=== PATIENT | male | born 1945 | race Caucasian/White ===

== ENCOUNTER → 2018-07-25 | Outpatient (CLI) | payer MEDICARE ==
--- NOTE | 2018-07-25 17:31 | XR ---
EXAMINATION TYPE: XR chest 2V DATE OF EXAM: 07/25/2018 COMPARISON: NONE HISTORY: Cough TECHNIQUE: Frontal and lateral views of the chest are obtained. FINDINGS: There is no focal air space opacity, pleural effusion, or pneumothorax seen. The cardiac silhouette size is within normal limits. Surgical clips are present at the level of the gastroesophag eal junction. Anterior flowing osteophytes within the thoracic spine suggest diffuse idiopathic skele kelley hyperostosis. Deformity of the distal right clavicle may be due to remote trauma. The osseous st ructures are intact. IMPRESSION: No acute cardiopulmonary process.
== END ==
LOC: RADXRMAIN 12:57
PROVIDERS: ATTEND Internal Medicine
DX: R05 Cough (principal)
CPT/HCPCS: 71046

== ENCOUNTER → 2020-03-28 | Outpatient (CLI) | payer BC, MEDICARE ==
--- NOTE | 2020-03-28 08:58 | US ---
EXAMINATION TYPE: US kidneys/renal and bladder DATE OF EXAM: 03/28/2020 COMPARISON: NONE CLINICAL HISTORY: 74-year-old male R31.9 Hematuria, R10.9 Bilat flank pain. TECHNIQUE: Multiple sonographic images of the kidneys and bladder are obtained. FINDINGS: EXAM MEASUREMENTS: Right Kidney: 11.9 x 5.4 x 5.3 cm Left Kidney: 11.5 x 5.5 x 5.5 cm Right Kidney: No hydronephrosis. Subtle 6 mm echogenic area at the lower pole, possible nonobstructiv e calculus. Left Kidney: No hydronephrosis. Multiple simple cysts are present, largest measuring 3.3 x 3.4 x 4.1 cm at the mid pole. A few punctate echogenic foci could represent prominent vascular reflectors or pu nctate nonobstructive calculi. Bladder: wnl Bilateral Jets seen: Yes IMPRESSION: 1. No hydronephrosis. 2. Possible 6 lumbar nonobstructive right lower pole renal calculus. Additional punctate echoes withi n the left kidney could represent prominent vascular reflectors or punctate nonobstructive calculi. 3. Multiple simple cysts in the left kidney measuring up to 4.1 cm.
== END | disposition home or self-care (01) ==
LOC: RADUSWWP 07:21
PROVIDERS: ATTEND Internal Medicine
DX: N28.1 Cyst of kidney, acquired (principal); R31.9 Hematuria, unspecified
CPT/HCPCS: 76770

== ENCOUNTER → 2020-08-04 | Outpatient (CLI) | payer MEDICARE ==
--- NOTE | 2020-08-04 08:32 | US ---
EXAMINATION TYPE: US liver DATE OF EXAM: 08/04/2020 COMPARISON: NONE CLINICAL HISTORY: R94.5 Abnormal Liver function test. EXAM MEASUREMENTS: Liver Length: 17.2 cm Gallbladder Wall: 0.1 cm CBD: 0.3 cm Right Kidney: 12.4 x 5.9 x 5.2 cm Pancreas: Partially Obscured by bowel gas Liver: Increased attenuation, ? fatty liver with areas of focal sparing near GB Gallbladder: No stones seen Evidence for sonographic Stiles's sign: No CBD: wnl Right Kidney: wnl IMPRESSION: 1. Liver is increased attenuation with an area of hypoechogenicity near the gallbladder fossa likely representing focal fatty sparing. Increased attenuation suggestive of hepatic steatosis. Hepatitis al so in the differential diagnosis.
== END | disposition home or self-care (01) ==
LOC: RADUSWWP 07:41
PROVIDERS: ATTEND Internal Medicine
DX: R94.5 Abnormal results of liver function studies (principal)
CPT/HCPCS: 76705

== ENCOUNTER 2021-12-10 11:18 | Observation (INO) | payer MEDICARE ==
[2021-12-10] MEDS ORDERED: ASPIRIN 81 MG PO STA (11:29)
[2021-12-10] MEDS ORDERED: NITROGLYCERIN OINT 1 INCH/GM PACKET TOPICAL STA (11:29)
[2021-12-10] MEDS ORDERED: SODIUM CHLORIDE 0.9% 500 ML 500 ML IV STA (11:29)
[2021-12-10 11:32] VITALS: RESP 18
--- NOTE | 2021-12-10 11:35 | ED ---
General Adult HPI - General Chief complaint: Chest Pain Stated complaint: Chest pain Time Seen by Provider: 12/10/21 11:20 Source: patient, EMS, RN notes reviewed, old records reviewed Mode of arrival: ambulatory Limitations: no limitations - History of Present Illness Initial comments: This is a 76-year-old male who presents emergency Department complaining that he passed out this morning. Patient states he was sitting in a barstool smoking a joint and then he passed out. Patient states he didn't know how long he passed out for. Patient states he doesn't believe he hit his head or neck pain patient denies headache patient denies any neck pain. Patient states when he came to he was having chest pain when EMS arrived he also continued to have chest pain. Patient's chest pain is subsided. Patient denies any shortness of breath or difficulty breathing. Patient denies any recent fever chills or cough. Patient denies being lightheaded or dizzy. Patient denies headache patient denies numbness weakness. - Related Data Home Medications Medication Instructions Recorded Confirmed [place]-3 Fatty Acids/Fish Oil [Fish 1 each PO DAILY 06/26/15 07/04/15 Oil 1,000 mg Softgel] Ranitidine HCl 150 mg PO BID 06/26/15 07/04/15 Simvastatin [Zocor] 40 mg PO QAM 06/26/15 07/09/15 atenoloL [Tenormin] 50 mg PO DAILY 06/26/15 07/04/15 Previous Rx's Medication Instructions Recorded HYDROcodone/APAP 7.5-325MG [[place] 1 each PO Q6HR PRN #28 tab 07/09/15 7.5-325] Allergies Allergy/AdvReac Type Severity Reaction Status Date / Time Penicillins Allergy Rash/Hives Verified 12/10/21 11:37 Review of Systems ROS Statement: Those systems with pertinent positive or pertinent negative responses have been documented in the HPI. ROS Other: All systems not noted in ROS Statement are negative. Past Medical History Past Medical History: Chest Pain / Angina, GERD/Reflux, Hyperlipidemia, Hypertension, Myocardial Infarction (NM), Osteoarthritis (OA), Sleep Apnea/CPAP/BIPAP Additional Past Medical History / Comment(s): NO CPAP, HIATAL HERNIA, colonic POLYP Last Myocardial Infarction Date:: 10/1994 History of Any Multi-Drug Resistant Organisms: None Reported Past Surgical History: Orthopedic Surgery, Tonsillectomy Additional Past Surgical History / Comment(s): 07-09-15 laprascopic gillian fundopliction. 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 Past Anesthesia/Blood Transfusion Reactions: No Reported Reaction Past Psychological History: No Psychological Hx Reported Smoking Status: Current every day smoker, Former smoker Past Alcohol Use History: Occasional Past Drug Use History: Marijuana - Past Family History Mother Family Medical History: No Reported History Additional Family Medical History / Comment(s): in mva at age 44 Father Family Medical History: No Reported History Additional Family Medical History / Comment(s): in boating accident at age 67 Brother(s) Family Medical History: Coronary Artery Disease (CAD) Additional Family Medical History / Comment(s): Patient has 3 brothers and he knows that one brother has had a 3 or 4 vessel CABG and is not aware of other health problems. Patient has 3 sisters which she does not know of any major medical problems. Son(s) Additional Family Medical History / Comment(s): He has one son that is overweight and has gastric esophageal reflux disease and hypertension. He has one daughter that has gallbladder problems. General Exam - General Exam Comments Initial Comments: GENERAL: Patient is well-developed and well-nourished. Patient is nontoxic and well- hydrated and is in mild distress. ENT: Neck is soft and supple. No significant lymphadenopathy is noted. Oropharynx is clear. Moist mucous membranes. Neck has full range of motion without eliciting any pain. EYES: The sclera were anicteric and conjunctiva were pink and moist. Extraocular mov ements were intact and pupils were equal round and reactive to light. Eyelids were unremarkable. PULMONARY: Unlabored respirations. Good breath sounds bilaterally. No audible rales rhonchi or wheezing was noted. CARDIOVASCULAR: There is a regular rate and rhythm without any murmurs gallops or rubs. ABDOMEN: Soft and nontender with normal bowel sounds. SKIN: Skin is clear with no lesions or rashes and otherwise unremarkable. NEUROLOGIC: Patient is alert and oriented x3. Cranial nerves II through XII are grossly intact. Motor and sensory are also intact. Normal speech, volume and content. Symmetrical smile. MUSCULOSKELETAL: Normal extremities with adequate strength and full range of motion. No lower extremity swelling or edema. No calf tenderness. LYMPHATICS: No significant lymphadenopathy is noted PSYCHIATRIC: Normal psychiatric evaluation. Limitations: no limitations Course Vital Signs 12/10/21 12/10/21 12/10/21 11:21 11:47 12:36 Temperature 97.4 F L Pulse Rate 53 L 52 L Pulse Rate [ 56 L Pulse Oximetery ] Respiratory 18 18 Rate Blood Pressure 108/57 117/58 O2 Sat by Pulse 96 95 Oximetry Medical Decision Making - Medical Decision Making Chest x-ray shows no acute abnormality. Patient's EKG shows sinus bradycardia 51 bpm MD interval is 161 QRSs 109 QT interval 474 QTC is 449. Patient's EKG shows no ST segment elevation or depression. I spoke with Dr. Chang he agreed to admit the patient admitted the patient I consult cardiology. - Lab Data Result diagrams: 12/10/21 11:47 12/10/21 11:47 Lab Results 12/10/21 12/10/21 12/10/21 Range/Units 11:47 11:47 11:47 WBC 4.0 (3.8-10.6) k/uL RBC 3.96 L (4.30-5.90) m/uL Hgb 12.1 L (13.0-17.5) gm/dL Hct 35.3 L (39.0-53.0) % MCV 89.2 (80.0-100.0) fL MCH 30.6 (25.0-35.0) pg MCHC 34.3 (31.0-37.0) g/dL RDW 13.8 (11.5-15.5) % Plt Count 162 (150-450) k/uL MPV 7.2 Neutrophils % 62 % Lymphocytes % 24 % Monocytes % 6 % Eosinophils % 4 % Basophils % 1 % Neutrophils # 2.5 (1.3-7.7) k/uL Lymphocytes # 1.0 (1.0-4.8) k/uL Monocytes # 0.3 (0-1.0) k/uL Eosinophils # 0.2 (0-0.7) k/uL Basophils # 0.0 (0-0.2) k/uL PT 11.2 (9.0-12.0) sec INR 1.0 (<1.2) APTT 20.6 L (22.0-30.0) sec D-Dimer 0.57 (<0.60) mg/L FEU Sodium 137 (137-145) mmol/L Potassium 4.5 (3.5-5.1) mmol/L Chloride 107 (98-107) mmol/L Carbon Dioxide 24 (22-30) mmol/L Anion Gap 6 mmol/L BUN 15 (9-20) mg/dL Creatinine 1.18 (0.66-1.25) mg/dL Est GFR (CKD-EPI)AfAm 70 (>60 ml/min/1.73 sqM) Est GFR (CKD-EPI)NonAf 60 (>60 ml/min/1.73 sqM) Glucose 112 H (74-99) mg/dL Calcium 8.5 (8.4-10.2) mg/dL Magnesium 2.0 (1.6-2.3) mg/dL Total Bilirubin 0.3 (0.2-1.3) mg/dL AST 22 (17-59) U/L ALT 23 (4-49) U/L Alkaline Phosphatase 53 (38-126) U/L Troponin I (0.000-0.034) ng/mL Total Protein 6.1 L (6.3-8.2) g/dL Albumin 3.5 (3.5-5.0) g/dL 12/10/21 Range/Units 11:47 WBC (3.8-10.6) k/uL RBC (4.30-5.90) m/uL Hgb (13.0-17.5) gm/dL Hct (39.0-53.0) % MCV (80.0-100.0) fL MCH (25.0-35.0) pg MCHC (31.0-37.0) g/dL RDW (11.5-15.5) % Plt Count (150-450) k/uL MPV Neutrophils % % Lymphocytes % % Monocytes % % Eosinophils % % Basophils % % Neutrophils # (1.3-7.7) k/uL Lymphocytes # (1.0-4.8) k/uL Monocytes # (0-1.0) k/uL Eosinophils # (0-0.7) k/uL Basophils # (0-0.2) k/uL PT (9.0-12.0) sec INR (<1.2) APTT (22.0-30.0) sec D-Dimer (<0.60) mg/L FEU Sodium (137-145) mmol/L Potassium (3.5-5.1) mmol/L Chloride (98-107) mmol/L Carbon Dioxide (22-30) mmol/L Anion Gap mmol/L BUN (9-20) mg/dL Creatinine (0.66-1.25) mg/dL Est GFR (CKD-EPI)AfAm (>60 ml/min/1.73 sqM) Est GFR (CKD-EPI)NonAf (>60 ml/min/1.73 sqM) Glucose (74-99) mg/dL Calcium (8.4-10.2) mg/dL Magnesium (1.6-2.3) mg/dL Total Bilirubin (0.2-1.3) mg/dL AST (17-59) U/L ALT (4-49) U/L Alkaline Phosphatase (38-126) U/L Troponin I <0.012 (0.000-0.034) ng/mL Total Protein (6.3-8.2) g/dL Albumin (3.5-5.0) g/dL Disposition Clinical Impression: Chest pain, Syncope Disposition: ADMITTED IP TO THIS HOSP Referrals: Lance Chang MD [Primary Care Provider] - 1-2 days Time of Disposition: 12:54
[2021-12-10 12:01] LABS: Basophils % (A) 1 %; Eosinophils # (A) 0.2 k/uL (0-0.7); Eosinophils % (A) 4 %; HCT 35.3 % (39.0-53.0); HGB 12.1 gm/dL (13.0-17.5); Lymphocytes % (A) 24 %; MCH 30.6 pg (25.0-35.0); MCHC 34.3 g/dL (31.0-37.0); MCV 89.2 fL (80.0-100.0); Mean Platelet Volume 7.2; Monocytes # (A) 0.3 k/uL (0-1.0); Monocytes % (A) 6 %; Neutrophils # (A) 2.5 k/uL (1.3-7.7); Neutrophils % (A) 62 %; Platelet Count 162 k/uL (150-450); RBC 3.96 m/uL (4.30-5.90); RDW 13.8 % (11.5-15.5)
[2021-12-10 12:22] LABS: Prothrombin Time 11.2 sec (9.0-12.0)
[2021-12-10 12:28] LABS: Albumin 3.5 g/dL (3.5-5.0); Calcium 8.5 mg/dL (8.4-10.2); Potassium 4.5 mmol/L (3.5-5.1); Total Bilirubin 0.3 mg/dL (0.2-1.3); Total Protein 6.1 g/dL (6.3-8.2)
[2021-12-10 12:35] LABS: Partial Thromboplastin Time 20.6 sec (22.0-30.0)
--- NOTE | 2021-12-10 12:54 | XR ---
EXAMINATION TYPE: XR chest 2V DATE OF EXAM: 12/10/2021 COMPARISON: 07/25/2018 HISTORY: 76-year-old male with chest pain and weakness TECHNIQUE: PA and lateral views FINDINGS: Heart normal size. Aorta and pulmonary vasculature within normal limits. Mild patchy interstitial jacqui nges in the mid and lower lungs. No pleural effusion. Surgical clips at the GE junction. Chronic post surgical versus posttraumatic widening at the right AC joint. IMPRESSION: Mild patchy changes in the mid and lower lungs could represent areas of prominent atelectasis. Correl ate to exclude bronchitis or asthma. Surgical clips at the GE junction.
[2021-12-10] MEDS ORDERED: NITROGLYCERIN SL TABS 0.4 MG TAB SUBLINGUAL PRN (12:55)
[2021-12-10 16:12] VITALS: BP 172/77; PULSE 58; TEMP 97.7
[2021-12-10] MEDS ORDERED: NITROGLYCERIN OINT 1 INCH/GM PACKET TOPICAL SCH (18:00)
[2021-12-11] MEDS ORDERED: ASPIRIN 325 MG TAB PO SCH (09:00)
[2021-12-11] MEDS ORDERED: ATORVASTATIN 10 MG TAB PO SCH (09:00)
[2021-12-11] MEDS ORDERED: lisinopriL 10 MG TAB PO SCH (09:00)
[2021-12-11] MEDS ORDERED: ASPIRIN 81 MG PO SCH (09:00)
--- NOTE | 2021-12-20 10:49 | P.HPIM ---
History of Present Illness H&P Date: 12/20/21 This is a [age]-year-old male patient who presented to the ER with syncopal episodes and chest pain. According to ER records patient was apparently sitting in a barstool smoking joint and then passed out patient presented with chest pain when EMS arrived. Patient does have a past medical history of, chest pain, hyperlipidemia, hypertension, HI, OA and sleep apnea. Patient also current every day smoker. It was recommended the patient be admitted and cardiology workup ordered. According to records patient left AGAINST MEDICAL ADVICE. I did not personally examine this patient as patient left AMA prior to examination Past Medical History Past Medical History: Chest Pain / Angina, GERD/Reflux, Hyperlipidemia, Hypertension, Myocardial Infarction (HI), Osteoarthritis (OA), Sleep Apnea/CPAP/BIPAP Additional Past Medical History / Comment(s): NO CPAP, HIATAL HERNIA, colonic POLYP Last Myocardial Infarction Date:: 10/1994 History of Any Multi-Drug Resistant Organisms: None Reported Past Surgical History: Orthopedic Surgery, Tonsillectomy Additional Past Surgical History / Comment(s): 07-09-15 laprascopic gillian fundopliction. 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 Past Anesthesia/Blood Transfusion Reactions: No Reported Reaction Past Psychological History: No Psychological Hx Reported Smoking Status: Current every day smoker, Former smoker Past Alcohol Use History: Occasional Past Drug Use History: Marijuana - Past Family History Mother Family Medical History: No Reported History Additional Family Medical History / Comment(s): in mva at age 44 Father Family Medical History: No Reported History Additional Family Medical History / Comment(s): in boating accident at age 67 Brother(s) Family Medical History: Coronary Artery Disease (CAD) Additional Family Medical History / Comment(s): Patient has 3 brothers and he knows that one brother has had a 3 or 4 vessel CABG and is not aware of other health problems. Patient has 3 sisters which she does not know of any major medical problems. Son(s) Additional Family Medical History / Comment(s): He has one son that is overweight and has gastric esophageal reflux disease and hypertension. He has one daughter that has gallbladder problems. Medications and Allergies Home Medications Medication Instructions Recorded Confirmed Type Aspirin EC [Ecotrin Low Dose] 81 mg PO DAILY 12/10/21 12/10/21 History Pantoprazole [Protonix] 40 mg PO DAILY 12/10/21 12/10/21 History Rosuvastatin Calcium [Crestor] 5 mg PO DAILY 12/10/21 12/10/21 History lisinopriL [Zestril] 10 mg PO DAILY 12/10/21 12/10/21 History Allergies Allergy/AdvReac Type Severity Reaction Status Date / Time Penicillins Allergy Rash/Hives Verified 12/10/21 13:27 Results CBC & Chem 7: 12/10/21 11:47 12/10/21 11:47
== END 2021-12-10 18:32 | disposition left against medical advice (07) ==
LOC: EC 11:18 → 1SOBS 13:01
PROVIDERS: ADMIT Internal Medicine; ATTEND Internal Medicine
DX: R07.9 Chest pain, unspecified (principal); R55 Syncope and collapse; K21.9 Gastro-esophageal reflux disease without esophagitis; E78.5 Hyperlipidemia, unspecified; I10 Essential (primary) hypertension; I25.2 Old myocardial infarction; M19.90 Unspecified osteoarthritis, unspecified site; G47.30 Sleep apnea, unspecified; K44.9 Diaphragmatic hernia without obstruction or gangrene; K63.5 Polyp of colon; R00.1 Bradycardia, unspecified; F17.200 Nicotine dependence, unspecified, uncomplicated; Z20.822 Contact with and (suspected) exposure to COVID-19; Z53.29 Procedure and treatment not carried out because of patient's decision for other reasons; Z85.820 Personal history of malignant melanoma of skin; Z87.11 Personal history of peptic ulcer disease; Z79.899 Other long term (current) drug therapy; Z79.82 Long term (current) use of aspirin; Z88.0 Allergy status to penicillin; Z82.49 Family history of ischemic heart disease and other diseases of the circulatory system; Z83.79 Family history of other diseases of the digestive system
CPT/HCPCS: 99285; 36415; 93005; 85379; 80053; 83735; 84484; 85025; 85610; 85730; 87635; 71046; G0378

== ENCOUNTER → 2023-10-14 | Outpatient (CLI) | payer MEDICARE ==
--- NOTE | 2023-10-14 17:09 | US ---
EXAMINATION TYPE: US kidneys/renal and bladder DATE OF EXAM: 10/14/2023 COMPARISON: 03/28/2020 CLINICAL INDICATION: Male, 78 years old with history of R10.9 UNSPECIFIED ABDOMINAL PAIN; flank pain x 3 months EXAM MEASUREMENTS: Right Kidney: 11.9x5.4x5.3 cm Left Kidney: 11.5x5.5x5.5 cm Right Kidney: No hydronephrosis or masses seen Left Kidney: largest cystic area measured at superior pole: 2.6x2.7x3.4cm Bladder: irregular posterior wall, prostate appears to protrude into bladder Bilateral Jets seen: Yes There is no evidence for hydronephrosis at this point in time. No nephrolithiasis is seen. No deisy s are identified. The urinary bladder is anechoic. Bilateral ureteral jets are seen. exam slightly limited by bowel and body habitus IMPRESSION: 1. No evidence for obstructive uropathy. 2. Left renal cyst. 3. Prostatomegaly, correlate with serum PSA.
== END | disposition home or self-care (01) ==
LOC: RADUSWWP 16:27
PROVIDERS: ATTEND Internal Medicine
DX: N28.1 Cyst of kidney, acquired (principal); N40.0 Benign prostatic hyperplasia without lower urinary tract symptoms
CPT/HCPCS: 76770

== ENCOUNTER 2025-01-13 13:40 | Inpatient (IN) | payer MEDICARE ==
[2025-01-13] MEDS: HYDROmorphone 0.5 MG/0.5 ML SYRINGE IVP ONE (15:08)
[2025-01-13] MEDS: IV FLUID CONTINUATION 1,000 ML IV ONE (15:08)
[2025-01-13] MEDS: ONDANSETRON 4 MG/2 ML VIAL IVP ONE (15:08)
[2025-01-13] MEDS: LIDOCAINE 1% INJ 10MG/ML (20 ML MDV) SQ ONE (15:12)
[2025-01-13] MEDS: VERAPAMIL SYRINGE (5 MG/10 ML) INTRAARTER ONE (15:14)
[2025-01-13] MEDS: HEPARIN SODIUM 1,000 UN/ML (10ML VL) IV ONE (15:30)
[2025-01-13] MEDS: IOPAMIDOL-370 100ML BTL INJ ONE (15:40)
[2025-01-13] MEDS ORDERED: RX INFO: IV CONTRAST WAS GIVEN 1 EACH MISC MISCELLANE PRN (16:01)
[2025-01-13 17:23] LABS: Glucose,Whole Blood 126 mg/dL (70-110)
[2025-01-13] MEDS: SODIUM CHLORIDE 0.9% 1,000 ML IV SCH (17:30)
[2025-01-13] MEDS: hydrALAZINE HCL 20 MG/ML 1 ML VIAL IVP PRN (17:37)
--- NOTE | 2025-01-13 18:28 | CT ---
EXAMINATION TYPE: CT brain wo con DATE OF EXAM: 01/13/2025 6:13 PM COMPARISON: None. CLINICAL INDICATION: Male, 79 years old with history of altered mental status, AMS. Shaking. TECHNIQUE: Brain: Axial CT images of the brain were obtained with coronal and sagittal reformats created and rev iewed. Contrast used: None. Oral contrast used: None. CT DLP: 1153.4 mGycm, Automated exposure control for dose reduction was used. FINDINGS: Brain: Extra-axial spaces: No abnormal extra-axial fluid collections. Ventricular system: Within normal limits Cerebral parenchyma: No acute intraparenchymal hemorrhage or mass effect. The perkins-white junction is well differentiated. Cerebellum: Unremarkable. Mass effect: No evidence of midline shift. Intracranial vasculature: Atherosclerotic calcifications of the intracranial vessels. Soft tissues: Normal. Calvarium/osseous structures: No depressed skull fracture. Paranasal sinuses and mastoid air cells: Mild scattered paranasal sinus disease. Visualized orbits: Orbital contents are intact. IMPRESSION: No acute intracranial process. [facility], , 01/13/2025 6:26 PM
--- NOTE | 2025-01-13 18:32 | CT ---
EXAMINATION TYPE: CT abdomen wo con DATE OF EXAM: 01/13/2025 6:13 PM COMPARISON: Ultrasound CLINICAL INDICATION: Male, 79 years old with history of persistent nausea/vomiting; N/V. TECHNIQUE: Axial CT abdomen wo con;Sagittal and coronal reformats were created on a separate worksta tion. Contrast used: mL of , (none if empty) Oral contrast used: without Oral Contrast (none if empty) CT DLP: 718.3 mGycm, Automated exposure control for dose reduction was used. FINDINGS: LOWER CHEST: Mild cardiomegaly. Coronary artery calcifications aortic valve leaflet consultations carol ral valve annular calcifications. ABDOMEN LIVER: Unremarkable GALLBLADDER AND BILE DUCTS: Vicarious excretion of IV contrast seen through out the gallbladder lumen . PANCREAS: Unremarkable. SPLEEN: Unremarkable. ADRENAL GLANDS: Unremarkable. KIDNEYS AND URETERS: No evidence of hydronephrosis or renal calculus. The ureters are unremarkable. Simple appearing renal cortical cysts. ABDOMEN & PELVIS STOMACH AND BOWEL: No evidence of bowel obstruction. Postsurgical changes to gastroesophageal junctio n. Scattered colonic diverticula. The appendix is normal. PERITONEUM/RETROPERITONEUM: No evidence of pneumoperitoneum or free fluid. VASCULATURE: No evidence of aortic aneurysm. MUSCULOSKELETAL: No acute osseous abnormalities. Moderate disc degeneration changes are present throu ghout the thoracolumbar spine. Pseudoarthrosis of the spinous processes throughout the spine with lar ge osteophytes anteriorly. LYMPH NODES: No gross evidence for lymphadenopathy. SOFT TISSUE/ABDOMINAL WALL: Unremarkable IMPRESSION: 1. No evidence for acute abdominal process. 2. Colonic diverticulosis. 3. Postsurgical changes to the gastroesophageal junction. 4. Moderate degeneration changes spine with pseudoarthrosis of the spinous processes. [facility], , 01/13/2025 6:30 PM
[2025-01-13] MEDS ORDERED: LORazepam 2 MG/ML INJ IV PRN (18:59)
--- NOTE | 2025-01-13 19:08 | CC ---
CARDIAC CATHETERIZATION REPORT INDICATION: Unstable angina. PROCEDURE NOTE: After obtaining informed consent, left heart catheterization and coronary angiogram were performed via the right radial artery using standard Aidee catheters. The patient tolerated the procedure well without any obvious immediate complications, and the patient received moderate conscious sedation. Total sedation time was 16 minutes. A TR band will be used for hemostasis. Right radial artery access was obtained using Seldinger technique. A 6-Turkish sheath was placed. Catheters and wires were floated into the ascending aorta under fluoroscopic guidance. The patient received verapamil and heparin per protocol. Tolerated the procedure uneventfully. FINDINGS: 1. Hemodynamics: Left ventricular end-diastolic pressure is 14 mm. There is no significant gradient across the aortic valve. 2. Left ventriculogram: Not performed. 3. Angiographic data: Right coronary artery is a large dominant vessel and is free of significant stenosis. Left main coronary artery is a short vessel, but is free of stenosis, divides into left anterior descending coronary artery and circumflex coronary artery. LAD and its branches, circumflex coronary artery and its branches are free of significant stenosis. CONCLUSIONS: 1. Normal coronary arteries. 2. Normal left ventricular end-diastolic pressure. PLAN: The patient's chest discomfort is probably noncardiac in origin. We will admit him and the primary will pursue further workup. MMODL / IJN: [id number] /
[2025-01-13] MEDS: LORazepam 1 MG/0.5 ML VIAL IV PRN (19:52)
[2025-01-13] MEDS: ONDANSETRON 4 MG/2 ML VIAL IVP PRN (19:52)
--- NOTE | 2025-01-13 20:10 | US ---
EXAMINATION TYPE: US kidneys/renal and bladder DATE OF EXAM: 01/13/2025 COMPARISON: 01/13/2025 CT CLINICAL INDICATION: Male, 79 years old with history of HTN, back pain; TECHNIQUE: Grayscale imaging of the bilateral kidneys and urinary bladder: FINDINGS: EXAM MEASUREMENTS: Right Kidney: 10.3 x 5.0 x 4.5 cm Left Kidney: 10.1 x 4.5 x 5.7 cm Right Kidney: No hydronephrosis or masses seen Left Kidney: Suboptimal visualization due to patient positioning and shaking. Mid lateral anechoic le yasmin = 2.1 x 1.8 x 2.2 cm Bladder: anechoic Bilateral Jets not seen There is no evidence for hydronephrosis at this point in time. No nephrolithiasis is seen. No deisy s are identified. The urinary bladder is anechoic. IMPRESSION: 1. No evidence for acute process. 2. Left renal cortical probable cys as seen on CT. [facility], , 01/13/2025 8:07 PM
[2025-01-14 06:03] LABS: Basophils % (A) 0 %; Eosinophils % (A) 1 %; HCT 36.2 % (39.0-53.0); HGB 11.6 gm/dL (13.0-17.5); Lymphocytes # (A) 0.9 k/uL (1.0-4.8); Lymphocytes % (A) 16 %; MCH 29.3 pg (25.0-35.0); MCHC 32.1 g/dL (31.0-37.0); MCV 91.3 fL (80.0-100.0); Monocytes # (A) 0.4 k/uL (0-1.0); Monocytes % (A) 7 %; Neutrophils # (A) 4.2 k/uL (1.3-7.7); Neutrophils % (A) 74 %; Platelet Count 184 k/uL (150-450); RBC 3.97 m/uL (4.30-5.90); RDW 13.8 % (11.5-15.5); WBC 5.7 k/uL (3.8-10.6)
[2025-01-14 06:25] LABS: ALT 30 U/L (4-49); AST 26 U/L (17-59); African American GFR (CKD) 73 (>60 ml/min/1.73 sqM); Albumin 4.3 g/dL (3.5-5.0); Alkaline Phosphatase 55 U/L (38-126); Anion Gap 7 mmol/L; Blood Urea Nitrogen 18 mg/dL (9-20); Calcium 9.3 mg/dL (8.4-10.2); Carbon Dioxide 25 mmol/L (22-30); Chloride 108 mmol/L (98-107); Glucose 117 mg/dL (74-99); Non-African American GFR(CKD) 63 (>60 ml/min/1.73 sqM); Potassium 4.3 mmol/L (3.5-5.1); Sodium 140 mmol/L (137-145); Total Bilirubin 0.6 mg/dL (0.2-1.3); Total Protein 6.8 g/dL (6.3-8.2)
[2025-01-14] MEDS: PANTOPRAZOLE 40 MG TABLET PO SCH ×2 (09:19→16:59)
[2025-01-14] MEDS: ATORVASTATIN 20 MG TAB PO SCH (09:20)
[2025-01-14] MEDS: TAMSULOSIN 0.4 MG CAP.ER.24H PO SCH (09:20)
[2025-01-14] MEDS: hydroCHLOROthiazide 25 MG TAB PO SCH (09:20)
[2025-01-14] MEDS: lisinopriL 20 MG TAB PO SCH (09:22)
--- NOTE | 2025-01-14 14:13 | P.CNNES ---
History of Present Illness Consult date: 01/14/25 Requesting physician: Lance Chang Reason for Consult: Mental status change History of Present Illness: Patient is a 79-year-old right-handed male with history of hypertension, ex tobacco use, came to the hospital as a transfer from [facility] for elective cardiac catheterization for unstable angina. He came to the hospital yesterday. Cardiac catheter revealed normal coronary arteries. Normal left ventricular end-diastolic pressure. Patient's chest pain was felt to be related to noncardiac in origin. Patient and his son provided with a history. Patient mentions that he bought some sleeping aid from a commercial at the TV called relaxation and sleep, which has 2 tablets per serving, and per serving has 5 mg of melatonin, 100 mg of RICHARD, 100 mg magnesium, valerian etc. After he took 2 tablets as recommended on the bottle, on night, he woke up at 3 AM on Tuesday with anxiety, sweating, chest pain. He thought symptoms will go away but as the symptoms persisted, he could not stand it anymore therefore he went to [facility] on Tuesday midnight. He stayed in the hospital for 2 days. He was transferred to [facility] for cardiac catheterization. Since all the symptoms started, he has been having episodes in which he starts with stomach ache, which he actually points to epigastric and sternal pain, rates 10/10, cannot breathe, started shaking "like leaf on a windy day", kicking his legs, gets a headache, sweating and nausea. This episode lasts for about 20 minutes and has happened about 20 times in the last 3 to 4 days. Per son it is hap pening about every 3 hours and the last episode was at 6 AM. When he gets his episode he gets eyes are hurting which he attributes to high blood pressure, both eyes have blurred vision, hard time speaking, which partly is from severe pain. As cardiac cause has been ruled out, cane weigher has been consulted. There is no report of focal weakness, facial droop. CT head showed no acute intracranial process. I personally reviewed CT head, agree with the findings. CT of abdomen without contrast revealed no evidence for acute abdominal process. Colonic diverticulosis. Postsurgical changes to the gastroesophageal junction. Moderate degeneration changes spine with pseudoarthrosis of the spinous processes. Blood test shows normal CBC with slightly decreased hemoglobin 11.6. CMP is normal. Ammonia less than 9. Vital signs shows blood pressure 176/80, pulse rate 75 temperature 98.2. Blood pressure was high, but now has improved. Home medications include Lipitor 20 mg, Flomax, HCTZ, lisinopril 40 mg and Protonix. Patient apparently not on any antiplatelet medication. Patient smoked 1 pack/day for 48 years, quit 10 years ago. He drinks only 1 time a week, not a heavy drinker. Denies diabetes. He does have hypertension. Records from [facility]: Patient was receiving aspirin 81 mg at [facility], but has stopped taking it here. Magnesium 1.88. Lactate 1.2 troponin negative. UA shows 2+ leukocyte esterase, negative nitrite no bacteria. Basic metabolic panel normal. Creatinine slightly elevated 1.65. Lipase 29 normal. Hepatic panel normal. PT/INR, PTT normal. CBC normal. Chest x-ray showed mild vascular congestion. EKG showed sinus rhythm. Patient was admitted for chest pain, hypertensive urgency, acute on chronic renal failure, evidence of kidney stone on CT, lactic acidosis, history of GERD and peptic ulcer disease. Review of Systems All pertinent positive and negative review of systems mentioned HPI. Otherwise unremarkable. Past Medical History Past Medical History: Coronary Artery Disease (CAD), Chest Pain / Angina, GERD/Reflux, Hyperlipidemia, Hypertension, Myocardial Infarction (MS), Ost eoarthritis (OA), Sleep Apnea/CPAP/BIPAP Additional Past Medical History / Comment(s): NO CPAP, HIATAL HERNIA, colonic POLYP Last Myocardial Infarction Date:: 10/1994 History of Any Multi-Drug Resistant Organisms: None Reported Past Surgical History: Orthopedic Surgery, Tonsillectomy Additional Past Surgical History / Comment(s): 07-09-15 laprascopic gillian fundopliction. 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 Past Anesthesia/Blood Transfusion Reactions: No Reported Reaction Past Psychological History: No Psychological Hx Reported Additional Psychological History / Comment(s): pt lives with a girlfriend,emily. 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 He quit 10 years ago. He does have a medical marijuana card and smokes marijuana,. pt reports drinking 5 drinks weekly Past Drug Use History: Marijuana Additional Drug Use History / Comment(s): smokes marijuana occasionally - Past Family History Mother Family Medical History: No Reported History Additional Family Medical History / Comment(s): in mva at age 44 Father Family Medical History: No Reported History Additional Family Medical History / Comment(s): in boating accident at age 67 Brother(s) Family Medical History: Coronary Artery Disease (CAD) Additional Family Medical History / Comment(s): Patient has 3 brothers and he knows that one brother has had a 3 or 4 vessel CABG and is not aware of other health problems. Patient has 3 sisters which she does not know of any major medical problems. Son(s) Additional Family Medical History / Comment(s): He has one son that is overwe ight and has gastric esophageal reflux disease and hypertension. He has one daughter that has gallbladder problems. Medications and Allergies Home Medications Medication Instructions Recorded Confirmed Type Pantoprazole [Protonix] 40 mg PO DAILY 12/10/21 01/13/25 History Atorvastatin [Lipitor] 20 mg PO DAILY 01/13/25 01/13/25 History Tamsulosin [Flomax] 0.4 mg PO DAILY 01/13/25 01/13/25 History hydroCHLOROthiazide [Hydrodiuril] 25 mg PO DAILY 01/13/25 01/13/25 History lisinopriL 40 mg PO DAILY 01/13/25 01/13/25 History Allergies Allergy/AdvReac Type Severity Reaction Status Date / Time Penicillins Allergy Rash/Hives Verified 01/13/25 16:10 Physical Examination - Vital Signs Vital Signs: Vital Signs Temp Pulse Resp BP Pulse Ox 01/14/25 03:28 98.2 F 65 16 154/85 94 L 01/14/25 00:30 21 01/14/25 00:00 87 18 160/80 97 01/13/25 20:00 97.9 F 81 21 125/76 99 01/13/25 18:43 88 18 156/74 97 01/13/25 18:40 84 18 159/76 97 03/16/25 17:50 81 21 158/80 98 01/13/25 17:30 81 21 01/13/25 17:16 94 20 199/97 98 01/13/25 16:31 85 18 185/92 96 01/13/25 16:16 69 18 186/86 96 01/13/25 16:01 98.2 F 78 18 171/77 96 01/13/25 15:55 75 20 176/80 96 Intake and Output 01/13/25 01/14/25 01/14/25 22:59 06:59 14:59 Intake Total 100 180 Output Total 300 Balance -200 180 Intake: IV 100 Oral 180 Output: Urine 300 Other: Voiding Method Urinal Urinal # Voids 3 Weight 90.718 kg 90.5 kg Patient is an elderly male, in no acute distress. Patient is alert awake oriented to time place and person. Speech and language functions are normal. Patient can name and repeat very well. No aphasia or dysarthria. Attention, concentration and fund of knowledge is adequate. On cranial nerve examination, pupils are equal, round and reacting to light, visual thao are full on confrontation, with no neglect on double simultaneous stimulation. Extraocular muscles are intact with no nystagmus. Face is symmetric, tongue protrudes to the midline. Palatal elevation and sensation normal, hearing and shoulder shrug normal, facial sensation normal. On muscle strength testing, there is no pronator drift and the strength is normal in arms and legs distally and proximally. Deep tendon reflexes are symmetric 2+ all over and plantars downgoing. Sensory to touch is equal with no neglect on double simultaneous stimulation. Cerebellar function showed no ataxia for [id number] testing. No dysdiadochokinesia. No ataxia for [id number] testing on either side. Tone and bulk of muscles normal. Gait deferred.. On general examination, there is no carotid bruit or murmur, S1-S2 audible. Chest is clear on consultation. Abdomen is soft nontender. No organomegaly, bowel sounds present. Peripheral pulses are present. No peripheral edema. Results - Laboratory Findings CBC and BMP: 01/14/25 05:18 01/14/25 05:18 Abnormal Lab Findings: Abnormal Labs 01/13/25 01/14/25 01/14/25 17:21 05:18 05:18 RBC 3.97 L Hgb 11.6 L Hct 36.2 L Lymphocytes # 0.9 L Chloride 108 H Glucose 117 H POC Glucose (mg/dL) 126 H Assessment and Plan Assessment: * Recurrent episodes of epigastric/sternal pain associated with generalized shaking, confusion, sweating, nausea, lasting for about 20 minutes. Symptoms started after he took OTC medication for sleep, on , 01/10/2025, which has melatonin and RICHARD. Patient has had about 20 such episodes in the last 3 to 4 days. Rule out hypertensive encephalopathy * Atypical chest pain * Hypertensive urgency * Hypertension * History of peptic ulcer disease * Ex tobacco use Plan: * Patient symptoms are likely related to either GI or cardiac reasons. Do not believe symptoms are neurologically induced. * We will check carotid Doppler, rule out stenosis. * EEG, rule out seizures. * GI consult has been initiated for recurrent episodes of sternal/epigastric pain. * 2D echo with bubble study. * Cardiac cath has been negative. * Optimize control of blood pressure. * Consider starting aspirin, if no GI contraindications. * Patient had undergone urine and blood cultures, results pending. * Neurology will follow clinically. Thank you for the consult. Time with Patient: Greater than 30
--- NOTE | 2025-01-14 14:32 | US ---
EXAMINATION TYPE: US carotid duplex BILAT DATE OF EXAM: 01/14/2025 COMPARISON: NONE CLINICAL INDICATION: Male, 79 years old with history of Speech difficulty; speech difficulty Additional History: R47.81 Slurred speech TECHNIQUE: Grayscale, color Doppler and spectral Doppler evaluation of the bilateral carotid systems and vertebral arteries. Indirect Doppler criteria was utilized. FINDINGS: EXAM MEASUREMENTS: RIGHT: Peak Systolic Velocity (PSV) cm/sec ----- Right CCA: 75.4 ----- Right ICA: 93.0 ----- Right ECA: 118.9 ICA/CCA ratio: 1.2 RIGHT: End Diastole cm/sec ----- Right CCA: 17.1 ----- Right ICA: 33.6 ----- Right ECA: 9.0 LEFT: Peak Systolic Velocity (PSV) cm/sec ----- Left CCA: 74.3 ----- Left ICA: 274.2 ----- Left ECA: 219.1 ICA/CCA ratio: 3.7 LEFT: End Diastole cm/sec ----- Left CCA: 19.3 ----- Left ICA: 91.7 ----- Left ECA: 26..8 VERTEBRALS (direction of flow): Right Vertebral: Antegrade Left Vertebral: Antegrade Rhythm: Normal CURB SETTER NOTES: plaque seen in bilateral bulbs. Elevated velocities seen in left prox ICA with dam pened waveform distally. Color Doppler imaging shows patency with blood flow throughout the carotid artery. Spectral waveforms are within normal limits. IMPRESSION: Elevated left sided velocities and ratio indicating 50-69% diameter reduction. Criteria for Assigning % of Stenosis / Diameter reduction (Estimation based on the indirect measurements of the internal carotid artery velocities (ICA PSV). 1. Normal (no stenosis)=ICA PSV < 125 cm/s: ratio < 2.0: ICA EDV<40 cm/s. 2. Less than 50% stenosis=ICA PSV < 125 cm/s: ratio < 2.0: ICA EDV<40 cm/s. 3. 50 to 69% stenosis=ICA PSV of 125 to 230 cm/s: ration 2.0 ? 4.0: ICA EDV 40-100 cm/s. 4. Greater than 70% stenosis to near occlusion= ICA PSV > 230 cm/s: ratio > 4.0: ICA EDV > 100 cm/s. 5. Near occlusion= ICA PSV velocities may be low or undetectable: variable ratio and ICA EDV. 6. Total occlusion=unable to detect flow. [facility], , 01/14/2025 2:29 PM
--- NOTE | 2025-01-14 15:20 | P.CONS ---
History of Present Illness - Reason for Consult Consult date: 01/14/25 Epigastric pain, history of ulcer Requesting physician: Lance Chang - Chief Complaint Chest pain - History of Present Illness This a pleasant 79-year-old male who was transferred from [facility] for cardiac workup and underwent cardiac catheterization yesterday which showed no cardiac disease. He has had multiple workup with multiple consultants on. Patient apparently was complaining of chest pain that wrapped around his ribs and back, he went to [facility] and they transferred him here for cardiac catheterization. They ruled out acute coronary syndrome and consulted gastroenterology for epigastric pain with a history of peptic ulcer disease. Patient states he had an ulcer that required surgery when he was 22 years old. He has not had anything recurrent since then. Patient also has a history of acid reflux and large hiatal hernia. He underwent upper endoscopy and colonoscopy in [place] [address] Holland with findings of antral gastritis, hiatal hernia and esophagitis. Colonoscopy revealed transverse colon polyp status post polypectomy. He underwent Niesen fundoplication as well as versus laparoscopic lysis of adhesions in July [address] Holland. He has been on Protonix 40 mg daily and states he has not had any further acid reflux. He also states he does have some nausea. Family is at the bedside and states that he took an [id number] sleep aid and since then all of the symptoms had started as well as was recently working on his motorcycle and unsure if some of the discomfort could be secondary to musculoskeletal pain. He currently denies any abdominal pain, nausea or vomiting at this time. He is being seen by neurology for mental status changes. Review of Systems REVIEW OF SYSTEMS: CARDIOPULMONARY: No chest pain or shortness of breath. Gastrointestinal: Epigastric pain. Nausea no vomiting. No hematemesis, coffee-ground emesis. No rectal bleeding, or melena. GENITOURINARY: No dysuria or hematuria. MUSCULOSKELETAL: Reports normal range of motion. Back pain. SKIN: No rashes. No jaundice. ENDOCRINE: No chills, fevers. No excessive weight gain or loss. No polydipsia or polyuria. PSYCHIATRIC: Unremarkable. NEUROLOGY: No change in mental status. Denies dizziness, headache. ENT: Vision unremarkable. CONSTITUTIONAL: No recent weight loss. No fever, chills, night sweats. Past Medical History Past Medical History: Coronary Artery Disease (CAD), Chest Pain / Angina, GERD/Reflux, Hyperlipidemia, Hypertension, Myocardial Infarction (MS), Osteoarthritis (OA), Sleep Apnea/CPAP/BIPAP Additional Past Medical History / Comment(s): NO CPAP, HIATAL HERNIA, colonic POLYP Last Myocardial Infarction Date:: 10/1994 History of Any Multi-Drug Resistant Organisms: None Reported Past Surgical History: Orthopedic Surgery, Tonsillectomy Additional Past Surgical History / Comment(s): 07-09-15 laprascopic en fundopliction. 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 Past Anesthesia/Blood Transfusion Reactions: No Reported Reaction Past Psychological History: No Psychological Hx Reported Additional Psychological History / Comment(s): pt lives with a girlfriend,emily. 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 He quit 10 years ago. He does have a medical marijuana card and smokes marijuana,. pt reports drinking 5 drinks weekly Past Drug Use History: Marijuana Additional Drug Use History / Comment(s): smokes marijuana occasionally - Past Family History Mother Family Medical History: No Reported History Additional Family Medical History / Comment(s): in mva at age 44 Father Family Medical History: No Reported History Additional Family Medical History / Comment(s): in boating accident at age 67 Brother(s) Family Medical History: Coronary Artery Disease (CAD) Additional Family Medical History / Comment(s): Patient has 3 brothers and he knows that one brother has had a 3 or 4 vessel CABG and is not aware of other health problems. Patient has 3 sisters which she does not know of any major medical problems. Son(s) Additional Family Medical History / Comment(s): He has one son that is overweight and has gastric esophageal reflux disease and hypertension. He has one daughter that has gallbladder problems. Medications and Allergies Home Medications Medication Instructions Recorded Confirmed Type Pantoprazole [Protonix] 40 mg PO DAILY 12/10/21 01/13/25 History Atorvastatin [Lipitor] 20 mg PO DAILY 01/13/25 01/13/25 History Tamsulosin [Flomax] 0.4 mg PO DAILY 01/13/25 01/13/25 History hydroCHLOROthiazide [Hydrodiuril] 25 mg PO DAILY 01/13/25 01/13/25 History lisinopriL 40 mg PO DAILY 01/13/25 01/13/25 History Allergies Allergy/AdvReac Type Severity Reaction Status Date / Time Penicillins Allergy Rash/Hives Verified 01/13/25 16:10 Physical Exam Vitals: Vital Signs Temp Pulse Resp BP Pulse Ox 01/14/25 03:28 98.2 F 65 16 154/85 94 L 01/14/25 00:30 21 01/14/25 00:00 87 18 160/80 97 01/13/25 20:00 97.9 F 81 21 125/76 99 01/13/25 18:43 88 18 156/74 97 01/13/25 18:40 84 18 159/76 97 01/13/25 17:50 81 21 158/80 98 01/13/25 17:30 81 21 01/13/25 17:16 94 20 199/97 98 01/13/25 16:31 85 18 185/92 96 01/13/25 16:16 69 18 186/86 96 01/13/25 16:01 98.2 F 78 18 171/77 96 01/13/25 15:55 75 20 176/80 96 Intake and Output 01/13/25 01/14/25 01/14/25 22:59 06:59 14:59 Intake Total 100 180 Output Total 300 Balance -200 180 Intake: IV 100 Oral 180 Output: Urine 300 Other: Voiding Method Urinal Urinal # Voids 3 Weight 90.718 kg 90.5 kg General appearance: The patient is alert, oriented, appears in no acute distress. HET: Head is normocephalic and atraumatic. Conjunctiva pink. Sclera anicteric. Neck: Supple without lymphadenopathy. Abdomen: Soft, epigastric tenderness, nondistended. Extremities: Normal skin color and turgor. No pedal edema Skin: No rashes, no jaundice Neurological: No focal deficits. Alert and oriented. Results CBC & Chem 7: 01/14/25 05:18 01/14/25 05:18 Labs: Abnormal Lab Results - Last 24 Hours (Table) 01/13/25 01/14/25 01/14/25 Range/Units 17:21 05:18 05:18 RBC 3.97 L (4.30-5.90) m/uL Hgb 11.6 L (13.0-17.5) gm/dL Hct 36.2 L (39.0-53.0) % Lymphocytes # 0.9 L (1.0-4.8) k/uL Chloride 108 H (98-107) mmol/L Glucose 117 H (74-99) mg/dL POC Glucose (mg/dL) 126 H (70-110) mg/dL Comments: CT abdomen pelvis report no evidence for acute abdominal process. Colonic diverticulosis. Postsurgical changes to the gastroesophageal junction. Moderate degeneration changes spine with pseudoarthrosis of the spinous process. Brain CT reports no acute intracranial process Assessment and Plan (1) Epigastric pain Narrative/Plan: 79-year-old presented with chest pain with acute coronary syndrome ruled out. History of GERD with Niesen fundoplication in 2014. Reports acid reflux controlled with medication. Does have a history of ulcer at age 22 that required surgery. Has some epigastric discomfort, is being worked up for altered mental status changes as well. Will increase Protonix to 40 mg twice daily and follow. Consider possible general surgery consultation with previous history of lysis of adhesions and laparoscopic Niesen fundoplication. No acute CT findings. Current Visit: Yes Status: Acute Code(s): R10.13 - EPIGASTRIC PAIN SNOMED Code(s): 42943047 (2) History of En fundoplication Current Visit: Yes Status: Acute Code(s): Z98.890 - OTHER SPECIFIED POSTPROCEDURAL STATES SNOMED Code(s): 424186798 (3) Chest pain Current Visit: No Status: Acute Code(s): R07.9 - CHEST PAIN, UNSPECIFIED SNOMED Code(s): 77801895 (4) GERD (gastroesophageal reflux disease) Current Visit: Yes Status: Acute Code(s): K21.9 - GASTRO-ESOPHAGEAL REFLUX DISEASE WITHOUT ESOPHAGITIS SNOMED Code(s): 794783641 Plan: 1. Continue symptomatic and supportive care 2. Increase Protonix to 40 mg twice daily 3. Diet as tolerated 4. No plans on endoscopic evaluation at this time 5. Continue with medical management per primary medical team Thank you for this consultation, we will continue to follow. Dr. Omar Cornelius I agree with the dictator's note, documented as a scribe by Mavis Ray.
--- NOTE | 2025-01-14 18:50 | P.HPIM ---
History of Present Illness H&P Date: 01/14/25 Jose Saleem, is a 79-year-old male who presented to [facility] emergency room with vague symptoms of chest pain abdominal pain and episodes of shaking and tremors, he was initially admitted to [facility] he was evaluated by cardiology and was transferred to [facility] for cardiac catheterization His vital examination revealed a temperature of 98.2 pulse 78 respiration 18 blood pressure 171/77 pulse ox 96% on 2 L nasal cannula Laboratory data revealed a white blood count of 5.7 hemoglobin 11.6 platelet count 184 BUN 18 creatinine 1.12 At this time patient is being monitored on telemetry floor, cardiology are following for cardiac catheterization soon Past Medical History Past Medical History: Coronary Artery Disease (CAD), Chest Pain / Angina, GERD/Reflux, Hyperlipidemia, Hypertension, Myocardial Infarction (OK), Osteoarthritis (OA), Sleep Apnea/CPAP/BIPAP Additional Past Medical History / Comment(s): NO CPAP, HIATAL HERNIA, colonic POLYP Last Myocardial Infarction Date:: 10/1994 History of Any Multi-Drug Resistant Organisms: None Reported Past Surgical History: Orthopedic Surgery, Tonsillectomy Additional Past Surgical History / Comment(s): 07-09-15 laprascopic gillian fundopliction. 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 Past Anesthesia/Blood Transfusion Reactions: No Reported Reaction Past Psychological History: No Psychological Hx Reported Additional Psychological History / Comment(s): pt lives with a girlfriend,emily. 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 He quit 10 years ago. He does have a medical marijuana card and smokes marijuana,. pt reports drinking 5 drinks weekly Past Drug Use History: Marijuana Additional Drug Use History / Comment(s): smokes marijuana occasionally - Past Family History Mother Family Medical History: No Reported History Additional Family Medical History / Comment(s): in mva at age 44 Father Family Medical History: No Reported History Additional Family Medical History / Comment(s): in boating accident at age 67 Brother(s) Family Medical History: Coronary Artery Disease (CAD) Additional Family Medical History / Comment(s): Patient has 3 brothers and he knows that one brother has had a 3 or 4 vessel CABG and is not aware of other health problems. Patient has 3 sisters which she does not know of any major medical problems. Son(s) Additional Family Medical History / Comment(s): He has one son that is overweight and has gastric esophageal reflux disease and hypertension. He has one daughter that has gallbladder problems. Medications and Allergies Home Medications Medication Instructions Recorded Confirmed Type Pantoprazole [Protonix] 40 mg PO DAILY 12/10/21 01/13/25 History Atorvastatin [Lipitor] 20 mg PO DAILY 01/13/25 01/13/25 History Tamsulosin [Flomax] 0.4 mg PO DAILY 01/13/25 01/13/25 History hydroCHLOROthiazide [Hydrodiuril] 25 mg PO DAILY 01/13/25 01/13/25 History lisinopriL 40 mg PO DAILY 01/13/25 01/13/25 History Allergies Allergy/AdvReac Type Severity Reaction Status Date / Time Penicillins Allergy Rash/Hives Verified 01/13/25 16:10 Physical Exam Vitals: Vital Signs Temp Pulse Resp BP Pulse Ox 01/14/25 03:28 98.2 F 65 16 154/85 94 L 01/14/25 00:30 21 01/14/25 00:00 87 18 160/80 97 01/13/25 20:00 97.9 F 81 21 125/76 99 01/13/25 18:43 88 18 156/74 97 01/13/25 18:40 84 18 159/76 97 01/13/25 17:50 81 21 158/80 98 01/13/25 17:30 81 21 01/13/25 17:16 94 20 199/97 98 01/13/25 16:31 85 18 185/92 96 01/13/25 16:16 69 18 186/86 96 01/13/25 16:01 98.2 F 78 18 171/77 96 01/13/25 15:55 75 20 176/80 96 Intake and Output 01/13/25 01/14/25 01/14/25 22:59 06:59 14:59 Intake Total 100 Output Total 300 Balance -200 Intake: IV 100 Output: Urine 300 Other: Voiding Method Urinal Urinal # Voids 3 Weight 90.718 kg 90.5 kg In general patient is alert and oriented x 3 in no distress HEENT head normocephalic and atraumatic Neck is supple no JVD no goiter no lymphadenopathy no carotid bruit Chest examination is clear to auscultation no crackles no wheezing Cardiac exam reveals regular heart sounds S1 and S2 no gallops no murmurs Abdomen is soft nontender no organomegaly with normal bowel sounds Extremity exam reveals no edema no cyanosis or clubbing Neurological examination reveals no gross focal deficits Results CBC & Chem 7: 01/14/25 05:18 01/14/25 05:18 Labs: Abnormal Lab Results - Last 24 Hours (Table) 01/13/25 01/14/25 01/14/25 Range/Units 17:21 05:18 05:18 RBC 3.97 L (4.30-5.90) m/uL Hgb 11.6 L (13.0-17.5) gm/dL Hct 36.2 L (39.0-53.0) % Lymphocytes # 0.9 L (1.0-4.8) k/uL Chloride 108 H (98-107) mmol/L Glucose 117 H (74-99) mg/dL POC Glucose (mg/dL) 126 H (70-110) mg/dL Thrombosis Risk Factor Assmnt - Choose All That Apply Any of the Below Risk Factors Present?: Yes Each Factor Represents 1 point: Obesity (BMI >25), Swollen legs (current) Other Risk Factors: Yes Each Risk Factor Represents 3 Points: Age 75 years or older Thrombosis Risk Factor Assessment Total Risk Factor Score: 5 Thrombosis Risk Factor Assessment Level: High Risk Assessment and Plan Plan: Episodes of chest pain patient was transferred from [facility] for cardiac catheterization Abdominal pain CT scan of the abdomen and pelvis was ordered Episodes of shaking tremors, neurology consultation was requested, CT scan of the brain ordered Underlying history of hypertension Underlying history of hyperlipidemia Previous history of peptic ulcer disease At this time patient was seen and examined Home medications reviewed and reordered Awaiting further intervention by cardiology
--- NOTE | 2025-01-14 20:25 | XR ---
EXAMINATION TYPE: XR chest 2V DATE OF EXAM: 01/14/2025 7:30 PM COMPARISON: Chest radiographs from 12/10/2021. CLINICAL INDICATION: Male, 79 years old with history of Shortness of breath; TECHNIQUE: XR chest 2V Frontal and lateral views of the chest. FINDINGS: Lungs/Pleura: There is no evidence of pleural effusion, focal consolidation, or pneumothorax. Pulmonary vascularity: Unremarkable. Heart/mediastinum: Cardiomediastinal silhouette is unremarkable. Musculoskeletal: No acute osseous pathology. IMPRESSION: No acute cardiopulmonary disease/process. [facility], , 01/14/2025 8:22 PM
[2025-01-14] MEDS: HEPARIN SODIUM,PORCINE 5,000 UNIT/ML 1 ML VIAL SQ SCH (20:52)
[2025-01-15 05:17] LABS: Appearance,Urine Clear (Clear); Bilirubin,Urine Negative (Negative); Blood,Urine Negative (Negative); Color,Urine Light Yellow; Glucose,Urine (UA) Negative (Negative); Hyaline Casts,Urine 7 /lpf (0-2); Ketones,Urine Negative (Negative); Leukocyte Esterase,Urine Small (Negative); Mucus,Urine Rare /hpf; Nitrite,Urine Negative (Negative); Protein,Urine Negative (Negative); RBC,Urine 2 /hpf (0-5); Squamous Epithelial Cell,Urine <1 /hpf (0-4); Urobilinogen,Urine <2.0 mg/dL (<2.0); WBC,Urine 4 /hpf (0-5)
[2025-01-15 08:28] LABS: ALT 32 U/L (4-49); AST 29 U/L (17-59); African American GFR (CKD) 69 (>60 ml/min/1.73 sqM); Alkaline Phosphatase 51 U/L (38-126); Anion Gap 6 mmol/L; Blood Urea Nitrogen 20 mg/dL (9-20); Calcium 9.2 mg/dL (8.4-10.2); Carbon Dioxide 27 mmol/L (22-30); Chloride 105 mmol/L (98-107); Glucose 104 mg/dL (74-99); Non-African American GFR(CKD) 60 (>60 ml/min/1.73 sqM); Potassium 4.1 mmol/L (3.5-5.1); Sodium 138 mmol/L (137-145); Total Bilirubin 0.5 mg/dL (0.2-1.3); Total Protein 6.4 g/dL (6.3-8.2)
[2025-01-15 08:47] LABS: Basophils % (A) 0 %; Eosinophils # (A) 0.1 k/uL (0-0.7); Eosinophils % (A) 3 %; HCT 35.5 % (39.0-53.0); HGB 11.4 gm/dL (13.0-17.5); Lymphocytes # (A) 1.5 k/uL (1.0-4.8); Lymphocytes % (A) 29 %; MCH 29.2 pg (25.0-35.0); MCHC 32.1 g/dL (31.0-37.0); MCV 91.1 fL (80.0-100.0); Mean Platelet Volume 8.1; Monocytes # (A) 0.4 k/uL (0-1.0); Monocytes % (A) 8 %; Neutrophils # (A) 2.8 k/uL (1.3-7.7); Neutrophils % (A) 57 %; Platelet Count 169 k/uL (150-450); RDW 13.8 % (11.5-15.5)
[2025-01-15 10:11] VITALS: RESP 16
--- NOTE | 2025-01-15 11:41 | P.PN ---
Subjective HISTORY OF PRESENT ILLNESS: This is a 79-year-old male who was initially admitted to the hospital secondary to chest pain. He underwent cardiac catheterization revealing normal coronary arteries. Cardiology was reconsulted yesterday by Dr. Chang for chest pain. Patient examined this morning to bedside. At the time of examination patient de nies any complaints of chest pain or shortness of breath. Vital signs are stable. PHYSICAL EXAM: VITAL SIGNS: Reviewed. GENERAL: Well-developed in no acute distress. NECK: Supple. No JVD or thyromegaly LUNGS: Respirations even and unlabored. Lungs essentially clear to auscultation bilaterally. HEART: Regular rate and rhythm. S1 and S2 heard. EXTREMITIES: Normal range of motion. No clubbing or cyanosis. Peripheral pulses intact. No lower extremity edema ASSESSMENT: Chest pain, status post cardiac catheterization revealing normal coronary arteries Hypertension History of peptic ulcer disease Former nicotine dependence PLAN: Continue current cardiac medications including atorvastatin, lisinopril, and hydrochlorothiazide Patient's chest pain is not related to ACS as he underwent cardiac catheterization on 01/13/2025 revealing normal coronary arteries No further inpatient recommendations from a cardiac standpoint We will sign off. Please reconsult if needed. Nurse practitioner note has been reviewed by physician. Signing provider agrees with the documented findings, assessment, and plan of care documented by PRINTING ENGINEER as a scribe. Objective - Vital Signs Vital signs: Vital Signs Temp 98.3 F 01/15/25 08:40 Pulse 73 01/15/25 08:40 Resp 16 01/15/25 08:40 BP 137/64 01/15/25 08:40 Pulse Ox 94 L 01/15/25 08:40 FiO2 Intake & Output 01/14/25 01/15/25 01/15/25 18:59 06:59 18:59 Intake Total 540 Output Total 300 Balance 540 -300 Weight 90.2 kg Intake: Oral 540 Output: Urine 300 Other: Voiding Method Urinal Urinal # Voids 0 - Labs CBC & Chem 7: 01/15/25 06:31 01/15/25 06:31 Labs: Abnormal Lab Results - Last 24 Hours (Table) 01/15/25 01/15/25 01/15/25 Range/Units 03:15 06:31 06:31 RBC 3.90 L (4.30-5.90) m/uL Hgb 11.4 L (13.0-17.5) gm/dL Hct 35.5 L (39.0-53.0) % Glucose 104 H (74-99) mg/dL Ur Leukocyte Esterase Small H (Negative) Hyaline Casts 7 H (0-2) /lpf Urine Mucus Rare H (None) /hpf Microbiology - Last 24 Hours (Table) 01/13/25 17:18 Blood Culture - Preliminary Blood
--- NOTE | 2025-01-15 12:23 | P.PN ---
Subjective Progress Note Date: 01/15/25 Principal diagnosis: Epigastric pain This a pleasant 79-year-old male who was transferred from [facility] for cardiac workup and underwent cardiac catheterization yesterday which showed no cardiac disease. He has had multiple workup with multiple consultants on. Patient apparently was complaining of chest pain that wrapped around his ribs and back, he went to [facility] and they transferred him here for cardiac catheterization. They ruled out acute coronary syndrome and consulted gastroenterology for epigastric pain with a history of peptic ulcer disease. Patient states he had an ulcer that required surgery when he was 22 years old. He has not had anything recurrent since then. Patient also has a history of acid reflux and large hiatal hernia. He underwent upper endoscopy and colonoscopy in [place] [address] Holland with findings of antral gastritis, hiatal hernia and esophagitis. Colonoscopy revealed transverse colon polyp status post polypectomy. He underwent Niesen fundoplication as well as versus laparoscopic lysis of adhesions in July [address] Holland. He has been on Protonix 40 mg daily and states he has not had any further acid reflux. He also states he does have some nausea. Family is at the bedside and states that he took an [id number] sleep aid and since then all of the symptoms had started as well as was recently working on his motorcycle and unsure if some of the discomfort could be secondary to musculoskeletal pain. He currently denies any abdominal pain, nausea or vomiting at this time. He is being seen by neurology for mental status changes. 01/15/2025 Patient seen and examined as a follow-up. He was seen sitting up eating breakfast. States he is feeling much better today. Denies any abdominal pain no nausea or vomiting. Denies chest pain. Repeat labs unremarkable. Objective - Vital Signs Vital signs: Vital Signs Temp 98.3 F 01/15/25 08:40 Pulse 73 01/15/25 08:40 Resp 16 01/15/25 08:40 BP 137/64 01/15/25 08:40 Pulse Ox 94 L 01/15/25 08:40 FiO2 Intake & Output 01/14/25 01/15/25 01/15/25 18:59 06:59 18:59 Intake Total 540 Output Total 300 Balance 540 -300 Weight 90.2 kg Intake: Oral 540 Output: Urine 300 Other: Voiding Method Urinal Urinal # Voids 0 - Exam General appearance: The patient is alert, oriented, appears in no acute distress. HET: Head is normocephalic and atraumatic. Conjunctiva pink. Sclera anicteric. Neck: Supple without lymphadenopathy. Abdomen: Soft, mild epigastric tenderness, nondistended. Extremities: Normal skin color and turgor. No pedal edema Skin: No rashes, no jaundice Neurological: No focal deficits. Alert and oriented. - Labs CBC & Chem 7: 01/15/25 06:31 01/15/25 06:31 Labs: Abnormal Lab Results - Last 24 Hours (Table) 01/15/25 01/15/25 01/15/25 Range/Units 03:15 06:31 06:31 RBC 3.90 L (4.30-5.90) m/uL Hgb 11.4 L (13.0-17.5) gm/dL Hct 35.5 L (39.0-53.0) % Glucose 104 H (74-99) mg/dL Ur Leukocyte Esterase Small H (Negative) Hyaline Casts 7 H (0-2) /lpf Urine Mucus Rare H (None) /hpf Microbiology - Last 24 Hours (Table) 01/13/25 17:18 Blood Culture - Preliminary Blood Assessment and Plan (1) Epigastric pain Narrative/Plan: 79-year-old presented with chest pain with acute coronary syndrome ruled out. History of GERD with Niesen fundoplication in 2014. Reports acid reflux controlled with medication. Does have a history of ulcer at age 22 that required surgery. Has some epigastric discomfort, is being worked up for altered mental status changes as well. Will increase Protonix to 40 mg twice daily and follow. Consider possible general surgery consultation with previous history of lysis of adhesions and laparoscopic Niesen fundoplication. No acute CT findings. Current Visit: Yes Status: Acute Code(s): R10.13 - EPIGASTRIC PAIN SNOMED Code(s): 01276154 (2) History of En fundoplication Current Visit: Yes Status: Acute Code(s): Z98.890 - OTHER SPECIFIED POSTPROCEDURAL STATES SNOMED Code(s): 039246714 (3) Chest pain Current Visit: No Status: Acute Code(s): R07.9 - CHEST PAIN, UNSPECIFIED SNOMED Code(s): 07878133 (4) GERD (gastroesophageal reflux disease) Current Visit: Yes Status: Acute Code(s): K21.9 - GASTRO-ESOPHAGEAL REFLUX DISEASE WITHOUT ESOPHAGITIS SNOMED Code(s): 908479767 Plan: 1. Continue symptomatic and supportive care 2. Continue Protonix to 40 mg twice daily 3. Diet as tolerated 4. No plans on endoscopic evaluation at this time 5. No further workup from gastroenterology 6. Continue with medical management per primary medical team Thank you for this consultation, patient is cleared from gastroenterology for discharge. We will sign off at this time. Recommend outpatient follow-up in [address] Omar Cornelius I agree with the dictator's note, documented as a scribe by Mavis Ray.
--- NOTE | 2025-01-15 12:36 | CA ---
Transthoracic Echo Report Name: Jose Saleem Age: 79 Gender: M : 1945 Exam Date: 01/15/2025 08:28 Exam Location: [facility] Ht (in): 64 Wt (lb): 199 Ordering Physician: Perry Michelle MD Attending/Referring Phys: [place] [place] [employer] Mirella Hamm RDCS Procedure CPT: Indications: Chest pain, Recurrent episodes of blurred vision, Cardiac Hx: CATH Technical Quality: Fair Contrast 1: Agitated Saline Total Dose (mL): 10 Contrast 2: Total Dose (mL): MEASUREMENTS (Male / Female) Normal Values 2D ECHO LV Diastolic Diameter PLAX 4.4 cm 4.2 - 5.9 / 3.9 - 5.3 cm LV Systolic Diameter PLAX 2.7 cm IVS Diastolic Thickness 1.1 cm 0.6 - 1.0 / 0.6 - 0.9 cm LVPW Diastolic Thickness 1.3 cm 0.6 - 1.0 / 0.6 - 0.9 cm LV Relative Wall Thickness 0.5 RV Internal Dim ED PLAX 2.1 cm LVOT Diameter 2.0 cm LV Diastolic Volume MOD BP 62.6 cm??? 67 - 155 / 56 - 104 cm??? LV Systolic Volume MOD BP 22.6 cm??? 22 - 58 / 19 - 49 cm??? LV Ejection Fraction MOD BP 63.9 % >= 55 % LV Cardiac Index MOD BP 1926.0 cm???/min???m??? LV Diastolic Volume MOD 4C 58.1 cm??? LV Systolic Volume MOD 4C 19.9 cm??? LV Ejection Fraction MOD 4C 65.8 % LV Cardiac Index MOD 4C 1840.6 cm???/min???m??? LV Diastolic Length 4C 6.9 cm LV Systolic Length 4C 5.3 cm LV Diastolic Volume MOD 2C 66.8 cm??? LV Systolic Volume MOD 2C 24.0 cm??? LV Ejection Fraction MOD 2C 64.1 % LV Cardiac Index MOD 2C 2061.2 cm???/min???m??? LV Diastolic Length 2C 6.8 cm LV Systolic Length 2C 5.7 cm M-MODE Aortic Root Diameter MM 3.8 cm LA Systolic Diameter MM 3.6 cm LA Ao Ratio MM 1.0 AV Cusp Separation MM 1.5 cm DOPPLER AV Peak Velocity 224.1 cm/s AV Peak Gradient 20.1 mmHg AV Mean Velocity 153.1 cm/s AV Mean Gradient 10.5 mmHg AV Velocity Time Integral 52.3 cm AI Peak Velocity 217.7 cm/s AI Peak Gradient 19.0 mmHg AI Pressure Half Time 752.7 ms LVOT Peak Velocity 148.8 cm/s LVOT Peak Gradient 8.9 mmHg LVOT Velocity Time Integral 33.6 cm LVOT Stroke Volume 105.7 cm??? LVOT Stroke Volume Index 54.1 ml/m??? LVOT Cardiac Index 5088.1 cm???/min???m??? AV Area Cont Eq vti 2.0 cm??? AV Area Cont Eq pk 2.1 cm??? MV Peak Velocity 156.8 cm/s MV Peak Gradient 9.8 mmHg MV Mean Velocity 85.7 cm/s MV Mean Gradient 3.5 mmHg MV Velocity Time Integral 43.1 cm Mitral E Point Velocity 122.2 cm/s Mitral A Point Velocity 139.3 cm/s Mitral E to A Ratio 0.9 MV Deceleration Time 292.9 ms MV E' Velocity 5.3 cm/s Mitral E to MV E' Ratio 23.0 FINDINGS Left Ventricle Left ventricular ejection fraction is estimated at 60-65 %. Normal left ventricular systolic function with no obvious regional wall motion abnormalities. Left ventricular cavity size normal. Left ventricular wall thickness normal. Right Ventricle Normal right ventricular size and function. Right ventricular systolic pressure within normal limits. Right Atrium Mild right atrial dilatation. Negative agitated saline bubble study for right to left shunt. Left Atrium Mild left atrial dilatation. Mitral Valve Mitral valve thickened. Severe mitral annular calcification. Mild mitral regurgitation. No mitral stenosis. Aortic Valve Trileaflet aortic valve. Mild aortic stenosis with a peak gradient of 20mmHg and a mean gradient of 10mmHg. Trace to mild aortic regurgitation. Tricuspid Valve Structurally normal tricuspid valve. Trace tricuspid regurgitation. No tricuspid stenosis. Pulmonic Valve Structurally normal pulmonic valve. Trace pulmonic regurgitation. No pulmonic stenosis. Pericardium No pericardial or pleural effusion. Aorta Mild aortic dilatation at the level of the sinuses of valsalva (root). CONCLUSIONS Normal LV size and systolic function with mild concentric LVH. Mildly enlarged atria. Aortic valve sclerosis, mitral annular calcification with thickening of posterior mitral leaflet. There is a mild increased velocity across the aortic valve but no significant stenosis. There is no evidence of any significant pulmonary hypertension. No pericardial effusion. Bubble study does not suggest a shunt Previewed by: Dr. Jane Penn MD (Electronically Signed) Final Date: 15 January 2025 12:35
[2025-01-15 13:18] VITALS: PULSE 81; TEMP 98.1
[2025-01-15 16:00] VITALS: BP 162/82
--- NOTE | 2025-01-15 16:31 | P.DS ---
Providers Date of admission: 01/13/25 14:55 Expected date of discharge: 01/15/25 Attending physician: Lance Chang Consults: 01/13/25 17:27 Consult Physician Routine Consulting Provider: Perry Michelle Consult Reason/Comments: mental status changes Do you want consulting provider notified?: Yes, Notify in am Primary care physician: Lance Baejjar Va Hospital Course: Diagnosis on discharge: Episodes of chest pain patient was transferred from [facility] for cardiac catheterization Abdominal pain CT scan of the abdomen and pelvis was ordered Episodes of shaking tremors, neurology consultation was requested, CT scan of the brain ordered Underlying history of hypertension Underlying history of hyperlipidemia Previous history of peptic ulcer disease Hospital course: Jose Saleem, is a 79-year-old male who presented to [facility] emergency room with vague symptoms of chest pain abdominal pain and episodes of shaking and tremors, he was initially admitted to [facility] he was evaluated by cardiology and was transferred to [facility] for cardiac catheterization His vital examination revealed a temperature of 98.2 pulse 78 respiration 18 blood pressure 171/77 pulse ox 96% on 2 L nasal cannula Laboratory data revealed a white blood count of 5.7 hemoglobin 11.6 platelet cou nt 184 BUN 18 creatinine 1.12 At this time patient is being monitored on telemetry floor, cardiology are following for cardiac catheterization soon On 01/15/2025 patient was seen and examined on the medical floor he is alert and oriented x 3 in no apparent distress he is feeling better and stated that his abdominal pain has resolved there is no fever or chills no headache or dizziness no chest pain no shortness of breath no cough no nausea or vomiting no abdominal pain no diarrhea and no urinary symptoms. Input from cardiology and gastroenterology and neurology reviewed, patient will be discharged to home today. Will follow in the office in 1 to 2 days for further evaluation. Plan - Discharge Summary New Discharge Prescriptions: New amLODIPine [Norvasc] 2.5 mg PO DAILY 30 Days #30 tablet Aspirin EC [Ecotrin Low Dose] 81 mg PO DAILY 30 Days #30 tab Continue Pantoprazole [Protonix] 40 mg PO DAILY lisinopriL 40 mg PO DAILY hydroCHLOROthiazide [Hydrodiuril] 25 mg PO DAILY Tamsulosin [Flomax] 0.4 mg PO DAILY Atorvastatin [Lipitor] 20 mg PO DAILY Discharge Medication List Pantoprazole [Protonix] 40 mg PO DAILY 12/10/21 [History] Atorvastatin [Lipitor] 20 mg PO DAILY 01/13/25 [History] Tamsulosin [Flomax] 0.4 mg PO DAILY 01/13/25 [History] hydroCHLOROthiazide [Hydrodiuril] 25 mg PO DAILY 01/13/25 [History] lisinopriL 40 mg PO DAILY 01/13/25 [History] Aspirin EC [Ecotrin Low Dose] 81 mg PO DAILY 30 Days #30 tab 01/15/25 [Rx] amLODIPine [Norvasc] 2.5 mg PO DAILY 30 Days #30 tablet 01/15/25 [Rx] Follow up Appointment(s)/Referral(s): Neeta Cornelius MD [STAFF PHYSICIAN] - 4 Weeks Patient Instructions/Handouts: Chest Pain (ED), Chest Pain (DC), Epigastric Pain (ED), Epigastric Pain (GEN) Activity/Diet/Wound Care/Special Instructions: FOLLOW UP DIRECTED, SOONER FOR WORSENING SYMPTOMS, PROBLEMS, OR CONCERNS.
--- NOTE | 2025-01-15 17:57 | P.PN ---
Subjective Progress Note Date: 01/15/25 Patient was seen for follow-up. Patient is doing well. No chest pain, no further spells. Objective - Vital Signs Vital signs: Vital Signs Temp 98.1 F 01/15/25 13:17 Pulse 81 01/15/25 13:17 Resp 16 01/15/25 13:17 BP 162/82 01/15/25 15:59 Pulse Ox 97 01/15/25 13:17 FiO2 Intake & Output 01/14/25 01/15/25 01/15/25 18:59 06:59 18:59 Intake Total 540 Output Total 300 161 Balance 540 -300 -161 Weight 90.2 kg Intake: Oral 540 Output: Urine 300 Post Void Residual 161 Other: Voiding Method Urinal Urinal # Voids 0 - Exam Examination is nonfocal. Mentation normal. - Labs CBC & Chem 7: 01/15/25 06:31 01/15/25 06:31 Labs: Abnormal Lab Results - Last 24 Hours (Table) 01/15/25 01/15/25 01/15/25 Range/Units 03:15 06:31 06:31 RBC 3.90 L (4.30-5.90) m/uL Hgb 11.4 L (13.0-17.5) gm/dL Hct 35.5 L (39.0-53.0) % Glucose 104 H (74-99) mg/dL Ur Leukocyte Esterase Small H (Negative) Hyaline Casts 7 H (0-2) /lpf Urine Mucus Rare H (None) /hpf Microbiology - Last 24 Hours (Table) 01/13/25 17:18 Blood Culture - Preliminary Blood Assessment and Plan Assessment: * Recurrent episodes of epigastric/sternal pain associated with generalized shaking, confusion, sweating, nausea, lasting for about 20 minutes. Symptoms started after he took OTC medication for sleep, on , 01/10/2025, which has melatonin and RICHARD. Patient has had about 20 such episodes in the last 3 to 4 days. Rule out hypertensive encephalopathy * Atypical chest pain * Hypertensive urgency * Hypertension * History of peptic ulcer disease * Ex tobacco use Plan: * Patient symptoms are likely related to either GI or cardiac reasons. Do not believe symptoms are neurologically induced. His clinical symptoms could be related to the side effect of OTC medication he took for sleep. * Carotid Doppler revealed elevated left-sided velocities and ratio, indicating 50 to 69% diameter reduction. Antegrade flow in both vertebral arteries. * Recommend patient undergo surveillance testing every 3 to 6 months. * Recommend starting aspirin 81 mg daily, if no medical contraindication. Discussed with patient's nurse, who will review with primary physician. * EEG, was normal during wakefulness, drowsiness and stage II sleep. No focal, lateralized or epileptiform activity was seen. * GI consult has been initiated for recurrent episodes of sternal/epigastric pain. They have increased dose of Protonix to 40 mg twice daily. * 2D echo revealed normal LV size and systolic function with mild concentric LVH. LVEF 60 to 65%. Normal left ventricular wall thickness. Mild right atrial dilation. Negative agitated saline bubble study for [id number] shunt. Mild left atrial dilation. Mild MR. Mild aortic stenosis. Cardiology on board. * Cardiac cath has been negative. * Optimize control of blood pressure. * Blood cultures so far negative. * Neurologically clear for discharge.
--- NOTE | 2025-01-15 22:42 | EEG ---
ELECTROENCEPHALOGRAM REPORT PREAMBLE: This is a 79-year-old male with recurrent spells of chest pain with full-body shaking and difficulty speaking, rule out seizures. EEG FINDINGS: This is a 21-channel digital EEG recorded with video component, utilizing 10/20 international system with referential and bipolar montages. Background consists of well-developed, well-regulated moderate voltage activity in 8 Hz alpha. Background is posterior dominant and reactive to eye opening and closing. Photic driving response was not seen. Drowsiness was seen with appearance of bilaterally symmetric theta frequency rhythm. Stage 2 sleep was attained with presence of lower frequency rhythm with sleep spindles and vertex waves. No focal or generalized epileptiform activity was seen. EKG channel showed no obvious arrhythmia. Hyperventilation was not done. IMPRESSION: This is a normal EEG during wakefulness, drowsiness, and stage 2 sleep. Sleep. No focal, lateralized, or epileptiform activity was seen. MMODL / IJN: [id number] /
== END 2025-01-15 16:58 | disposition home or self-care (01) | DRG 287 ==
LOC: 3SCARD 14:55 → 6NMEDSUR 01-15 12:28
PROVIDERS: ADMIT Internal Medicine; ATTEND Internal Medicine
PROC: B2111ZZ Fluoroscopy of Multiple Coronary Arteries using Low Osmolar Contrast (ICD-10-PCS; principal; 2025-01-13 13:45)
PROC: 4A023N7 Measurement of Cardiac Sampling and Pressure, Left Heart, Percutaneous Approach (ICD-10-PCS; principal; 2025-01-13 13:45)
DX: R07.9 Chest pain, unspecified (principal); E87.20 Acidosis, unspecified; I12.9 Hypertensive chronic kidney disease with stage 1 through stage 4 chronic kidney disease, or unspecified chronic kidney disease; N18.9 Chronic kidney disease, unspecified; I25.110 Atherosclerotic heart disease of native coronary artery with unstable angina pectoris; N17.9 Acute kidney failure, unspecified; I16.0 Hypertensive urgency; R25.1 Tremor, unspecified; R10.9 Unspecified abdominal pain; M47.9 Spondylosis, unspecified; E78.5 Hyperlipidemia, unspecified; G47.30 Sleep apnea, unspecified; I25.2 Old myocardial infarction; K21.00 Gastro-esophageal reflux disease with esophagitis, without bleeding; K44.9 Diaphragmatic hernia without obstruction or gangrene; K57.30 Diverticulosis of large intestine without perforation or abscess without bleeding; N20.0 Calculus of kidney; R48.0 Dyslexia and alexia; Z87.11 Personal history of peptic ulcer disease; Z86.0100 Personal history of colon polyps, unspecified; Z79.899 Other long term (current) drug therapy; Z85.820 Personal history of malignant melanoma of skin; Z87.891 Personal history of nicotine dependence; Z98.890 Other specified postprocedural states; Z88.0 Allergy status to penicillin
CPT/HCPCS: 70450; 71046; 74150; 76770; 80053; 81001; 82140; 85025; 87040; 93306; 93880; 95816

== ENCOUNTER 2025-01-17 09:08 | Inpatient (IN) | payer MEDICARE ==
--- NOTE | 2025-01-17 09:28 | ED ---
General Adult HPI - General Chief complaint: Chest Pain Stated complaint: Chest pains Time Seen by Provider: 01/17/25 09:14 Source: patient, family, RN notes reviewed, old records reviewed Mode of arrival: ambulatory Limitations: no limitations - History of Present Illness Initial comments: Patient is a 79-year-old male present to the emergency department with concerns for chest discomfort. Onset of symptoms was around midnight. Symptoms are similar to symptoms and his previous admission. Patient has discomfort that is somewhat severe. Patient has a difficult time describing his discomfort. Patient does have some associated nausea. No emesis. No calf pain or swelling. - Related Data Home Medications Medication Instructions Recorded Confirmed Pantoprazole [Protonix] 40 mg PO DAILY 12/10/21 01/13/25 Atorvastatin [Lipitor] 20 mg PO DAILY 01/13/25 01/13/25 Tamsulosin [Flomax] 0.4 mg PO DAILY 01/13/25 01/13/25 hydroCHLOROthiazide [Hydrodiuril] 25 mg PO DAILY 01/13/25 01/13/25 lisinopriL 40 mg PO DAILY 01/13/25 01/13/25 Previous Rx's Medication Instructions Recorded Aspirin EC [Ecotrin Low Dose] 81 mg PO DAILY 30 Days #30 tab 01/15/25 amLODIPine [Norvasc] 2.5 mg PO DAILY 30 Days #30 tablet 01/15/25 Allergies Allergy/AdvReac Type Severity Reaction Status Date / Time Penicillins Allergy Rash/Hives Verified 01/17/25 09:13 Review of Systems ROS Statement: Those systems with pertinent positive or pertinent negative responses have been documented in the HPI. ROS Other: All systems not noted in ROS Statement are negative. Constitutional: Denies: fever Eyes: Denies: eye pain ENT: Denies: ear pain Respiratory: Denies: cough Cardiovascular: Reports: as per HPI, chest pain Endocrine: Denies: fatigue Gastrointestinal: Reports: nausea. Denies: vomiting Musculoskeletal: Denies: back pain Skin: Denies: rash Past Medical History Past Medical History: Coronary Artery Disease (CAD), Chest Pain / Angina, GERD/Reflux, Hyperlipidemia, Hypertension, Myocardial Infarction (GA), Osteoarthritis (OA), Sleep Apnea/CPAP/BIPAP Additional Past Medical History / Comment(s): NO CPAP, HIATAL HERNIA, colonic POLYP Last Myocardial Infarction Date:: 10/1994 History of Any Multi-Drug Resistant Organisms: None Reported Past Surgical History: Orthopedic Surgery, Tonsillectomy Additional Past Surgical History / Comment(s): 07-09-15 laprascopic gillian fundopliction. 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 Past Anesthesia/Blood Transfusion Reactions: No Reported Reaction Past Psychological History: No Psychological Hx Reported Smoking Status: Former smoker Past Alcohol Use History: Occasional Past Drug Use History: Marijuana - Past Family History Mother Family Medical History: No Reported History Additional Family Medical History / Comment(s): in mva at age 44 Father Family Medical History: No Reported History Additional Family Medical History / Comment(s): in boating accident at age 67 Brother(s) Family Medical History: Coronary Artery Disease (CAD) Additional Family Medical History / Comment(s): Patient has 3 brothers and he knows that one brother has had a 3 or 4 vessel CABG and is not aware of other health problems. Patient has 3 sisters which she does not know of any major medical problems. Son(s) Additional Family Medical History / Comment(s): He has one son that is overweight and has gastric esophageal reflux disease and hypertension. He has one daughter that has gallbladder problems. General Exam Limitations: no limitations General appearance: alert Head exam: Present: normocephalic Eye exam: Present: normal appearance Neck exam: Present: normal inspection Respiratory exam: Present: normal lung sounds bilaterally, chest wall tenderness Cardiovascular Exam: Present: regular rate, normal rhythm Expanded Peripheral pulses: 2+: Radial (R), Radial (L), Dorsalis Pedis (R), Dorsalis Pedis (L) GI/Abdominal exam: Present: soft, tenderness (Mild diffuse tenderness). Absent: distended, pulsatile mass Extremities exam: Present: normal inspection. Absent: pedal edema, calf tenderness Neurological exam: Present: alert Psychiatric exam: Present: normal affect, normal mood Skin exam: Present: normal color Course Vital Signs 01/17/25 01/17/25 09:11 09:57 Temperature 97.4 F L Pulse Rate 82 67 Respiratory 18 18 Rate Blood Pressure 178/7 132/71 O2 Sat by Pulse 96 Oximetry EKG Findings - EKG Results: EKG: interpreted by ERMD, sinus rhythm, normal axis, normal QRS, normal ST/T Medical Decision Making - Medical Decision Making Was pt. sent in by a medical professional or institution (JOMAR Jimenez, EXTENDED DAY TEACHER, urgent care, hospital, or alf...) When possible be specific @ -No Did you speak to anyone other than the patient for history (EMS, parent, family, police, friend...)? What history was obtained from this source @ - is present helps provide additional history including onset of symptoms and recent hospitalization Did you review nursing and triage notes (agree or disagree)? Why? @ -I reviewed and agree with nursing and triage notes Were old charts reviewed (outside hosp., previous admission, EMS record, old EKG, old radiological studies, urgent care reports/EKG's, alf records)? Report findings @ -Prior admission reviewed including heart catheterization did not show blockage Differential Diagnosis (chest pain, altered mental status, abdominal pain women, abdominal pain men, vaginal bleeding, weakness, fever, dyspnea, syncope, headache, dizziness, GI bleed, back pain, seizure, CVA, palpatations, mental health, musculoskeletal)? @ -Differential Chest Pain: Stable Angina, Unstable Angina, STEMI, NSTEMI Aortic Dissection, Pneumothorax, Musculoskeletal, Esophageal Spasm GERD, Cholecystitis, Pancreatitis, Zoster, this is not meant to be an all-inclusive list. EKG interpreted by me (3pts min.). @ -As above X-rays interpreted by me (1pt min.). @ -Chest x-ray shows no acute process CT interpreted by me (1pt min.). @ -None done U/S interpreted by me (1pt. min.). @ -None done What testing was considered but not performed or refused? (CT, X-rays, U/S, labs)? Why? @ -None What meds were considered but not given or refused? Why? @ -None Did you discuss the management of the patient with other professionals (professionals i.e. JOMAR Jimenez, EXTENDED DAY TEACHER, lab, RT, psych nurse, social science teacher, national opelint analyst, teacher, giving officer, pillowcase folder)? Give summary @ -Case was discussed with Dr. Chang who will admit his patient with cardiac consult Was smoking cessation discussed for >3mins.? @ -No Was critical care preformed (if so, how long)? @ -No Were there social determinants of health that impacted care today? How? (Homelessness, low income, unemployed, alcoholism, drug addiction, transportation, low edu. Level, literacy, decrease access to med. care, residential, rehab)? @ -No Was there de-escalation of care discussed even if they declined (Discuss DNR or withdrawal of care, Hospice)? DNR status @ -No What co-morbidities impacted this encounter? (DM, HTN, Smoking, COPD, CAD, Cancer, CVA, ARF, Chemo, Hep., AIDS, mental health diagnosis, sleep apnea, mor bid obesity)? @ -History of gastric ulcer Was patient admitted / discharged? Hospital course, mention meds given and route, prescriptions, significant lab abnormalities, going to OR and other pertinent info. @ -Patient presents with chest pain and some abdominal discomfort. Patient improved with treatment for gastrointestinal symptoms however troponin is somewhat elevated. Patient will be admitted with cardiac consult. Admission orders written. Patient reevaluated and feels much better. Patient and family updated. Undiagnosed new problem with uncertain prognosis? @ -No Drug Therapy requiring intensive monitoring for toxicity (Heparin, Nitro, Insulin, Cardizem)? @ -No Were any procedures done? @ -No Diagnosis/symptom? @ -Chest pain Acute, or Chronic, or Acute on Chronic? @ -Acute Uncomplicated (without systemic symptoms) or Complicated (systemic symptoms)? @ -Default Side effects of treatment? @ -No Exacerbation, Progression, or Severe Exacerbation? @ -No Poses a threat to life or bodily function? How? (Chest pain, USA, GA, pneumonia, PE, COPD, DKA, ARF, appy, cholecystitis, CVA, Diverticulitis, Homicidal, Suicidal, threat to staff... and all critical care pts) @ -Threat to cardiac function - Lab Data Result diagrams: 01/17/25 09:32 01/17/25 09:32 Lab Results 01/17/25 01/17/25 01/17/25 Range/Units 09:32 09: 09:32 WBC 6.3 (3.8-10.6) k/uL RBC 4.54 (4.30-5.90) m/uL Hgb 13.4 (13.0-17.5) gm/dL Hct 38.8 L (39.0-53.0) % MCV 85.5 D (80.0-100.0) fL MCH 29.6 (25.0-35.0) pg MCHC 34.6 (31.0-37.0) g/dL RDW 13.3 (11.5-15.5) % Plt Count 227 (150-450) k/uL MPV 6.6 Neutrophils % 72 % Lymphocytes % 17 % Monocytes % 8 % Eosinophils % 1 % Basophils % 0 % Neutrophils # 4.5 (1.3-7.7) k/uL Lymphocytes # 1.1 (1.0-4.8) k/uL Monocytes # 0.5 (0-1.0) k/uL Eosinophils # 0.1 (0-0.7) k/uL Basophils # 0.0 (0-0.2) k/uL PT 12.0 (10.0-12.5) sec INR 1.1 (<1.2) APTT 20.6 L (22.0-30.0) sec D-Dimer 0.43 (<0.60) mg/L FEU Sodium 134 L (137-145) mmol/L Potassium 4.2 (3.5-5.1) mmol/L Chloride 102 (98-107) mmol/L Carbon Dioxide 20 L (22-30) mmol/L Anion Gap 12 mmol/L BUN 20 (9-20) mg/dL Creatinine 0.98 (0.66-1.25) mg/dL Est GFR (CKD-EPI)AfAm 86 (>60 ml/min/1.73 sqM) Est GFR (CKD-EPI)NonAf 75 (>60 ml/min/1.73 sqM) Glucose 136 H (74-99) mg/dL Calcium 10.1 (8.4-10.2) mg/dL Magnesium 1.9 (1.6-2.3) mg/dL Total Bilirubin 0.9 (0.2-1.3) mg/dL AST 39 (17-59) U/L ALT 37 (4-49) U/L Alkaline Phosphatase 48 (38-126) U/L Troponin I (0.000-0.034) ng/mL Total Protein 7.5 (6.3-8.2) g/dL Albumin 4.7 (3.5-5.0) g/dL Amylase 53 (30-110) U/L Lipase 96 (23-300) U/L 01/17/25 Range/Units 09:32 WBC (3.8-10.6) k/uL RBC (4.30-5.90) m/uL Hgb (13.0-17.5) gm/dL Hct (39.0-53.0) % MCV (80.0-100.0) fL MCH (25.0-35.0) pg MCHC (31.0-37.0) g/dL RDW (11.5-15.5) % Plt Count (150-450) k/uL MPV Neutrophils % % Lymphocytes % % Monocytes % % Eosinophils % % Basophils % % Neutrophils # (1.3-7.7) k/uL Lymphocytes # (1.0-4.8) k/uL Monocytes # (0-1.0) k/uL Eosinophils # (0-0.7) k/uL Basophils # (0-0.2) k/uL PT (10.0-12.5) sec INR (<1.2) APTT (22.0-30.0) sec D-Dimer (<0.60) mg/L FEU Sodium (137-145) mmol/L Potassium (3.5-5.1) mmol/L Chloride (98-107) mmol/L Carbon Dioxide (22-30) mmol/L Anion Gap mmol/L BUN (9-20) mg/dL Creatinine (0.66-1.25) mg/dL Est GFR (CKD-EPI)AfAm (>60 ml/min/1.73 sqM) Est GFR (CKD-EPI)NonAf (>60 ml/min/1.73 sqM) Glucose (74-99) mg/dL Calcium (8.4-10.2) mg/dL Magnesium (1.6-2.3) mg/dL Total Bilirubin (0.2-1.3) mg/dL AST (17-59) U/L ALT (4-49) U/L Alkaline Phosphatase (38-126) U/L Troponin I 0.117 H* (0.000-0.034) ng/mL Total Protein (6.3-8.2) g/dL Albumin (3.5-5.0) g/dL Amylase (30-110) U/L Lipase (23-300) U/L Disposition Clinical Impression: Chest pain Disposition: ADMITTED IP TO THIS HOSP Is patient prescribed a controlled substance at d/c from ED?: No Referrals: Lance Chang MD [Primary Care Provider] - 1-2 days Time of Disposition: 10:38
[2025-01-17] MEDS: ASPIRIN 81 MG PO STA (09:37)
[2025-01-17] MEDS: MAG HYDROX/AL HYDROX/SIMETH 30 ML CUP PO SCH (09:38)
[2025-01-17] MEDS: LIDOCAINE VISCOUS 2% 15 ML CUP PO ONE (09:38)
[2025-01-17] MEDS: FAMOTIDINE 20 MG/2 ML VIAL IV STA (09:39)
[2025-01-17] MEDS: METOCLOPRAMIDE 5 MG/ML 2 ML VIAL IVP STA (09:43)
[2025-01-17 09:46] LABS: Basophils % (A) 0 %; Eosinophils # (A) 0.1 k/uL (0-0.7); Eosinophils % (A) 1 %; HCT 38.8 % (39.0-53.0); HGB 13.4 gm/dL (13.0-17.5); Lymphocytes # (A) 1.1 k/uL (1.0-4.8); Lymphocytes % (A) 17 %; MCH 29.6 pg (25.0-35.0); MCHC 34.6 g/dL (31.0-37.0); Mean Platelet Volume 6.6; Monocytes # (A) 0.5 k/uL (0-1.0); Monocytes % (A) 8 %; Neutrophils # (A) 4.5 k/uL (1.3-7.7); Neutrophils % (A) 72 %; Platelet Count 227 k/uL (150-450); RBC 4.54 m/uL (4.30-5.90); RDW 13.3 % (11.5-15.5); WBC 6.3 k/uL (3.8-10.6)
[2025-01-17 09:55] LABS: ALT 37 U/L (4-49); African American GFR (CKD) 86 (>60 ml/min/1.73 sqM); Amylase 53 U/L (30-110); Anion Gap 12 mmol/L; Blood Urea Nitrogen 20 mg/dL (9-20); Calcium 10.1 mg/dL (8.4-10.2); Carbon Dioxide 20 mmol/L (22-30); Chloride 102 mmol/L (98-107); Glucose 136 mg/dL (74-99); Lipase 96 U/L (23-300); Non-African American GFR(CKD) 75 (>60 ml/min/1.73 sqM); Sodium 134 mmol/L (137-145); Total Bilirubin 0.9 mg/dL (0.2-1.3)
--- NOTE | 2025-01-17 10:03 | XR ---
EXAMINATION TYPE: XR chest 2V DATE OF EXAM: 01/17/2025 9:54 AM COMPARISON: 01/14/2025 CLINICAL INDICATION: Male, 79 years old with history of Chest Pain: Shortness of breath TECHNIQUE: XR chest 2V views of the chest are obtained. FINDINGS: Scattered senescent parenchymal changes noted. Hyperinflation compatible with COPD. No evidence for infiltrate. No evidence for atelectasis. Heart size is stable. Mediastinal structures are stable and grossly unremarkable. No evidence for hilar prominence. Degenerative changes dorsal spine. IMPRESSION: 1. No evidence for acute pulmonary disease. [facility], , 01/17/2025 10:01 AM
[2025-01-17 10:05] LABS: INR 1.1 (<1.2)
[2025-01-17 10:08] LABS: Partial Thromboplastin Time 20.6 sec (22.0-30.0)
[2025-01-17 10:17] LABS: AST 39 U/L (17-59); Albumin 4.7 g/dL (3.5-5.0); Alkaline Phosphatase 48 U/L (38-126); Magnesium 1.9 mg/dL (1.6-2.3); Potassium 4.2 mmol/L (3.5-5.1); Total Protein 7.5 g/dL (6.3-8.2)
[2025-01-17 10:32] LABS: MCV 85.5 fL (80.0-100.0)
[2025-01-17] MEDS: ONDANSETRON 4 MG/2 ML VIAL IVP PRN (15:44)
--- NOTE | 2025-01-17 16:50 | US ---
EXAMINATION TYPE: US abdomen complete DATE OF EXAM: 01/17/2025 COMPARISON: CLINICAL INDICATION: Male, 79 years old with history of abdominal pain; Generalized midline pain TECHNIQUE: Grayscale and color Doppler imaging of the abdomen was performed. FINDINGS: EXAM MEASUREMENTS: Liver Length: 17.4 cm Gallbladder Wall: 0.1 cm CBD: 0.5 cm, color Doppler imaging was utilized to isolate the common bile duct for measurement. Spleen: 10.7 cm Right Kidney: 9.9 x 4.9 x 4.5 cm Left Kidney: 10.2 x 4.5 x 5.6 cm FIRE ALARM INSTALLER NOTES: Suboptimal due to patient body habitus Pancreas: Head and tail obscured by overlying bowel gas, echogenic in appearance Liver: Increased attenuation, decreased visualization of vessels suggestive of fatty infiltrate. Li mited visualization Gallbladder: No prominent stones or wall thickening, unable to obtain LLD imaging Evidence for sonographic Stiles's sign: neg CBD: wnl Spleen: wnl Right Kidney: wnl, No hydronephrosis, calculi or masses seen Left Kidney: Mid lateral anechoic lesion = 2.3 x 2.6 x 2.4 cm Upper IVC: wnl Abd Aorta: Mid obscured by overlying bowel gas The intrahepatic portion of the IVC and proximal abdominal aorta are within normal limits. There is no evidence of cholelithiasis. Common bile duct is unremarkable. The visualized portions of the odom creas are homogenous. The spleen is unremarkable. Kidneys are symmetric and free of hydronephrosis. No solid renal lesions are seen. IMPRESSION: Hepatic steatosis suggested. Left renal cyst. [facility], , 01/17/2025 4:47 PM
[2025-01-17] MEDS: HYDROmorphone 0.5 MG/0.5 ML SYRINGE IVP PRN (17:14)
[2025-01-17] MEDS: PANTOPRAZOLE 40 MG TABLET PO STA (17:14)
[2025-01-17 20:56] LABS: Amphetamine Screen,Urine Not Detected (NotDetected); Barbiturate Screen,Urine Not Detected (NotDetected); Benzodiazepines Screen,Urine Detected (NotDetected); Cocaine Screen,Urine Not Detected (NotDetected); Methadone Screen, Urine Not Detected (NotDetected); Opiate Screen,Urine Detected (NotDetected); Oxycodone Screen, Urine Not Detected (NotDetected); Phencyclidine Screen,Urine Not Detected (NotDetected); Tricyclic Antidepressant,Urine Not Detected (NotDetected); Urn Cannabinoid Scrn Detected (NotDetected)
[2025-01-17] MEDS: PANTOPRAZOLE 40 MG/10 ML VIAL IVP SCH (21:29)
[2025-01-17] MEDS: NITROGLYCERIN SL TABS 0.4 MG TAB SUBLINGUAL PRN (23:35)
--- NOTE | 2025-01-18 01:01 | CT ---
EXAM: CT Angiography Chest With Intravenous Contrast CLINICAL HISTORY: ITS.REASON CT Reason: shortness of breath/chest pain TECHNIQUE: Axial computed tomographic angiography images of the chest with intravenous contrast. CTDI is 35.5 mGy and DLP is 887.7 mGy-cm. This CT exam was performed using one or more of the following dose reduction techniques: automated exposure control, adjustment of the mA and/or kV according to patient size, and/or use of iterative reconstruction technique. MIP reconstructed images were created and reviewed. COMPARISON: No relevant prior studies available. FINDINGS: Pulmonary arteries: Unremarkable. No pulmonary embolism. Aorta: Atherosclerotic changes of the aorta. No thoracic aortic aneurysm. Lungs: Surgical clips at the gastroesophageal junction, correlate with surgical history. No pneumonia, pleural effusion, or pneumothorax. No mass. Pleural space: See above. Heart: Unremarkable. No cardiomegaly. No significant pericardial effusion. No evidence of RV dysfunction. Bones/joints: Degenerative changes of the spine. No acute fracture. No dislocation. Soft tissues: Unremarkable. Lymph nodes: Unremarkable. No enlarged lymph nodes. Liver: Hepatic steatosis. IMPRESSION: 1. Surgical clips at the gastroesophageal junction, correlate with surgical history. No pneumonia, pleural effusion, or pneumothorax. 2. No pulmonary embolism.
[2025-01-18] MEDS: CALCIUM CARBONATE 500 MG CHEWABLE PO PRN (02:37)
[2025-01-18 08:37] LABS: LDL Cholesterol,Calculated 74.1 mg/dL (0.0-131.0)
[2025-01-18] MEDS ORDERED: ASPIRIN 325 MG TAB PO SCH (09:00)
[2025-01-18] MEDS ORDERED: amLODIPine 2.5 MG TAB PO SCH (09:00)
[2025-01-18] MEDS: TAMSULOSIN 0.4 MG CAP.ER.24H PO SCH (09:31)
[2025-01-18] MEDS: hydroCHLOROthiazide 25 MG TAB PO SCH (09:31)
[2025-01-18] MEDS: ATORVASTATIN 20 MG TAB PO SCH (09:31)
[2025-01-18] MEDS: lisinopriL 20 MG TAB PO SCH (09:32)
[2025-01-18] MEDS: ASPIRIN 81 MG PO SCH (09:34)
[2025-01-18] MEDS: amLODIPine 5 MG TAB PO SCH (09:34)
--- NOTE | 2025-01-18 11:19 | P.CONS ---
History of Present Illness - Reason for Consult Consult date: 01/18/25 No pain, history of ulcers Requesting physician: Lance Chang - Chief Complaint Chest pain and pressure - History of Present Illness This a pleasant 79-year-old male who was recently hospitalized 01/13/2025 through 01/15/2025 for complaints of chest pain and epigastric pain who underwent cardiac catheterization which showed no cardiac disease. Multiple consultants for fol lowing patient. Gastroenterology was consulted and has seen the patient during his last hospitalization for epigastric pain. He was started on Protonix 40 mg twice daily with resolution of symptoms. Patient again has multiple complaints including headache, neck pain, back pain, chest pressure and chest pain. Patient states he had an ulcer that required surgery when he was 22 years old. He has not had anything recurrent since then. Patient also has a history of acid reflux and large hiatal hernia. He underwent upper endoscopy and colonoscopy in [place] [address] Holland with findings of antral gastritis, hiatal hernia and esophagitis. Colonoscopy revealed transverse colon polyp st atus post polypectomy. He underwent Niesen fundoplication as well as versus laparoscopic lysis of adhesions in July [address] Holland. States he has been taking his Protonix. He also states he does have some nausea but no vomiting. Patient admitted with consultation to cardiology for chest pain and elevated troponins. Patient had elevated troponins x 3. Gastroenterology on consultation for abdominal pain with history of ulcer. Patient denies any blood in his stool or black stool. Again nausea but no vomiting. He had a CT of the abdomen pelvis this past Tuesday with reports of no acute abdominal process. WBCs 6.3 hemoglobin 13.4 Platelet count 227,000 sodium 134 potassium 4.2 BUN 20 creatinine 0.9 total bilirubin 0.9 AST 39 ALT 37 alkaline phosphatase 48 amylase 53 lipase 96 troponins elevated x 3 trending up. Review of Systems REVIEW OF SYSTEMS: CARDIOPULMONARY: Patient reports chest pain, chest pressure. Gastrointestinal: Epigastric pain versus chest pain. Nausea without vomiting. No hematemesis, coffee-ground emesis. No rectal bleeding, or melena. GENITOURINARY: No dysuria or hematuria. MUSCULOSKELETAL: Reports normal range of motion. Complaints of neck pain and back pain. SKIN: No rashes. No jaundice. ENDOCRINE: No chills, fevers. No excessive weight gain or loss. No polydipsia or polyuria. PSYCHIATRIC: Unremarkable. NEUROLOGY: No change in mental status. Positive headache. ENT: Vision unremarkable. CONSTITUTIONAL: No recent weight loss. No fever, chills, night sweats. Past Medical History Past Medical History: Coronary Artery Disease (CAD), Chest Pain / Angina, GERD/Reflux, Hyperlipidemia, Hypertension, Myocardial Infarction ([place]), Osteoarthritis (OA), Sleep Apnea/CPAP/BIPAP Additional Past Medical History / Comment(s): NO CPAP, HIATAL HERNIA, colonic POLYP Last Myocardial Infarction Date:: 10/1994 History of Any Multi-Drug Resistant Organisms: None Reported Past Surgical History: Orthopedic Surgery, Tonsillectomy Additional Past Surgical History / Comment(s): 07-09-15 laprascopic en fundopliction. 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 Past Anesthesia/Blood Transfusion Reactions: No Reported Reaction Past Psychological History: No Psychological Hx Reported Smoking Status: Former smoker Past Alcohol Use History: Occasional Past Drug Use History: Marijuana - Past Family History Mother Family Medical History: No Reported History Additional Family Medical History / Comment(s): in mva at age 44 Father Family Medical History: No Reported History Additional Family Medical History / Comment(s): in boating accident at age 67 Brother(s) Family Medical History: Coronary Artery Disease (CAD) Additional Family Medical History / Comment(s): Patient has 3 brothers and he knows that one brother has had a 3 or 4 vessel CABG and is not aware of other health problems. Patient has 3 sisters which she does not know of any major medical problems. Son(s) Additional Family Medical History / Comment(s): He has one son that is overweight and has gastric esophageal reflux disease and hypertension. He has one daughter that has gallbladder problems. Medications and Allergies Home Medications Medication Instructions Recorded Confirmed Type Pantoprazole [Protonix] 40 mg PO DAILY 12/10/21 01/17/25 History Atorvastatin [Lipitor] 20 mg PO DAILY 01/13/25 01/17/25 History Tamsulosin [Flomax] 0.4 mg PO DAILY 01/13/25 01/17/25 History hydroCHLOROthiazide [Hydrodiuril] 25 mg PO DAILY 01/13/25 01/17/25 History lisinopriL 40 mg PO DAILY 01/13/25 01/17/25 History Aspirin EC [Ecotrin Low Dose] 81 mg PO DAILY 30 Days #30 tab 01/15/25 01/17/25 Rx amLODIPine [Norvasc] 2.5 mg PO DAILY 30 Days #30 tablet 01/15/25 01/17/25 Rx Allergies Allergy/AdvReac Type Severity Reaction Status Date / Time Penicillins Allergy Rash/Hives Verified 01/17/25 10:58 Physical Exam Vitals: Vital Signs Temp Pulse Resp BP Pulse Ox 01/18/25 06:50 97.9 F 84 17 161/88 96 01/18/25 04:18 63 15 149/77 92 L 01/18/25 03:15 66 22 149/124 96 01/18/25 02:00 75 20 166/106 94 L 01/18/25 01:00 97.9 F 80 21 137/73 97 01/18/25 00:00 96 30 H 129/72 98 01/17/25 23:41 98 26 H 126/106 96 01/17/25 20:00 66 20 135/61 97 01/17/25 19:27 69 17 148/81 95 01/17/25 16:53 72 18 179/95 96 01/17/25 14:13 84 16 167/85 97 01/17/25 11:50 94 18 151/77 97 01/17/25 10:38 67 16 142/80 99 01/17/25 09:57 67 18 132/71 01/17/25 09:11 97.4 F L 82 18 178/7 96 Intake and Output 01/17/25 01/17/25 01/18/25 14:59 22:59 06:59 Other: Weight 90.718 kg General appearance: The patient is alert, oriented, pale, appears in no acute distress. HET: Head is normocephalic and atraumatic. Conjunctiva pink. Sclera anicteric. Neck: Supple without lymphadenopathy. Trachea midline. Heart: Regular. Lungs: Equal expansion, normal respiratory effort. Abdomen: Soft, nontender, nondistended. Skin: No rashes. No jaundice. Extremities: Normal skin color and turgor. No pedal edema. Neurological: No focal deficits. Alert and oriented x3. Results CBC & Chem 7: 01/17/25 09:32 01/17/25 09:32 Labs: Abnormal Lab Results - Last 24 Hours (Table) 01/17/25 01/17/25 01/17/25 Range/Units 09:32 09:32 09:32 Hct 38.8 L (39.0-53.0) % APTT 20.6 L (22.0-30.0) sec Sodium 134 L (137-145) mmol/L Carbon Dioxide 20 L (22-30) mmol/L Glucose 136 H (74-99) mg/dL Troponin I (0.000-0.034) ng/mL Urine Opiates Screen (NotDetected) U Benzodiazepines Scrn (NotDetected) U Marijuana (THC) Screen (NotDetected) 01/17/25 01/17/25 01/17/25 Range/Units 09:32 10:50 14:40 Hct (39.0-53.0) % APTT (22.0-30.0) sec Sodium (137-145) mmol/L Carbon Dioxide (22-30) mmol/L Glucose (74-99) mg/dL Troponin I 0.117 H* 0.126 H* 0.129 H* (0.000-0.034) ng/mL Urine Opiates Screen (NotDetected) U Benzodiazepines Scrn (NotDetected) U Marijuana (THC) Screen (NotDetected) 01/17/25 Range/Units 18:01 Hct (39.0-53.0) % APTT (22.0-30.0) sec Sodium (137-145) mmol/L Carbon Dioxide (22-30) mmol/L Glucose (74-99) mg/dL Troponin I (0.000-0.034) ng/mL Urine Opiates Screen Detected H (NotDetected) U Benzodiazepines Scrn Detected H (NotDetected) U Marijuana (THC) Screen Detected H (NotDetected) Comments: Chest CT angiogram reports surgical clips at the gastroesophageal junction correlate with surgical history. No pneumonia, pleural effusion or pneumothorax. No pulmonary embolism. Assessment and Plan (1) Epigastric pain Narrative/Plan: 79-year-old with history of GERD, also her requiring surgery at age 22, hiatal hernia with previous Niesen fundoplication presents again to the hospital after just being discharged 3 days ago for similar complaints with workup from multiple consultants including gastroenterology. At that time patient was complaining of some epigastric pain versus chest pain. Started on Protonix 40 mg twice daily with resolution of symptoms. Acute coronary syndrome was ruled out under after patient underwent cardiac catheterization. Again similar complaints however patient is pointing more to his chest. Elevated troponins x 3 trending up. Await further recommendations from cardiology. Continue with medical and symptomatic treatment Protonix 40 mg twice daily. Current Visit: No Status: Acute Code(s): R10.13 - EPIGASTRIC PAIN SNOMED Code(s): 40664275 (2) Elevated troponin Current Visit: Yes Status: Acute Code(s): R79.89 - OTHER SPECIFIED ABNORMAL FINDINGS OF BLOOD CHEMISTRY SNOMED Code(s): 126059457 (3) Neck pain Current Visit: Yes Status: Acute Code(s): M54.2 - CERVICALGIA SNOMED Code(s): 95488154 (4) Back pain Current Visit: Yes Status: Acute Code(s): M54.9 - DORSALGIA, UNSPECIFIED SNOMED Code(s): 240707464 (5) Chest pain Current Visit: Yes Status: Acute Code(s): R07.9 - CHEST PAIN, UNSPECIFIED SNOMED Code(s): 20514508 (6) History of En fundoplication Current Visit: No Status: Acute Code(s): Z98.890 - OTHER SPECIFIED POSTPROCEDURAL STATES SNOMED Code(s): 703257087 Plan: 1. Continue symptomatic and supportive care 2. Continue with medical treatment with Protonix 40 mg twice daily 3. Diet as tolerated once cleared by cardiology 4. No plans on endoscopic evaluation at this time 5. Patient has had previous En fundoplication and endoscopy evaluations by Dr. Holland. Consider surgical consultation if acute coronary syndrome has been ruled out thank you for allowing us to participate in the care of the patient, the GI service will sign off, gastroenterology will not be available at the hospital this weekend and through next week. If further evaluation by gastroenterology is required the patient will need transfer as per the primary team's discretion. Dr. Omar Cornelius I agree with the dictator's note, documented as a scribe by Mavis Ray.
--- NOTE | 2025-01-18 12:15 | P.CRDCN ---
History of Present Illness History of present illness: HISTORY OF PRESENT ILLNESS: This is a 79-year-old male with a past medical history significant for hypertension, hyperlipidemia, and GERD. Patient does not follow with a dipper fish. We have been asked to see the patient in consultation for chest pain. Patient examined at the bedside in the emergency room. Patient was recently admitted to the hospital secondary to chest pain. He underwent cardiac catheterization revealing normal coronary arteries. He presented back to the hospital with a chief complaint of chest discomfort. He states the pain starts in the epigastric region and then goes into his left upper quadrant and then radiates into his back. He states this pain has been persistent for the past couple months. He denies any shortness of breath. Patient's blood pressures have been elevated with a systolic between [id number]. DIAGNOSTICS: - EKG reveals sinus mechanism with no signs of acute ischemia - Chest xray negative for acute process. - Laboratory data: WBC 6.3. Hemoglobin 13.4. Platelet count 227. D-dimer 0.43. Sodium 134. Potassium 4.2. BUN 20. Creatinine 0.98. - Current home cardiac medications include lisinopril 40 mg daily, hydrochlorothiazide 25 mg daily, amlodipine 2.5 mg daily, Lipitor 20 mg daily, aspirin 81 mg daily - Most recent echocardiogram obtained 01/15/2025 revealed EF 60 to 65%, negative bubble study, mild aortic stenosis, mild MR, trace TR - Cardiac catheterization history: 01/13/2025 revealing normal coronary arteries REVIEW OF SYSTEMS: At the time of my exam: CONSTITUTIONAL: Denies fever or chills. HEENT: Denies blurred vision, vision changes, or eye pain. Denies hemoptysis CARDIOVASCULAR: Denies chest pain. Denies orthopnea. Denies PND. Denies palpitations RESPIRATORY: Denies shortness of breath. GASTROINTESTINAL: Denies abdominal pain. Denies nausea or vomiting. HEMATOLOGIC: Denies bleeding disorders. GENITOURINARY: Denies any blood in urine. SKIN: Denies pruitis. Denies rash. PHYSICAL EXAM: VITAL SIGNS: Reviewed. GENERAL: Well-developed in no acute distress. HEENT: Head is normocephalic. Pupils are equal, round. Sclerae anicteric. Mucous membranes of the mouth are moist. Neck supple. No JVD or thyromegaly LUNGS: Respirations even and unlabored. Lungs essentially clear to auscultation bilaterally. HEART: Regular rate and rhythm. S1 and S2 heard. ABDOMEN: Soft. Nondistended. Nontender. EXTREMITIES: Normal range of motion. No clubbing or cyanosis. Peripheral pulses intact. No lower extremity edema NEUROLOGIC: Awake and alert. Oriented x 3. ASSESSMENT: Atypical chest pain/abdominal pain Normal coronary arteries per cath 01/13/2025 Elevated troponins, flat, of unclear clinical significance Hypertension Hyperlipidemia GERD PLAN: An acute coronary event has been ruled out Dr. Penn, state epidemiologist, reviewed patient's recent cardiac catheterization films with no further recommendations Resume home cardiac medications No plans for any further invasive cardiac workup Further recommendations pending patient course Nurse practitioner note has been reviewed by physician. Signing provider agrees with the documented findings, assessment, and plan of care documented by MICROBIOLOGY PROFESSOR as a scribe. Past Medical History Past Medical History: Coronary Artery Disease (CAD), Chest Pain / Angina, GERD/Reflux, Hyperlipidemia, Hypertension, Myocardial Infarction ([place]), Osteoarthritis (OA), Sleep Apnea/CPAP/BIPAP Additional Past Medical History / Comment(s): NO CPAP, HIATAL HERNIA, colonic POLYP Last Myocardial Infarction Date:: 10/1994 History of Any Multi-Drug Resistant Organisms: None Reported Past Surgical History: Orthopedic Surgery, Tonsillectomy Additional Past Surgical History / Comment(s): 07-09-15 laprascopic gillian fundopliction. 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 Past Anesthesia/Blood Transfusion Reactions: No Reported Reaction Past Psychological History: No Psychological Hx Reported Smoking Status: Former smoker Past Alcohol Use History: Occasional Past Drug Use History: Marijuana - Past Family History Mother Family Medical History: No Reported History Additional Family Medical History / Comment(s): in mva at age 44 Father Family Medical History: No Reported History Additional Family Medical History / Comment(s): in boating accident at age 67 Brother(s) Family Medical History: Coronary Artery Disease (CAD) Additional Family Medical History / Comment(s): Patient has 3 brothers and he knows that one brother has had a 3 or 4 vessel CABG and is not aware of other health problems. Patient has 3 sisters which she does not know of any major medical problems. Son(s) Additional Family Medical History / Comment(s): He has one son that is overweight and has gastric esophageal reflux disease and hypertension. He has one daughter that has gallbladder problems. Medications and Allergies Home Medications Medication Instructions Recorded Confirmed Type Pantoprazole [Protonix] 40 mg PO DAILY 12/10/21 01/17/25 History Atorvastatin [Lipitor] 20 mg PO DAILY 01/13/25 01/17/25 History Tamsulosin [Flomax] 0.4 mg PO DAILY 01/13/25 01/17/25 History hydroCHLOROthiazide [Hydrodiuril] 25 mg PO DAILY 01/13/25 01/17/25 History lisinopriL 40 mg PO DAILY 01/13/25 01/17/25 History Aspirin EC [Ecotrin Low Dose] 81 mg PO DAILY 30 Days #30 tab 01/15/25 01/17/25 Rx amLODIPine [Norvasc] 2.5 mg PO DAILY 30 Days #30 tablet 01/15/25 01/17/25 Rx Allergies Allergy/AdvReac Type Severity Reaction Status Date / Time Penicillins Allergy Rash/Hives Verified 01/17/25 10:58 Physical Exam Vitals: Vital Signs Temp Pulse Resp BP Pulse Ox 01/18/25 08:33 98.1 F 67 22 162/79 95 01/18/25 06:50 97.9 F 84 17 161/88 96 01/18/25 04:18 63 15 149/77 92 L 01/18/25 03:15 66 22 149/124 96 01/18/25 02:00 75 20 166/106 94 L 01/18/25 01:00 97.9 F 80 21 137/73 97 01/18/25 00:00 96 30 H 129/72 98 01/17/25 23:41 98 26 H 126/106 96 01/17/25 20:00 66 20 135/61 97 01/17/25 19:27 69 17 148/81 95 01/17/25 16:53 72 18 179/95 96 01/17/25 14:13 84 16 167/85 97 Results 01/17/25 09:32 01/17/25 09:32 Cardiac Enzymes 01/17/25 Range/Units 14:40 Troponin I 0.129 H* (0.000-0.034) ng/mL Lipids 01/17/25 Range/Units 09:32 Triglycerides 106.00 (0.00-149.00) mg/dL Cholesterol 159.00 (0.00-200.00) mg/dL HDL Cholesterol 63.70 H (40.00-60.00) mg/dL Cholesterol/HDL Ratio 2.50 Ratio Current Medications Generic Name Dose Route Start Last Admin Trade Name Freq PRN Reason Stop Dose Admin Al Hydroxide/Mg Hydroxide 30 ml 01/17/25 09:30 01/18/25 09:30 Mag Hydrox/Al Hydrox/Simeth 30 Ml Cup PO 30 ml QID ARIADNE Administration Amlodipine Besylate 5 mg 01/18/25 09:00 01/18/25 09:34 Amlodipine 5 Mg Tab PO 5 mg DAILY ARIADNE Administration Aspirin 81 mg 01/18/25 09:00 01/18/25 09:34 Aspirin 81 Mg PO 81 mg DAILY ARIADNE Administration Atorvastatin Calcium 20 mg 01/18/25 09:00 01/18/25 09:31 Atorvastatin 20 Mg Tab PO 20 mg DAILY [facility] Administration Calcium Carbonate/Glycine 1,000 mg 01/18/25 00:14 01/18/25 02:37 Calcium Carbonate 500 Mg Chewable PO 1,000 mg TID PRN Administration Heartburn Hydrochlorothiazide 25 mg 01/18/25 09:00 01/18/25 09:31 Hydrochlorothiazide 25 Mg Tab PO 25 mg DAILY [facility] Administration Hydromorphone HCl 0.5 mg 01/17/25 16:59 01/18/25 11:45 Hydromorphone 0.5 Mg/0.5 Ml Syringe IVP 0.5 mg Q3HR PRN Administration Pain Lisinopril 40 mg 01/18/25 09:00 01/18/25 09:32 Lisinopril 20 Mg Tab PO 40 mg DAILY [facility] Administration Nitroglycerin 0.4 mg 01/17/25 10:38 01/17/25 23:40 Nitroglycerin Sl Tabs 0.4 Mg Tab SUBLINGUAL 0.4 mg Q5M PRN Administration Chest Pain Ondansetron HCl 4 mg 01/17/25 15:17 01/18/25 08:37 Ondansetron 4 Mg/2 Ml Vial IVP 4 mg Q4HR PRN Administration Nausea And Vomiting Pantoprazole Sodium 40 mg 01/17/25 21:00 01/18/25 08:41 Pantoprazole 40 Mg/10 Ml Vial IVP 40 mg BID ARIADNE Administration Tamsulosin HCl 0.4 mg 01/18/25 09:00 01/18/25 09:31 Tamsulosin 0.4 Mg Cap.Er.24h PO 0.4 mg DAILY ARIADNE Administration 01/17/25 09:32 01/17/25 09:32
--- NOTE | 2025-01-18 13:04 | P.HPIM ---
History of Present Illness H&P Date: 01/17/25 Jose Saleem, is a 79-year-old male who presented to [facility] emergency room with a chief complaint of chest pain. Patient was recently admitted to [facility] with similar complaint, he underwent cardiac catheterization last week, which revealed no significant coronary artery disease, he was discharged to home however he returned to the hospital with new episodes of chest pain, troponin on presentation was mildly elevated. He was evaluated in the emergency room vital examination on presentation revealed a temperature of 97.4 pulse 82 respiration 18 blood pressure 178/71 pulse ox 96% on room air Laboratory data revealed a white blood count of 6.3 hemoglobin 13.4 platelet count 227 BUN 20 creatinine 0.98 troponin 0.117 amylase and lipase normal AST ALT alkaline phosphatase normal Testing in the emergency room revealed chest x-ray on presentation revealed no evidence for acute pulmonary disease, EKG revealed sinus rhythm normal EKG Patient was admitted to medical floor for further evaluation and treatment Past Medical History Past Medical History: Coronary Artery Disease (CAD), Chest Pain / Angina, GERD/R eflux, Hyperlipidemia, Hypertension, Myocardial Infarction ([place]), Osteoarthritis (OA), Sleep Apnea/CPAP/BIPAP Additional Past Medical History / Comment(s): NO CPAP, HIATAL HERNIA, colonic POLYP Last Myocardial Infarction Date:: 10/1994 History of Any Multi-Drug Resistant Organisms: None Reported Past Surgical History: Orthopedic Surgery, Tonsillectomy Additional Past Surgical History / Comment(s): 07-09-15 laprascopic gillian fundopliction. 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 Past Anesthesia/Blood Transfusion Reactions: No Reported Reaction Past Psychological History: No Psychological Hx Reported Smoking Status: Former smoker Past Alcohol Use History: Occasional Past Drug Use History: Marijuana - Past Family History Mother Family Medical History: No Reported History Additional Family Medical History / Comment(s): in mva at age 44 Father Family Medical History: No Reported History Additional Family Medical History / Comment(s): in boating accident at age 67 Brother(s) Family Medical History: Coronary Artery Disease (CAD) Additional Family Medical History / Comment(s): Patient has 3 brothers and he knows that one brother has had a 3 or 4 vessel CABG and is not aware of other health problems. Patient has 3 sisters which she does not know of any major medical problems. Son(s) Additional Family Medical History / Comment(s): He has one son that is overweight and has gastric esophageal reflux disease and hypertension. He has one daughter that has gallbladder problems. Medications and Allergies Home Medications Medication Instructions Recorded Confirmed Type Pantoprazole [Protonix] 40 mg PO DAILY 12/10/21 01/17/25 History Atorvastatin [Lipitor] 20 mg PO DAILY 01/13/25 01/17/25 History Tamsulosin [Flomax] 0.4 mg PO DAILY 01/13/25 01/17/25 History hydroCHLOROthiazide [Hydrodiuril] 25 mg PO DAILY 01/13/25 01/17/25 History lisinopriL 40 mg PO DAILY 01/13/25 01/17/25 History Aspirin EC [Ecotrin Low Dose] 81 mg PO DAILY 30 Days #30 tab 01/15/25 01/17/25 Rx amLODIPine [Norvasc] 2.5 mg PO DAILY 30 Days #30 tablet 01/15/25 01/17/25 Rx Allergies Allergy/AdvReac Type Severity Reaction Status Date / Time Penicillins Allergy Rash/Hives Verified 01/17/25 10:58 Physical Exam Vitals: Vital Signs Temp Pulse Resp BP Pulse Ox 01/17/25 11:50 94 18 151/77 97 01/17/25 10:38 67 16 142/80 99 01/17/25 09:57 67 18 132/71 01/17/25 09:11 97.4 F L 82 18 178/7 96 Intake and Output 01/16/25 01/17/25 01/17/25 22:59 06:59 14:59 Other: Weight 90.718 kg In general patient is alert and oriented x 3 in no distress HEENT head normocephalic and atraumatic Neck is supple no JVD no goiter no lymphadenopathy no carotid bruit Chest examination is clear to auscultation no crackles no wheezing Cardiac exam reveals regular heart sounds S1 and S2 no gallops no murmurs Abdomen is soft nontender no organomegaly with normal bowel sounds Extremity exam reveals no edema no cyanosis or clubbing Neurological examination reveals no gross focal deficits Results CBC & Chem 7: 01/17/25 09:32 01/17/25 09:32 Labs: Abnormal Lab Results - Last 24 Hours (Table) 01/17/25 01/17/25 01/17/25 Range/Units 09:32 09:32 09:32 Hct 38.8 L (39.0-53.0) % APTT 20.6 L (22.0-30.0) sec Sodium 134 L (137-145) mmol/L Carbon Dioxide 20 L (22-30) mmol/L Glucose 136 H (74-99) mg/dL Troponin I (0.000-0.034) ng/mL 01/17/25 01/17/25 Range/Units 09:32 10:50 Hct (39.0-53.0) % APTT (22.0-30.0) sec Sodium (137-145) mmol/L Carbon Dioxide (22-30) mmol/L Glucose (74-99) mg/dL Troponin I 0.117 H* 0.126 H* (0.000-0.034) ng/mL Assessment and Plan Plan: Episode of chest pain Epigastric pain Underlying history of hypertension Underlying history of hyperlipidemia Previous history of peptic ulcer disease Underlying history of benign prostatic hypertrophy At this time patient was seen in the emergency room, he is admitted to telemetry floor Home medications reviewed and reordered Serial EKG and troponin ordered cardiology consultation requested Will follow closely during this admission
--- NOTE | 2025-01-18 13:07 | P.PN ---
Subjective Progress Note Date: 01/18/25 Jose Saleem, is a 79-year-old male who presented to [facility] emergency room with a chief complaint of chest pain. Patient was recently admitted to [facility] with similar complaint, he underwent cardiac catheterization last week, which revealed no significant coron luis manuel artery disease, he was discharged to home however he returned to the hospital with new episodes of chest pain, troponin on presentation was mildly elevated. He was evaluated in the emergency room vital examination on presentation revealed a temperature of 97.4 pulse 82 respiration 18 blood pressure 178/71 pulse ox 96% on room air Laboratory data revealed a white blood count of 6.3 hemoglobin 13.4 platelet count 227 BUN 20 creatinine 0.98 troponin 0.117 amylase and lipase normal AST ALT alkaline phosphatase normal Testing in the emergency room revealed chest x-ray on presentation revealed no evidence for acute pulmonary disease, EKG revealed sinus rhythm normal EKG Patient was admitted to medical floor for further evaluation and treatment On 01/18/2025 patient was seen and examined on the medical floor he is alert and oriented x 3 in no apparent distress he is still complaining of pain in the lower chest area and epigastric area, he was evaluated by cardiology, he had recent cardiac catheterization, no plans per cardiology for further testing, CT angiogram of the chest was done and was within normal limits, patient was also evaluated by gastroenterology, no plans for EGD at this time, however patient and family are very worried due to previous history of peptic ulcer disease, they are asking to see one of the surgeon for possible EGD, consultation for surgery was initiated. Objective - Vital Signs Vital signs: Vital Signs Temp 98.1 F 01/18/25 08:33 Pulse 64 01/18/25 12:45 Resp 20 01/18/25 12:45 BP 140/62 01/18/25 12:45 Pulse Ox 95 01/18/25 12:45 FiO2 Intake & Output 01/17/25 01/18/25 01/18/25 18:59 06:59 18:59 Weight 90.718 kg - Exam In general patient is alert and oriented x 3 in no distress HEENT head normocephalic and atraumatic Neck is supple no JVD no goiter no lymphadenopathy no carotid bruit Chest examination is clear to auscultation no crackles no wheezing Cardiac exam reveals regular heart sounds S1 and S2 no gallops no murmurs Abdomen is soft nontender no organomegaly with normal bowel sounds Extremity exam reveals no edema no cyanosis or clubbing Neurological examination reveals no gross focal deficits - Labs CBC & Chem 7: 01/17/25 09:32 01/17/25 09:32 Labs: Abnormal Lab Results - Last 24 Hours (Table) 01/17/25 01/17/25 01/17/25 Range/Units 09:32 14:40 18:01 Troponin I 0.129 H* (0.000-0.034) ng/mL HDL Cholesterol 63.70 H (40.00-60.00) mg/dL Urine Opiates Screen Detected H (NotDetected) U Benzodiazepines Scrn Detected H (NotDetected) U Marijuana (THC) Screen Detected H (NotDetected) Assessment and Plan Plan: Episode of chest pain Epigastric pain Underlying history of hypertension Underlying history of hyperlipidemia Previous history of peptic ulcer disease Underlying history of benign prostatic hypertrophy At this time patient was seen in the emergency room, he is admitted to telemetry floor Home medications reviewed and reordered Serial EKG and troponin ordered cardiology consultation requested Will follow closely during this admission
[2025-01-18 13:33] LABS: Basophils % (A) 0 %; Eosinophils # (A) 0.1 k/uL (0-0.7); Eosinophils % (A) 2 %; HCT 36.5 % (39.0-53.0); HGB 12.5 gm/dL (13.0-17.5); Lymphocytes # (A) 1.2 k/uL (1.0-4.8); Lymphocytes % (A) 20 %; MCH 29.6 pg (25.0-35.0); MCHC 34.2 g/dL (31.0-37.0); MCV 86.4 fL (80.0-100.0); Mean Platelet Volume 8.2; Monocytes # (A) 0.5 k/uL (0-1.0); Monocytes % (A) 9 %; Neutrophils % (A) 68 %; Platelet Count 188 k/uL (150-450); RBC 4.23 m/uL (4.30-5.90); RDW 13.5 % (11.5-15.5); WBC 5.9 k/uL (3.8-10.6)
[2025-01-18 13:48] LABS: ALT 35 U/L (4-49); AST 25 U/L (17-59); African American GFR (CKD) 72 (>60 ml/min/1.73 sqM); Albumin 4.3 g/dL (3.5-5.0); Alkaline Phosphatase 56 U/L (38-126); Anion Gap 9 mmol/L; Blood Urea Nitrogen 24 mg/dL (9-20); Calcium 9.7 mg/dL (8.4-10.2); Carbon Dioxide 26 mmol/L (22-30); Chloride 100 mmol/L (98-107); Glucose 109 mg/dL (74-99); Lipase 83 U/L (23-300); Non-African American GFR(CKD) 62 (>60 ml/min/1.73 sqM); Potassium 3.7 mmol/L (3.5-5.1); Sodium 135 mmol/L (137-145); Total Bilirubin 0.7 mg/dL (0.2-1.3); Total Protein 6.9 g/dL (6.3-8.2)
--- NOTE | 2025-01-18 14:04 | P.GSCN ---
History of Present Illness Consult date: 01/18/25 History of present illness: CHIEF COMPLAINT: Abdominal pain and chest pain HISTORY OF PRESENT ILLNESS: This is a 79-year-old male who presented to the hospital with complaints of epigastric abdominal pain that radiates to the back and up into the right shoulder. He reports he has been having nausea. No vomiting. He reports a decreased appetite. He also reports chills. He also complains of constipation. He says it has been about a week since his had a decent bowel movement. His last small stool was on Tuesday, 3 days ago. Patient does have a known past history of perforated peptic ulcer requiring to be patched about 20 years ago. Also history of Niesen follow-up occasion. EGD and colonoscopy was last completed in 2014 reporting gastritis, hiatal hernia and esophagitis. Patient had abdominal ultrasound on admission showing a fatty liver. He is also been evaluated by cardiology and acute coronary syndrome ruled out. Patient denies any NSAID use. Denies being on any blood thinners. Patient denies any history of diverticulitis. PAST MEDICAL HISTORY: Coronary Artery Disease (CAD), Chest Pain / Angina, GERD/Reflux, Hyperlipidemia, Hypertension, Myocardial Infarction (ID), Osteoarthritis (OA), Sleep Apnea/CPAP/BIPAP,HIATAL HERNIA, colonic POLYP PAST SURGICAL HISTORY: 07-09-15 laprascopic gillian fundopliction. 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 MEDICATIONS: See below ALLERGIES: See below SOCIAL HISTORY: No illicit drug use. REVIEW OF SYSTEMS: CONSTITUTIONAL: Denies fever or chills. HEENT: Denies blurred vision, vision changes, or eye pain. Denies hemoptysis CARDIOVASCULAR: Denies chest pain or pressure. RESPIRATORY: No shortness of breath. GASTROINTESTINAL: See HPI for pertinent findings HEMATOLOGIC: Denies bleeding disorders. GENITOURINARY: Denies any blood in urine or increased urinary frequency. SKIN: Denies pruitis. Denies rash. PHYSICAL EXAM: VITAL SIGNS: Reviewed GENERAL: Well-developed in no acute distress. HEENT: No sclera icterus. Extraocular movements grossly intact. Moist buccal mucosa. Head is atraumatic, normocephalic. No nasal drainage. ABDOMEN: Soft. Nondistended. Tenderness to palpation epigastric area and left lower quadrant. No rebound or guarding noted. NEUROLOGIC: Alert and oriented. Cranial nerves II through XII grossly intact. LABORATORY DATA: WBC is 5.9 Hgb 12.5 platelets 188 Sodium is 135 potassium 3.7 creatinine 1.14 LFTs normal Lipase 96 amylase 53 Troponins elevated Urine drug screen positive for opiates, benzodiazepine and marijuana IMAGING: Chest CTA no PE. Surgical clips at the GE junction. Abdominal ultrasound reports hepatic steatosis. No evidence of cholelithiasis. ASSESSMENT: 1. Epigastric abdominal pain that radiates to the back and shoulder. No evidence of gallstones on ultrasound 2. Left lower quadrant abdominal pain and constipation 3. History of perforated peptic ulcer disease requiring surgery about 20 years ago 4. History of Niesen fundoplication PLAN: -Patient scheduled for EGD on Tuesday with Dr. 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 Signing provider agrees with the documented findings, assessment, and plan of care. Past Medical History Past Medical History: Coronary Artery Disease (CAD), Chest Pain / Angina, GERD/Reflux, Hyperlipidemia, Hypertension, Myocardial Infarction (ID), Osteoarthritis (OA), Sleep Apnea/CPAP/BIPAP Additional Past Medical History / Comment(s): NO CPAP, HIATAL HERNIA, colonic POLYP Last Myocardial Infarction Date:: 10/1994 History of Any Multi-Drug Resistant Organisms: None Reported Past Surgical History: Orthopedic Surgery, Tonsillectomy Additional Past Surgical History / Comment(s): 07-09-15 laprascopic gillian fundopliction. 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 Past Anesthesia/Blood Transfusion Reactions: No Reported Reaction Past Psychological History: No Psychological Hx Reported Smoking Status: Former smoker Past Alcohol Use History: Occasional Past Drug Use History: Marijuana - Past Family History Mother Family Medical History: No Reported History Additional Family Medical History / Comment(s): in mva at age 44 Father Family Medical History: No Reported History Additional Family Medical History / Comment(s): in boating accident at age 67 Brother(s) Family Medical History: Coronary Artery Disease (CAD) Additional Family Medical History / Comment(s): Patient has 3 brothers and he knows that one brother has had a 3 or 4 vessel CABG and is not aware of other health problems. Patient has 3 sisters which she does not know of any major medical problems. Son(s) Additional Family Medical History / Comment(s): He has one son that is overweight and has gastric esophageal reflux disease and hypertension. He has one daughter that has gallbladder problems. Medications and Allergies Home Medications Medication Instructions Recorded Confirmed Type Pantoprazole [Protonix] 40 mg PO DAILY 12/10/21 01/17/25 History Atorvastatin [Lipitor] 20 mg PO DAILY 01/13/25 01/17/25 History Tamsulosin [Flomax] 0.4 mg PO DAILY 01/13/25 01/17/25 History hydroCHLOROthiazide [Hydrodiuril] 25 mg PO DAILY 01/13/25 01/17/25 History lisinopriL 40 mg PO DAILY 01/13/25 01/17/25 History Aspirin EC [Ecotrin Low Dose] 81 mg PO DAILY 30 Days #30 tab 01/15/25 01/17/25 Rx amLODIPine [Norvasc] 2.5 mg PO DAILY 30 Days #30 tablet 01/15/25 01/17/25 Rx Allergies Allergy/AdvReac Type Severity Reaction Status Date / Time Penicillins Allergy Rash/Hives Verified 01/17/25 10:58 Surgical - Exam Vital Signs Temp Pulse Resp BP Pulse Ox 97.4 F L 82 18 178/7 96 01/17/25 09:11 01/17/25 09:11 01/17/25 09:11 01/17/25 09:11 01/17/25 09:11 Results - Labs 01/18/25 13:16 01/18/25 13:16 Abnormal Lab Results - Last 24 Hours (Table) 01/17/25 01/17/25 01/17/25 Range/Units 09:32 14:40 18:01 RBC (4.30-5.90) m/uL Hgb (13.0-17.5) gm/dL Hct (39.0-53.0) % Sodium (137-145) mmol/L BUN (9-20) mg/dL Glucose (74-99) mg/dL Troponin I 0.129 H* (0.000-0.034) ng/mL HDL Cholesterol 63.70 H (40.00-60.00) mg/dL Urine Opiates Screen Detected H (NotDetected) U Benzodiazepines Scrn Detected H (NotDetected) U Marijuana (THC) Screen Detected H (NotDetected) 01/18/25 01/18/25 Range/Units 13:16 13:16 RBC 4.23 L (4.30-5.90) m/uL Hgb 12.5 L (13.0-17.5) gm/dL Hct 36.5 L (39.0-53.0) % Sodium 135 L (137-145) mmol/L BUN 24 H (9-20) mg/dL Glucose 109 H (74-99) mg/dL Troponin I (0.000-0.034) ng/mL HDL Cholesterol (40.00-60.00) mg/dL Urine Opiates Screen (NotDetected) U Benzodiazepines Scrn (NotDetected) U Marijuana (THC) Screen (NotDetected) Diabetes panel 01/17/25 01/18/25 Range/Units 09:32 13:16 Sodium 135 L (137-145) mmol/L Potassium 3.7 (3.5-5.1) mmol/L Chloride 100 (98-107) mmol/L Carbon Dioxide 26 (22-30) mmol/L BUN 24 H (9-20) mg/dL Creatinine 1.14 (0.66-1.25) mg/dL Glucose 109 H (74-99) mg/dL Calcium 9.7 (8.4-10.2) mg/dL AST 25 (17-59) U/L ALT 35 (4-49) U/L Alkaline Phosphatase 56 (38-126) U/L Total Protein 6.9 (6.3-8.2) g/dL Albumin 4.3 (3.5-5.0) g/dL Triglycerides 106.00 (0.00-149.00) mg/dL HDL Cholesterol 63.70 H (40.00-60.00) mg/dL Calcium panel 01/18/25 Range/Units 13:16 Calcium 9.7 (8.4-10.2) mg/dL Albumin 4.3 (3.5-5.0) g/dL Pituitary panel 01/18/25 Range/Units 13:16 Sodium 135 L (137-145) mmol/L Potassium 3.7 (3.5-5.1) mmol/L Chloride 100 (98-107) mmol/L Carbon Dioxide 26 (22-30) mmol/L BUN 24 H (9-20) mg/dL Creatinine 1.14 (0.66-1.25) mg/dL Glucose 109 H (74-99) mg/dL Calcium 9.7 (8.4-10.2) mg/dL Adrenal panel 01/18/25 Range/Units 13:16 Sodium 135 L (137-145) mmol/L Potassium 3.7 (3.5-5.1) mmol/L Chloride 100 (98-107) mmol/L Carbon Dioxide 26 (22-30) mmol/L BUN 24 H (9-20) mg/dL Creatinine 1.14 (0.66-1.25) mg/dL Glucose 109 H (74-99) mg/dL Calcium 9.7 (8.4-10.2) mg/dL Total Bilirubin 0.7 (0.2-1.3) mg/dL AST 25 (17-59) U/L ALT 35 (4-49) U/L Alkaline Phosphatase 56 (38-126) U/L Total Protein 6.9 (6.3-8.2) g/dL Albumin 4.3 (3.5-5.0) g/dL
[2025-01-18] MEDS: ENOXAPARIN 40 MG/0.4 ML SYRINGE SQ SCH (15:09)
--- NOTE | 2025-01-18 19:15 | NM ---
EXAMINATION TYPE: NM hepatobiliary w CCK DATE OF EXAM: 01/18/2025 COMPARISON: Abdominal ultrasound 01/17/2025, CT abdomen 01/13/2025 CLINICAL INDICATION: Male, 79 years old with history of abdominal pain; TECHNIQUE: After the intravenous administration of 5.2 mCi Tc 99m Mebrofenin hepatobiliary scintigrap hy is performed. Immediate images post injection. FINDINGS: There is satisfactory initial accumulation of tracer by the liver. The gallbladder is visualized wit hin 15 minutes. The small bowel activity is noted within 30 minutes. At one hour CCK was administer ed, patient was injected with 1.8 mcg of Kinevac, and gallbladder ejection fraction is calculated at 84 %, in the normal range. Therefore there is no scintigraphic evidence of cystic or common bile jorden t obstruction to suggest acute cholecystitis or gallbladder dyskinesia. IMPRESSION: Exam is within normal limits. [facility], , 01/18/2025 7:13 PM
[2025-01-18] MEDS: MELATONIN 3 MG TABLET PO SCH (22:24)
[2025-01-18] MEDS: traZODone HCL 50 MG TAB PO SCH (22:25)
[2025-01-19] MEDS: IOPAMIDOL CONTRAST (ORAL USE) VIAL PO PRN (00:43)
--- NOTE | 2025-01-19 05:19 | CT ---
EXAM: CT Abdomen and Pelvis With Intravenous Contrast CLINICAL HISTORY: epigastric pain, chest pain shortness of breath. History of gerd and ulcers TECHNIQUE: Axial computed tomography images of the abdomen and pelvis with intravenous contrast. Coronal and sagittal reconstructions are performed. CTDI is 24.1 mGy and DLP is 1163.4 mGy-cm. This CT exam was performed using one or more of the following dose reduction techniques: automated exposure control, adjustment of the mA and/or kV according to patient size, and/or use of iterative reconstruction technique. 769 images COMPARISON: 01/13/25 . FINDINGS: Lung bases: Unremarkable. No mass. No consolidation. Heart: Large amount of mitral annular calcifications. Mediastinum: Small hiatal hernia with reflux. Surgical clips in the region of GE junction ABDOMEN: Liver: 13 mm hypodensity in left lobe of the liver, unchanged. Gallbladder and bile ducts: Unremarkable. No calcified stones. No ductal dilation. Pancreas: Unremarkable. No mass. No ductal dilation. Spleen: Unremarkable. No splenomegaly. Adrenals: Unremarkable. No mass. Kidneys and ureters: Left renal cysts, measuring up to 2.9 cm. 1 large or 2 adjacent right vesicoureteral junction stones measuring about 4 x 8 mm on series 201 image 74. No significant hydroureter or hydronephrosis. 2 mm nonobstructing lower pole right renal stone. Stomach and bowel: Oral contrast reached sigmoid colon. Moderate colonic diverticulosis. No obstruction. No mucosal thickening. PELVIS: Appendix: Normal. Bladder: Unremarkable. No mass. Reproductive: Unremarkable as visualized. ABDOMEN and PELVIS: Intraperitoneal space: Unremarkable. No free air. No significant fluid collection. Bones/joints: Osteopenia. Moderate-advanced degenerative changes. Soft tissues: Unremarkable. Vasculature: Small amount of atherosclerotic calcifications. No abdominal aortic aneurysm. Lymph nodes: Unremarkable. No enlarged lymph nodes. IMPRESSION: 1. Small hiatal hernia with reflux. 2. 1 large or 2 adjacent right vesicoureteral junction stones measuring about 4 x 8 mm. No significant hydroureter or hydronephrosis.
--- NOTE | 2025-01-19 09:01 | P.PN ---
Subjective Progress Note Date: 01/19/25 Jose Saleem, is a 79-year-old male who presented to [facility] emergency room with a chief complaint of chest pain. Patient was recently admitted to [facility] with similar complaint, he underwent cardiac catheterization last week, which revealed no significant coron luis manuel artery disease, he was discharged to home however he returned to the hospital with new episodes of chest pain, troponin on presentation was mildly elevated. He was evaluated in the emergency room vital examination on presentation revealed a temperature of 97.4 pulse 82 respiration 18 blood pressure 178/71 pulse ox 96% on room air Laboratory data revealed a white blood count of 6.3 hemoglobin 13.4 platelet count 227 BUN 20 creatinine 0.98 troponin 0.117 amylase and lipase normal AST ALT alkaline phosphatase normal Testing in the emergency room revealed chest x-ray on presentation revealed no evidence for acute pulmonary disease, EKG revealed sinus rhythm normal EKG Patient was admitted to medical floor for further evaluation and treatment On 01/18/2025 patient was seen and examined on the medical floor he is alert and oriented x 3 in no apparent distress he is still complaining of pain in the lower chest area and epigastric area, he was evaluated by cardiology, he had recent cardiac catheterization, no plans per cardiology for further testing, CT angiogram of the chest was done and was within normal limits, patient was also evaluated by gastroenterology, no plans for EGD at this time, however patient and family are very worried due to previous history of peptic ulcer disease, they are asking to see one of the surgeon for possible EGD, consultation for surgery was initiated. On 01/19/2025 patient was seen and examined on the medical floor he is alert and oriented x 3 in no apparent distress he is still complaining of abdominal pain otherwise he denies any complaints there is no fever or chills no headache or dizziness no chest pain no shortness of breath no cough no nausea or vomiting no abdominal pain no diarrhea and no urinary symptoms. Patient was seen by Dr. Holland, EGD is scheduled for Tuesday, repeat CT scan of the abdomen and pelvis revealed evidence of right kidney stone, urology consultation was requested. Objective - Vital Signs Vital signs: Vital Signs Temp 97.9 F 01/19/25 01:15 Pulse 71 01/19/25 01:15 Resp 19 01/19/25 01:15 BP 157/70 01/19/25 01:15 Pulse Ox 96 01/19/25 01:15 FiO2 Intake & Output 01/18/25 01/19/25 01/19/25 18:59 06:59 18:59 Weight 90.718 kg Other: # Voids 1 - Exam In general patient is alert and oriented x 3 in no distress HEENT head normocephalic and atraumatic Neck is supple no JVD no goiter no lymphadenopathy no carotid bruit Chest examination is clear to auscultation no crackles no wheezing Cardiac exam reveals regular heart sounds S1 and S2 no gallops no murmurs Abdomen is soft nontender no organomegaly with normal bowel sounds Extremity exam reveals no edema no cyanosis or clubbing Neurological examination reveals no gross focal deficits - Labs CBC & Chem 7: 01/18/25 13:16 01/18/25 13:16 Labs: Abnormal Lab Results - Last 24 Hours (Table) 01/17/25 01/18/25 01/18/25 Range/Units 09:32 13:16 13:16 RBC 4.23 L (4.30-5.90) m/uL Hgb 12.5 L (13.0-17.5) gm/dL Hct 36.5 L (39.0-53.0) % Sodium 135 L (137-145) mmol/L BUN 24 H (9-20) mg/dL Glucose 109 H (74-99) mg/dL HDL Cholesterol 63.70 H (40.00-60.00) mg/dL Assessment and Plan Plan: Episode of chest pain Epigastric pain Underlying history of hypertension Underlying history of hyperlipidemia Previous history of peptic ulcer disease Underlying history of benign prostatic hypertrophy At this time patient was seen in the emergency room, he is admitted to telemetry floor Home medications reviewed and reordered Serial EKG and troponin ordered cardiology consultation requested Will follow closely during this admission
[2025-01-19 09:57] LABS: Basophils # (A) 0.02 X 10*3/uL (0.00-0.10); Basophils % (A) 0.4 %; Eosinophils # (A) 0.06 X 10*3/uL (0.04-0.35); Eosinophils % (A) 1.1 %; HCT 33.8 % (39.6-50.0); HGB 11.4 g/dL (13.0-17.0); Lymphocytes # (A) 1.14 X 10*3/uL (0.90-5.00); Lymphocytes % (A) 20.9 %; MCH 29.8 pg (27.0-32.0); MCHC 33.7 g/dL (32.0-37.0); MCV 88.3 FL (80.0-97.0); Mean Platelet Volume 9.2 FL (9.5-12.2); Monocytes # (A) 0.73 X 10*3/uL (0.20-1.00); Monocytes % (A) 13.4 %; NRBC Per 100 WBC 0 X 10*3/uL (0.00-0.01); Neutrophils # (A) 3.47 X 10*3/uL (1.80-7.70); Neutrophils % (A) 63.6 %; Platelet Count 178 X 10*3/uL (140-440); RBC 3.83 X 10*6/uL (4.40-5.60); RDW 13.5 % (11.5-14.5); WBC 5.45 X 10*3/uL (4.50-10.00)
--- NOTE | 2025-01-19 10:17 | P.PN ---
Subjective Progress Note Date: 01/19/25 Principal diagnosis: Abdominal pain Patient feels better today. Was having significant left lower quadrant and epigastric discomfort. Still having some mild epigastric pain. Mild back pain. The left-sided pain is absent. Appetite is diminished. Some nausea. Says the pain is made worse by drinking liquids. He is on a full liquid diet. CAT scan did show a distal right ureteral stone. HIDA scan was normal. Objective - Vital Signs Vital signs: Vital Signs Temp 98.3 F 01/19/25 07:08 Pulse 69 01/19/25 07:08 Resp 18 01/19/25 07:08 BP 132/66 01/19/25 07:08 Pulse Ox 96 01/19/25 07:08 FiO2 Intake & Output 01/18/25 01/19/25 01/19/25 18:59 06:59 18:59 Weight 90.718 kg Other: # Voids 1 - Exam Abdomen: Soft, nontender, nondistended - Labs CBC & Chem 7: 01/19/25 04:28 01/18/25 13:16 Labs: Abnormal Lab Results - Last 24 Hours (Table) 01/18/25 01/18/25 01/19/25 Range/Units 13:16 13:16 04:28 RBC 4.23 L 3.83 L (4.30-5.90) m/uL Hgb 12.5 L 11.4 L (13.0-17.5) gm/dL Hct 36.5 L 33.8 L (39.0-53.0) % MPV 9.2 L (9.5-12.2) FL Sodium 135 L (137-145) mmol/L BUN 24 H (9-20) mg/dL Glucose 109 H (74-99) mg/dL Assessment and Plan (1) Epigastric pain Narrative/Plan: Patient doing somewhat better. Continue full liquids. Agree with urology con sult. Plans remain in place for EGD Tuesday. Continue antiacids. Current Visit: No Status: Acute Code(s): R10.13 - EPIGASTRIC PAIN SNOMED Code(s): 44657692
[2025-01-19 10:18] LABS: ALT 31 U/L (10-49); AST 19 U/L (14-35); Albumin 4.2 g/dL (3.8-4.9); Alkaline Phosphatase 56 U/L (41-126); BUN/Creat Ratio 19.31 Ratio (12.00-20.00); Blood Urea Nitrogen 25.1 mg/dL (9.0-27.0); Calcium 9.2 mg/dL (8.7-10.3); Carbon Dioxide 25.5 mmol/L (21.6-31.8); Chloride 98 mmol/L (96-109); Glucose 97 mg/dL (70-110); Potassium 3.9 mmol/L (3.5-5.5); Sodium 136 mmol/L (135-145); Total Bilirubin 0.3 mg/dL (0.3-1.2); Total Protein 6.2 g/dL (6.2-8.2)
--- NOTE | 2025-01-19 12:02 | P.GSCN ---
History of Present Illness Consult date: 01/19/25 Reason for Consult: Right ureteral calculi Requesting physician: Lance Chang History of present illness: The patient is a 79-year-old male admitted with epigastric, back, and chest pain. He is scheduled to undergo EGD on January 21, 2025. Recent cardiac catheterization showed no significant coronary artery disease. He has an unremarkable urologic history, but for the past 2 to 3 months has experienced increased urinary frequency and urgency. Review of Systems - Constitutional Denies chills, Denies fever - Gastrointestinal Reports nausea, Denies vomiting - Genitourinary Reports kidney stones, Reports urinary frequency, Denies dysuria, Denies flank pain, Denies hematuria Past Medical History Past Medical History: Coronary Artery Disease (CAD), Chest Pain / Angina, GERD/Reflux, Hyperlipidemia, Hypertension, Myocardial Infarction (CT), Osteoarthritis (OA), Sleep Apnea/CPAP/BIPAP Additional Past Medical History / Comment(s): NO CPAP, HIATAL HERNIA, colonic POLYP Last Myocardial Infarction Date:: 10/1994 History of Any Multi-Drug Resistant Organisms: None Reported Past Surgical History: Orthopedic Surgery, Tonsillectomy Additional Past Surgical History / Comment(s): 07-09-15 laprascopic gillian fundopliction. 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 Past Anesthesia/Blood Transfusion Reactions: No Reported Reaction Past Psychological History: No Psychological Hx Reported Additional Psychological History / Comment(s): pt lives with a girlfriend,emily. 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 He quit 10 years ago. He does have a medical marijuana card and smokes marijuana,. pt reports drinking 5 drinks weekly Past Drug Use History: Marijuana Additional Drug Use History / Comment(s): smokes marijuana occasionally - Past Family History Mother Family Medical History: No Reported History Additional Family Medical History / Comment(s): in mva at age 44 Father Family Medical History: No Reported History Additional Family Medical History / Comment(s): in boating accident at age 67 Brother(s) Family Medical History: Coronary Artery Disease (CAD) Additional Family Medical History / Comment(s): Patient has 3 brothers and he knows that one brother has had a 3 or 4 vessel CABG and is not aware of other health problems. Patient has 3 sisters which she does not know of any major medical problems. Son(s) Additional Family Medical History / Comment(s): He has one son that is overweight and has gastric esophageal reflux disease and hypertension. He has one daughter that has gallbladder problems. Medications and Allergies Home Medications Medication Instructions Recorded Confirmed Type Pantoprazole [Protonix] 40 mg PO DAILY 12/10/21 01/17/25 History Atorvastatin [Lipitor] 20 mg PO DAILY 01/13/25 01/17/25 History Tamsulosin [Flomax] 0.4 mg PO DAILY 01/13/25 01/17/25 History hydroCHLOROthiazide [Hydrodiuril] 25 mg PO DAILY 01/13/25 01/17/25 History lisinopriL 40 mg PO DAILY 01/13/25 01/17/25 History Aspirin EC [Ecotrin Low Dose] 81 mg PO DAILY 30 Days #30 tab 01/15/25 01/17/25 Rx amLODIPine [Norvasc] 2.5 mg PO DAILY 30 Days #30 tablet 01/15/25 01/17/25 Rx Allergies Allergy/AdvReac Type Severity Reaction Status Date / Time Penicillins Allergy Rash/Hives Verified 01/17/25 10:58 Surgical - Exam Vital Signs Temp Pulse Resp BP Pulse Ox 97.4 F L 82 18 178/7 96 01/17/25 09:11 01/17/25 09:11 01/17/25 09:11 01/17/25 09:11 01/17/25 09:11 - General well developed, well nourished, no distress - Respiratory normal respiratory effort - Abdomen Soft, non-distended, no mass. Mild lower abdominal tenderness, no guarding or rebound. - Psychiatric oriented to time, oriented to person, oriented to place, speech is normal, memory intact Results - Labs 01/19/25 04:28 01/19/25 04:28 Abnormal Lab Results - Last 24 Hours (Table) 01/18/25 01/18/25 01/19/25 Range/Units 13:16 13:16 04:28 RBC 4.23 L 3.83 L (4.30-5.90) m/uL Hgb 12.5 L 11.4 L (13.0-17.5) gm/dL Hct 36.5 L 33.8 L (39.0-53.0) % MPV 9.2 L (9.5-12.2) FL Sodium 135 L (137-145) mmol/L Anion Gap (4.00-12.00) mmol/L BUN 24 H (9-20) mg/dL Est GFR (CKD-EPI) (>=60) Glucose 109 H (74-99) mg/dL 01/19/25 Range/Units 04:28 RBC (4.30-5.90) m/uL Hgb (13.0-17.5) gm/dL Hct (39.0-53.0) % MPV (9.5-12.2) FL Sodium (137-145) mmol/L Anion Gap 12.50 H (4.00-12.00) mmol/L BUN (9-20) mg/dL Est GFR (CKD-EPI) 57 L (>=60) Glucose (74-99) mg/dL Diabetes panel 01/18/25 01/19/25 Range/Units 13:16 04:28 Sodium 135 L 136 (137-145) mmol/L Potassium 3.7 3.9 (3.5-5.1) mmol/L Chloride 100 98 (98-107) mmol/L Carbon Dioxide 26 25.5 (22-30) mmol/L BUN 24 H 25.1 (9-20) mg/dL Creatinine 1.14 1.3 (0.66-1.25) mg/dL Glucose 109 H 97 (74-99) mg/dL Calcium 9.7 9.2 (8.4-10.2) mg/dL AST 25 19 (17-59) U/L ALT 35 31 (4-49) U/L Alkaline Phosphatase 56 56 (38-126) U/L Total Protein 6.9 6.2 (6.3-8.2) g/dL Albumin 4.3 4.2 (3.5-5.0) g/dL Calcium panel 01/18/25 01/19/25 Range/Units 13:16 04:28 Calcium 9.7 9.2 (8.4-10.2) mg/dL Albumin 4.3 4.2 (3.5-5.0) g/dL Pituitary panel 01/18/25 01/19/25 Range/Units 13:16 04:28 Sodium 135 L 136 (137-145) mmol/L Potassium 3.7 3.9 (3.5-5.1) mmol/L Chloride 100 98 (98-107) mmol/L Carbon Dioxide 26 25.5 (22-30) mmol/L BUN 24 H 25.1 (9-20) mg/dL Creatinine 1.14 1.3 (0.66-1.25) mg/dL Glucose 109 H 97 (74-99) mg/dL Calcium 9.7 9.2 (8.4-10.2) mg/dL Adrenal panel 01/18/25 01/19/25 Range/Units 13:16 04:28 Sodium 135 L 136 (137-145) mmol/L Potassium 3.7 3.9 (3.5-5.1) mmol/L Chloride 100 98 (98-107) mmol/L Carbon Dioxide 26 25.5 (22-30) mmol/L BUN 24 H 25.1 (9-20) mg/dL Creatinine 1.14 1.3 (0.66-1.25) mg/dL Glucose 109 H 97 (74-99) mg/dL Calcium 9.7 9.2 (8.4-10.2) mg/dL Total Bilirubin 0.7 0.3 (0.2-1.3) mg/dL AST 25 19 (17-59) U/L ALT 35 31 (4-49) U/L Alkaline Phosphatase 56 56 (38-126) U/L Total Protein 6.9 6.2 (6.3-8.2) g/dL Albumin 4.3 4.2 (3.5-5.0) g/dL - Imaging CT scan - abdomen: report reviewed, image reviewed Assessment and Plan Assessment: I have reviewed the patient's CT scan. There are 2 left renal cysts which appear to meet the criteria for simple cysts. A 4 x 8 mm right distal ureteral calculus is noted just cephalad to the UVJ. Based on the appearance of the calculus, it is possible that there are 2 calculi immediately adjacent to 1 another. There are no renal calculi, and no evidence of hydronephrosis. (1) Calculus of ureter Current Visit: Yes Status: Acute Code(s): N20.1 - CALCULUS OF URETER SNOMED Code(s): 77283432 Plan: It is likely that the patient's recent urinary frequency and urgency are due to the right distal ureteral calculus. A KUB x-ray will be obtained to determine whether or not the calculus is radiopaque. The patient will be made n.p.o. after midnight in the event that he develops increased symptoms attributable to the stone. Time with Patient: Greater than 30
--- NOTE | 2025-01-19 14:01 | XR ---
EXAMINATION TYPE: XR KUB DATE OF EXAM: 01/19/2025 1:56 PM CLINICAL INDICATION: Male, 79 years old with history of Right ureteral calculus, pain TECHNIQUE: 2 supine views of the abdomen. COMPARISON: CT abdomen and pelvis earlier today. FINDINGS: Oral contrast from recent CT obscures significant portions of the abdomen. No definitive fo patrick nephrolithiasis. Calcifications in the pelvis just above pubic symphysis are consistent with pros raymond calcifications. Some contrast is filling the urinary bladder just above this. Lung bases remain clear. Overall nonobstructive bowel gas pattern. Prominent multilevel spurring in t he thoracolumbar spine is redemonstrated. IMPRESSION: As above. [facility], , 01/19/2025 1:59 PM
--- NOTE | 2025-01-19 14:25 | P.PN ---
Subjective Progress Note Date: 01/19/25 Patient is a 79-year-old male who follows in the office with Dr. Cummins. Cardiology has been consulted for chest discomfort and elevated troponins. Patient recently underwent coronary angiogram, which showed normal coronary arteries. Dr. ELBERT Penn reviewed films and he agrees that there is no evidence of coronary artery disease and therefore unclear significance of elevated troponins. Patient interviewed and examined resting comfortably in bed. No current chest or epigastric discomfort. No dizziness or lightheadedness upon ambulating. No trouble breathing. GENERAL: Well-appearing, well-nourished and in no acute distress. NECK: Supple without JVD or thyromegaly. LUNGS: Breath sounds clear to auscultation bilaterally. Respiration equal and unlabored. No wheezes, rales or rhonchi. HEART: Regular rate and rhythm without murmurs, rubs or gallops. S1 and S2 heard. EXTREMITIES: Normal range of motion, no edema. No clubbing or cyanosis. Peripheral pulses intact and strong. TELEMETRY: Sinus rhythm overnight IMPRESSION: Atypical chest pain/epigastric discomfort Normal coronary arteries per cath 01/13/2025 Elevated troponins, flat trend, unclear significance Hypertension Hyperlipidemia GERD PLAN: Continue medical management with aspirin and statin Follow-up with primary polish compounder Dr. Cummins 1 to 2 weeks I am dictating on behalf of Dr Alhaji Rouse's history/physical and assessment/plan. Objective - Vital Signs Vital signs: Vital Signs Temp 98.3 F 01/19/25 07:08 Pulse 69 01/19/25 07:08 Resp 18 01/19/25 07:08 BP 132/66 01/19/25 07:08 Pulse Ox 96 01/19/25 07:08 FiO2 Intake & Output 01/18/25 01/19/25 01/19/25 18:59 06:59 18:59 Weight 90.718 kg Other: # Voids 1 - Labs CBC & Chem 7: 01/19/25 04:28 01/19/25 04:28 Labs: Abnormal Lab Results - Last 24 Hours (Table) 01/19/25 01/19/25 Range/Units 04:28 04:28 RBC 3.83 L (4.40-5.60) X 10*6/uL Hgb 11.4 L (13.0-17.0) g/dL Hct 33.8 L (39.6-50.0) % MPV 9.2 L (9.5-12.2) FL Anion Gap 12.50 H (4.00-12.00) mmol/L Est GFR (CKD-EPI) 57 L (>=60)
--- NOTE | 2025-01-20 08:48 | P.PN ---
Subjective Progress Note Date: 01/20/25 Jose Saleem, is a 79-year-old male who presented to [facility] emergency room with a chief complaint of chest pain. Patient was recently admitted to [facility] with similar complaint, he underwent cardiac catheterization last week, which revealed no significant coron luis manuel artery disease, he was discharged to home however he returned to the hospital with new episodes of chest pain, troponin on presentation was mildly elevated. He was evaluated in the emergency room vital examination on presentation revealed a temperature of 97.4 pulse 82 respiration 18 blood pressure 178/71 pulse ox 96% on room air Laboratory data revealed a white blood count of 6.3 hemoglobin 13.4 platelet count 227 BUN 20 creatinine 0.98 troponin 0.117 amylase and lipase normal AST ALT alkaline phosphatase normal Testing in the emergency room revealed chest x-ray on presentation revealed no evidence for acute pulmonary disease, EKG revealed sinus rhythm normal EKG Patient was admitted to medical floor for further evaluation and treatment On 01/18/2025 patient was seen and examined on the medical floor he is alert and oriented x 3 in no apparent distress he is still complaining of pain in the lower chest area and epigastric area, he was evaluated by cardiology, he had recent cardiac catheterization, no plans per cardiology for further testing, CT angiogram of the chest was done and was within normal limits, patient was also evaluated by gastroenterology, no plans for EGD at this time, however patient and family are very worried due to previous history of peptic ulcer disease, they are asking to see one of the surgeon for possible EGD, consultation for surgery was initiated. On 01/19/2025 patient was seen and examined on the medical floor he is alert and oriented x 3 in no apparent distress he is still complaining of abdominal pain otherwise he denies any complaints there is no fever or chills no headache or dizziness no chest pain no shortness of breath no cough no nausea or vomiting no abdominal pain no diarrhea and no urinary symptoms. Patient was seen by Dr. Holland, EGD is scheduled for Tuesday, repeat CT scan of the abdomen and pelvis revealed evidence of right kidney stone, urology consultation was requested. On 01/20/2025 patient is alert and oriented x 3. EGD scheduled for Tuesday. Urology services are following and KUB x-ray has been ordered. Current vital signs temp 98.2, heart rate 69, blood pressure 125/65 with a pulse ox of 95% on room air. Patient denies chest pain. Patient denies nausea vomiting or diarrhea. Patient denies any urinary burning or frequency Objective - Vital Signs Vital signs: Vital Signs Temp 98.2 F 01/20/25 06:48 Pulse 69 01/20/25 06:48 Resp 18 01/20/25 06:48 BP 125/65 01/20/25 06:48 Pulse Ox 95 01/20/25 06:48 FiO2 Intake & Output 01/19/25 01/20/25 01/20/25 18:59 06:59 18:59 Other: # Voids 3 3 # Bowel Movements 1 - Exam In general patient is alert and oriented x 3 in no distress HEENT head normocephalic and atraumatic Neck is supple no JVD no goiter no lymphadenopathy no carotid bruit Chest examination is clear to auscultation no crackles no wheezing Cardiac exam reveals regular heart sounds S1 and S2 no gallops no murmurs Abdomen is soft nontender no organomegaly with normal bowel sounds Extremity exam reveals no edema no cyanosis or clubbing Neurological examination reveals no gross focal deficits - Labs CBC & Chem 7: 01/19/25 04:28 01/19/25 04:28 Labs: Abnormal Lab Results - Last 24 Hours (Table) 01/19/25 01/19/25 Range/Units 04:28 04:28 RBC 3.83 L (4.40-5.60) X 10*6/uL Hgb 11.4 L (13.0-17.0) g/dL Hct 33.8 L (39.6-50.0) % MPV 9.2 L (9.5-12.2) FL Anion Gap 12.50 H (4.00-12.00) mmol/L Est GFR (CKD-EPI) 57 L (>=60) Assessment and Plan Plan: Episode of chest pain. Per cardiology continue medical management no further workup per cardiology follow-up 1 to 2 weeks Epigastric pain. EGD scheduled for 01/21/2025 Ureteral calculus. Urology services following KUB x-ray ordered Underlying history of hypertension Underlying history of hyperlipidemia Previous history of peptic ulcer disease Underlying history of benign prostatic hypertrophy At this time patient was seen in the emergency room, he is admitted to telemetry floor Home medications reviewed and reordered Cardiology, surgical services and urology services following Will follow closely during this admission
[2025-01-20 09:26] LABS: Basophils # (A) 0.03 X 10*3/uL (0.00-0.10); Basophils % (A) 0.5 %; Eosinophils # (A) 0.15 X 10*3/uL (0.04-0.35); Eosinophils % (A) 2.4 %; HCT 36.2 % (39.6-50.0); HGB 12.4 g/dL (13.0-17.0); Lymphocytes % (A) 23.8 %; MCHC 34.3 g/dL (32.0-37.0); MCV 87.7 FL (80.0-97.0); Mean Platelet Volume 9.4 FL (9.5-12.2); Monocytes # (A) 0.71 X 10*3/uL (0.20-1.00); Monocytes % (A) 11.3 %; NRBC Per 100 WBC 0 X 10*3/uL (0.00-0.01); Neutrophils # (A) 3.86 X 10*3/uL (1.80-7.70); Neutrophils % (A) 61.4 %; Platelet Count 203 X 10*3/uL (140-440); RBC 4.13 X 10*6/uL (4.40-5.60); RDW 13.4 % (11.5-14.5); WBC 6.29 X 10*3/uL (4.50-10.00)
[2025-01-20 09:41] LABS: ALT 32 U/L (10-49); AST 19 U/L (14-35); Albumin 4.3 g/dL (3.8-4.9); Albumin/Globulin Ratio 1.95 Ratio (1.60-3.17); Alkaline Phosphatase 60 U/L (41-126); BUN/Creat Ratio 17.13 Ratio (12.00-20.00); Blood Urea Nitrogen 25.7 mg/dL (9.0-27.0); Calcium 9.1 mg/dL (8.7-10.3); Carbon Dioxide 26.5 mmol/L (21.6-31.8); Chloride 98 mmol/L (96-109); Globulin 2.2 g/dL (1.6-3.3); Glucose 104 mg/dL (70-110); Potassium 3.6 mmol/L (3.5-5.5); Sodium 137 mmol/L (135-145); Total Bilirubin 0.5 mg/dL (0.3-1.2); Total Protein 6.5 g/dL (6.2-8.2)
--- NOTE | 2025-01-20 10:16 | P.PN ---
Subjective Progress Note Date: 01/20/25 Principal diagnosis: Abdominal pain Patient still having some epigastric discomfort. Says he did have a few sharp twinges of left lower quadrant pain that only lasted for a few seconds. Mild nausea. No vomiting. Objective - Vital Signs Vital signs: Vital Signs Temp 98.2 F 01/20/25 06:48 Pulse 69 01/20/25 06:48 Resp 18 01/20/25 06:48 BP 125/65 01/20/25 06:48 Pulse Ox 95 01/20/25 06:48 FiO2 Intake & Output 01/19/25 01/20/25 01/20/25 18:59 06:59 18:59 Other: # Voids 3 3 # Bowel Movements 1 - Exam Abdomen: Soft, nontender, nondistended - Labs CBC & Chem 7: 01/20/25 02:35 01/20/25 02:35 Labs: Abnormal Lab Results - Last 24 Hours (Table) 01/19/25 01/20/25 01/20/25 Range/Units 04:28 02:35 02:35 RBC 4.13 L (4.40-5.60) X 10*6/uL Hgb 12.4 L (13.0-17.0) g/dL Hct 36.2 L (39.6-50.0) % MPV 9.4 L (9.5-12.2) FL Anion Gap 12.50 H 12.50 H (4.00-12.00) mmol/L Est GFR (CKD-EPI) 57 L 48 L (>=60) Assessment and Plan (1) Epigastric pain Narrative/Plan: 79-year-old male with epigastric abdominal pain, nausea, recent findings of right sided ureteral stone. Urology notes reviewed. Continue with plans for upper endoscopy tomorrow. Will follow. Current Visit: No Status: Acute Code(s): R10.13 - EPIGASTRIC PAIN SNOMED Code(s): 45613346
--- NOTE | 2025-01-20 12:30 | P.PN ---
Subjective Progress Note Date: 01/20/25 Principal diagnosis: Right ureteral calculus The patient continues to void frequently, though he states that is improved this morning. His primary complaint is left lower quadrant abdominal pain. He continues to experience mild epigastric discomfort. Specifically, he denies ri ght sided pain. Objective - Vital Signs Vital signs: Vital Signs Temp 98.2 F 01/20/25 06:48 Pulse 69 01/20/25 06:48 Resp 18 01/20/25 06:48 BP 125/65 01/20/25 06:48 Pulse Ox 95 01/20/25 06:48 FiO2 Intake & Output 01/19/25 01/20/25 01/20/25 18:59 06:59 18:59 Other: # Voids 3 3 # Bowel Movements 1 - Constitutional General appearance: Present: average body habitus, cooperative, no acute distress - Gastrointestinal Gastrointestinal Comment(s): Soft, non-distended, no mass. Mild left lower quadrant tenderness, no guarding or rebound. - Psychiatric Psychiatric: Present: A&O x's 3 - Labs CBC & Chem 7: 01/20/25 02:35 01/20/25 02:35 Labs: Abnormal Lab Results - Last 24 Hours (Table) 01/20/25 01/20/25 Range/Units 02:35 02:35 RBC 4.13 L (4.40-5.60) X 10*6/uL Hgb 12.4 L (13.0-17.0) g/dL Hct 36.2 L (39.6-50.0) % MPV 9.4 L (9.5-12.2) FL Anion Gap 12.50 H (4.00-12.00) mmol/L Est GFR (CKD-EPI) 48 L (>=60) Assessment and Plan Assessment: I have reviewed the patient's CT scan. There are 2 left renal cysts which appear to meet the criteria for simple cysts. A 4 x 8 mm right distal ureteral calculus is noted just cephalad to the UVJ. Based on the appearance of the calculus, it is possible that there are 2 calculi immediately adjacent to 1 another. There are no renal calculi, and no evidence of hydronephrosis. (1) Calculus of ureter Current Visit: Yes Status: Acute Code(s): N20.1 - CALCULUS OF URETER SNOMED Code(s): 74303525 Plan: The patient is scheduled to undergo EGD tomorrow. He is not symptomatic with regards to the right ureteral calculus in terms of pain, though his urinary frequency and urgency may be the result of this. Postvoid residual will be checked to confirm adequate bladder emptying. The patient was given my card and advised to follow-up with me in 2 weeks, sooner if needed. Please notify us if we can be of any further assistance during this hospitalization.
[2025-01-21 08:36] LABS: Basophils # (A) 0.03 X 10*3/uL (0.00-0.10); Basophils % (A) 0.4 %; Eosinophils # (A) 0.13 X 10*3/uL (0.04-0.35); Eosinophils % (A) 1.9 %; HCT 35.6 % (39.6-50.0); HGB 11.9 g/dL (13.0-17.0); Lymphocytes # (A) 1.25 X 10*3/uL (0.90-5.00); Lymphocytes % (A) 18.7 %; MCH 29.7 pg (27.0-32.0); MCHC 33.4 g/dL (32.0-37.0); MCV 88.8 FL (80.0-97.0); Mean Platelet Volume 9.3 FL (9.5-12.2); Monocytes # (A) 0.87 X 10*3/uL (0.20-1.00); NRBC Per 100 WBC 0 X 10*3/uL (0.00-0.01); Neutrophils # (A) 4.38 X 10*3/uL (1.80-7.70); Neutrophils % (A) 65.6 %; Platelet Count 189 X 10*3/uL (140-440); RBC 4.01 X 10*6/uL (4.40-5.60); RDW 13.3 % (11.5-14.5); WBC 6.69 X 10*3/uL (4.50-10.00)
[2025-01-21 08:48] LABS: ALT 28 U/L (10-49); AST 15 U/L (14-35); Albumin 4.2 g/dL (3.8-4.9); Alkaline Phosphatase 62 U/L (41-126); BUN/Creat Ratio 15.42 Ratio (12.00-20.00); Blood Urea Nitrogen 29.3 mg/dL (9.0-27.0); Calcium 8.8 mg/dL (8.7-10.3); Carbon Dioxide 29.1 mmol/L (21.6-31.8); Chloride 98 mmol/L (96-109); Globulin 2.1 g/dL (1.6-3.3); Glucose 104 mg/dL (70-110); Potassium 3.8 mmol/L (3.5-5.5); Sodium 138 mmol/L (135-145); Total Bilirubin 0.4 mg/dL (0.3-1.2); Total Protein 6.3 g/dL (6.2-8.2)
[2025-01-21] MEDS: LACTATED RINGERS 1,000 ML IV ONE (12:52)
[2025-01-21] MEDS ORDERED: LIDOCAINE 2% (PF) 20 MG/ML 5 ML VIAL ONE (12:53)
[2025-01-21] MEDS ORDERED: PROPOFOL 10 MG/ML 20 ML VIAL IV ONE (12:53)
--- NOTE | 2025-01-21 13:22 | P.PN ---
Subjective Progress Note Date: 01/21/25 SURGICAL PROGRESS NOTE CHIEF COMPLAINT: Abdominal pain HISTORY OF PRESENT ILLNESS: Patient continues to have epigastric and left lower quadrant abdominal pain. He does report that the pain is less than what he came in with. He is scheduled for EGD today. He reports having bowel movements. Denies any nausea or vomiting. Is also following up with urology for ureteral stone on the right. HIDA scan with EF of 84%. Afebrile. WBC 6.69 creatinine 1.9 PHYSICAL EXAM: VITAL SIGNS: Reviewed. GENERAL: Well-developed in no acute distress. HEENT: No sclera icterus. Extraocular movements grossly intact. Moist buccal mucosa. Head is atraumatic, normocephalic. ABDOMEN: Soft. Nondistended. Mild tenderness with palpation epigastric area. There is palpation left lower quadrant. No rebound or guarding. NEUROLOGIC: Alert and oriented. Cranial nerves II through XII grossly intact. ASSESSMENT: 1. Epigastric abdominal pain 2. Left lower quadrant abdominal pain 3. Right sided ureteral stent. Seen by urology and they recommend outpatient follow-up PLAN: -EGD today with Dr. Holland Physician Accountant Auditor note has been reviewed by physician. Signing provider agrees with the documented findings, assessment, and plan of care. Objective - Vital Signs Vital signs: Vital Signs Temp 98.7 F 01/21/25 07:16 Pulse 68 01/21/25 07:16 Resp 17 01/21/25 07:16 BP 123/62 01/21/25 07:16 Pulse Ox 94 L 01/21/25 07:16 FiO2 Intake & Output 01/20/25 01/21/25 01/21/25 18:59 06:59 18:59 Intake Total 100 Balance 100 Intake: IV 100 Other: # Voids 3 2 - Labs CBC & Chem 7: 01/21/25 02:36 01/21/25 02:36 Labs: Abnormal Lab Results - Last 24 Hours (Table) 01/21/25 01/21/25 Range/Units 02:36 02:36 RBC 4.01 L (4.40-5.60) X 10*6/uL Hgb 11.9 L (13.0-17.0) g/dL Hct 35.6 L (39.6-50.0) % MPV 9.3 L (9.5-12.2) FL BUN 29.3 H (9.0-27.0) mg/dL Creatinine 1.9 H (0.6-1.5) mg/dL Est GFR (CKD-EPI) 36 L (>=60)
--- NOTE | 2025-01-21 13:42 | P.OP ---
Date of Procedure: 01/21/25 Preoperative Diagnosis: Epigastric pain Postoperative Diagnosis: Hiatal hernia Gastritis Procedure(s) Performed: EGD Anesthesia: MAC Surgeon: Emil Holland Pathology: other (Antrum) Condition: stable Disposition: PACU Description of Procedure: The patient was placed on the endoscopy table in the lateral position. He received IV sedation. The gastric was placed oropharynx passed in the esophagus and stomach. Scope was placed through the pylorus. The first and second portion of the duodenum appeared normal. Scope was then brought back in the antrum this was mildly inflamed. A biopsy performed. The scope was then retroflexed the patient had a moderate size hiatal hernia. The GE junction was at 38 cm the distal esophagus appeared minimal Flaim. The proximal esophagus appeared normal. Scope withdrawn for the patient.
--- NOTE | 2025-01-21 17:54 | P.PN ---
Subjective Progress Note Date: 01/21/25 Jose Saleem, is a 79-year-old male who presented to [facility] emergency room with a chief complaint of chest pain. Patient was recently admitted to [facility] with similar complaint, he underwent cardiac catheterization last week, which revealed no significant coron luis manuel artery disease, he was discharged to home however he returned to the hospital with new episodes of chest pain, troponin on presentation was mildly elevated. He was evaluated in the emergency room vital examination on presentation revealed a temperature of 97.4 pulse 82 respiration 18 blood pressure 178/71 pulse ox 96% on room air Laboratory data revealed a white blood count of 6.3 hemoglobin 13.4 platelet count 227 BUN 20 creatinine 0.98 troponin 0.117 amylase and lipase normal AST ALT alkaline phosphatase normal Testing in the emergency room revealed chest x-ray on presentation revealed no evidence for acute pulmonary disease, EKG revealed sinus rhythm normal EKG Patient was admitted to medical floor for further evaluation and treatment On 01/18/2025 patient was seen and examined on the medical floor he is alert and oriented x 3 in no apparent distress he is still complaining of pain in the lower chest area and epigastric area, he was evaluated by cardiology, he had recent cardiac catheterization, no plans per cardiology for further testing, CT angiogram of the chest was done and was within normal limits, patient was also evaluated by gastroenterology, no plans for EGD at this time, however patient and family are very worried due to previous history of peptic ulcer disease, they are asking to see one of the surgeon for possible EGD, consultation for surgery was initiated. On 01/19/2025 patient was seen and examined on the medical floor he is alert and oriented x 3 in no apparent distress he is still complaining of abdominal pain otherwise he denies any complaints there is no fever or chills no headache or dizziness no chest pain no shortness of breath no cough no nausea or vomiting no abdominal pain no diarrhea and no urinary symptoms. Patient was seen by Dr. Holland, EGD is scheduled for Tuesday, repeat CT scan of the abdomen and pelvis revealed evidence of right kidney stone, urology consultation was requested. On 01/20/2025 patient is alert and oriented x 3. EGD scheduled for Tuesday. Urology services are following and KUB x-ray has been ordered. Current vital signs temp 98.2, heart rate 69, blood pressure 125/65 with a pulse ox of 95% on room air. Patient denies chest pain. Patient denies nausea vomiting or diarrhea. Patient denies any urinary burning or frequency. On 01/21/2025 patient was seen and examined on the medical floor he is alert and oriented x 3 in no apparent distress there is no fever or chills no headache or dizziness no chest pain no shortness of breath no cough no nausea or vomiting no abdominal pain no diarrhea no urinary symptoms he underwent EGD this morning that revealed evidence of gastritis and hiatal hernia at this time we will continue with current medication creatinine is up to 1.9 he was started on IV fluid will recheck in a.m. Objective - Vital Signs Vital signs: Vital Signs Temp 98.7 F 01/21/25 07:16 Pulse 68 01/21/25 07:16 Resp 17 01/21/25 07:16 BP 123/62 01/21/25 07:16 Pulse Ox 94 L 01/21/25 07:16 FiO2 Intake & Output 01/20/25 01/21/25 01/21/25 18:59 06:59 18:59 Intake Total 100 Balance 100 Intake: IV 100 Other: # Voids 3 2 - Exam In general patient is alert and oriented x 3 in no distress HEENT head normocephalic and atraumatic Neck is supple no JVD no goiter no lymphadenopathy no carotid bruit Chest examination is clear to auscultation no crackles no wheezing Cardiac exam reveals regular heart sounds S1 and S2 no gallops no murmurs Abdomen is soft nontender no organomegaly with normal bowel sounds Extremity exam reveals no edema no cyanosis or clubbing Neurological examination reveals no gross focal deficits - Labs CBC & Chem 7: 01/21/25 02:36 01/21/25 02:36 Labs: Abnormal Lab Results - Last 24 Hours (Table) 01/21/25 01/21/25 Range/Units 02:36 02:36 RBC 4.01 L (4.40-5.60) X 10*6/uL Hgb 11.9 L (13.0-17.0) g/dL Hct 35.6 L (39.6-50.0) % MPV 9.3 L (9.5-12.2) FL BUN 29.3 H (9.0-27.0) mg/dL Creatinine 1.9 H (0.6-1.5) mg/dL Est GFR (CKD-EPI) 36 L (>=60) Assessment and Plan Plan: Episode of chest pain. Per cardiology continue medical management no further workup per cardiology follow-up 1 to 2 weeks Epigastric pain. EGD scheduled for 01/21/2025 Ureteral calculus. Urology services following KUB x-ray ordered Underlying history of hypertension Underlying history of hyperlipidemia Previous history of peptic ulcer disease Underlying history of benign prostatic hypertrophy At this time patient was seen in the emergency room, he is admitted to telemetry floor Home medications reviewed and reordered Cardiology, surgical services and urology services following Will follow closely during this admission
[2025-01-21] MEDS: SODIUM CHLORIDE 0.9% 1,000 ML IV STA (19:12)
[2025-01-22 08:14] LABS: Basophils # (A) 0.03 X 10*3/uL (0.00-0.10); Basophils % (A) 0.5 %; Eosinophils # (A) 0.13 X 10*3/uL (0.04-0.35); Eosinophils % (A) 2.2 %; HGB 11.8 g/dL (13.0-17.0); Lymphocytes # (A) 1.29 X 10*3/uL (0.90-5.00); Lymphocytes % (A) 21.6 %; MCH 29.9 pg (27.0-32.0); MCHC 33.7 g/dL (32.0-37.0); MCV 88.6 FL (80.0-97.0); Mean Platelet Volume 9.2 FL (9.5-12.2); Monocytes # (A) 0.95 X 10*3/uL (0.20-1.00); Monocytes % (A) 15.9 %; NRBC Per 100 WBC 0 X 10*3/uL (0.00-0.01); Neutrophils # (A) 3.54 X 10*3/uL (1.80-7.70); Neutrophils % (A) 59.5 %; Platelet Count 188 X 10*3/uL (140-440); RBC 3.95 X 10*6/uL (4.40-5.60); RDW 13.3 % (11.5-14.5); WBC 5.96 X 10*3/uL (4.50-10.00)
[2025-01-22 08:22] VITALS: RESP 18
[2025-01-22 08:57] LABS: ALT 27 U/L (10-49); AST 17 U/L (14-35); Albumin/Globulin Ratio 1.74 Ratio (1.60-3.17); Alkaline Phosphatase 65 U/L (41-126); BUN/Creat Ratio 20.12 Ratio (12.00-20.00); Blood Urea Nitrogen 34.2 mg/dL (9.0-27.0); Calcium 8.8 mg/dL (8.7-10.3); Carbon Dioxide 28.9 mmol/L (21.6-31.8); Chloride 99 mmol/L (96-109); Globulin 2.3 g/dL (1.6-3.3); Glucose 121 mg/dL (70-110); Potassium 3.8 mmol/L (3.5-5.5); Sodium 138 mmol/L (135-145); Total Bilirubin 0.4 mg/dL (0.3-1.2); Total Protein 6.3 g/dL (6.2-8.2)
[2025-01-22] MEDS: ENOXAPARIN 30 MG/0.3 ML SYRINGE SQ SCH (09:29)
--- NOTE | 2025-01-22 11:08 | P.PN ---
Subjective Progress Note Date: 01/22/25 SURGICAL PROGRESS NOTE CHIEF COMPLAINT: Abdominal pain HISTORY OF PRESENT ILLNESS: Patient status post EGD revealing gastritis and hiatal hernia. Patient did have nausea after eating. Patient reports that he laid back in bed as soon as he was done eating. Overall abdominal pain is improving. He does report some minimal discomfort intermittently in the left lower quadrant. He is having flatus. Afebrile. Patient seen and examined with Dr. Holland PHYSICAL EXAM: VITAL SIGNS: Reviewed. GENERAL: Well-developed in no acute distress. HEENT: No sclera icterus. Extraocular movements grossly intact. Moist buccal mucosa. Head is atraumatic, normocephalic. ABDOMEN: Soft. Nondistended. Mild discomfort epigastric and left lower quadrant NEUROLOGIC: Alert and oriented. Cranial nerves II through XII grossly intact. ASSESSMENT: 1. Epigastric abdominal pain status post EGD revealing hiatal hernia and gastritis 2. Hyperkinetic gallbladder, EF 84% on HIDA scan 3. Left lower quadrant abdominal pain 4. Right sided ureteral stone. Seen by urology and they recommend outpatient follow-up PLAN: -Patient can be discharged from surgical standpoint -Continue PPI discharge -Follow-up with Dr. Holland in 1 week Physician English [employer] note has been reviewed by physician. Signing provider agrees with the documented findings, assessment, and plan of care. Objective - Vital Signs Vital signs: Vital Signs Temp 98.2 F 01/22/25 07:02 Pulse 75 01/22/25 08:00 Resp 18 01/22/25 08:00 BP 116/67 01/22/25 07:02 Pulse Ox 96 01/22/25 07:02 FiO2 Intake & Output 01/21/25 01/22/25 01/22/25 18:59 06:59 18:59 Intake Total 100 Balance 100 Intake: IV 100 Other: # Voids 4 2 - Labs CBC & Chem 7: 01/22/25 03:21 01/22/25 03:21 Labs: Abnormal Lab Results - Last 24 Hours (Table) 01/22/25 01/22/25 Range/Units 03:21 03:21 RBC 3.95 L (4.40-5.60) X 10*6/uL Hgb 11.8 L (13.0-17.0) g/dL Hct 35.0 L (39.6-50.0) % MPV 9.2 L (9.5-12.2) FL BUN 34.2 H (9.0-27.0) mg/dL Creatinine 1.7 H (0.6-1.5) mg/dL Est GFR (CKD-EPI) 41 L (>=60) BUN/Creatinine Ratio 20.12 H (12.00-20.00) Ratio Glucose 121 H (70-110) mg/dL
--- NOTE | 2025-01-22 13:39 | P.DS ---
Providers Date of admission: 01/17/25 10:39 Expected date of discharge: 01/22/25 Attending physician: Lance Chang Consults: 01/17/25 10:39 Consult Physician Urgent Consulting Provider: Nirmal Cornelius Consult Reason/Comments: cp, elevated trop Do you want consulting provider notified?: Yes 01/17/25 16:59 Consult Physician Routine Consulting Provider: Neeta Cornelius Consult Reason/Comments: abdominal pain, hx of ulcers Do you want consulting provider notified?: Yes 01/18/25 12:39 Consult Physician Routine Consulting Provider: Emil Holland Consult Reason/Comments: abdominal pain, known patient Do you want consulting provider notified?: Yes 01/19/25 07:45 Consult Physician Routine Consulting Provider: Michael Morse Consult Reason/Comments: right kidney stone Do you want consulting provider notified?: Yes Primary care physician: [facility] Course: Discharge diagnosis Discharge diagnosis Episode of chest pain. Per cardiology continue medical management no further workup per cardiology follow-up 1 to 2 weeks Epigastric pain. EGD scheduled for 01/21/2025 Ureteral calculus. Urology services following KUB x-ray ordered Underlying history of hypertension Underlying history of hyperlipidemia Previous history of peptic ulcer disease Underlying history of benign prostatic hypertrophy Hospital course Jose Saleem, is a 79-year-old male who presented to [facility] emergency room with a chief complaint of chest pain. Patient was recently admitted to [facility] with similar complaint, he underwent cardiac catheterization last week, which revealed no significant coronary artery disease, he was discharged to home however he returned to the hospital with new episodes of chest pain, troponin on presentation was mildly elevated. He was evaluated in the emergency room vital examination on presentation revealed a temperature of 97.4 pulse 82 respiration 18 blood pressure 178/71 pulse ox 96% on room air Laboratory data revealed a white blood count of 6.3 hemoglobin 13.4 platelet count 227 BUN 20 creatinine 0.98 troponin 0.117 amylase and lipase normal AST ALT alkaline phosphatase normal Testing in the emergency room revealed chest x-ray on presentation revealed no evidence for acute pulmonary disease, EKG revealed sinus rhythm normal EKG Patient was admitted to medical floor for further evaluation and treatment On 01/18/2025 patient was seen and examined on the medical floor he is alert and oriented x 3 in no apparent distress he is still complaining of pain in the lower chest area and epigastric area, he was evaluated by cardiology, he had recent cardiac catheterization, no plans per cardiology for further testing, CT angiogram of the chest was done and was within normal limits, patient was also evaluated by gastroenterology, no plans for EGD at this time, however patient and family are very worried due to previous history of peptic ulcer disease, th ey are asking to see one of the surgeon for possible EGD, consultation for surgery was initiated. On 01/19/2025 patient was seen and examined on the medical floor he is alert and oriented x 3 in no apparent distress he is still complaining of abdominal pain otherwise he denies any complaints there is no fever or chills no headache or dizziness no chest pain no shortness of breath no cough no nausea or vomiting no abdominal pain no diarrhea and no urinary symptoms. Patient was seen by Dr. Holland, EGD is scheduled for Tuesday, repeat CT scan of the abdomen and pelvis revealed evidence of right kidney stone, urology consultation was requested. On 01/20/2025 patient is alert and oriented x 3. EGD scheduled for Tuesday. Urology services are following and KUB x-ray has been ordered. Current vital signs temp 98.2, heart rate 69, blood pressure 125/65 with a pulse ox of 95% on room air. Patient denies chest pain. Patient denies nausea vomiting or diarrhea. Patient denies any urinary burning or frequency. On 01/21/2025 patient was seen and examined on the medical floor he is alert and oriented x 3 in no apparent distress there is no fever or chills no headache or dizziness no chest pain no shortness of breath no cough no nausea or vomiting no abdominal pain no diarrhea no urinary symptoms he underwent EGD this morning that revealed evidence of gastritis and hiatal hernia at this time we will continue with current medication creatinine is up to 1.9 he was started on IV fluid will recheck in a.m. On 01/22/2025 patient is alert and oriented x 3. Creatinine improving to 1.7. W ill continue to hold hydrochlorothiazide upon discharge patient to follow-up with PCP for further management. Patient will also be DC'd on Mcdaniels for pain and Zofran for nausea. Patient to follow-up for further management with PCP and consulting providers Patient Condition at Discharge: Stable Plan - Discharge Summary New Discharge Prescriptions: New Pantoprazole [Protonix] 40 mg PO DAILY #30 tab Ondansetron [Zofran] 4 mg PO Q8HR PRN 7 Days #21 tab PRN Reason: Nausea Continue amLODIPine [Norvasc] 2.5 mg PO DAILY 30 Days #30 tablet Aspirin EC [Ecotrin Low Dose] 81 mg PO DAILY 30 Days #30 tab lisinopriL 40 mg PO DAILY Tamsulosin [Flomax] 0.4 mg PO DAILY Atorvastatin [Lipitor] 20 mg PO DAILY Discontinued hydroCHLOROthiazide [Hydrodiuril] 25 mg PO DAILY No Action Pantoprazole [Protonix] 40 mg PO DAILY Discharge Medication List Pantoprazole [Protonix] 40 mg PO DAILY 12/10/21 [History] Atorvastatin [Lipitor] 20 mg PO DAILY 01/13/25 [History] Tamsulosin [Flomax] 0.4 mg PO DAILY 01/13/25 [History] lisinopriL 40 mg PO DAILY 01/13/25 [History] Aspirin EC [Ecotrin Low Dose] 81 mg PO DAILY 30 Days #30 tab 01/15/25 [Rx] amLODIPine [Norvasc] 2.5 mg PO DAILY 30 Days #30 tablet 01/15/25 [Rx] Ondansetron [Zofran] 4 mg PO Q8HR PRN 7 Days #21 tab 01/22/25 [Rx] Pantoprazole [Protonix] 40 mg PO DAILY #30 tab 01/22/25 [Rx] Follow up Appointment(s)/Referral(s): Michael Morse MD [STAFF PHYSICIAN] - 2 Weeks aLnce Chang MD [Primary Care Provider] - 1-2 days Emil Holland MD [STAFF PHYSICIAN] - 1 Week Patient Instructions/Handouts: Hiatal Hernia (DC), Gastritis (DC) Discharge Disposition: HOME SELF-CARE
[2025-01-22 14:07] VITALS: BP 113/60; PULSE 65; TEMP 98.5
== END 2025-01-22 15:31 | disposition home or self-care (01) | DRG 392 ==
LOC: EC 09:08 → OBSVTOIN 10:39 → 3SCARD 10:39 → 4SSUR 01-18 18:31
PROVIDERS: ADMIT Internal Medicine; ATTEND Internal Medicine
PROC: 0DB68ZX Excision of Stomach, Via Natural or Artificial Opening Endoscopic, Diagnostic (ICD-10-PCS; principal; 2025-01-21 07:30)
DX: K29.70 Gastritis, unspecified, without bleeding (principal); E78.5 Hyperlipidemia, unspecified; I10 Essential (primary) hypertension; I08.1 Rheumatic disorders of both mitral and tricuspid valves; K76.0 Fatty (change of) liver, not elsewhere classified; N20.2 Calculus of kidney with calculus of ureter; K21.00 Gastro-esophageal reflux disease with esophagitis, without bleeding; N40.0 Benign prostatic hyperplasia without lower urinary tract symptoms; R48.0 Dyslexia and alexia; I25.10 Atherosclerotic heart disease of native coronary artery without angina pectoris; I25.2 Old myocardial infarction; R07.89 Other chest pain; K44.9 Diaphragmatic hernia without obstruction or gangrene; K59.00 Constipation, unspecified; K63.5 Polyp of colon; N28.1 Cyst of kidney, acquired; Z79.82 Long term (current) use of aspirin; Z79.899 Other long term (current) drug therapy; Z82.49 Family history of ischemic heart disease and other diseases of the circulatory system; Z86.0100 Personal history of colon polyps, unspecified; Z85.820 Personal history of malignant melanoma of skin; Z87.11 Personal history of peptic ulcer disease; Z87.442 Personal history of urinary calculi; Z87.891 Personal history of nicotine dependence; Z88.0 Allergy status to penicillin
CPT/HCPCS: 36415; 43239; 71046; 71275; 74018; 74177; 76700; 78227; 80053; 80061; 80306; 82150; 83690; 83735; 84484; 85025; 85379; 85610; 85730; 88305; 93005; 96372; 96374; 96375; 96376; 99285

== ENCOUNTER → 2025-02-08 | Outpatient (CLI) | payer MEDICARE ==
--- NOTE | 2025-02-08 11:31 | XR ---
EXAMINATION TYPE: XR KUB DATE OF EXAM: 02/08/2025 10:44 AM COMPARISON: 01/19/2025 CLINICAL INDICATION: Male, 79 years old with history of N20.1 Calculus Ureter; PHH TECHNIQUE: One radiographic view of the abdomen was obtained. FINDINGS: The bowel gas pattern is nonspecific without dilated loops of small or large bowel. . Fecal material and gas are demonstrated throughout the colon and rectum. There is no evidence for organome sparkle or pneumoperitoneum. No evidence of fracture. Multilevel degeneration changes spine with osteop hyte formation and disc space narrowing. Mild degeneration changes of the hips with osteophyte inform ation joint space narrowing. No abnormal calcifications are present. There is limited evaluation du e to overlapping structures. IMPRESSION: 1. Limited evaluation for renal stones due to patient's body habitus. No renal calculus definitively visualized. 2. Nonspecific bowel gas pattern without radiographic evidence for acute process. 3. Moderate to severe degeneration changes of the hips and spine. [facility], , 02/08/2025 11:28 AM
== END | disposition home or self-care (01) ==
LOC: RADXRMAIN 10:30
PROVIDERS: ATTEND Urology
DX: N20.1 Calculus of ureter (principal)
CPT/HCPCS: 74018

== ENCOUNTER → 2025-02-27 | Outpatient (CLI) | payer MEDICARE ==
--- NOTE | 2025-02-27 10:31 | CT ---
EXAMINATION TYPE: CT abdomen pelvis wo con DATE OF EXAM: 02/27/2025 10:14 AM COMPARISON: 01/19/2025 CLINICAL INDICATION: Male, 79 years old with history of N20.1 CALCULUS OF URETER, Renal stones, RT TECHNIQUE: Axial images with sagittal coronal reformats. Examination of the solid and hollow viscera is limited given the lack of contrast. CT DLP: 815 mGycm, Automated exposure control for dose reduction was used. FINDINGS: LUNG BASES: No evidence for nodule. No evidence for infiltrate. Small hiatal hernia. LIVER/GB: The gallbladder is unremarkable. No space-occupying hepatic lesion. PANCREAS: No pancreatic mass identified. No inflammatory process seen. SPLEEN: No evidence for splenomegaly. No intrasplenic lesions seen. ADRENALS: No adrenal nodules identified. No evidence for thickening. KIDNEYS: No evidence for solid renal mass. Hypoattenuating lesions likely reflecting cysts mid pole l eft kidney measuring up to 2.7 cm. Lobulated calculus or 2 adjacent calculi in the region of the right UVJ with each component measuring 5.4 and 5.7 mm respectively. There appears to have been mild distal migration with the more proximal calculus partially protruding into the urinary bladder. 2 mm nonobstructing calculus lower pole righ t kidney. No hydronephrosis. BOWEL: Appendix has a normal appearance. No evidence of bowel obstruction. No inflammatory process. Lymph nodes: No evidence for adenopathy greater than 1 cm. Abdominal aorta: Atheromatous changes seen. No evidence for aneurysm. Genital organs: No significant abnormality. Other: No significant abnormality. IMPRESSION: Lobulated calculus or 2 adjacent calculi in the region of the right UVJ with each component measuring 5.4 and 5.7 mm respectively. There appears to have been mild distal migration with the more distal c alculus partially protruding into the urinary bladder. [facility], , 02/27/2025 10:28 AM
== END | disposition home or self-care (01) ==
LOC: RADCTMAIN 09:45
PROVIDERS: ATTEND Urology
DX: N20.1 Calculus of ureter (principal)
CPT/HCPCS: 74176

== ENCOUNTER → 2025-03-08 | Outpatient (CLI) | payer MEDICARE ==
[2025-03-08 15:52] LABS: Basophils # (A) 0.03 X 10*3/uL (0.00-0.10); Basophils % (A) 0.8 %; Eosinophils # (A) 0.27 X 10*3/uL (0.04-0.35); Eosinophils % (A) 6.9 %; HCT 33.2 % (39.6-50.0); Lymphocytes # (A) 1.28 X 10*3/uL (0.90-5.00); Lymphocytes % (A) 32.9 %; MCH 29.5 pg (27.0-32.0); MCHC 33.1 g/dL (32.0-37.0); Mean Platelet Volume 9.4 FL (9.5-12.2); Monocytes # (A) 0.46 X 10*3/uL (0.20-1.00); Monocytes % (A) 11.8 %; NRBC Per 100 WBC 0 X 10*3/uL (0.00-0.01); Neutrophils # (A) 1.81 X 10*3/uL (1.80-7.70); Neutrophils % (A) 46.6 %; Platelet Count 142 X 10*3/uL (140-440); RBC 3.73 X 10*6/uL (4.40-5.60); RDW 13.9 % (11.5-14.5); WBC 3.89 X 10*3/uL (4.50-10.00)
[2025-03-08 16:39] LABS: BUN/Creat Ratio 20.62 Ratio (12.00-20.00); Blood Urea Nitrogen 26.8 mg/dL (9.0-27.0); Calcium 8.9 mg/dL (8.7-10.3); Carbon Dioxide 20.3 mmol/L (21.6-31.8); Chloride 106 mmol/L (96-109); Glucose 100 mg/dL (70-110); Potassium 4.3 mmol/L (3.5-5.5); Sodium 139 mmol/L (135-145)
== END | disposition home or self-care (01) ==
LOC: LABPAT 10:04
PROVIDERS: ATTEND Urology
DX: Z01.812 Encounter for preprocedural laboratory examination (principal); N20.1 Calculus of ureter
CPT/HCPCS: 80048; 85025

== ENCOUNTER 2025-03-14 08:31 | Day surgery (SDC) | payer MEDICARE ==
--- NOTE | 2025-03-14 06:42 | P.GSHP ---
History of Present Illness H&P Date: 03/14/25 Chief Complaint: Urinary frequency and urgency The patient is a 79-year-old male admitted with epigastric, back, and chest pain. He is scheduled to undergo EGD on January 21, 2025. Recent cardiac catheterization showed no significant coronary artery disease. He has an unrema rkable urologic history, but for the past several months has experienced increased urinary frequency and urgency. CT scan shows 1-2 right distal ureteral calculi at the UVJ, with no hydronephrosis. Alternative options of management were reviewed, but given that he is symptomatic and the calculi have failed to pass he has elected to undergo ureteroscopic removal of the calculi. He is scheduled to undergo a cholecystectomy on March 18, 2025. - Constitutional Constitutional: Denies chills, Denies fever - Genitourinary (Male) Genitourinary: Reports kidney stones, Reports urinary frequency, Denies dysuria, Denies flank pain, Denies hematuria Past Medical History Past Medical History: Coronary Artery Disease (CAD), Chest Pain / Angina, GERD/Reflux, Hyperlipidemia, Hypertension, Myocardial Infarction ([place]), Osteoarthritis (OA), Prostate Disorder, Sleep Apnea/CPAP/BIPAP Additional Past Medical History / Comment(s): NO CPAP, HIATAL HERNIA, colon polyp, enlarged prostate, kidney stone, chronic cholecystitis Last Myocardial Infarction Date:: 10/1994 History of Any Multi-Drug Resistant Organisms: None Reported Past Surgical History: Hernia Repair, Orthopedic Surgery, Tonsillectomy Additional Past Surgical History / Comment(s): 07-09-15 laprascopic gillian fundopliction, LT ACL REPAIR, IRENE CARPAL TUNNEL, left SHOULDER DEBRIDMENT, left elbow surgery, peptic ulcer surgery, COLONOSCOPY, EGD, right groin hernia repair as a baby, 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 Past Anesthesia/Blood Transfusion Reactions: No Reported Reaction Smoking Status: Former smoker - Past Family History Mother Family Medical History: No Reported History Additional Family Medical History / Comment(s): in mva at age 44 Father Family Medical History: No Reported History Additional Family Medical History / Comment(s): in boating accident at age 67 Brother(s) Family Medical History: Coronary Artery Disease (CAD) Additional Family Medical History / Comment(s): Patient has 3 brothers and he knows that one brother has had a 3 or 4 vessel CABG and is not aware of other health problems. Patient has 3 sisters which she does not know of any major medical problems. Son(s) Additional Family Medical History / Comment(s): He has one son that is overweight and has gastric esophageal reflux disease and hypertension. He has one daughter that has gallbladder problems - cholecystectomy Medications and Allergies Home Medications Medication Instructions Recorded Confirmed Type Atorvastatin [Lipitor] 20 mg PO DAILY 01/13/25 03/11/25 History Tamsulosin [Flomax] 0.4 mg PO DAILY 01/13/25 03/11/25 History lisinopriL 40 mg PO DAILY 01/13/25 03/11/25 History Aspirin EC [Ecotrin Low Dose] 81 mg PO DAILY 30 Days #30 tab 01/15/25 03/11/25 Rx amLODIPine [Norvasc] 2.5 mg PO DAILY 30 Days #30 tablet 01/15/25 03/11/25 Rx HYDROcodone/APAP 7.5-325MG [[place] 1 tab PO Q8HR PRN 3 Days #12 tab 01/22/25 03/11/25 Rx 7.5-325] Pantoprazole [Protonix] 40 mg PO DAILY #30 tab 01/22/25 03/11/25 Rx Allergies Allergy/AdvReac Type Severity Reaction Status Date / Time Penicillins Allergy Rash/Hives Verified 03/11/25 14:40 Surgical - Exam - General well developed, well nourished, no distress - Respiratory normal respiratory effort - Abdomen Abdomen: soft, non tender, no guarding, no rigid, no rebound - Psychiatric oriented to time, oriented to person, oriented to place, speech is normal, memory intact Results - Imaging CT scan - abdomen: report reviewed, image reviewed Assessment and Plan (1) Calculus of ureter Status: Acute Code(s): N20.1 - CALCULUS OF URETER SNOMED Code(s): 53380015 Plan: Cystoscopy, right ureteroscopy with Holmium laser lithotripsy and stone basketing, possible right ureteral stent insertion. The procedure has been reviewed in detail with the patient. He has been made aware of potential risks, which include anesthesia, bleeding, infection, ureteral injury, and inability to remove the calculi.
[~2025-03-14 08:31] MED LIST: HYDROmorphone 0.5 MG/0.5 ML SYRINGE IVP PRN
--- NOTE | 2025-03-14 09:03 | XR ---
EXAMINATION TYPE: XR KUB DATE OF EXAM: 03/14/2025 8:56 AM COMPARISON: 02/08/[address] 02/27/2025 CLINICAL INDICATION: Male, 79 years old with history of N20.00; PHH, pain, preoperative right uretera l calculi TECHNIQUE: One radiographic view of the abdomen was obtained. FINDINGS: Some central prostatic calcifications noted. Degenerative change throughout the visualized spine. Thai e surgical material injecting at the midline lower chest. Moderate stool burden. On obstructive bowel gas pattern. Moderate degenerative change both hips. 2 adjacent 5 mm calcifications in the right fady e of the pelvis may correspond to UVJ stones on prior CT. IMPRESSION: 1. 2 adjacent 5 mm calcifications in the right side of the pelvis may correspond to UVJ stones seen o n 02/27/2025 CT. 2. Moderate stool burden. [facility], , 03/14/2025 9:01 AM
[2025-03-14] MEDS: DEXAMETHASONE SOD PHOSPHATE 4 MG/ML 1 ML VIAL IV ONE (09:32)
[2025-03-14] MEDS: ONDANSETRON 4 MG/2 ML VIAL IVP ONE (09:32)
[2025-03-14] MEDS: LACTATED RINGERS 1,000 ML IV SCH (09:32)
[2025-03-14] MEDS: IV FLUID CONTINUATION 1,000 ML IV ONE (09:33)
[2025-03-14] MEDS ORDERED: ePHEDrine 50 MG/ML 1 ML VIAL ONE (11:05)
[2025-03-14] MEDS ORDERED: WATER FOR INJECTION, STERILE 10 ML VIAL IV ONE (11:05)
[2025-03-14] MEDS ORDERED: PHENYLEPHRINE-0.9% NACL SYG 1,000 MCG/10 ML SYRINGE ONE (11:05)
[2025-03-14] MEDS ORDERED: fentaNYL (PF) 50 MCG/ML 2 ML AMP ONE (11:05)
[2025-03-14] MEDS ORDERED: MIDAZOLAM 2 MG/2 ML VIAL ONE (11:05)
[2025-03-14] MEDS ORDERED: LIDOCAINE 1% INJ 10MG/ML (20 ML MDV) ONE (11:05)
[2025-03-14] MEDS ORDERED: PROPOFOL 10 MG/ML 20 ML VIAL IV ONE (11:05)
[2025-03-14] MEDS ORDERED: SUCCINYLCHOLINE CHLORIDE 200 MG/10 ML VIAL IV ONE (11:05)
[2025-03-14] MEDS: ceFAZolin 2 GM in DEXTROSE 5% IN WATER 50 ML IVPB PRN (11:09)
[2025-03-14 12:00] VITALS: TEMP 97
--- NOTE | 2025-03-14 12:00 | P.OP ---
Date of Procedure: 03/14/25 Preoperative Diagnosis: Right Ureteral Calculus Postoperative Diagnosis: Same Procedure(s) Performed: Cystoscopy, right ureteroscopy with Holmium laser lithotripsy Anesthesia: SANDY Surgeon: Michael Morse Estimated Blood Loss (ml): 5 IV fluids (ml): 700 Pathology: other (Right ureteral calculus fragments, sent for chemical analysis) Condition: stable Disposition: PACU Indications for Procedure: The patient is a 79-year-old male admitted with epigastric, back, and chest pain. He is scheduled to undergo EGD on January 21, 2025. Recent cardiac catheterization showed no significant coronary artery disease. He has an unremarkable urologic history, but for the past several months has experienced increased urinary frequency and urgency. CT scan shows 1-2 right distal ureteral calculi at the UVJ, with no hydronephrosis. Alternative options of management were reviewed, but given that he is symptomatic and the calculi have failed to pass he has elected to undergo ureteroscopic removal of the calculi. He is scheduled to undergo a cholecystectomy on March 18, 2025. Operative Findings: Right distal ureteral calculus, fragmented and removed completely. Description of Procedure: The patient was taken to the operating room and placed in the dorsolithotomy position, with legs supported in Francisco stirrups. The external genitalia was prepped and draped sterilely. The 30 lens was used to introduce the 21-Thai Ledezma cystoscopic sheath through the urethra and into the bladder under direct vision. The prostatic urethra showed evidence of mild lateral lobe enlargement, along with median lobe enlargement. The bladder was examined in its entirety. The left ureteral orifice appeared normal. The right ureteral orifice was somewhat elevated, presumably due to the presence of an intramural calculus. No tumors or foreign bodies were seen. The cystoscope was removed, and the Ledezma semirigid ureteroscope was advanced into the bladder. The right ureteral orifice was cannulated. The ureteroscope was advanced approximately 1 cm, at which time the calculus was identified. The 365 micron Holmium laser probe was passed through the ureteroscope, and lithotripsy was performed. As fragments broke away, they passed distally into the bladder. Once this was completed, it was verified that there were no residual calculus fragments within the ureter. There was no evidence of ureteral trauma. The ureteroscope was withdrawn, and the cystoscope was replaced into the bladder. Calculus fragments were collected and sent for chemical analysis. The bladder was emptied and the cystoscope removed. The patient tolerated the procedure well and was taken to the recovery room in stable condition. COLLIN ROCKZoe Report: Procedure Acuity: Elective Stone Size and Location: 7 mm, right distal ureter Ureteral Dilation: No Ureteral Access Sheath Used: No Stone Sent for Analysis: Yes All Stones/Fragments Were Removed: Yes Complications: No Preoperative Antibiotics Given: Yes Stent Placed: No Discharge Medications: None
[2025-03-14 13:04] VITALS: RESP 16
[2025-03-14 13:15] VITALS: PULSE 73
[2025-03-14 13:28] VITALS: BP 132/68
== END 2025-03-14 13:40 | disposition home or self-care (01) ==
LOC: OR 08:31
PROVIDERS: ATTEND Urology
DX: N20.1 Calculus of ureter (principal); E78.5 Hyperlipidemia, unspecified; I10 Essential (primary) hypertension; G47.33 Obstructive sleep apnea (adult) (pediatric); I25.10 Atherosclerotic heart disease of native coronary artery without angina pectoris; I25.2 Old myocardial infarction; M19.90 Unspecified osteoarthritis, unspecified site; Z87.891 Personal history of nicotine dependence; Z88.0 Allergy status to penicillin; Z90.89 Acquired absence of other organs; Z79.899 Other long term (current) drug therapy
CPT/HCPCS: 52353; 82365; 74018; J2250; J0330; J1100; J0690; J2405; J2003; J3010; J2704; J2371

== ENCOUNTER 2025-03-25 12:40 | Inpatient (IN) | payer MEDICARE ==
--- NOTE | 2025-03-25 13:12 | ED ---
General Adult HPI - General Chief complaint: Altered Mental Status Stated complaint: post-op abd pain, consfusion Time Seen by Provider: 03/25/25 12:41 Source: patient, family, RN notes reviewed, old records reviewed Mode of arrival: wheelchair Limitations: altered mental status - History of Present Illness Initial comments: 79-year-old male presenting with confusion, abdominal pain and distention. Patient has had a recent open cholecystectomy performed 1 week ago. He was discharged 3 days ago and has had a very poor appetite and has been increasingly confused since then. No reported fever. Family does note that his abdomen has seemed distended and he has not had a bowel movement. Patient reports abdominal pain at the site of surgery. He also complains of shortness of breath and is tachypneic on exam. - Related Data Home Medications Medication Instructions Recorded Confirmed Atorvastatin [Lipitor] 20 mg PO DAILY 01/13/25 03/18/25 Tamsulosin [Flomax] 0.4 mg PO DAILY 01/13/25 03/18/25 lisinopriL 40 mg PO DAILY 01/13/25 03/18/25 Previous Rx's Medication Instructions Recorded Aspirin EC [Ecotrin Low Dose] 81 mg PO DAILY 30 Days #30 tab 01/15/25 amLODIPine [Norvasc] 2.5 mg PO DAILY 30 Days #30 tablet 01/15/25 HYDROcodone/APAP 7.5-325MG [[place] 1 tab PO Q8HR PRN 3 Days #12 tab 01/22/25 7.5-325] Pantoprazole [Protonix] 40 mg PO DAILY #30 tab 01/22/25 HYDROcodone/APAP 7.5-325MG [[place] 1 tab PO Q6HR PRN 3 Days #6 tab 03/14/25 7.5-325] Docusate [Colace] 100 mg PO BID #30 capsule 03/22/25 Ibuprofen [Motrin] 600 mg PO Q8HR PRN #30 tab 03/22/25 LORazepam [Ativan] 0.5 mg PO BID PRN 3 Days #6 tab 03/22/25 Lactulose [Cephulac] 30 gm PO DAILY PRN 5 Days #150 ml 03/22/25 Levofloxacin [Levaquin] 250 mg PO DAILY 3 Days #3 tablet 03/22/25 carvediloL [Coreg] 3.125 mg PO BID-W/MEALS #60 tab 03/22/25 Allergies Allergy/AdvReac Type Severity Reaction Status Date / Time Penicillins Allergy Rash/Hives Verified 03/25/25 12:42 nitroglycerin AdvReac Unknown Verified 03/25/25 12:42 Review of Systems ROS Statement: Those systems with pertinent positive or pertinent negative responses have been documented in the HPI. ROS Other: All systems not noted in ROS Statement are negative. Past Medical History Past Medical History: Coronary Artery Disease (CAD), Chest Pain / Angina, GERD/Reflux, Hyperlipidemia, Hypertension, Myocardial Infarction (MA), Osteoarthritis (OA), Prostate Disorder, Sleep Apnea/CPAP/BIPAP Additional Past Medical History / Comment(s): NO CPAP, HIATAL HERNIA, colon polyp, enlarged prostate, kidney stone, chronic cholecystitis Last Myocardial Infarction Date:: 10/1994 History of Any Multi-Drug Resistant Organisms: None Reported Past Surgical History: Cholecystectomy, Hernia Repair, Orthopedic Surgery, Tonsillectomy Additional Past Surgical History / Comment(s): 07-09-15 laprascopic gillian fundopliction, LT ACL REPAIR, IRENE CARPAL TUNNEL, left SHOULDER DEBRIDMENT, left elbow surgery, peptic ulcer surgery, COLONOSCOPY, EGD, right groin hernia repair as a baby, 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 Past Anesthesia/Blood Transfusion Reactions: No Reported Reaction Past Psychological History: No Psychological Hx Reported Smoking Status: Former smoker Past Alcohol Use History: Occasional Past Drug Use History: Marijuana - Past Family History Mother Family Medical History: No Reported History Additional Family Medical History / Comment(s): in mva at age 44 Father Family Medical History: No Reported History Additional Family Medical History / Comment(s): in boating accident at age 67 Brother(s) Family Medical History: Coronary Artery Disease (CAD) Additional Family Medical History / Comment(s): Patient has 3 brothers and he knows that one brother has had a 3 or 4 vessel CABG and is not aware of other health problems. Patient has 3 sisters which she does not know of any major medical problems. Son(s) Family Medical History: GERD/Reflux, Hypertension Additional Family Medical History / Comment(s): He has one son that is overweight and has gastric esophageal reflux disease and hypertension. He has one daughter that has gallbladder problems - cholecystectomy General Exam Limitations: altered mental status General appearance: alert, in distress Head exam: Present: atraumatic, normocephalic Eye exam: Present: normal appearance, PERRL ENT exam: Present: mucous membranes dry Neck exam: Present: normal inspection. Absent: tenderness Respiratory exam: Present: respiratory distress, rales, decreased breath sounds Cardiovascular Exam: Present: regular rate, normal rhythm GI/Abdominal exam: Present: distended, tenderness Extremities exam: Present: pedal edema Neurological exam: Present: alert, CN II-XII intact. Absent: oriented X3, motor sensory deficit Psychiatric exam: Present: normal affect, normal mood Skin exam: Present: warm, dry, intact Course Vital Signs 03/25/25 03/25/25 03/25/25 12:42 13:20 14:53 Temperature 98.4 F 98.6 F Pulse Rate 94 99 100 Respiratory 16 18 15 Rate Blood Pressure 85/50 99/54 125/59 O2 Sat by Pulse 92 L 98 96 Oximetry Medical Decision Making - Medical Decision Making Was pt. sent in by a medical professional or institution (, PA, HELPDESK ANALYST, urgent care, hospital, or halfway...) When possible be specific @ -No Did you speak to anyone other than the patient for history (EMS, parent, family, police, friend...)? What history was obtained from this source @ -No Did you review nursing and triage notes (agree or disagree)? Why? @ -I reviewed and agree with nursing and triage notes Were old charts reviewed (outside hosp., previous admission, EMS record, old EKG, old radiological studies, urgent care reports/EKG's, halfway records)? Report findings @ -No old charts were reviewed Differential Abdominal Pain Men: Appendicitis, cholecystitis, diverticulosis, ischemic bowel, pancreatitis, hepatitis, UTI, gastroenteritis, AAA, incarcerated hernia, bowel obstruction, constipation, inflammatory bowel, hepatitis, peptic ulcer disease, splenic infarction, perforated viscus, testicular torsion, this is not meant to be an all-inclusive list EKG interpreted by me (3pts min.). @ -[EKG: Sinus rhythm rate of 96, MI interval 124, QRS duration 109, QTc [address] segment elevation. X-rays interpreted by me (1pt min.). @Single view chest x-ray negative for pneumothorax, large consolidative pneumonia CT interpreted by me (1pt min.). @ -CT of the abdomen pelvis showing perihepatic fluid U/S interpreted by me (1pt. min.). @ -None done What testing was considered but not performed or refused? (CT, X-rays, U/S, labs)? Why? @ -None What meds were considered but not given or refused? Why? @ -None Did you discuss the management of the patient with other professionals (professionals i.e. Dr., PA, HELPDESK ANALYST, lab, RT, psych nurse, social science research assistant, undercar specialist, teacher, executive vice president and chief operating officer, director of casework department)? Give summary @ -Dr. Chang, Dr. FLOR Was smoking cessation discussed for >3mins.? @ -No Was critical care preformed (if so, how long)? @ -Yes, 35 minutes Were there social determinants of health that impacted care today? How? (Homelessness, low income, unemployed, alcoholism, drug addiction, transportation, low edu. Level, literacy, decrease access to med. care, fdc, rehab)? @ -No Was there de-escalation of care discussed even if they declined (Discuss DNR or withdrawal of care, Hospice)? DNR status @ -No What co-morbidities impacted this encounter? (DM, HTN, Smoking, COPD, CAD, Cancer, CVA, ARF, Chemo, Hep., AIDS, mental health diagnosis, sleep apnea, morbid obesity)? @ -Postop open cholecystectomy Was patient admitted / discharged? Hospital course, mention meds given and route, prescriptions, significant lab abnormalities, going to OR and other pertinent info. @ -79-year-old male presenting with abdominal pain distention, confusion. Patient has had very poor appetite over the past several days since the time of discharge. Family reports he has complained of abdominal pain and distention. He has not had a bowel movement. There is been no measured fever. Patient is hypotensive and tachycardic and tachypneic upon arrival. He has a normal white blood cell count, he is anemic with a hemoglobin 6.1 and is transfused 2 units. Additionally he is covered with IV antibiotics for concern for infection. He is given IV fluids and his blood pressure does respond well. He has acute kidney injury with an elevated BUN and creatinine. The elevated BUN is likely the cause of his confusion over the past several days. Patient will be admitted to his primary care provider with general surgery and nephrology on consult. Undiagnosed new problem with uncertain prognosis? @ -No Drug Therapy requiring intensive monitoring for toxicity (Heparin, Nitro, Insulin, Cardizem)? @ -No Were any procedures done? @ -No Diagnosis/symptom? @ -[Anemia, acute renal failure, perihepatic fluid status postcholecystectomy Acute, or Chronic, or Acute on Chronic? @ -Acute Uncomplicated (without systemic symptoms) or Complicated (systemic symptoms)? @ -Default Side effects of treatment? @ -No Exacerbation, Progression, or Severe Exacerbation? @ -No Poses a threat to life or bodily function? How? (Chest pain, USA, MA, pneumonia, PE, COPD, DKA, ARF, appy, cholecystitis, CVA, Diverticulitis, Homicidal, Suicidal, threat to staff... and all critical care pts) @ -[Yes, hemorrhagic shock, renal failure - Lab Data Result diagrams: 03/25/25 13:09 03/25/25 13:09 Lab Results 03/25/25 03/25/25 03/25/25 Range/Units 13:09 13:09 13:09 WBC 8.08 (4.50-10.00) 10*3/uL RBC 2.02 L (4.40-5.60) 10*6/uL Hgb 6.1 L* D (13.0-17.0) g/dL Hct 17.9 L* (39.6-50.0) % MCV 88.6 (80.0-97.0) fL MCH 30.2 (27.0-32.0) pg MCHC 34.1 (32.0-37.0) g/dL Plt Count 161 (140-440) 10*3/uL MPV 9.6 (9.5-12.2) fL Immature Gran % (Auto) 4.2 % Neutrophils % 77.7 % Lymphocytes % 4.8 % Monocytes % 12.1 % Eosinophils % 1.1 % Basophils % 0.1 % Immature Gran # 0.34 H (0.00-0.04) 10*3/uL Neutrophils # 6.27 (1.80-7.70) 10*3/uL Lymphocytes # 0.39 L (0.90-5.00) 10*3/uL Monocytes # 0.98 (0.20-1.00) 10*3/uL Eosinophils # 0.09 (0.04-0.35) 10*3/uL Basophils # 0.01 (0.00-0.10) 10*3/uL PT 11.2 (10.0-12.5) sec INR 1.0 (<1.2) APTT 23.0 (22.0-30.0) sec Sodium 129 L (137-145) mmol/L Potassium 3.9 (3.5-5.1) mmol/L Chloride 96 L (98-107) mmol/L Carbon Dioxide 23 (22-30) mmol/L Anion Gap 10 mmol/L BUN 87 H (9-20) mg/dL Creatinine 3.83 H (0.66-1.25) mg/dL Est GFR (CKD-EPI)AfAm 17 (>60 ml/min/1.73 sqM) Est GFR (CKD-EPI)NonAf 14 (>60 ml/min/1.73 sqM) Glucose 136 H (74-99) mg/dL Plasma Lactic Acid Dirk (0.7-2.0) mmol/L Calcium 8.3 L (8.4-10.2) mg/dL Total Bilirubin 1.6 H (0.2-1.3) mg/dL AST 44 (17-59) U/L ALT 28 (4-49) U/L Alkaline Phosphatase 154 H (38-126) U/L Troponin I (0.000-0.034) ng/mL NT-Pro-B Natriuret Pep 955 pg/mL Total Protein 4.9 L (6.3-8.2) g/dL Albumin 2.5 L (3.5-5.0) g/dL Amylase 30 (30-110) U/L Lipase 25 (23-300) U/L Blood Type Blood Type Confirm Blood Type Recheck Bld Type Recheck Status Antibody Screen Crossmatch Spec Expiration Date 03/25/25 03/25/25 03/25/25 Range/Units 13:09 13:09 13:09 WBC (4.50-10.00) 10*3/uL RBC (4.40-5.60) 10*6/uL Hgb (13.0-17.0) g/dL Hct (39.6-50.0) % MCV (80.0-97.0) fL MCH (27.0-32.0) pg MCHC (32.0-37.0) g/dL Plt Count (140-440) 10*3/uL MPV (9.5-12.2) fL Immature Gran % (Auto) % Neutrophils % % Lymphocytes % % Monocytes % % Eosinophils % % Basophils % % Immature Gran # (0.00-0.04) 10*3/uL Neutrophils # (1.80-7.70) 10*3/uL Lymphocytes # (0.90-5.00) 10*3/uL Monocytes # (0.20-1.00) 10*3/uL Eosinophils # (0.04-0.35) 10*3/uL Basophils # (0.00-0.10) 10*3/uL PT (10.0-12.5) sec INR (<1.2) APTT (22.0-30.0) sec Sodium (137-145) mmol/L Potassium (3.5-5.1) mmol/L Chloride (98-107) mmol/L Carbon Dioxide (22-30) mmol/L Anion Gap mmol/L BUN (9-20) mg/dL Creatinine (0.66-1.25) mg/dL Est GFR (CKD-EPI)AfAm (>60 ml/min/1.73 sqM) Est GFR (CKD-EPI)NonAf (>60 ml/min/1.73 sqM) Glucose (74-99) mg/dL Plasma Lactic Acid Dirk 1.1 (0.7-2.0) mmol/L Calcium (8.4-10.2) mg/dL Total Bilirubin (0.2-1.3) mg/dL AST (17-59) U/L ALT (4-49) U/L Alkaline Phosphatase (38-126) U/L Troponin I 0.029 (0.000-0.034) ng/mL NT-Pro-B Natriuret Pep pg/mL Total Protein (6.3-8.2) g/dL Albumin (3.5-5.0) g/dL Amylase (30-110) U/L Lipase (23-300) U/L Blood Type B Positive Blood Type Confirm Blood Type Recheck No Previous Record Bld Type Recheck Status CABO Indicated Antibody Screen NEGATIVE Crossmatch See Detail Spec Expiration Date 03/28/2025229903/25/25 Range/Units 13:55 WBC (4.50-10.00) 10*3/uL RBC (4.40-5.60) 10*6/uL Hgb (13.0-17.0) g/dL Hct (39.6-50.0) % MCV (80.0-97.0) fL MCH (27.0-32.0) pg MCHC (32.0-37.0) g/dL Plt Count (140-440) 10*3/uL MPV (9.5-12.2) fL Immature Gran % (Auto) % Neutrophils % % Lymphocytes % % Monocytes % % Eosinophils % % Basophils % % Immature Gran # (0.00-0.04) 10*3/uL Neutrophils # (1.80-7.70) 10*3/uL Lymphocytes # (0.90-5.00) 10*3/uL Monocytes # (0.20-1.00) 10*3/uL Eosinophils # (0.04-0.35) 10*3/uL Basophils # (0.00-0.10) 10*3/uL PT (10.0-12.5) sec INR (<1.2) APTT (22.0-30.0) sec Sodium (137-145) mmol/L Potassium (3.5-5.1) mmol/L Chloride (98-107) mmol/L Carbon Dioxide (22-30) mmol/L Anion Gap mmol/L BUN (9-20) mg/dL Creatinine (0.66-1.25) mg/dL Est GFR (CKD-EPI)AfAm (>60 ml/min/1.73 sqM) Est GFR (CKD-EPI)NonAf (>60 ml/min/1.73 sqM) Glucose (74-99) mg/dL Plasma Lactic Acid Dirk (0.7-2.0) mmol/L Calcium (8.4-10.2) mg/dL Total Bilirubin (0.2-1.3) mg/dL AST (17-59) U/L ALT (4-49) U/L Alkaline Phosphatase (38-126) U/L Troponin I (0.000-0.034) ng/mL NT-Pro-B Natriuret Pep pg/mL Total Protein (6.3-8.2) g/dL Albumin (3.5-5.0) g/dL Amylase (30-110) U/L Lipase (23-300) U/L Blood Type Blood Type Confirm B Positive Blood Type Recheck Bld Type Recheck Status Antibody Screen Crossmatch Spec Expiration Date Critical Care Time Critical Care Time: Yes Total Critical Care Time: 35 Disposition Clinical Impression: S/P cholecystectomy, Delirium due to general medical condition, CYNTHIA (acute kidney injury), Anemia Disposition: ADMITTED IP TO THIS HOSP Condition: Serious Is patient prescribed a controlled substance at d/c from ED?: No Referrals: Lance Chang MD [Primary Care Provider] - 1-2 days Time of Disposition: 15:39
[2025-03-25 13:23] LABS: Basophils # (A) 0.01 10*3/uL (0.00-0.10); Basophils % (A) 0.1 %; Eosinophils # (A) 0.09 10*3/uL (0.04-0.35); Eosinophils % (A) 1.1 %; Lymphocytes # (A) 0.39 10*3/uL (0.90-5.00); Lymphocytes % (A) 4.8 %; MCH 30.2 pg (27.0-32.0); MCHC 34.1 g/dL (32.0-37.0); MCV 88.6 fL (80.0-97.0); Mean Platelet Volume 9.6 fL (9.5-12.2); Monocytes # (A) 0.98 10*3/uL (0.20-1.00); Monocytes % (A) 12.1 %; Neutrophils # (A) 6.27 10*3/uL (1.80-7.70); Neutrophils % (A) 77.7 %; Platelet Count 161 10*3/uL (140-440); RBC 2.02 10*6/uL (4.40-5.60); RDW 14.5 % (11.5-14.5); WBC 8.08 10*3/uL (4.50-10.00)
[2025-03-25 13:29] LABS: HCT 17.9 % (39.6-50.0); HGB 6.1 g/dL (13.0-17.0)
[2025-03-25 13:30] LABS: Prothrombin Time 11.2 sec (10.0-12.5)
[2025-03-25] MEDS: LACTATED RINGERS 1,000 ML IV ONE (13:34)
--- NOTE | 2025-03-25 13:40 | XR ---
EXAMINATION TYPE: XR chest 1V portable DATE OF EXAM: 03/25/2025 1:30 PM COMPARISON: 01/27/2025 CLINICAL INDICATION: Male, 79 years old with history of RODRICK, TECHNIQUE: XR chest 1V portable view(s) obtained. FINDINGS: The heart size is normal. The pulmonary vasculature is normal. There may be some mild subsegmental atelectasis at the right diaphragm. IMPRESSION: 1. Suggestion of mild right subsegmental atelectasis at the diaphragm [facility], , 03/25/2025 1:38 PM
[2025-03-25 14:00] LABS: ALT 28 U/L (4-49); AST 44 U/L (17-59); African American GFR (CKD) 17 (>60 ml/min/1.73 sqM); Albumin 2.5 g/dL (3.5-5.0); Alkaline Phosphatase 154 U/L (38-126); Amylase 30 U/L (30-110); Anion Gap 10 mmol/L; Blood Urea Nitrogen 87 mg/dL (9-20); Calcium 8.3 mg/dL (8.4-10.2); Carbon Dioxide 23 mmol/L (22-30); Chloride 96 mmol/L (98-107); Glucose 136 mg/dL (74-99); Lipase 25 U/L (23-300); Non-African American GFR(CKD) 14 (>60 ml/min/1.73 sqM); Potassium 3.9 mmol/L (3.5-5.1); Sodium 129 mmol/L (137-145); Total Bilirubin 1.6 mg/dL (0.2-1.3); Total Protein 4.9 g/dL (6.3-8.2)
[2025-03-25 14:08] LABS: NT-Pro-B-Type Natriuretic Pept 955 pg/mL
--- NOTE | 2025-03-25 15:36 | CT ---
EXAMINATION TYPE: CT abdomen pelvis wo con DATE OF EXAM: 03/25/2025 3:04 PM COMPARISON: CT abdomen pelvis most recent from 03/20/2025 CLINICAL INDICATION: Male, 79 years old with history of Abdominal pain postop cholecystectomy; Chelsy x 1 week ago, post op pain TECHNIQUE: Axial CT abdomen pelvis wo con;Sagittal and coronal reformats were created on a separate workstation. Contrast used: mL of , (none if empty) Oral contrast used: without Oral Contrast (none if empty) CT DLP: 1112.2 mGycm, Automated exposure control for dose reduction was used. FINDINGS: LOWER CHEST: Patchy airspace opacities in the lung bases. Mitral valve annular cusp patient's. Hopson ry artery calcifications are mild. ABDOMEN LIVER: Unremarkable GALLBLADDER AND BILE DUCTS: The gallbladder is poorly visualized possibly surgically absent. PANCREAS: Unremarkable. SPLEEN: Unremarkable. ADRENAL GLANDS: Unremarkable. KIDNEYS AND URETERS: No evidence of hydronephrosis or obstructing renal calculus. The ureters are unr emarkable. Right 3 mm nonobstructing calculus. No left renal calculi left simple appearing renal cysts. No follo w-up recommended. PELVIS BLADDER: No evidence for wall thickening or mass given limitations of exam. REPRODUCTIVE: Prostate is enlarged in size measuring 4.6 cm in transverse dimension. Coarse calcifica tions present. ABDOMEN & PELVIS STOMACH AND BOWEL: No evidence of bowel obstruction. Postsurgical changes from the gastroesophageal j unction. Scattered colonic diverticula. PERITONEUM/RETROPERITONEUM: No evidence of pneumoperitoneum. Small free fluid throughout the abdomen. VASCULATURE: No evidence of aortic aneurysm. MUSCULOSKELETAL: No acute osseous abnormalities. Moderate disc degeneration changes are present throu ghout the thoracolumbar spine. Marked degeneration with joint space narrowing and osteophyte formatio n. LYMPH NODES: No gross evidence for lymphadenopathy. SOFT TISSUE/ABDOMINAL WALL: Unremarkable IMPRESSION: 1. There is increasing free fluid throughout the abdomen particularly around the liver. Given histor y of recent cholecystectomy. Correlate for biliary leak with nuclear medicine HIDA scan 2. Airspace opacities in lung bases correlate for pneumonia. 3. Postsurgical changes of the gastroesophageal junction. 4. Simple appearing left renal cyst. No follow-up recommended. 5. Nonobstructing right renal calculus. 6. Prostatomegaly, correlate with serum PSA. [facility], , 03/25/2025 3:33 PM
[2025-03-25] MEDS ORDERED: NALOXONE 0.4 MG/ML 1 ML VIAL IV PRN (15:42)
[2025-03-25] MEDS: LACTATED RINGERS 1,000 ML IV SCH (16:10)
[2025-03-25] MEDS: fentaNYL (PF) 50 MCG/ML 2 ML AMP IVP PRN (18:59)
[2025-03-25] MEDS ORDERED: IBUPROFEN 600 MG TAB PO PRN (21:51)
[2025-03-25] MEDS: LACTULOSE 20 GM/30 ML CUP PO PRN (22:46)
[2025-03-25] MEDS: ATORVASTATIN 20 MG TAB PO SCH (22:46)
[2025-03-25] MEDS: DOCUSATE 100 MG CAP PO PRN (22:47)
[2025-03-25] MEDS: LORazepam 0.5 MG TAB PO PRN (22:47)
[2025-03-25] MEDS: carvediloL 3.125 MG TAB PO SCH (22:47)
[2025-03-25] MEDS: HYDROcodone/APAP 7.5-325MG 1 EACH TAB PO PRN (22:47)
[2025-03-26 06:04] LABS: HCT 23.3 % (39.6-50.0); MCH 30.2 pg (27.0-32.0); MCHC 34.3 g/dL (32.0-37.0); MCV 87.9 fL (80.0-97.0); Mean Platelet Volume 9.4 fL (9.5-12.2); Platelet Count 185 10*3/uL (140-440); RBC 2.65 10*6/uL (4.40-5.60); WBC 10.74 10*3/uL (4.50-10.00)
[2025-03-26 06:24] LABS: ALT 31 U/L (4-49); AST 57 U/L (17-59); African American GFR (CKD) 37 (>60 ml/min/1.73 sqM); Albumin 2.4 g/dL (3.5-5.0); Alkaline Phosphatase 159 U/L (38-126); Anion Gap 8 mmol/L; Blood Urea Nitrogen 69 mg/dL (9-20); Calcium 8.2 mg/dL (8.4-10.2); Carbon Dioxide 24 mmol/L (22-30); Chloride 103 mmol/L (98-107); Glucose 126 mg/dL (74-99); Non-African American GFR(CKD) 32 (>60 ml/min/1.73 sqM); Potassium 3.8 mmol/L (3.5-5.1); Sodium 135 mmol/L (137-145); Total Bilirubin 1.5 mg/dL (0.2-1.3); Total Protein 4.9 g/dL (6.3-8.2)
[2025-03-26 08:50] LABS: Band Neutrophils % 5 %; Eosinophils # (M) 0.21 k/uL (0-0.7); Lymphocytes # (M) 0.75 k/uL (1.0-4.8); Monocytes # (M) 0.97 k/uL (0-1.0); Neutrophils % (M) 77 %; Nucleated Red Blood Cells 0 /100 WBC (0-0); Total Cells Counted 100
[2025-03-26 08:51] LABS: Polychromasia Present
--- NOTE | 2025-03-26 09:42 | P.HPIM ---
History of Present Illness H&P Date: 03/26/25 Jose Saleem is a 79-year-old male patient who presented to the ER with concerns of weakness, abdominal pain and distention. Patient recently underwent an open cholecystectomy [address] Escobar he was discharged home. Patient reports he has had decreased appetite and increased pain over the past few days denies fevers. Denies bowel movements denies any nausea or vomiting. Testing in the emergency room performed showing EKG sinus rhythm. Chest x-ray showing mild right subsegmental atelectasis at the diaphragm CT of abdomen and pelvis showing increasing free fluid throughout the abdomen particularly around the liver given recent history of cholecystectomy correlate for biliary leak. Airspace opacities in the lung bases correlate for pneumonia. Lab work completed showing hemoglobin 6.1. Sodium 129, creatinine 3.83 bun 87 troponin negative. Lactic acid 1.1. BNP 955 amylase and lipase within normal limits. Vital signs temp 98.1, heart rate 90, respiratory rate 22, blood pressure 146/79 with pulse ox of 98% on 2 L. Patient has a past medical history of CAD, GERD, h yperlipidemia, hypertension, osteoarthritis, prostate disorder and ex-smoker. At this time patient will be admitted surgical services consulted due to abnormal CT scan and recent cholecystectomy. Infectious disease also consulted due to concerns of infection and elevated white blood cell count. Nephrology services consulted for acute on chronic kidney disease. Patient was started on IV Rocephin in ER. Patient was given 2 units of PRBCs repeat hemoglobin 8.1. Blood culture ordered. Review of Systems Please refer to HPI otherwise unremarkable Past Medical History Past Medical History: Coronary Artery Disease (CAD), Chest Pain / Angina, GERD/Reflux, Hyperlipidemia, Hypertension, Myocardial Infarction ([place]), Osteoarthritis (OA), Prostate Disorder, Sleep Apnea/CPAP/BIPAP Additional Past Medical History / Comment(s): NO CPAP, HIATAL HERNIA, colon polyp, enlarged prostate, kidney stone, chronic cholecystitis Last Myocardial Infarction Date:: 10/1994 History of Any Multi-Drug Resistant Organisms: None Reported Past Surgical History: Cholecystectomy, Hernia Repair, Orthopedic Surgery, Tonsillectomy Additional Past Surgical History / Comment(s): 07-09-15 laprascopic gillian fundopliction, LT ACL REPAIR, IRENE CARPAL TUNNEL, left SHOULDER DEBRIDMENT, left elbow surgery, peptic ulcer surgery, COLONOSCOPY, EGD, right groin hernia repair as a baby, 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 Past Anesthesia/Blood Transfusion Reactions: No Reported Reaction Past Psychological History: No Psychological Hx Reported Smoking Status: Former smoker Past Alcohol Use History: Occasional Past Drug Use History: Marijuana - Past Family History Mother Family Medical History: No Reported History Additional Family Medical History / Comment(s): in mva at age 44 Father Family Medical History: No Reported History Additional Family Medical History / Comment(s): in boating accident at age 67 Brother(s) Family Medical History: Coronary Artery Disease (CAD) Additional Family Medical History / Comment(s): Patient has 3 brothers and he knows that one brother has had a 3 or 4 vessel CABG and is not aware of other health problems. Patient has 3 sisters which she does not know of any major me dical problems. Son(s) Family Medical History: GERD/Reflux, Hypertension Additional Family Medical History / Comment(s): He has one son that is overweight and has gastric esophageal reflux disease and hypertension. He has one daughter that has gallbladder problems - cholecystectomy Medications and Allergies Home Medications Medication Instructions Recorded Confirmed Type Atorvastatin [Lipitor] 20 mg PO DAILY 01/13/25 03/25/25 History Tamsulosin [Flomax] 0.4 mg PO DAILY 01/13/25 03/25/25 History lisinopriL 40 mg PO DAILY 01/13/25 03/25/25 History Aspirin EC [Ecotrin Low Dose] 81 mg PO DAILY 30 Days #30 tab 01/15/25 03/25/25 Rx amLODIPine [Norvasc] 2.5 mg PO DAILY 30 Days #30 tablet 01/15/25 03/25/25 Rx Pantoprazole [Protonix] 40 mg PO DAILY #30 tab 01/22/25 03/25/25 Rx Ibuprofen [Motrin] 600 mg PO Q8HR PRN #30 tab 03/22/25 03/25/25 Rx LORazepam [Ativan] 0.5 mg PO BID PRN 3 Days #6 tab 03/22/25 03/25/25 Rx Lactulose [Cephulac] 30 gm PO DAILY PRN 5 Days #150 ml 03/22/25 03/25/25 Rx Docusate [Colace] 100 mg PO BID PRN 03/25/25 03/25/25 History HYDROcodone/APAP 7.5-325MG [[place] 1 tab PO Q6HR PRN 03/25/25 03/25/25 History 7.5-325] Levofloxacin [Levaquin] 250 mg PO DIRECTED 03/25/25 03/25/25 History Ondansetron [Zofran] 4 mg PO Q8HR PRN 03/25/25 03/25/25 History carvediloL [Coreg] 3.125 mg PO DIRECTED 03/25/25 03/25/25 History Allergies Allergy/AdvReac Type Severity Reaction Status Date / Time Penicillins Allergy Rash/Hives Verified 03/25/25 18:09 nitroglycerin AdvReac Unknown Verified 03/25/25 18:09 Physical Exam Vitals: Vital Signs Temp Pulse Pulse Resp BP BP Pulse Ox 03/26/25 04:15 98.1 F 90 22 165/91 97 03/25/25 23:21 96 20 146/79 98 03/25/25 21:00 87 20 133/67 98 03/25/25 19:55 98.9 F 90 18 137/69 98 03/25/25 19:00 93 18 134/60 97 03/25/25 18:35 90 18 117/72 98 03/25/25 18:15 99.0 F 92 18 117/62 97 03/25/25 17:23 99.1 F 94 18 123/68 03/25/25 16:06 98.4 F 92 18 117/60 03/25/25 16:00 94 18 125/65 96 03/25/25 15:52 98.5 F 94 18 122/63 03/25/25 14:53 100 15 125/59 96 03/25/25 13:20 98.6 F 99 18 99/54 98 03/25/25 12:42 98.4 F 94 16 85/50 92 L Intake and Output 03/25/25 03/26/25 03/26/25 22:59 06:59 14:59 Intake Total 548 Output Total 600 Balance 548 -600 Intake: Blood Product 548 Rc Pheresis 2 As3 Unit 275 [id number] Rc Pheresis As-3 Unit 273 [id number] Output: Urine 600 Other: Voiding Method Urinal Urinal Head normocephalic Neck supple Lungs clear to auscultation bilaterally no wheezing or crackles Heart regular rate and rhythm S1-S2, no rub or gallop Abdomen is soft distended. Hypoactive bowel sounds Extremities no edema Neuro alert and orientated to 3 Results CBC & Chem 7: 03/26/25 05:42 03/26/25 05:42 Labs: Abnormal Lab Results - Last 24 Hours (Table) 03/25/25 03/25/25 03/25/25 Range/Units 13:09 13:09 13:09 WBC (4.50-10.00) 10*3/uL RBC 2.02 L (4.40-5.60) 10*6/uL Hgb 6.1 L* D (13.0-17.0) g/dL Hct 17.9 L* (39.6-50.0) % MPV (9.5-12.2) fL Immature Gran # 0.34 H (0.00-0.04) 10*3/uL Neutrophils # (Manual) (1.3-7.7) k/uL Lymphocytes # 0.39 L (0.90-5.00) 10*3/uL Lymphocytes # (Manual) (1.0-4.8) k/uL Sodium 129 L (137-145) mmol/L Chloride 96 L (98-107) mmol/L BUN 87 H (9-20) mg/dL Creatinine 3.83 H (0.66-1.25) mg/dL Glucose 136 H (74-99) mg/dL Calcium 8.3 L (8.4-10.2) mg/dL Total Bilirubin 1.6 H (0.2-1.3) mg/dL Alkaline Phosphatase 154 H (38-126) U/L Total Protein 4.9 L (6.3-8.2) g/dL Albumin 2.5 L (3.5-5.0) g/dL Crossmatch See Detail 03/26/25 03/26/25 Range/Units 05:42 05:42 WBC 10.74 H (4.50-10.00) 10*3/uL RBC 2.65 L (4.40-5.60) 10*6/uL Hgb 8.0 L D (13.0-17.0) g/dL Hct 23.3 L (39.6-50.0) % MPV 9.4 L (9.5-12.2) fL Immature Gran # 0.96 H (0.00-0.04) 10*3/uL Neutrophils # (Manual) 8.80 H (1.3-7.7) k/uL Lymphocytes # (0.90-5.00) 10*3/uL Lymphocytes # (Manual) 0.75 L (1.0-4.8) k/uL Sodium 135 L (137-145) mmol/L Chloride (98-107) mmol/L BUN 69 H (9-20) mg/dL Creatinine 1.95 H (0.66-1.25) mg/dL Glucose 126 H (74-99) mg/dL Calcium 8.2 L (8.4-10.2) mg/dL Total Bilirubin 1.5 H (0.2-1.3) mg/dL Alkaline Phosphatase 159 H (38-126) U/L Total Protein 4.9 L (6.3-8.2) g/dL Albumin 2.4 L (3.5-5.0) g/dL Crossmatch Assessment and Plan Assessment: 1. Anemia secondary to postop cholecystectomy 03/18/2025 2. Acute on chronic kidney disease 3. Abnormal CT postcholecystectomy 4. Concerns of possible pneumonia 5. History of coronary artery disease 6. History of GERD 7. History of hyperlipidemia 8. History of prostate disorder 9. History of essential hypertension 10. History of hyperlipidemia DVT prophylaxis SCDs due to anemia. GI prophylax Protonix Surgical services consulted Nephrology services consulted Infectious disease services consulted Blood culture ordered Patient started on IV antibiotics Repeat labs ordered Time with Patient: Greater than 30 (Greater than 60% of the total time spent in counseling and coordination of care)
--- NOTE | 2025-03-26 09:44 | P.NPCON ---
History of Present Illness - Reason for Consult acute renal failure, chronic renal failure - History of Present Illness Reason for consultation: Acute kidney injury on chronic kidney disease History of present illness: Patient is a 79-year-old male seen in renal consultation for acute kidney injury on chronic kidney disease. Patient has chronic kidney disease stage IIIa with baseline creatinine 1.3-1.4. Creatinine on admission was 3.83 and is improved to 1.95 today. Patient came to the hospital due to altered mental status and abdominal pain. Patient states he had a cholecystectomy about a week ago. Patient states oral intake has been poor. He denies fever or chills. He admits to congestion but denies any significant cough. Has been voiding. No gross hematuria or dysuria. He was noted to be anemic with a hemoglobin of 6.1 and received blood transfusions. Hemoglobin improved to 8.0. He was hypotensive on admission for systolic blood pressure in the 80s but is now improved. Blood pressure this morning was on the higher end. He was taking lisinopril outpatient. I also see Motrin on his home medication list. Both are currently ordered inpatient as well. He is receiving LR at 130 cc an hour. He denies history of diabetes or coronary artery disease. States he did not have a bowel movement for almost a week prior to admission. Vital signs are stable. General: No acute distress. HEENT: Head exam is unremarkable. LUNGS: No audible rhonchi or wheezes. HEART: Rate and Rhythm are regular. ABDOMEN: Generalized tenderness present. EXTREMITITES: No edema. Past Medical History Past Medical History: Coronary Artery Disease (CAD), Chest Pain / Angina, GERD/Reflux, Hyperlipidemia, Hypertension, Myocardial Infarction ([place]), Osteoarthritis (OA), Prostate Disorder, Sleep Apnea/CPAP/BIPAP Additional Past Medical History / Comment(s): NO CPAP, HIATAL HERNIA, colon polyp, enlarged prostate, kidney stone, chronic cholecystitis Last Myocardial Infarction Date:: 10/1994 History of Any Multi-Drug Resistant Organisms: None Reported Past Surgical History: Cholecystectomy, Hernia Repair, Orthopedic Surgery, Tonsillectomy Additional Past Surgical History / Comment(s): 07-09-15 laprascopic gillian fundopliction, LT ACL REPAIR, IREEN CARPAL TUNNEL, left SHOULDER DEBRIDMENT, left elbow surgery, peptic ulcer surgery, COLONOSCOPY, EGD, right groin hernia repair as a baby, 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 Past Anesthesia/Blood Transfusion Reactions: No Reported Reaction Past Psychological History: No Psychological Hx Reported Smoking Status: Former smoker Past Alcohol Use History: Occasional Past Drug Use History: Marijuana - Past Family History Mother Family Medical History: No Reported History Additional Family Medical History / Comment(s): in mva at age 44 Father Family Medical History: No Reported History Additional Family Medical History / Comment(s): in boating accident at age 67 Brother(s) Family Medical History: Coronary Artery Disease (CAD) Additional Family Medical History / Comment(s): Patient has 3 brothers and he knows that one brother has had a 3 or 4 vessel CABG and is not aware of other health problems. Patient has 3 sisters which she does not know of any major m edical problems. Son(s) Family Medical History: GERD/Reflux, Hypertension Additional Family Medical History / Comment(s): He has one son that is overweight and has gastric esophageal reflux disease and hypertension. He has one daughter that has gallbladder problems - cholecystectomy Medications and Allergies Home Medications Medication Instructions Recorded Confirmed Type Atorvastatin [Lipitor] 20 mg PO DAILY 01/13/25 03/25/25 History Tamsulosin [Flomax] 0.4 mg PO DAILY 01/13/25 03/25/25 History lisinopriL 40 mg PO DAILY 01/13/25 03/25/25 History Aspirin EC [Ecotrin Low Dose] 81 mg PO DAILY 30 Days #30 tab 01/15/25 03/25/25 Rx amLODIPine [Norvasc] 2.5 mg PO DAILY 30 Days #30 tablet 01/15/25 03/25/25 Rx Pantoprazole [Protonix] 40 mg PO DAILY #30 tab 01/22/25 03/25/25 Rx Ibuprofen [Motrin] 600 mg PO Q8HR PRN #30 tab 03/22/25 03/25/25 Rx LORazepam [Ativan] 0.5 mg PO BID PRN 3 Days #6 tab 03/22/25 03/25/25 Rx Lactulose [Cephulac] 30 gm PO DAILY PRN 5 Days #150 ml 03/22/25 03/25/25 Rx Docusate [Colace] 100 mg PO BID PRN 03/25/25 03/25/25 History HYDROcodone/APAP 7.5-325MG [[place] 1 tab PO Q6HR PRN 03/25/25 03/25/25 History 7.5-325] Levofloxacin [Levaquin] 250 mg PO DIRECTED 03/25/25 03/25/25 History Ondansetron [Zofran] 4 mg PO Q8HR PRN 03/25/25 03/25/25 History carvediloL [Coreg] 3.125 mg PO DIRECTED 03/25/25 03/25/25 History Allergies Allergy/AdvReac Type Severity Reaction Status Date / Time Penicillins Allergy Rash/Hives Verified 03/25/25 18:09 nitroglycerin AdvReac Unknown Verified 03/25/25 18:09 Physical Exam Vitals: Vital Signs Temp Pulse Pulse Resp BP BP Pulse Ox 03/26/25 04:15 98.1 F 90 22 165/91 97 03/25/25 23:21 96 20 146/79 98 03/25/25 21:00 87 20 133/67 98 03/25/25 19:55 98.9 F 90 18 137/69 98 03/25/25 19:00 93 18 134/60 97 03/25/25 18:35 90 18 117/72 98 03/25/25 18:15 99.0 F 92 18 117/62 97 03/25/25 17:23 99.1 F 94 18 123/68 03/25/25 16:06 98.4 F 92 18 117/60 03/25/25 16:00 94 18 125/65 96 03/25/25 15:52 98.5 F 94 18 122/63 03/25/25 14:53 100 15 125/59 96 03/25/25 13:20 98.6 F 99 18 99/54 98 03/25/25 12:42 98.4 F 94 16 85/50 92 L Intake and Output 03/25/25 03/26/25 03/26/25 22:59 06:59 14:59 Intake Total 548 Output Total 600 Balance 548 -600 Intake: Blood Product 548 Rc Pheresis 2 As3 Unit 275 [id number] Rc Pheresis As-3 Unit 273 [id number] Output: Urine 600 Other: Voiding Method Urinal Urinal Results - Lab Results Most recent lab results Calcium 8.2 mg/dL (8.4-10.2) L 03/26/25 05:42 03/26/25 05:42 03/26/25 05:42 Assessment and Plan Plan: Assessment: 1. Acute kidney injury secondary to ATN secondary to hypovolemia. Creatinine 3.3 on admission and is 1.95 today. No hydronephrosis noted on CT. 2. Chronic kidney disease stage IIIa with baseline creatinine of 1.3-1.4 secondary to nephrosclerosis. 3. Recent cholecystectomy with concern for biliary leak on CT. Surgery following. 4. Acute blood loss anemia status post blood transfusions this admission. 5. Hypovolemic hyponatremia improved with fluids. Plan: Decrease rate of LR to 75 cc an hour. Hold lisinopril. Avoid nephrotoxins. Discontinue Motrin. Check bladder scan to rule out urinary retention. Continue to monitor renal function and urine output. Thank you for the consultation. I will continue to follow the patient with you during his hospital stay.
[2025-03-26] MEDS: TAMSULOSIN 0.4 MG CAP.ER.24H PO SCH (10:02)
[2025-03-26] MEDS: amLODIPine 2.5 MG TAB PO SCH (10:02)
[2025-03-26] MEDS: PANTOPRAZOLE 40 MG TABLET PO SCH (10:03)
[2025-03-26] MEDS: ASPIRIN 81 MG PO SCH (10:03)
[2025-03-26] MEDS: lisinopriL 20 MG TAB PO SCH (10:19)
[2025-03-26] MEDS: DOCUSATE 100 MG CAP PO SCH (12:33)
--- NOTE | 2025-03-26 12:43 | P.GSCN ---
History of Present Illness Consult date: 03/26/25 History of present illness: CHIEF COMPLAINT: Altered mental status and abdominal pain HISTORY OF PRESENT ILLNESS: This is a 79-year-old male who is status post open cholecystectomy and lysis of adhesions on 03/18/[address] Holland. Patient was discharged on 03/22/2025. Hemoglobin at discharge was 9.3. patient reports at home he became more confused. He also was complaining of abdominal pain and abdominal distention. He did not have a bowel movement for 2 days. Patient reported having a large bowel movement here in the ER. Since that bowel movement he reports pain has lessened. He does report the pain is across the lower abdomen. Denies any difficulty urinating. He does report abdominal distention. Hemoglobin was 6.1 he did receive 2 units of blood and hemoglobin did come back up to 8.0. Patient was dehydrated with a creatinine of 3. CT scan abdomen pelvis completed which had reported increased fluid throughout the abdomen particular around the liver. Given his recent cholecystectomy correlate for biliary leak. Patient's total bilirubin and alk phos mildly elevated. PAST MEDICAL HISTORY: Coronary Artery Disease (CAD), Chest Pain / Angina, GERD/Reflux, Hyperlipidemia, Hypertension, Myocardial Infarction (DE), Osteoarthritis (OA), Prostate Disorder, Sleep Apnea/CPAP/BIPAP, HIATAL HERNIA, colon polyp, enlarged prostate, kidney stone, chronic cholecystitis PAST SURGICAL HISTORY: Cholecystectomy, Hernia Repair, Orthopedic Surgery, Tonsillectomy, Niesen fundoplication 2015, IRENE CARPAL TUNNEL, left SHOULDER DEBRIDMENT, left elbow surgery, peptic ulcer surgery, COLONOSCOPY, EGD, right groin hernia repair as a baby, 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 MEDICATIONS: See below ALLERGIES: See below SOCIAL HISTORY: No illicit drug use. REVIEW OF SYSTEMS: CONSTITUTIONAL: Denies fever or chills. HEENT: Denies blurred vision, vision changes, or eye pain. Denies hemoptysis CARDIOVASCULAR: Denies chest pain or pressure. RESPIRATORY: No shortness of breath. GASTROINTESTINAL: See HPI for pertinent findings HEMATOLOGIC: Denies bleeding disorders. GENITOURINARY: Denies any blood in urine or increased urinary frequency. SKIN: Denies pruitis. Denies rash. PHYSICAL EXAM: VITAL SIGNS: Reviewed GENERAL: Well-developed in no acute distress. HEENT: No sclera icterus. Extraocular movements grossly intact. Moist buccal mucosa. Head is atraumatic, normocephalic. No nasal drainage. ABDOMEN: Soft. Distended. Tenderness palpation across lower abdomen. Dressings were removed. Staple on the left side of the abdomen and mid abdomen clean dry and intact. The right upper quadrant incision constantino are intact no evidence of infection. Mild ecchymosis noted. NEUROLOGIC: Alert and oriented. Cranial nerves II through XII grossly intact. LABORATORY DATA: WBC 10.74 Hgb 6.1 up to 8.0 platelets 185 Sodium is 135 potassium 3.8 creatinine is down from 3.83-1.95 Total bilirubin 1.6-1.5 AST 57 ALT 31 alk phos 159 Lipase 25 IMAGING: CT scan abdomen pelvis reports there is increasing free fluid throughout the abdomen particular on the liver. Given history of cholecystectomy correlate for biliary leak with HIDA scan. Airspace opacities in lung bases correlate for pneumonia. Postsurgical changes at the gastroesophageal junction. Simple appearing left renal cyst. Nonobstructing right renal calculus. Prostamegaly. ASSESSMENT: 1. Abdominal pain. Fluid collection throughout the abdomen in particular on the liver noted on CT scan possible due to a postop bleeding after cholecystectomy. Need to rule out bile leak. Mildly elevated total bilirubin and alk phos 2. Chronic cholecystitis and hyperkinetic gallbladder with intra-abdominal adhesions status post open cholecystectomy on 03/18/2024 3. Anemia with possible postop bleeding after cholecystectomy 4. Constipation PLAN: -Continue to observe -Check HIDA scan to rule out bile leak -Continue to monitor hemoglobin -IV Dilaudid added for pain management -Clean abdominal incisions and cover incision with ABD -Change Colace to scheduled Physician Nut Feeder note has been reviewed by physician. Signing provider agrees with the documented findings, assessment, and plan of care. Past Medical History Past Medical History: Coronary Artery Disease (CAD), Chest Pain / Angina, GERD/Reflux, Hyperlipidemia, Hypertension, Myocardial Infarction (DE), Osteoarthritis (OA), Prostate Disorder, Sleep Apnea/CPAP/BIPAP Additional Past Medical History / Comment(s): NO CPAP, HIATAL HERNIA, colon poly p, enlarged prostate, kidney stone, chronic cholecystitis Last Myocardial Infarction Date:: 10/1994 History of Any Multi-Drug Resistant Organisms: None Reported Past Surgical History: Cholecystectomy, Hernia Repair, Orthopedic Surgery, Tonsillectomy Additional Past Surgical History / Comment(s): 07-09-15 laprascopic gillian fundopliction, LT ACL REPAIR, IRENE CARPAL TUNNEL, left SHOULDER DEBRIDMENT, left elbow surgery, peptic ulcer surgery, COLONOSCOPY, EGD, right groin hernia repair as a baby, 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 Past Anesthesia/Blood Transfusion Reactions: No Reported Reaction Past Psychological History: No Psychological Hx Reported Smoking Status: Former smoker Past Alcohol Use History: Occasional Past Drug Use History: Marijuana - Past Family History Mother Family Medical History: No Reported History Additional Family Medical History / Comment(s): in mva at age 44 Father Family Medical History: No Reported History Additional Family Medical History / Comment(s): in boating accident at age 67 Brother(s) Family Medical History: Coronary Artery Disease (CAD) Additional Family Medical History / Comment(s): Patient has 3 brothers and he knows that one brother has had a 3 or 4 vessel CABG and is not aware of other health problems. Patient has 3 sisters which she does not know of any major medical problems. Son(s) Family Medical History: GERD/Reflux, Hypertension Additional Family Medical History / Comment(s): He has one son that is overweight and has gastric esophageal reflux disease and hypertension. He has one daughter that has gallbladder problems - cholecystectomy Medications and Allergies Home Medications Medication Instructions Recorded Confirmed Type Atorvastatin [Lipitor] 20 mg PO DAILY 01/13/25 03/25/25 History Tamsulosin [Flomax] 0.4 mg PO DAILY 01/13/25 03/25/25 History lisinopriL 40 mg PO DAILY 01/13/25 03/25/25 History Aspirin EC [Ecotrin Low Dose] 81 mg PO DAILY 30 Days #30 tab 01/15/25 03/25/25 Rx amLODIPine [Norvasc] 2.5 mg PO DAILY 30 Days #30 tablet 01/15/25 03/25/25 Rx Pantoprazole [Protonix] 40 mg PO DAILY #30 tab 01/22/25 03/25/25 Rx Ibuprofen [Motrin] 600 mg PO Q8HR PRN #30 tab 03/22/25 03/25/25 Rx LORazepam [Ativan] 0.5 mg PO BID PRN 3 Days #6 tab 03/22/25 03/25/25 Rx Lactulose [Cephulac] 30 gm PO DAILY PRN 5 Days #150 ml 03/22/25 03/25/25 Rx Docusate [Colace] 100 mg PO BID PRN 03/25/25 03/25/25 History HYDROcodone/APAP 7.5-325MG [Poneto 1 tab PO Q6HR PRN 03/25/25 03/25/25 History 7.5-325] Levofloxacin [Levaquin] 250 mg PO DIRECTED 03/25/25 03/25/25 History Ondansetron [Zofran] 4 mg PO Q8HR PRN 03/25/25 03/25/25 History carvediloL [Coreg] 3.125 mg PO DIRECTED 03/25/25 03/25/25 History Allergies Allergy/AdvReac Type Severity Reaction Status Date / Time Penicillins Allergy Rash/Hives Verified 03/25/25 18:09 nitroglycerin AdvReac Unknown Verified 03/25/25 18:09 Surgical - Exam Vital Signs Temp Pulse Resp BP Pulse Ox 98.4 F 94 16 85/50 92 L 03/25/25 12:42 03/25/25 12:42 03/25/25 12:42 03/25/25 12:42 03/25/25 12:42 Results - Labs 03/26/25 05:42 03/26/25 05:42 Abnormal Lab Results - Last 24 Hours (Table) 03/25/25 03/25/25 03/25/25 Range/Units 13:09 13:09 13:09 WBC (4.50-10.00) 10*3/uL RBC 2.02 L (4.40-5.60) 10*6/uL Hgb 6.1 L* D (13.0-17.0) g/dL Hct 17.9 L* (39.6-50.0) % MPV (9.5-12.2) fL Immature Gran # 0.34 H (0.00-0.04) 10*3/uL Neutrophils # (Manual) (1.3-7.7) k/uL Lymphocytes # 0.39 L (0.90-5.00) 10*3/uL Lymphocytes # (Manual) (1.0-4.8) k/uL Sodium 129 L (137-145) mmol/L Chloride 96 L (98-107) mmol/L BUN 87 H (9-20) mg/dL Creatinine 3.83 H (0.66-1.25) mg/dL Glucose 136 H (74-99) mg/dL Calcium 8.3 L (8.4-10.2) mg/dL Total Bilirubin 1.6 H (0.2-1.3) mg/dL Alkaline Phosphatase 154 H (38-126) U/L Total Protein 4.9 L (6.3-8.2) g/dL Albumin 2.5 L (3.5-5.0) g/dL Crossmatch See Detail 03/26/25 03/26/25 Range/Units 05:42 05:42 WBC 10.74 H (4.50-10.00) 10*3/uL RBC 2.65 L (4.40-5.60) 10*6/uL Hgb 8.0 L D (13.0-17.0) g/dL Hct 23.3 L (39.6-50.0) % MPV 9.4 L (9.5-12.2) fL Immature Gran # 0.96 H (0.00-0.04) 10*3/uL Neutrophils # (Manual) 8.80 H (1.3-7.7) k/uL Lymphocytes # (0.90-5.00) 10*3/uL Lymphocytes # (Manual) 0.75 L (1.0-4.8) k/uL Sodium 135 L (137-145) mmol/L Chloride (98-107) mmol/L BUN 69 H (9-20) mg/dL Creatinine 1.95 H (0.66-1.25) mg/dL Glucose 126 H (74-99) mg/dL Calcium 8.2 L (8.4-10.2) mg/dL Total Bilirubin 1.5 H (0.2-1.3) mg/dL Alkaline Phosphatase 159 H (38-126) U/L Total Protein 4.9 L (6.3-8.2) g/dL Albumin 2.4 L (3.5-5.0) g/dL Crossmatch Diabetes panel 03/25/25 03/26/25 Range/Units 13:09 05:42 Sodium 129 L 135 L (137-145) mmol/L Potassium 3.9 3.8 (3.5-5.1) mmol/L Chloride 96 L 103 (98-107) mmol/L Carbon Dioxide 23 24 (22-30) mmol/L BUN 87 H 69 H (9-20) mg/dL Creatinine 3.83 H 1.95 H (0.66-1.25) mg/dL Glucose 136 H 126 H (74-99) mg/dL Calcium 8.3 L 8.2 L (8.4-10.2) mg/dL AST 44 57 (17-59) U/L ALT 28 31 (4-49) U/L Alkaline Phosphatase 154 H 159 H (38-126) U/L Total Protein 4.9 L 4.9 L (6.3-8.2) g/dL Albumin 2.5 L 2.4 L (3.5-5.0) g/dL Calcium panel 03/25/25 03/26/25 Range/Units 13:09 05:42 Calcium 8.3 L 8.2 L (8.4-10.2) mg/dL Albumin 2.5 L 2.4 L (3.5-5.0) g/dL Pituitary panel 03/25/25 03/26/25 Range/Units 13:09 05:42 Sodium 129 L 135 L (137-145) mmol/L Potassium 3.9 3.8 (3.5-5.1) mmol/L Chloride 96 L 103 (98-107) mmol/L Carbon Dioxide 23 24 (22-30) mmol/L BUN 87 H 69 H (9-20) mg/dL Creatinine 3.83 H 1.95 H (0.66-1.25) mg/dL Glucose 136 H 126 H (74-99) mg/dL Calcium 8.3 L 8.2 L (8.4-10.2) mg/dL Adrenal panel 03/25/25 03/26/25 Range/Units 13:09 05:42 Sodium 129 L 135 L (137-145) mmol/L Potassium 3.9 3.8 (3.5-5.1) mmol/L Chloride 96 L 103 (98-107) mmol/L Carbon Dioxide 23 24 (22-30) mmol/L BUN 87 H 69 H (9-20) mg/dL Creatinine 3.83 H 1.95 H (0.66-1.25) mg/dL Glucose 136 H 126 H (74-99) mg/dL Calcium 8.3 L 8.2 L (8.4-10.2) mg/dL Total Bilirubin 1.6 H 1.5 H (0.2-1.3) mg/dL AST 44 57 (17-59) U/L ALT 28 31 (4-49) U/L Alkaline Phosphatase 154 H 159 H (38-126) U/L Total Protein 4.9 L 4.9 L (6.3-8.2) g/dL Albumin 2.5 L 2.4 L (3.5-5.0) g/dL
--- NOTE | 2025-03-26 15:53 | NM ---
EXAMINATION TYPE: NM hepatobiliary wo EF DATE OF EXAM: 03/26/2025 COMPARISON: Correlation CT 03/25/2025 CLINICAL INDICATION: Male, 79 years old with history of abdominal pain, recent cholecystectomy; TECHNIQUE: After the intravenous administration of 5.2 mCi Tc 99m Mebrofenin hepatobiliary scintigrap hy is performed. Immediate images post injection. FINDINGS: There is delayed tracer clearance from the blood pool with faint blood pool still seen at 8 minutes. There is some activity which progressively increases along the inferior aspect of the left lower lobe . Small bowel activity seen at 20 minutes. Imaging is stopped at 54 minutes due to voiding urgency. IMPRESSION: 1. Imaging stopped at 54 minutes due to voiding urgency. 2. Slight delayed tracer clearance from the blood pool. Correlate with LFTs for hepatocellular dysfun ction. 3. There is some activity which accumulates along the inferior margin of the left liver lobe. Biliary leak not excluded. [facility], , 03/26/2025 3:51 PM
[2025-03-26] MEDS: CEFEPIME 2 GM in SODIUM CHLORIDE 0.9% 100 ML IVPB STA (16:15)
[2025-03-26 16:52] LABS: Glucose,Whole Blood 137 mg/dL (70-110)
[2025-03-26] MEDS: metroNIDAZOLE 500 MG TAB PO SCH (17:07)
--- NOTE | 2025-03-26 22:32 | P.CONS ---
History of Present Illness - Reason for Consult Consult date: 03/26/25 Infection Requesting physician: Lance Chang - Chief Complaint Abdominal pain and confusion x 3 days - History of Present Illness Patient is a 79-year-old male with a past medical history of difficult for hypertension hyperlipidemia NE coronary artery disease prostate disorder reflux in this patient who is status post laparoscopic cholecystectomy completed on 03/18/2025 and the patient was subsequent discharged home on 03/22/2025 patient has not been brought back to the hospital concerning for increasing confusion abdominal pain and distention that apparently has been getting worse since the patient has been discharged from the hospital patient did have poor appetite and noted to be increasingly confused family noticed to have increasing abdominal distention over the last 3 days has been complaining of pain mostly lower abdominal area mostly dull aching moderate intensity without radiation he did have nausea but no vomiting and denies any bowel movement patient on presentation to the hospital was afebrile he did have low-grade fever last evening of 99.1 F patient was mildly tachycardic but not hypotensive or hypoxic he did have a white count of 8.80 hemoglobin was low with repeat white count of 10.74 hemoglobin is 8.0 BUN and creatinine has been elevated bilirubin is elevated rest of liver enzymes are normal amylase lipase was normal patient did have a chest x-ray suggestive of mild right subsegmental atelectasis abdominal pelvis CT patchy airspace opacity lung bases increasing free fluid throughout the abdominal particularly around the liver correlate for biliary leak patient has been admitted to hospital infectious disease was consulted for further management of antibiotic therapy Review of Systems Positive point and negatives has been mentioned in the HPI, complete review of systems was performed and all other systems are negative Past Medical History Past Medical History: Coronary Artery Disease (CAD), Chest Pain / Angina, GERD/Reflux, Hyperlipidemia, Hypertension, Myocardial Infarction (NE), Osteoarthritis (OA), Prostate Disorder, Sleep Apnea/CPAP/BIPAP Additional Past Medical History / Comment(s): NO CPAP, HIATAL HERNIA, colon polyp, enlarged prostate, kidney stone, chronic cholecystitis Last Myocardial Infarction Date:: 10/1994 History of Any Multi-Drug Resistant Organisms: None Reported Past Surgical History: Cholecystectomy, Hernia Repair, Orthopedic Surgery, Tonsillectomy Additional Past Surgical History / Comment(s): 07-09-15 laprascopic gillian fundopliction, LT ACL REPAIR, IRENE CARPAL TUNNEL, left SHOULDER DEBRIDMENT, left elbow surgery, peptic ulcer surgery, COLONOSCOPY, EGD, right groin hernia repair as a baby, 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 Past Anesthesia/Blood Transfusion Reactions: No Reported Reaction Past Psychological History: No Psychological Hx Reported Smoking Status: Former smoker Past Alcohol Use History: Occasional Past Drug Use History: Marijuana - Past Family History Mother Family Medical History: No Reported History Additional Family Medical History / Comment(s): in mva at age 44 Father Family Medical History: No Reported History Additional Family Medical History / Comment(s): in boating accident at age 67 Brother(s) Family Medical History: Coronary Artery Disease (CAD) Additional Family Medical History / Comment(s): Patient has 3 brothers and he knows that one brother has had a 3 or 4 vessel CABG and is not aware of other health problems. Patient has 3 sisters which she does not know of any major medical problems. Son(s) Family Medical History: GERD/Reflux, Hypertension Additional Family Medical History / Comment(s): He has one son that is overweight and has gastric esophageal reflux disease and hypertension. He has one daughter that has gallbladder problems - cholecystectomy Medications and Allergies Home Medications Medication Instructions Recorded Confirmed Type Atorvastatin [Lipitor] 20 mg PO DAILY 01/13/25 03/25/25 History Tamsulosin [Flomax] 0.4 mg PO DAILY 01/13/25 03/25/25 History lisinopriL 40 mg PO DAILY 01/13/25 03/25/25 History Aspirin EC [Ecotrin Low Dose] 81 mg PO DAILY 30 Days #30 tab 01/15/25 03/25/25 Rx amLODIPine [Norvasc] 2.5 mg PO DAILY 30 Days #30 tablet 01/15/25 03/25/25 Rx Pantoprazole [Protonix] 40 mg PO DAILY #30 tab 01/22/25 03/25/25 Rx Ibuprofen [Motrin] 600 mg PO Q8HR PRN #30 tab 03/22/25 03/25/25 Rx LORazepam [Ativan] 0.5 mg PO BID PRN 3 Days #6 tab 03/22/25 03/25/25 Rx Lactulose [Cephulac] 30 gm PO DAILY PRN 5 Days #150 ml 03/22/25 03/25/25 Rx Docusate [Colace] 100 mg PO BID PRN 05/26/25 05/26/25 History HYDROcodone/APAP 7.5-325MG [Fed[place] 1 tab PO Q6HR PRN 03/25/25 03/25/25 History 7.5-325] Levofloxacin [Levaquin] 250 mg PO DIRECTED 03/25/25 03/25/25 History Ondansetron [Zofran] 4 mg PO Q8HR PRN 03/25/25 03/25/25 History carvediloL [Coreg] 3.125 mg PO DIRECTED 03/25/25 03/25/25 History Allergies Allergy/AdvReac Type Severity Reaction Status Date / Time Penicillins Allergy Rash/Hives Verified 03/25/25 18:09 nitroglycerin AdvReac Unknown Verified 03/25/25 18:09 Physical Exam Vitals: Vital Signs Temp Pulse Pulse Resp BP BP Pulse Ox 03/26/25 04:15 98.1 F 90 22 165/91 97 03/25/25 23:21 96 20 146/79 98 03/25/25 21:00 87 20 133/67 98 03/25/25 19:55 98.9 F 90 18 137/69 98 03/25/25 19:00 93 18 134/60 97 03/25/25 18:35 90 18 117/72 98 03/25/25 18:15 99.0 F 92 18 117/62 97 03/25/25 17:23 99.1 F 94 18 123/68 03/25/25 16:06 98.4 F 92 18 117/60 03/25/25 16:00 94 18 125/65 96 03/25/25 15:52 98.5 F 94 18 122/63 03/25/25 14:53 100 15 125/59 96 03/25/25 13:20 98.6 F 99 18 99/54 98 03/25/25 12:42 98.4 F 94 16 85/50 92 L Intake and Output 03/25/25 03/26/25 03/26/25 22:59 06:59 14:59 Intake Total 548 Output Total 600 Balance 548 -600 Intake: Blood Product 548 Rc Pheresis 2 As3 Unit 275 [id number] Rc Pheresis As-3 Unit 273 [id number] Output: Urine 600 Other: Voiding Method Urinal Urinal GENERAL DESCRIPTION: Elderly male lying in bed, no distress. No tachypnea or accessory muscle of respiration use. HEENT: Shows Pallor , no scleral icterus. Oral mucous membrane is dry. NECK: Trachea central, no thyromegaly. LUNGS: Unlabored breathing. Decreased breath sound at the base HEART: S1, S2, regular rate and rhythm. No loud murmur ABDOMEN: Soft, mild distention and tenderness EXTREMITIES: No edema of feet. SKIN: No rash, no masses palpable. NEUROLOGICAL: The patient is awake, alert, mood and affect normal. Results CBC & Chem 7: 03/26/25 05:42 03/26/25 05:42 Labs: Abnormal Lab Results - Last 24 Hours (Table) 03/25/25 03/25/25 03/25/25 Range/Units 13:09 13:09 13:09 WBC (4.50-10.00) 10*3/uL RBC 2.02 L (4.40-5.60) 10*6/uL Hgb 6.1 L* D (13.0-17.0) g/dL Hct 17.9 L* (39.6-50.0) % MPV (9.5-12.2) fL Immature Gran # 0.34 H (0.00-0.04) 10*3/uL Neutrophils # (Manual) (1.3-7.7) k/uL Lymphocytes # 0.39 L (0.90-5.00) 10*3/uL Lymphocytes # (Manual) (1.0-4.8) k/uL Sodium 129 L (137-145) mmol/L Chloride 96 L (98-107) mmol/L BUN 87 H (9-20) mg/dL Creatinine 3.83 H (0.66-1.25) mg/dL Glucose 136 H (74-99) mg/dL Calcium 8.3 L (8.4-10.2) mg/dL Total Bilirubin 1.6 H (0.2-1.3) mg/dL Alkaline Phosphatase 154 H (38-126) U/L Total Protein 4.9 L (6.3-8.2) g/dL Albumin 2.5 L (3.5-5.0) g/dL Crossmatch See Detail 05/27/25 05/27/25 Range/Units 05:42 05:42 WBC 10.74 H (4.50-10.00) 10*3/uL RBC 2.65 L (4.40-5.60) 10*6/uL Hgb 8.0 L D (13.0-17.0) g/dL Hct 23.3 L (39.6-50.0) % MPV 9.4 L (9.5-12.2) fL Immature Gran # 0.96 H (0.00-0.04) 10*3/uL Neutrophils # (Manual) 8.80 H (1.3-7.7) k/uL Lymphocytes # (0.90-5.00) 10*3/uL Lymphocytes # (Manual) 0.75 L (1.0-4.8) k/uL Sodium 135 L (137-145) mmol/L Chloride (98-107) mmol/L BUN 69 H (9-20) mg/dL Creatinine 1.95 H (0.66-1.25) mg/dL Glucose 126 H (74-99) mg/dL Calcium 8.2 L (8.4-10.2) mg/dL Total Bilirubin 1.5 H (0.2-1.3) mg/dL Alkaline Phosphatase 159 H (38-126) U/L Total Protein 4.9 L (6.3-8.2) g/dL Albumin 2.4 L (3.5-5.0) g/dL Crossmatch Assessment and Plan (1) Pneumonia Current Visit: Yes Status: Acute Code(s): J18.9 - PNEUMONIA, UNSPECIFIED ORGANISM SNOMED Code(s): 913668148 (2) Abdominal infection Current Visit: Yes Status: Acute Code(s): K65.9 - PERITONITIS, UNSPECIFIED SNOMED Code(s): 325316944 (3) Penicillin allergy Current Visit: Yes Status: Acute Code(s): Z88.0 - ALLERGY STATUS TO PENICILLIN SNOMED Code(s): 68776392 Plan: 1patient presented to hospital with abdominal pain confusion in this patient who is status post recent laparoscopic cholecystectomy now with a CT abdominal pelvis showing increased fluid in the right upper quadrant area with concern for possible biliary leak or developing infection also with evidence of right lower lobe airspace opacity concerning for possible pneumonia. 2await HIDA scan completion to make sure no evidence of any biliary leak if negative will recommend IR drainage of the fluid for Gram stain and culture 3-try to obtain a sputum for Gram stain and culture 4-patient did have penicillin allergy therapy number the number of antibiotics s afe to use 5-we will empirically start the patient on cefepime and Flagyl while waiting for the workup to be completed Multiple question concern answered We will follow on clinical condition and cultures to further adjust medication if needed Thank you for this consultation we will follow the patient along with you Dictation was produced using [employer] dictation software. please excuse any grammatical, word or spelling errors. Time with Patient: Greater than 30
[2025-03-26] MEDS: FUROSEMIDE 10 MG/ML 2 ML VIAL IV ONE (22:33)
[2025-03-26] MEDS: MELATONIN 5 MG TABLET PO SCH (23:12)
[2025-03-26] MEDS: hydrALAZINE HCL 20 MG/ML 1 ML VIAL IVP PRN (23:15)
--- NOTE | 2025-03-27 00:13 | XR ---
EXAM: XR Chest, 1 View CLINICAL HISTORY: ITS.REASON XR Reason: SOB TECHNIQUE: Frontal view of the chest. COMPARISON: None FINDINGS: Lungs: Bibasilar atelectatic changes RT>LT seen. Bilateral mild bronchial wall thickening. No consolidation. Pleural space: An elevated right hemidiaphragm. Reduced right lung volume. No pneumothorax. Heart: No cardiomegaly. Mediastinum: Normal mediastinal contour. Bones/joints: No acute fracture. Significantly increased right acromioclavicular distance, most likely chronic.. IMPRESSION: Basilar subsegmental atelectatic changes seen RT>LT. Elevated right hemidiaphragm. .
[2025-03-27] MEDS: LORazepam 1 MG/0.5 ML VIAL IV PRN (01:00)
[2025-03-27 01:15] LABS: ABG Base Excess 3.9 mmol/L; ABG HCO3 29 mmol/L (21-25); ABG Oxygen Saturation 99.3 % (94-97); ABG PCO2 42 mmHg (35-45); ABG PH 7.44 (7.35-7.45); ABG PO2 123 mmHg (83-108); ABG TCO2 30 mmol/L (19-24); Allen Test Performed? Yes
[2025-03-27] MEDS ORDERED: CEFEPIME 2 GM in SODIUM CHLORIDE 0.9% 100 ML IVPB SCH (04:00)
[2025-03-27] MEDS: CEFEPIME 1 GM in SODIUM CHLORIDE 0.9% 50 ML IVPB SCH (04:24)
[2025-03-27] MEDS: ALBUTEROL NEBULIZED 2.5 MG/3 ML INHALATION PRN (06:05)
[2025-03-27 07:08] LABS: HCT 25.8 % (39.6-50.0); HGB 8.5 g/dL (13.0-17.0); MCH 29.1 pg (27.0-32.0); MCHC 32.9 g/dL (32.0-37.0); MCV 88.4 fL (80.0-97.0); Mean Platelet Volume 9.1 fL (9.5-12.2); Platelet Count 245 10*3/uL (140-440); RBC 2.92 10*6/uL (4.40-5.60); RDW 14.8 % (11.5-14.5); WBC 11.96 10*3/uL (4.50-10.00)
[2025-03-27 07:22] LABS: ALT 41 U/L (4-49); AST 65 U/L (17-59); African American GFR (CKD) 75 (>60 ml/min/1.73 sqM); Albumin 2.5 g/dL (3.5-5.0); Alkaline Phosphatase 212 U/L (38-126); Anion Gap 8 mmol/L; Blood Urea Nitrogen 46 mg/dL (9-20); Calcium 8.3 mg/dL (8.4-10.2); Carbon Dioxide 27 mmol/L (22-30); Chloride 102 mmol/L (98-107); Glucose 141 mg/dL (74-99); Magnesium 2.2 mg/dL (1.6-2.3); Non-African American GFR(CKD) 65 (>60 ml/min/1.73 sqM); Potassium 3.7 mmol/L (3.5-5.1); Sodium 137 mmol/L (137-145); Total Bilirubin 1.6 mg/dL (0.2-1.3); Total Protein 5.2 g/dL (6.3-8.2)
[2025-03-27 08:41] LABS: Lymphocytes # (M) 0.96 k/uL (1.0-4.8); Monocytes # (M) 1.08 k/uL (0-1.0); Myelocytes # (M) 0.48 k/uL (0); Myelocytes % 4 %; Neutrophils # (M) 9.69 k/uL (1.3-7.7); Neutrophils % (M) 81 %; Nucleated Red Blood Cells 0 /100 WBC (0-0); Total Cells Counted 200
--- NOTE | 2025-03-27 09:24 | P.PN ---
Subjective Progress Note Date: 03/27/25 Jose Saleem is a 79-year-old male patient who presented to the ER with concerns of weakness, abdominal pain and distention. Patient recently underwent an open cholecystectomy [address] Escobar he was discharged home. Patient reports he has had decreased appetite and increased pain over the past few days denies fevers. Denies bowel movements denies any nausea or vomiting. Testing in the emergency room performed showing EKG sinus rhythm. Chest x-ray showing mild right subsegmental atelectasis at the diaphragm CT of abdomen and pelvis showing increasing free fluid throughout the abdomen particularly around the liver given recent history of cholecystectomy correlate for biliary leak. Airspace opacities in the lung bases correlate for pneumonia. Lab work completed showing hemoglobin 6.1. Sodium 129, creatinine 3.83 bun 87 troponin negative. Lactic acid 1.1. BNP 955 amylase and lipase within normal limits. Vital signs temp 98.1, heart rate 90, respiratory rate 22, blood pressure 146/79 with pulse ox of 98% on 2 L. Patient has a past medical history of CAD, GERD, hyperlipidemia, hypertension, osteoarthritis, prostate disorder and ex-smoker. At this time patient will be admitted surgical services consulted due to abnormal CT scan and recent cholecystectomy. Infectious disease also consulted due to concerns of infection and elevated white blood cell count. Nephrology services consulted for acute on chronic kidney disease. Patient was started on IV Rocephin in ER. Patient was given 2 units of PRBCs repeat hemoglobin 8.1. Blood culture ordered. On 03/27/2025 patient was seen and examined on the telemetry floor he is alert and oriented x 3 in no apparent distress, he is complaining of abdominal pain, during last night he had episodes of shortness of breath, chest x-ray was done and revealed bibasilar subsegmental atelectasis right more than left and el evated right hemidiaphragm, EKG was done and revealed normal sinus rhythm no acute changes. Patient was given 1 dose of IV Lasix 20 mg albuterol updraft was added to his medication regimen, today white blood count is up to 11.96 hemoglobin 8.5 platelet count 245 BUN 46 creatinine 1.1 ABG revealed pH 7.44 [id number] PO2 123, critical care consultation was added, results of biliary scan and chest x-ray reviewed, awaiting further recommendation from surgery. Objective - Vital Signs Vital signs: Vital Signs Temp 98.3 F 03/27/25 04:26 Pulse 89 03/27/25 06:07 Resp 16 03/27/25 04:26 BP 146/73 03/27/25 04:26 Pulse Ox 97 03/27/25 04:26 FiO2 Intake & Output 03/26/25 03/27/25 03/27/25 18:59 06:59 18:59 Intake Total 250 500 Output Total 300 875 125 Balance -50 -375 -125 Weight 90.718 kg 90.2 kg Intake: Intake, IV Titration 250 Amount Cefepime 2 gm In Sodium 100 Chloride 0.9% 100 ml @ 25 mls/hr IVPB Q12H [facility] Rx# :[id number] Lactated Ringers 1,000 ml 150 @ 75 mls/hr IV .[id number] [facility] Rx#:[id number] Oral 500 Output: Urine 300 875 125 Other: Voiding Method Urinal # Voids 1 # Bowel Movements 1 1 - Exam Head normocephalic Neck supple Lungs clear to auscultation bilaterally no wheezing or crackles Heart regular rate and rhythm S1-S2, no rub or gallop Abdomen is soft distended. Hypoactive bowel sounds Extremities no edema Neuro alert and orientated to 3 - Labs CBC & Chem 7: 03/27/25 05:49 03/27/25 05:49 Labs: Abnormal Lab Results - Last 24 Hours (Table) 03/26/25 03/27/25 03/27/25 Range/Units 16:51 01:17 05:49 WBC 11.96 H (4.50-10.00) 10*3/uL RBC 2.92 L (4.40-5.60) 10*6/uL Hgb 8.5 L (13.0-17.0) g/dL Hct 25.8 L (39.6-50.0) % MPV 9.1 L (9.5-12.2) fL Immature Gran # 1.23 H (0.00-0.04) 10*3/uL Neutrophils # (Manual) 9.69 H (1.3-7.7) k/uL Lymphocytes # (Manual) 0.96 L (1.0-4.8) k/uL Monocytes # (Manual) 1.08 H (0-1.0) k/uL Myelocytes # (Manual) 0.48 H (0) k/uL ABG pO2 123 H (83-108) mmHg ABG HCO3 29 H (21-25) mmol/L ABG Total CO2 30 H (19-24) mmol/L ABG O2 Saturation 99.3 H (94-97) % BUN (9-20) mg/dL Glucose (74-99) mg/dL POC Glucose (mg/dL) 137 H (70-110) mg/dL Calcium (8.4-10.2) mg/dL Total Bilirubin (0.2-1.3) mg/dL AST (17-59) U/L Alkaline Phosphatase (38-126) U/L Total Protein (6.3-8.2) g/dL Albumin (3.5-5.0) g/dL 03/27/25 Range/Units 05:49 WBC (4.50-10.00) 10*3/uL RBC (4.40-5.60) 10*6/uL Hgb (13.0-17.0) g/dL Hct (39.6-50.0) % MPV (9.5-12.2) fL Immature Gran # (0.00-0.04) 10*3/uL Neutrophils # (Manual) (1.3-7.7) k/uL Lymphocytes # (Manual) (1.0-4.8) k/uL Monocytes # (Manual) (0-1.0) k/uL Myelocytes # (Manual) (0) k/uL ABG pO2 (83-108) mmHg ABG HCO3 (21-25) mmol/L ABG Total CO2 (19-24) mmol/L ABG O2 Saturation (94-97) % BUN 46 H (9-20) mg/dL Glucose 141 H (74-99) mg/dL POC Glucose (mg/dL) (70-110) mg/dL Calcium 8.3 L (8.4-10.2) mg/dL Total Bilirubin 1.6 H (0.2-1.3) mg/dL AST 65 H (17-59) U/L Alkaline Phosphatase 212 H (38-126) U/L Total Protein 5.2 L (6.3-8.2) g/dL Albumin 2.5 L (3.5-5.0) g/dL Microbiology - Last 24 Hours (Table) 03/25/25 13:06 Blood Culture Gram Stain - Preliminary Blood Blood Culture - Preliminary Molecular ID Assessment and Plan Assessment: 1. Anemia secondary to postop cholecystectomy 03/18/2025 2. Acute on chronic kidney disease 3. Abnormal CT postcholecystectomy 4. Concerns of possible pneumonia 5. History of coronary artery disease 6. History of GERD 7. History of hyperlipidemia 8. History of prostate disorder 9. History of essential hypertension 10. History of hyperlipidemia DVT prophylaxis SCDs due to anemia. GI prophylax Protonix Surgical services consulted Nephrology services consulted Infectious disease services consulted Blood culture ordered Patient started on IV antibiotics Repeat labs ordered
[2025-03-27] MEDS: ONDANSETRON ODT 4 MG TAB PO PRN (09:33)
[2025-03-27] MEDS ORDERED: VANCOMYCIN IV PER PHARMACY 1 EACH MISC MISCELLANE PRN (10:51)
[2025-03-27] MEDS: VANCOMYCIN 1,500 MG in SODIUM CHLORIDE 0.9% 500 ML 500 ML IVPB SCH (11:48)
--- NOTE | 2025-03-27 13:01 | P.PN ---
Subjective Progress Note Date: 03/27/25 SURGICAL PROGRESS NOTE CHIEF COMPLAINT: Abdominal pain HISTORY OF PRESENT ILLNESS: Patient reports his pain is more controlled today. He denies any vomiting. He did have some nausea. Patient reports having bowel movements. HIDA scan reports slightly delayed tracer clearance from the blood pool. There is some activity which accumulates along the inferior margin of the left liver lobe. Biliary leak not excluded. WBC is up from 10.7-11.9 hemoglobin stable at 8.5 platelets 245 total bilirubin 1.6 AST is up from 57-65 ALT 41 alk phos 212. Nursing staff changed incisional dressing PHYSICAL EXAM: VITAL SIGNS: Reviewed. GENERAL: Well-developed in no acute distress. HEENT: No sclera icterus. Extraocular movements grossly intact. Moist buccal mucosa. Head is atraumatic, normocephalic. ABDOMEN: Soft. Nondistended. Tenderness palpation right upper quadrant. Incisional dressing clean dry and intact. NEUROLOGIC: Alert and oriented. Cranial nerves II through XII grossly intact. ASSESSMENT: 1. Abdominal pain 2. Possible small bile leak 3. Possible postoperative bleeding after cholecystectomy contributing to anemia. Patient requiring blood transfusion 4. Constipation 5. Recent open cholecystectomy on 03/18/2025 PLAN: - Consult GI service for possible bile leak - Continue clear liquid diet - Repeat LFTs in a.m. - Continue to monitor hemoglobin - Continue pain management Physician [employer] note has been reviewed by physician. Signing provider agrees with the documented findings, assessment, and plan of care. Objective - Vital Signs Vital signs: Vital Signs Temp 98.3 F 03/27/25 04:26 Pulse 89 03/27/25 06:07 Resp 16 03/27/25 04:26 BP 146/73 03/27/25 04:26 Pulse Ox 97 03/27/25 09:25 FiO2 Intake & Output 03/26/25 03/27/25 03/27/25 18:59 06:59 18:59 Intake Total 250 500 Output Total 300 875 125 Balance -50 -375 -125 Weight 90.718 kg 90.2 kg Intake: Intake, IV Titration 250 Amount Cefepime 2 gm In Sodium 100 Chloride 0.9% 100 ml @ 25 mls/hr IVPB Q12H [facility] Rx# :[id number] Lactated Ringers 1,000 ml 150 @ 75 mls/hr IV .[id number] [facility] Rx#:[id number] Oral 500 Output: Urine 300 875 125 Other: Voiding Method Urinal # Voids 1 # Bowel Movements 1 1 - Labs CBC & Chem 7: 03/27/25 05:49 03/27/25 05:49 Labs: Abnormal Lab Results - Last 24 Hours (Table) 03/26/25 03/27/25 03/27/25 Range/Units 16:51 01:17 05:49 WBC 11.96 H (4.50-10.00) 10*3/uL RBC 2.92 L (4.40-5.60) 10*6/uL Hgb 8.5 L (13.0-17.0) g/dL Hct 25.8 L (39.6-50.0) % MPV 9.1 L (9.5-12.2) fL Immature Gran # 1.23 H (0.00-0.04) 10*3/uL Neutrophils # (Manual) 9.69 H (1.3-7.7) k/uL Lymphocytes # (Manual) 0.96 L (1.0-4.8) k/uL Monocytes # (Manual) 1.08 H (0-1.0) k/uL Myelocytes # (Manual) 0.48 H (0) k/uL ABG pO2 123 H (83-108) mmHg ABG HCO3 29 H (21-25) mmol/L ABG Total CO2 30 H (19-24) mmol/L ABG O2 Saturation 99.3 H (94-97) % BUN (9-20) mg/dL Glucose (74-99) mg/dL POC Glucose (mg/dL) 137 H (70-110) mg/dL Calcium (8.4-10.2) mg/dL Total Bilirubin (0.2-1.3) mg/dL AST (17-59) U/L Alkaline Phosphatase (38-126) U/L Total Protein (6.3-8.2) g/dL Albumin (3.5-5.0) g/dL 03/27/25 Range/Units 05:49 WBC (4.50-10.00) 10*3/uL RBC (4.40-5.60) 10*6/uL Hgb (13.0-17.0) g/dL Hct (39.6-50.0) % MPV (9.5-12.2) fL Immature Gran # (0.00-0.04) 10*3/uL Neutrophils # (Manual) (1.3-7.7) k/uL Lymphocytes # (Manual) (1.0-4.8) k/uL Monocytes # (Manual) (0-1.0) k/uL Myelocytes # (Manual) (0) k/uL ABG pO2 (83-108) mmHg ABG HCO3 (21-25) mmol/L ABG Total CO2 (19-24) mmol/L ABG O2 Saturation (94-97) % BUN 46 H (9-20) mg/dL Glucose 141 H (74-99) mg/dL POC Glucose (mg/dL) (70-110) mg/dL Calcium 8.3 L (8.4-10.2) mg/dL Total Bilirubin 1.6 H (0.2-1.3) mg/dL AST 65 H (17-59) U/L Alkaline Phosphatase 212 H (38-126) U/L Total Protein 5.2 L (6.3-8.2) g/dL Albumin 2.5 L (3.5-5.0) g/dL Microbiology - Last 24 Hours (Table) 03/25/25 13:06 Blood Culture Gram Stain - Preliminary Blood Blood Culture - Preliminary Molecular ID
--- NOTE | 2025-03-27 13:39 | P.CNPUL ---
History of Present Illness Consult date: 03/27/25 Requesting physician: Lance Chang Reason for consult: dyspnea, hypoxemia Chief complaint: Altered mental status History of present illness: This is a 79-year-old male patient with known history of recent open cholecystectomy approximately 1 week ago. He was discharged 3 days prior to returning to the emergency department on 03/25/2025 with altered mental status. CT scan of the abdomen and pelvis revealed increasing free fluid throughout the abdomen particularly around the liver. Possible biliary leak. HIDA scan revealed biliary leak not excluded. We were consulted today for some complaints of shortness of breath. He is seen in consultation on the selective care unit. He is currently awake and alert in no acute distress. Maintaining O2 saturations in the upper 90s on 2 L/min per nasal cannula. He is afebrile. Hemodynamically stable. Chest x-ray reveals basilar subsegmental atelectatic changes right greater than left. Elevated right hemidiaphragm. White count 11.9. Hemoglobin 8.5. Platelets 245. Sodium 137. Potassium 3.7. Bicarb 27. BUN 46. Creatinine 1.10. Glucose 141. Blood culture showing gram-positive cocci in clusters. He is currently on cefepime. Albuterol inhaler as needed. Review of Systems REVIEW OF SYSTEMS: CONSTITUTIONAL: Denies any recent significant weight loss or weight gain. EYES: Denies change in vision. EARS, NOSE, MOUTH, THROAT: Denies headaches, denies sore throat. CARDIOVASCULAR: Denies chest pain, palpitations or syncopal episodes. RESPIRATORY: Positive for shortness of breath, cough, congestion no hemoptysis. GASTROINTESTINAL: Denies change in appetite, denies abdominal pain GENITOURINARY: Denies hematuria, denies infections. MUSKULOSKELETAL: Denies pain, denies swelling. INTEGUMENTARY: Denies rash, denies eczema. NEUROLOGICAL: Denies recent memory loss, no recent seizure activity. PSYCHIATRIC: Denies anxiety, denies depression. HEMATOLOGIC/LYMPHATIC: Denies anemia, denies enlarged lymph nodes. Past Medical History Past Medical History: Coronary Artery Disease (CAD), Chest Pain / Angina, GERD/Reflux, Hyperlipidemia, Hypertension, Myocardial Infarction (CA), Osteoarthritis (OA), Prostate Disorder, Sleep Apnea/CPAP/BIPAP Additional Past Medical History / Comment(s): NO CPAP, HIATAL HERNIA, colon polyp, enlarged prostate, kidney stone, chronic cholecystitis Last Myocardial Infarction Date:: 10/1994 History of Any Multi-Drug Resistant Organisms: None Reported Past Surgical History: Cholecystectomy, Hernia Repair, Orthopedic Surgery, Tonsillectomy Additional Past Surgical History / Comment(s): 07-09-15 laprascopic gillian fundopliction, LT ACL REPAIR, IRENE CARPAL TUNNEL, left SHOULDER DEBRIDMENT, left elbow surgery, peptic ulcer surgery, COLONOSCOPY, EGD, right groin hernia repair as a baby, 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 Past Anesthesia/Blood Transfusion Reactions: No Reported Reaction Past Psychological History: No Psychological Hx Reported Smoking Status: Former smoker Past Alcohol Use History: Occasional Past Drug Use History: Marijuana - Past Family History Mother Family Medical History: No Reported History Additional Family Medical History / Comment(s): in mva at age 44 Father Family Medical History: No Reported History Additional Family Medical History / Comment(s): in boating accident at age 67 Brother(s) Family Medical History: Coronary Artery Disease (CAD) Additional Family Medical History / Comment(s): Patient has 3 brothers and he knows that one brother has had a 3 or 4 vessel CABG and is not aware of other health problems. Patient has 3 sisters which she does not know of any major medical problems. Son(s) Family Medical History: GERD/Reflux, Hypertension Additional Family Medical History / Comment(s): He has one son that is overweight and has gastric esophageal reflux disease and hypertension. He has one daughter that has gallbladder problems - cholecystectomy Medications and Allergies Home Medications Medication Instructions Recorded Confirmed Type Atorvastatin [Lipitor] 20 mg PO DAILY 01/13/25 03/25/25 History Tamsulosin [Flomax] 0.4 mg PO DAILY 01/13/25 03/25/25 History lisinopriL 40 mg PO DAILY 01/13/25 03/25/25 History Aspirin EC [Ecotrin Low Dose] 81 mg PO DAILY 30 Days #30 tab 01/15/25 03/25/25 Rx amLODIPine [Norvasc] 2.5 mg PO DAILY 30 Days #30 tablet 01/15/25 03/25/25 Rx Pantoprazole [Protonix] 40 mg PO DAILY #30 tab 01/22/25 03/25/25 Rx Ibuprofen [Motrin] 600 mg PO Q8HR PRN #30 tab 03/22/25 03/25/25 Rx LORazepam [Ativan] 0.5 mg PO BID PRN 3 Days #6 tab 03/22/25 03/25/25 Rx Lactulose [Cephulac] 30 gm PO DAILY PRN 5 Days #150 ml 03/22/25 03/25/25 Rx Docusate [Colace] 100 mg PO BID PRN 03/25/25 03/25/25 History HYDROcodone/APAP 7.5-325MG [[place] 1 tab PO Q6HR PRN 03/25/25 03/25/25 History 7.5-325] Levofloxacin [Levaquin] 250 mg PO DIRECTED 03/25/25 03/25/25 History Ondansetron [Zofran] 4 mg PO Q8HR PRN 03/25/25 03/25/25 History carvediloL [Coreg] 3.125 mg PO DIRECTED 03/25/25 03/25/25 History Allergies Allergy/AdvReac Type Severity Reaction Status Date / Time Penicillins Allergy Rash/Hives Verified 03/25/25 18:09 nitroglycerin AdvReac Unknown Verified 03/25/25 18:09 Physical Exam Vitals: Vital Signs Temp Pulse Pulse Resp BP Pulse Ox 03/27/25 12:00 98.1 F 84 17 141/81 03/27/25 09:25 97 03/27/25 08:00 97.5 F L 84 18 137/75 03/27/25 06:07 89 03/27/25 04:26 98.3 F 80 16 146/73 97 03/26/25 23:10 98.1 F 81 22 164/65 97 03/26/25 22:35 79 24 165/73 97 03/26/25 20:00 98.7 F 81 20 134/56 97 03/26/25 16:52 98.2 F 93 20 166/85 96 Intake and Output 03/26/25 03/27/25 03/27/25 22:59 06:59 14:59 Intake Total 750 Output Total 450 425 125 Balance 300 -425 -125 Intake: Intake, IV Titration 250 Amount Cefepime 2 gm In Sodium 100 Chloride 0.9% 100 ml @ 25 mls/hr IVPB Q12H [facility] Rx# :[id number] Lactated Ringers 1,000 ml 150 @ 75 mls/hr IV .[id number] [facility] Rx#:[id number] Oral 500 Output: Urine 450 425 125 Other: Voiding Method Urinal Urinal Urinal # Voids 1 # Bowel Movements 1 Weight 90.718 kg 90.2 kg GENERAL EXAM: Alert, oriented 79-year-old male, on 2 L nasal cannula, fairly comfortable in no apparent distress. HEAD: Normocephalic. EYES: Normal reaction of pupils, equal size. NOSE: Clear with pink turbinates. THROAT: No erythema or exudates. NECK: No masses, no JVD. CHEST: No chest wall deformity. LUNGS: Equal air entry with crackles in the bilateral bases. CVS: S1 and S2 normal with no audible murmur, regular rhythm. ABDOMEN: Incisional dressing dry and intact. Pain on palpation of the right upper quadrant. Normal bowel sounds, no guarding or rigidity. SPINE: No scoliosis or deformity SKIN: No rashes CENTRAL NERVOUS SYSTEM: No focal deficits, tone is normal in all 4 extremities. EXTREMITIES: There is no peripheral edema. No clubbing, no cyanosis. Peripheral pulses are intact. Results - Laboratory Findings CBC and BMP: 03/27/25 05:49 03/27/25 05:49 ABG ABG pH 7.44 (7.35-7.45) 03/27/25 01:17 ABG pCO2 42 mmHg (35-45) 03/27/25 01:17 ABG pO2 123 mmHg (83-108) H 03/27/25 01:17 ABG O2 Saturation 99.3 % (94-97) H 03/27/25 01:17 PT/INR, D-dimer PT 11.2 sec (10.0-12.5) 03/25/25 13:09 INR 1.0 (<1.2) 03/25/25 13:09 Abnormal lab findings: Abnormal Labs 03/25/25 03/25/25 03/25/25 13:09 13:09 13:09 WBC RBC 2.02 L Hgb 6.1 L* D Hct 17.9 L* MPV Immature Gran # 0.34 H Neutrophils # (Manual) Lymphocytes # 0.39 L Lymphocytes # (Manual) Monocytes # (Manual) Myelocytes # (Manual) ABG pO2 ABG HCO3 ABG Total CO2 ABG O2 Saturation Sodium 129 L Chloride 96 L BUN 87 H Creatinine 3.83 H Glucose 136 H POC Glucose (mg/dL) Calcium 8.3 L Total Bilirubin 1.6 H AST Alkaline Phosphatase 154 H Total Protein 4.9 L Albumin 2.5 L Crossmatch See Detail 03/26/25 03/26/25 03/26/25 05:42 05:42 16:51 WBC 10.74 H RBC 2.65 L Hgb 8.0 L D Hct 23.3 L MPV 9.4 L Immature Gran # 0.96 H Neutrophils # (Manual) 8.80 H Lymphocytes # Lymphocytes # (Manual) 0.75 L Monocytes # (Manual) Myelocytes # (Manual) ABG pO2 ABG HCO3 ABG Total CO2 ABG O2 Saturation Sodium 135 L Chloride BUN 69 H Creatinine 1.95 H Glucose 126 H POC Glucose (mg/dL) 137 H Calcium 8.2 L Total Bilirubin 1.5 H AST Alkaline Phosphatase 159 H Total Protein 4.9 L Albumin 2.4 L Crossmatch 03/27/25 03/27/25 03/27/25 01:17 05:49 05:49 WBC 11.96 H RBC 2.92 L Hgb 8.5 L Hct 25.8 L MPV 9.1 L Immature Gran # 1.23 H Neutrophils # (Manual) 9.69 H Lymphocytes # Lymphocytes # (Manual) 0.96 L Monocytes # (Manual) 1.08 H Myelocytes # (Manual) 0.48 H ABG pO2 123 H ABG HCO3 29 H ABG Total CO2 30 H ABG O2 Saturation 99.3 H Sodium Chloride BUN 46 H Creatinine Glucose 141 H POC Glucose (mg/dL) Calcium 8.3 L Total Bilirubin 1.6 H AST 65 H Alkaline Phosphatase 212 H Total Protein 5.2 L Albumin 2.5 L Crossmatch - Diagnostic Findings Chest x-ray: image reviewed Assessment and Plan Assessment: Dyspnea secondary to bibasilar atelectasis from poor inspiratory effort due to recent abdominal surgery Open cholecystectomy on 03/18/2025, possible biliary leak on HIDA scan and CAT s can March 26, 2025 Altered mental status secondary to dehydration and poor oral intake Acute anemia with a hemoglobin of 6.1, status post 2 units of packed red blood cells this admission Hyponatremia, improving Acute kidney injury, improving Hyperlipidemia Hypertension Coronary disease Former smoker Marijuana use Plan: The patient was seen and evaluated All imaging, labs and medications reviewed Arterial blood gases reviewed Microbiology reviewed Currently stable on 2 L nasal cannula Add incentive spirometer Sit upright in bed Up in a chair if tolerated Encourage cough and deep breathing exercises Add scheduled bronchodilators Initiate on vancomycin Continue cefepime Infectious disease consult Lactated Ringer's at 75 mL/h GI consulted for possible biliary leak We will continue to follow and make further recommendations based on his clinical status I have personally seen and examined the patient, performed the documentation and the assessment and plan as written. Number of minutes spent on the visit: 20 Dictation was produced using [employer] dictation software. Please excuse any grammatical, word or spelling errors. Time with Patient: Greater than 30
--- NOTE | 2025-03-27 15:28 | P.CONS ---
History of Present Illness - Reason for Consult Consult date: 03/27/25 Possible bile leak Requesting physician: Emil Holland - Chief Complaint Abdominal pain - History of Present Illness This a pleasant 79-year-old male who presented to the emergency department 2 days ago with complaints of altered mental status changes and abdominal pain. Past medical history includes coronary artery disease, GERD, hyperlipidemia, hypertension, CA, prostate disorder, sleep apnea, and obesity. Patient is status post open cholecystectomy and lysis of adhesions on 03/18/[address] Holland. He was discharged on 03/22/2025. He states he continued to have abdominal pain after his surgery although he states that he felt that it was good enough for him to go home. He states his abdominal pain never subsided. He is concerned with continuing of abdominal pain and abdominal distention. is at the bedside and states that his abdomen is larger than it normally is. On admission he was noted to be anemic with a hemoglobin of 6.1 and received 2 units of blood with a follow-up hemoglobin today of 8.5. During his last hospitalization he was noted to have a hemoglobin of 11.3 with a drop to 9.3 on date of discharge. He denies any fevers or chills. Mild leukocytosis today with a WBC of 11.9. Patient had a HIDA scan reporting possible bile leak. Gastroenterology was consulted from general surgery for evaluation for possible bile leak. Today's labs WBC 11.9 hemoglobin 8.5 platelet count 245,000 sodium 137 potassium 3.7 BUN 46 creatinine 1.1 total bilirubin 1.6 AST 65 ALT 41 alkaline phosphatase 212 Review of Systems REVIEW OF SYSTEMS: CARDIOPULMONARY: No chest pain. Positive shortness of breath. Gastrointestinal: Diffuse abdominal pain. Distention. No nausea or vomiting. No hematemesis, coffee-ground emesis. No rectal bleeding, or melena. GENITOURINARY: No dysuria or hematuria. MUSCULOSKELETAL: Reports normal range of motion., Joint pain. SKIN: No rashes. No jaundice. ENDOCRINE: No chills, fevers. No excessive weight gain or loss. No polydipsia or polyuria. PSYCHIATRIC: Unremarkable. NEUROLOGY: No change in mental status. Denies dizziness, headache. ENT: Vision unremarkable. CONSTITUTIONAL: No recent weight loss. No fever, chills, night sweats. Past Medical History Past Medical History: Coronary Artery Disease (CAD), Chest Pain / Angina, GERD/Reflux, Hyperlipidemia, Hypertension, Myocardial Infarction (CA), Osteoarthritis (OA), Prostate Disorder, Sleep Apnea/CPAP/BIPAP Additional Past Medical History / Comment(s): NO CPAP, HIATAL HERNIA, colon polyp, enlarged prostate, kidney stone, chronic cholecystitis Last Myocardial Infarction Date:: 10/1994 History of Any Multi-Drug Resistant Organisms: None Reported Past Surgical History: Cholecystectomy, Hernia Repair, Orthopedic Surgery, Tonsillectomy Additional Past Surgical History / Comment(s): 07-09-15 laprascopic gillian fundopliction, LT ACL REPAIR, IRENE CARPAL TUNNEL, left SHOULDER DEBRIDMENT, left elbow surgery, peptic ulcer surgery, COLONOSCOPY, EGD, right groin hernia repair as a baby, 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 Past Anesthesia/Blood Transfusion Reactions: No Reported Reaction Past Psychological History: No Psychological Hx Reported Smoking Status: Former smoker Past Alcohol Use History: Occasional Past Drug Use History: Marijuana - Past Family History Mother Family Medical History: No Reported History Additional Family Medical History / Comment(s): in mva at age 44 Father Family Medical History: No Reported History Additional Family Medical History / Comment(s): in boating accident at age 67 Brother(s) Family Medical History: Coronary Artery Disease (CAD) Additional Family Medical History / Comment(s): Patient has 3 brothers and he knows that one brother has had a 3 or 4 vessel CABG and is not aware of other health problems. Patient has 3 sisters which she does not know of any major medical problems. Son(s) Family Medical History: GERD/Reflux, Hypertension Additional Family Medical History / Comment(s): He has one son that is overweight and has gastric esophageal reflux disease and hypertension. He has one daughter that has gallbladder problems - cholecystectomy Medications and Allergies Home Medications Medication Instructions Recorded Confirmed Type Atorvastatin [Lipitor] 20 mg PO DAILY 01/13/25 03/25/25 History Tamsulosin [Flomax] 0.4 mg PO DAILY 01/13/25 03/25/25 History lisinopriL 40 mg PO DAILY 01/13/25 03/25/25 History Aspirin EC [Ecotrin Low Dose] 81 mg PO DAILY 30 Days #30 tab 01/15/25 03/25/25 Rx amLODIPine [Norvasc] 2.5 mg PO DAILY 30 Days #30 tablet 01/15/25 03/25/25 Rx Pantoprazole [Protonix] 40 mg PO DAILY #30 tab 01/22/25 03/25/25 Rx Ibuprofen [Motrin] 600 mg PO Q8HR PRN #30 tab 03/22/25 03/25/25 Rx LORazepam [Ativan] 0.5 mg PO BID PRN 3 Days #6 tab 03/22/25 03/25/25 Rx Lactulose [Cephulac] 30 gm PO DAILY PRN 5 Days #150 ml 03/22/25 03/25/25 Rx Docusate [Colace] 100 mg PO BID PRN 03/25/25 03/25/25 History HYDROcodone/APAP 7.5-325MG [[place] 1 tab PO Q6HR PRN 03/25/25 03/25/25 History 7.5-325] Levofloxacin [Levaquin] 250 mg PO DIRECTED 03/25/25 03/25/25 History Ondansetron [Zofran] 4 mg PO Q8HR PRN 03/25/25 03/25/25 History carvediloL [Coreg] 3.125 mg PO DIRECTED 03/25/25 03/25/25 History Allergies Allergy/AdvReac Type Severity Reaction Status Date / Time Penicillins Allergy Rash/Hives Verified 03/25/25 18:09 nitroglycerin AdvReac Unknown Verified 03/25/25 18:09 Physical Exam Vitals: Vital Signs Temp Pulse Pulse Resp BP Pulse Ox 03/27/25 12:00 98.1 F 84 17 141/81 03/27/25 09:25 97 03/27/25 08:00 97.5 F L 84 18 137/75 03/27/25 06:07 89 03/27/25 04:26 98.3 F 80 16 146/73 97 03/26/25 23:10 98.1 F 81 22 164/65 97 03/26/25 22:35 79 24 165/73 97 03/26/25 20:00 98.7 F 81 20 134/56 97 03/26/25 16:52 98.2 F 93 20 166/85 96 Intake and Output 03/26/25 03/27/25 03/27/25 22:59 06:59 14:59 Intake Total 750 Output Total 450 425 125 Balance 300 -425 -125 Intake: Intake, IV Titration 250 Amount Cefepime 2 gm In Sodium 100 Chloride 0.9% 100 ml @ 25 mls/hr IVPB Q12H [facility] Rx# :[id number] Lactated Ringers 1,000 ml 150 @ 75 mls/hr IV .[id number] [facility] Rx#:[id number] Oral 500 Output: Urine 450 425 125 Other: Voiding Method Urinal Urinal Urinal # Voids 1 # Bowel Movements 1 Weight 90.718 kg 90.2 kg General appearance: The patient is alert, oriented, appears in no acute distress. HET: Head is normocephalic and atraumatic. Conjunctiva pink. Sclera anicteric. Neck: Supple without lymphadenopathy. Trachea midline. Heart: Regular. Lungs: Equal expansion, normal respiratory effort. Abdomen: Soft, obese, diffuse abdominal tenderness, surgical scar, distention. Skin: No rashes. No jaundice. Extremities: Normal skin color and turgor. No pedal edema. Neurological: No focal deficits. Alert and oriented x3. Results CBC & Chem 7: 03/27/25 05:49 03/27/25 05:49 Labs: Abnormal Lab Results - Last 24 Hours (Table) 03/26/25 03/27/25 03/27/25 Range/Units 16:51 01:17 05:49 WBC 11.96 H (4.50-10.00) 10*3/uL RBC 2.92 L (4.40-5.60) 10*6/uL Hgb 8.5 L (13.0-17.0) g/dL Hct 25.8 L (39.6-50.0) % MPV 9.1 L (9.5-12.2) fL Immature Gran # 1.23 H (0.00-0.04) 10*3/uL Neutrophils # (Manual) 9.69 H (1.3-7.7) k/uL Lymphocytes # (Manual) 0.96 L (1.0-4.8) k/uL Monocytes # (Manual) 1.08 H (0-1.0) k/uL Myelocytes # (Manual) 0.48 H (0) k/uL ABG pO2 123 H (83-108) mmHg ABG HCO3 29 H (21-25) mmol/L ABG Total CO2 30 H (19-24) mmol/L ABG O2 Saturation 99.3 H (94-97) % BUN (9-20) mg/dL Glucose (74-99) mg/dL POC Glucose (mg/dL) 137 H (70-110) mg/dL Calcium (8.4-10.2) mg/dL Total Bilirubin (0.2-1.3) mg/dL AST (17-59) U/L Alkaline Phosphatase (38-126) U/L Total Protein (6.3-8.2) g/dL Albumin (3.5-5.0) g/dL 03/27/25 Range/Units 05:49 WBC (4.50-10.00) 10*3/uL RBC (4.40-5.60) 10*6/uL Hgb (13.0-17.0) g/dL Hct (39.6-50.0) % MPV (9.5-12.2) fL Immature Gran # (0.00-0.04) 10*3/uL Neutrophils # (Manual) (1.3-7.7) k/uL Lymphocytes # (Manual) (1.0-4.8) k/uL Monocytes # (Manual) (0-1.0) k/uL Myelocytes # (Manual) (0) k/uL ABG pO2 (83-108) mmHg ABG HCO3 (21-25) mmol/L ABG Total CO2 (19-24) mmol/L ABG O2 Saturation (94-97) % BUN 46 H (9-20) mg/dL Glucose 141 H (74-99) mg/dL POC Glucose (mg/dL) (70-110) mg/dL Calcium 8.3 L (8.4-10.2) mg/dL Total Bilirubin 1.6 H (0.2-1.3) mg/dL AST 65 H (17-59) U/L Alkaline Phosphatase 212 H (38-126) U/L Total Protein 5.2 L (6.3-8.2) g/dL Albumin 2.5 L (3.5-5.0) g/dL Microbiology - Last 24 Hours (Table) 03/25/25 13:06 Blood Culture Gram Stain - Preliminary Blood Blood Culture - Preliminary Molecular ID Comments: CT abdomen pelvis without contrast reports increasing free fluid throughout the abdomen particularly around the liver. Given history of recent cholecystectomy. Correlate for biliary leak with nuclear medicine HIDA scan. Airspace opac ities in lung bases correlate for pneumonia. Postsurgical changes of the gastroesophageal junction. Simple appearing left renal cyst no follow-up recommended. Nonobstructing right renal calculus. Prostamegaly correlate with serum PSA HIDA scan impression reports imaging stopped at 54 minutes due to voiding urgency. Slight delayed tracer clearance from the blood pool. Correlate with LFTs for hepatocellular dysfunction. There is some activity which accumulates along the inferior margin of the left liver lobe. Biliary leak not excluded. Assessment and Plan (1) Abdominal pain Narrative/Plan: 79-year-old who underwent recent open cholecystectomy for chronic cholecystitis and lysis of adhesions about 10 days ago presents back with severe diffuse abdominal pain and altered mental status changes. He was noted to be anemic on admission with a hemoglobin of 6.1 possibly secondary to acute blood loss anemia secondary to recent surgery. Patient has diffuse tenderness in the abdomen with abdominal distention. He was noted to have mildly elevated bilirubin as well as alkaline phosphatase he had a CT of the abdomen pelvis as well as a HIDA scan. HIDA scan reports possible biliary leak. Case was discussed with surgeon, consider other underlying etiology of abdominal pain in setting of acute anemia. Plan is to proceed with ERCP tomorrow possible stent placement. Current Visit: No Status: Acute Code(s): R10.9 - UNSPECIFIED ABDOMINAL PAIN SNOMED Code(s): 04991875 (2) Hyperbilirubinemia Current Visit: Yes Status: Acute Code(s): E80.6 - OTHER DISORDERS OF BILIRUBIN METABOLISM SNOMED Code(s): 19937415 (3) Anemia Current Visit: Yes Status: Acute Code(s): D64.9 - ANEMIA, UNSPECIFIED SNOMED Code(s): 249887950 (4) S/P cholecystectomy Current Visit: Yes Status: Acute Code(s): Z90.49 - ACQUIRED ABSENCE OF OTHER SPECIFIED PARTS OF DIGESTIVE TRACT SNOMED Code(s): 795715686 Plan: 1. Continue symptomatic and supportive care 2. N.p.o. after midnight 3. Repeat CBC, CMP tomorrow. Add INR 4. Continue antibiotics as ordered 5. Indomethacin 100 mg per rectum 1 hour prior to ERCP 6. Will plan for ERCP tomorrow. Hold aspirin. 7. Continue with recommendations from general surgery Thank you for this consultation, we will continue to follow. Dr. Omar Cornelius I agree with the dictator's note, documented as a scribe by Mavis Ray.
[2025-03-27] MEDS: IPRATROPIUM-ALBUTEROL 3 ML NEB INHALATION SCH (15:47)
--- NOTE | 2025-03-27 15:52 | P.PN ---
Subjective Patient is seen in follow-up for acute kidney injury. Renal function improved. Currently off IV fluids. On clear liquid diet. Admits to good urine output. Vital signs are stable. General: No acute distress. HEENT: Head exam is unremarkable. On nasal cannula. LUNGS: No audible rhonchi or wheezes. HEART: Rate and Rhythm are regular. ABDOMEN: Obese, mild tenderness. EXTREMITITES: Trace edema. Objective - Vital Signs Vital signs: Vital Signs Temp 98.1 F 03/27/25 12:00 Pulse 84 03/27/25 12:00 Resp 17 03/27/25 12:00 BP 141/81 03/27/25 12:00 Pulse Ox 97 03/27/25 09:25 FiO2 Intake & Output 03/26/25 03/27/25 03/27/25 18:59 06:59 18:59 Intake Total 250 500 Output Total 300 875 125 Balance -50 -375 -125 Weight 90.718 kg 90.2 kg Intake: Intake, IV Titration 250 Amount Cefepime 2 gm In Sodium 100 Chloride 0.9% 100 ml @ 25 mls/hr IVPB Q12H [facility] Rx# :[id number] Lactated Ringers 1,000 ml 150 @ 75 mls/hr IV .[id number] [facility] Rx#:[id number] Oral 500 Output: Urine 300 875 125 Other: Voiding Method Urinal Urinal # Voids 1 # Bowel Movements 1 1 - Labs CBC & Chem 7: 03/27/25 05:49 03/27/25 05:49 Labs: Abnormal Lab Results - Last 24 Hours (Table) 03/26/25 03/27/25 03/27/25 Range/Units 16:51 01:17 05:49 WBC 11.96 H (4.50-10.00) 10*3/uL RBC 2.92 L (4.40-5.60) 10*6/uL Hgb 8.5 L (13.0-17.0) g/dL Hct 25.8 L (39.6-50.0) % MPV 9.1 L (9.5-12.2) fL Immature Gran # 1.23 H (0.00-0.04) 10*3/uL Neutrophils # (Manual) 9.69 H (1.3-7.7) k/uL Lymphocytes # (Manual) 0.96 L (1.0-4.8) k/uL Monocytes # (Manual) 1.08 H (0-1.0) k/uL Myelocytes # (Manual) 0.48 H (0) k/uL ABG pO2 123 H (83-108) mmHg ABG HCO3 29 H (21-25) mmol/L ABG Total CO2 30 H (19-24) mmol/L ABG O2 Saturation 99.3 H (94-97) % BUN (9-20) mg/dL Glucose (74-99) mg/dL POC Glucose (mg/dL) 137 H (70-110) mg/dL Calcium (8.4-10.2) mg/dL Total Bilirubin (0.2-1.3) mg/dL AST (17-59) U/L Alkaline Phosphatase (38-126) U/L Total Protein (6.3-8.2) g/dL Albumin (3.5-5.0) g/dL 03/27/25 Range/Units 05:49 WBC (4.50-10.00) 10*3/uL RBC (4.40-5.60) 10*6/uL Hgb (13.0-17.0) g/dL Hct (39.6-50.0) % MPV (9.5-12.2) fL Immature Gran # (0.00-0.04) 10*3/uL Neutrophils # (Manual) (1.3-7.7) k/uL Lymphocytes # (Manual) (1.0-4.8) k/uL Monocytes # (Manual) (0-1.0) k/uL Myelocytes # (Manual) (0) k/uL ABG pO2 (83-108) mmHg ABG HCO3 (21-25) mmol/L ABG Total CO2 (19-24) mmol/L ABG O2 Saturation (94-97) % BUN 46 H (9-20) mg/dL Glucose 141 H (74-99) mg/dL POC Glucose (mg/dL) (70-110) mg/dL Calcium 8.3 L (8.4-10.2) mg/dL Total Bilirubin 1.6 H (0.2-1.3) mg/dL AST 65 H (17-59) U/L Alkaline Phosphatase 212 H (38-126) U/L Total Protein 5.2 L (6.3-8.2) g/dL Albumin 2.5 L (3.5-5.0) g/dL Microbiology - Last 24 Hours (Table) 03/25/25 13:06 Blood Culture Gram Stain - Preliminary Blood Blood Culture - Preliminary Molecular ID Assessment and Plan Plan: Assessment: 1. Acute kidney injury secondary to ATN secondary to hypovolemia. Creatinine 3.3 on admission and is 1.1 today. No hydronephrosis noted on CT. 2. Chronic kidney disease stage IIIa with baseline creatinine of 1.3-1.4 secondary to nephrosclerosis. 3. Recent cholecystectomy with concern for biliary leak on CT. Surgery following. ERCP tomorrow. 4. Acute blood loss anemia status post blood transfusions this admission. Improved. 5. Hypovolemic hyponatremia improved with fluids. Better. Plan: Maintain off IV fluids. Received a dose of IV Lasix by primary team this morning. Continue to hold lisinopril. Avoid nephrotoxins. Discontinued Motrin. Continue to monitor renal function and urine output.
[2025-03-27] MEDS: CEFEPIME 2 GM in SODIUM CHLORIDE 0.9% 100 ML IVPB SCH (16:50)
[2025-03-28 06:02] LABS: HCT 24.5 % (39.6-50.0); HGB 8.2 g/dL (13.0-17.0); MCH 29.9 pg (27.0-32.0); MCHC 33.5 g/dL (32.0-37.0); MCV 89.4 fL (80.0-97.0); Mean Platelet Volume 9.4 fL (9.5-12.2); Platelet Count 277 10*3/uL (140-440); RBC 2.74 10*6/uL (4.40-5.60); RDW 14.9 % (11.5-14.5); WBC 10.55 10*3/uL (4.50-10.00)
[2025-03-28 06:24] LABS: ALT 31 U/L (4-49); AST 40 U/L (17-59); African American GFR (CKD) >90 (>60 ml/min/1.73 sqM); Albumin 2.3 g/dL (3.5-5.0); Alkaline Phosphatase 187 U/L (38-126); Anion Gap 9 mmol/L; Blood Urea Nitrogen 33 mg/dL (9-20); Calcium 8.5 mg/dL (8.4-10.2); Carbon Dioxide 26 mmol/L (22-30); Chloride 101 mmol/L (98-107); Glucose 121 mg/dL (74-99); Non-African American GFR(CKD) 83 (>60 ml/min/1.73 sqM); Potassium 3.7 mmol/L (3.5-5.1); Sodium 136 mmol/L (137-145); Total Bilirubin 1.4 mg/dL (0.2-1.3); Total Protein 4.8 g/dL (6.3-8.2)
[2025-03-28 06:26] LABS: INR 1.2 (<1.2); Prothrombin Time 12.9 sec (10.0-12.5)
--- NOTE | 2025-03-28 09:46 | P.PN ---
Subjective Progress Note Date: 03/27/25 Principal diagnosis: Reason for follow-up is possible biliary leak/cholangitis and a question of pneumonia Patient is a 79-year-old male with a past medical history significant for hypertension hyperlipidemia CT coronary artery disease prostate disorder reflux in this patient who is status post laparoscopic cholecystectomy completed on 03/18/2025 now present to the hospital with increasing confusion abdominal pain and distention with evidence of fluid in the right upper quadrant on the CT and question of pneumonia HIDA scan biliary leak not excluded. On today's evaluation that is 03/27/2025, Patient is afebrile this morning patient denies having any chest pain complaining of some shortness of breath and cough, the patient is currently on 2 L nasal oxygen, patient denies any nausea vomiting circumventing of abdominal pain and distention. Patient white count of 11.96 creatinine is 1.10 bilirubin is elevated blood culture positive for gram-positive cocci staph epi Objective - Vital Signs Vital signs: Vital Signs Temp 98.1 F 03/27/25 12:00 Pulse 84 03/27/25 12:00 Resp 17 03/27/25 12:00 BP 141/81 03/27/25 12:00 Pulse Ox 97 03/27/25 09:25 FiO2 Intake & Output 03/26/25 03/27/25 03/27/25 18:59 06:59 18:59 Intake Total 250 500 Output Total 300 875 125 Balance -50 -375 -125 Weight 90.718 kg 90.2 kg Intake: Intake, IV Titration 250 Amount Cefepime 2 gm In Sodium 100 Chloride 0.9% 100 ml @ 25 mls/hr IVPB Q12H [facility] Rx# :[id number] Lactated Ringers 1,000 ml 150 @ 75 mls/hr IV .[id number] [facility] Rx#:[id number] Oral 500 Output: Urine 300 875 125 Other: Voiding Method Urinal Urinal # Voids 1 # Bowel Movements 1 1 - Exam GENERAL DESCRIPTION: An elderly male lying in bed in no distress RESPIRATORY SYSTEM: Unlabored breathing , decreased breath sounds at bases HEART: S1 S2 regular rate and rhythm , ABDOMEN: Soft , no tenderness EXTREMITIES: No edema feet - Labs CBC & Chem 7: 03/28/25 05:20 03/28/25 05:20 Labs: Abnormal Lab Results - Last 24 Hours (Table) 03/26/25 03/27/25 03/27/25 Range/Units 16:51 01:17 05:49 WBC 11.96 H (4.50-10.00) 10*3/uL RBC 2.92 L (4.40-5.60) 10*6/uL Hgb 8.5 L (13.0-17.0) g/dL Hct 25.8 L (39.6-50.0) % MPV 9.1 L (9.5-12.2) fL Immature Gran # 1.23 H (0.00-0.04) 10*3/uL Neutrophils # (Manual) 9.69 H (1.3-7.7) k/uL Lymphocytes # (Manual) 0.96 L (1.0-4.8) k/uL Monocytes # (Manual) 1.08 H (0-1.0) k/uL Myelocytes # (Manual) 0.48 H (0) k/uL ABG pO2 123 H (83-108) mmHg ABG HCO3 29 H (21-25) mmol/L ABG Total CO2 30 H (19-24) mmol/L ABG O2 Saturation 99.3 H (94-97) % BUN (9-20) mg/dL Glucose (74-99) mg/dL POC Glucose (mg/dL) 137 H (70-110) mg/dL Calcium (8.4-10.2) mg/dL Total Bilirubin (0.2-1.3) mg/dL AST (17-59) U/L Alkaline Phosphatase (38-126) U/L Total Protein (6.3-8.2) g/dL Albumin (3.5-5.0) g/dL 03/27/25 Range/Units 05:49 WBC (4.50-10.00) 10*3/uL RBC (4.40-5.60) 10*6/uL Hgb (13.0-17.0) g/dL Hct (39.6-50.0) % MPV (9.5-12.2) fL Immature Gran # (0.00-0.04) 10*3/uL Neutrophils # (Manual) (1.3-7.7) k/uL Lymphocytes # (Manual) (1.0-4.8) k/uL Monocytes # (Manual) (0-1.0) k/uL Myelocytes # (Manual) (0) k/uL ABG pO2 (83-108) mmHg ABG HCO3 (21-25) mmol/L ABG Total CO2 (19-24) mmol/L ABG O2 Saturation (94-97) % BUN 46 H (9-20) mg/dL Glucose 141 H (74-99) mg/dL POC Glucose (mg/dL) (70-110) mg/dL Calcium 8.3 L (8.4-10.2) mg/dL Total Bilirubin 1.6 H (0.2-1.3) mg/dL AST 65 H (17-59) U/L Alkaline Phosphatase 212 H (38-126) U/L Total Protein 5.2 L (6.3-8.2) g/dL Albumin 2.5 L (3.5-5.0) g/dL Microbiology - Last 24 Hours (Table) 03/25/25 13:06 Blood Culture Gram Stain - Preliminary Blood Blood Culture - Preliminary Molecular ID Assessment and Plan (1) Pneumonia Current Visit: Yes Status: Acute Code(s): J18.9 - PNEUMONIA, UNSPECIFIED ORGANISM SNOMED Code(s): 920393189 (2) Abdominal infection Current Visit: Yes Status: Acute Code(s): K65.9 - PERITONITIS, UNSPECIFIED SNOMED Code(s): 179388151 (3) Penicillin allergy Current Visit: Yes Status: Acute Code(s): Z88.0 - ALLERGY STATUS TO PENICILLIN SNOMED Code(s): 51965704 (4) Bacteremia Current Visit: Yes Status: Acute Code(s): R78.81 - BACTEREMIA SNOMED Code(s): 9716449 Plan: 1patient presented to hospital with abdominal pain confusion in this patient who is status post recent laparoscopic cholecystectomy now with a CT abdominal pelvis showing increased fluid in the right upper quadrant area with concern for possible biliary leak or developing infection also with evidence of right lower lobe airspace opacity concerning for possible pneumonia. 2HIDA scan biliary leak cannot be excluded GI has been consulted for possible ERCP and stent placement 3-patient did have a positive blood culture with staph epi more likely skin contamination no need for vancomycin and will be discontinued 4patient to continue with cefepime and Flagyl while waiting for the workup to be completed Multiple question concern answered Dictation was produced using [employer] software. please excuse any grammatical, word or spelling errors. Time with Patient: Less than 30
[2025-03-28] MEDS: HYDROmorphone 1 MG/ML 1 ML SYRINGE IVP PRN (09:52)
--- NOTE | 2025-03-28 11:33 | P.PN ---
Subjective Patient is seen in follow-up for acute kidney injury. Renal function improved. Currently off IV fluids. Continues to have abdominal discomfort. Scheduled for ERCP today. Vital signs are stable. General: No acute distress. HEENT: Head exam is unremarkable. On nasal cannula. LUNGS: No audible rhonchi or wheezes. HEART: Rate and Rhythm are regular. ABDOMEN: Obese, generalized tenderness present. EXTREMITITES: 1+ edema. Objective - Vital Signs Vital signs: Vital Signs Temp 98.7 F 03/28/25 08:00 Pulse 76 03/28/25 11:18 Resp 18 03/28/25 08:00 BP 139/74 03/28/25 08:00 Pulse Ox 97 03/28/25 08:00 FiO2 Intake & Output 03/27/25 03/28/25 03/28/25 18:59 06:59 18:59 Intake Total 290 0 Output Total 300 325 200 Balance -10 -325 -200 Weight 90 kg Intake: Oral 290 0 Output: Urine 300 325 200 Other: Voiding Method Urinal Urinal - Labs CBC & Chem 7: 03/28/25 05:20 03/28/25 05:20 Labs: Abnormal Lab Results - Last 24 Hours (Table) 03/28/25 03/28/25 03/28/25 Range/Units 05:20 05:20 05:20 WBC 10.55 H (4.50-10.00) 10*3/uL RBC 2.74 L (4.40-5.60) 10*6/uL Hgb 8.2 L (13.0-17.0) g/dL Hct 24.5 L (39.6-50.0) % MPV 9.4 L (9.5-12.2) fL PT 12.9 H (10.0-12.5) sec INR 1.2 H (<1.2) Sodium 136 L (137-145) mmol/L BUN 33 H (9-20) mg/dL Glucose 121 H (74-99) mg/dL Total Bilirubin 1.4 H (0.2-1.3) mg/dL Alkaline Phosphatase 187 H (38-126) U/L Total Protein 4.8 L (6.3-8.2) g/dL Albumin 2.3 L (3.5-5.0) g/dL Microbiology - Last 24 Hours (Table) 03/25/25 13:06 Blood Culture Gram Stain - Preliminary Blood Blood Culture - Preliminary Staphylococcus epidermidis Molecular ID Assessment and Plan Plan: Assessment: 1. Acute kidney injury secondary to ATN secondary to hypovolemia. Creatinine 3.3 on admission and is 0.88 today. No hydronephrosis noted on CT. 2. Chronic kidney disease stage IIIa with baseline creatinine of 1.3-1.4 secondary to nephrosclerosis. 3. Recent cholecystectomy with concern for biliary leak on CT. Surgery following. ERCP today. 4. Acute blood loss anemia status post blood transfusions this admission. Improved. 5. Hypovolemic hyponatremia improved with fluids. Improved. Plan: Maintain off IV fluids. Held. Lisinopril held. Avoid nephrotoxins. Discontinued Motrin. Continue to monitor renal function and urine output.
[2025-03-28] MEDS: INDOMETHACIN 100 MG SUPPOSITORY RECTAL ONE (11:35)
--- NOTE | 2025-03-28 11:37 | P.PN ---
Subjective Progress Note Date: 03/28/25 SURGICAL PROGRESS NOTE CHIEF COMPLAINT: Abdominal pain HISTORY OF PRESENT ILLNESS: Patient complains of pain across the lower abdomen. Patient is scheduled for ERCP to evaluate for bile leak today. He does report nausea. No vomiting. He is having flatus. Afebrile. WBC is down from 11.9- 10.5 Hgb stable at 8.2 total bilirubin is down from 1.6-1.4 AST 65 down to 40 ALT 31 alk phos down from 212-187 PHYSICAL EXAM: VITAL SIGNS: Reviewed. GENERAL: Well-developed in no acute distress. HEENT: No sclera icterus. Extraocular movements grossly intact. Moist buccal mucosa. Head is atraumatic, normocephalic. ABDOMEN: Soft. Nondistended. Tenderness palpation across the lower abdomen. Incisional dressing clean dry and intact. Mild ecchymosis noted along incision site NEUROLOGIC: Alert and oriented. Cranial nerves II through XII grossly intact. ASSESSMENT: 1. Abdominal pain 2. Possible small bile leak 3. Possible postoperative bleeding after cholecystectomy contributing to anemia. Patient requiring blood transfusion 4. Constipation 5. Recent open cholecystectomy on 03/18/2025 PLAN: - Patient scheduled for ERCP today with GI service - Continue to monitor LFTs - Continue to monitor hemoglobin - Continue pain management Physician Bi Application Developer note has been reviewed by physician. Signing provider agrees with the documented findings, assessment, and plan of care. Objective - Vital Signs Vital signs: Vital Signs Temp 98.7 F 03/28/25 08:00 Pulse 76 03/28/25 11:18 Resp 18 03/28/25 08:00 BP 139/74 03/28/25 08:00 Pulse Ox 97 03/28/25 08:00 FiO2 Intake & Output 03/27/25 03/28/25 03/28/25 18:59 06:59 18:59 Intake Total 290 0 Output Total 300 325 200 Balance -10 -325 -200 Weight 90 kg Intake: Oral 290 0 Output: Urine 300 325 200 Other: Voiding Method Urinal Urinal - Labs CBC & Chem 7: 03/28/25 05:20 03/28/25 05:20 Labs: Abnormal Lab Results - Last 24 Hours (Table) 03/28/25 03/28/25 03/28/25 Range/Units 05:20 05:20 05:20 WBC 10.55 H (4.50-10.00) 10*3/uL RBC 2.74 L (4.40-5.60) 10*6/uL Hgb 8.2 L (13.0-17.0) g/dL Hct 24.5 L (39.6-50.0) % MPV 9.4 L (9.5-12.2) fL PT 12.9 H (10.0-12.5) sec INR 1.2 H (<1.2) Sodium 136 L (137-145) mmol/L BUN 33 H (9-20) mg/dL Glucose 121 H (74-99) mg/dL Total Bilirubin 1.4 H (0.2-1.3) mg/dL Alkaline Phosphatase 187 H (38-126) U/L Total Protein 4.8 L (6.3-8.2) g/dL Albumin 2.3 L (3.5-5.0) g/dL Microbiology - Last 24 Hours (Table) 03/25/25 13:06 Blood Culture Gram Stain - Preliminary Blood Blood Culture - Preliminary Staphylococcus epidermidis Molecular ID
--- NOTE | 2025-03-28 13:02 | P.PN ---
Subjective Progress Note Date: 03/28/25 Jose Saleem is a 79-year-old male patient who presented to the ER with concerns of weakness, abdominal pain and distention. Patient recently underwent an open cholecystectomy [address] Escobar he was discharged home. Patient reports he has had decreased appetite and increased pain over the past few days denies fevers. Denies bowel movements denies any nausea or vomiting. Testing in the emergency room performed showing EKG sinus rhythm. Chest x-ray showing mild right subsegmental atelectasis at the diaphragm CT of abdomen and pelvis showing increasing free fluid throughout the abdomen particularly around the liver given recent history of cholecystectomy correlate for biliary leak. Airspace opacities in the lung bases correlate for pneumonia. Lab work completed showing hemoglobin 6.1. Sodium 129, creatinine 3.83 bun 87 troponin negative. Lactic acid 1.1. BNP 955 amylase and lipase within normal limits. Vital signs temp 98.1, heart rate 90, respiratory rate 22, blood pressure 146/79 with pulse ox of 98% on 2 L. Patient has a past medical history of CAD, GERD, hyperlipidemia, hypertension, osteoarthritis, prostate disorder and ex-smoker. At this time patient will be admitted surgical services consulted due to abnormal CT scan and recent cholecystectomy. Infectious disease also consulted due to concerns of infection and elevated white blood cell count. Nephrology services consulted for acute on chronic kidney disease. Patient was started on IV Rocephin in ER. Patient was given 2 units of PRBCs repeat hemoglobin 8.1. Blood culture ordered. On 03/27/2025 patient was seen and examined on the telemetry floor he is alert and oriented x 3 in no apparent distress, he is complaining of abdominal pain, during last night he had episodes of shortness of breath, chest x-ray was done and revealed bibasilar subsegmental atelectasis right more than left and el evated right hemidiaphragm, EKG was done and revealed normal sinus rhythm no acute changes. Patient was given 1 dose of IV Lasix 20 mg albuterol updraft was added to his medication regimen, today white blood count is up to 11.96 hemoglobin 8.5 platelet count 245 BUN 46 creatinine 1.1 ABG revealed pH 7.44 [id number] PO2 123, critical care consultation was added, results of biliary scan and chest x-ray reviewed, awaiting further recommendation from surgery. On 03/28/2025 patient is alert and oriented x 3. Plans for ERCP today per GI services per infectious disease but positive blood culture likely skin contamination no need for vancomycin continue cefepime and Flagyl. Multiple consults following including surgery, GI, pulmonary, infectious disease and nephrology services. Current vital signs temp 98.3, heart rate 78, respiratory rate 18, blood pressure 149/79 with pulse ox 97% on 2 L patient denies chest pain. Patient does report some shortness of breath. Patient denies any nausea or vomiting. Patient denies any urinary burning or frequency Objective - Vital Signs Vital signs: Vital Signs Temp 98.3 F 03/28/25 12:00 Pulse 78 03/28/25 12:00 Resp 18 03/28/25 12:00 BP 149/79 03/28/25 12:00 Pulse Ox 97 03/28/25 12:00 FiO2 Intake & Output 03/27/25 03/28/25 03/28/25 18:59 06:59 18:59 Intake Total 290 0 Output Total 300 325 200 Balance -10 -325 -200 Weight 90 kg Intake: Oral 290 0 Output: Urine 300 325 200 Other: Voiding Method Urinal Urinal Urinal - Exam Head normocephalic Neck supple Lungs clear to auscultation bilaterally no wheezing or crackles Heart regular rate and rhythm S1-S2, no rub or gallop Abdomen is soft distended. Hypoactive bowel sounds Extremities no edema Neuro alert and orientated to 3 - Labs CBC & Chem 7: 03/28/25 05:20 03/28/25 05:20 Labs: Abnormal Lab Results - Last 24 Hours (Table) 03/28/25 03/28/25 03/28/25 Range/Units 05:20 05:20 05:20 WBC 10.55 H (4.50-10.00) 10*3/uL RBC 2.74 L (4.40-5.60) 10*6/uL Hgb 8.2 L (13.0-17.0) g/dL Hct 24.5 L (39.6-50.0) % MPV 9.4 L (9.5-12.2) fL PT 12.9 H (10.0-12.5) sec INR 1.2 H (<1.2) Sodium 136 L (137-145) mmol/L BUN 33 H (9-20) mg/dL Glucose 121 H (74-99) mg/dL Total Bilirubin 1.4 H (0.2-1.3) mg/dL Alkaline Phosphatase 187 H (38-126) U/L Total Protein 4.8 L (6.3-8.2) g/dL Albumin 2.3 L (3.5-5.0) g/dL Microbiology - Last 24 Hours (Table) 03/25/25 13:06 Blood Culture Gram Stain - Preliminary Blood Blood Culture - Preliminary Staphylococcus epidermidis Molecular ID Assessment and Plan Assessment: 1. Anemia secondary to postop cholecystectomy 03/18/2025 2. Acute on chronic kidney disease 3. Abnormal CT postcholecystectomy 4. Concerns of possible pneumonia 5. History of coronary artery disease 6. History of GERD 7. History of hyperlipidemia 8. History of prostate disorder 9. History of essential hypertension 10. History of hyperlipidemia 11. Bacteremia likely a skin contamination per ID DVT prophylaxis SCDs due to anemia. GI prophylax Protonix Surgical services consulted Nephrology services consulted Infectious disease services consulted Blood culture ordered Patient started on IV antibiotics Plans for ERCP on 03/28/2025 Repeat labs ordered
--- NOTE | 2025-03-28 13:48 | P.PN ---
Subjective Progress Note Date: 03/28/25 Principal diagnosis: Shortness of breath. This is a 79-year-old male patient with known history of recent open cholecystectomy approximately 1 week ago. He was discharged 3 days prior to returning to the emergency department on 03/25/2025 with altered mental status. CT scan of the abdomen and pelvis revealed increasing free fluid throughout the abdomen particularly around the liver. Possible biliary leak. HIDA scan revealed biliary leak not excluded. We were consulted today for some complaints of shortness of breath. He is seen in consultation on the selective care unit. He is currently awake and alert in no acute distress. Maintaining O2 saturations in the upper 90s on 2 L/min per nasal cannula. He is afebrile. Hemodynamically stable. Chest x-ray reveals basilar subsegmental atelectatic changes right greater than left. Elevated right hemidiaphragm. White count 11.9. Hemoglobin 8.5. Platelets 245. Sodium 137. Potassium 3.7. Bicarb 27. BUN 46. Creatinine 1.10. Glucose 141. Blood culture showing gram-positive cocci in clusters. He is currently on cefepime. Albuterol inhaler as needed. Progress note dated March 28, 2025. 79-year-old male seen yesterday in consultation for shortness of breath. We believe the patient's shortness of breath, relates to his intra-abdominal process. The patient is postoperative open cholecystectomy, about 1 week ago. The patient came into the hospital complaining of abdominal discomfort. He may have a biliary leak. He apparently is going for ERCP today. He is currently on LR at 75 cc an hour, and nasal O2 at 2 L. When he takes a deep breath, and causes some difficulty, because of the intra-abdominal issues. I told him to continue to work on the incentive spirometer, deep breathing, cough, clear secretions. Current laboratory data includes a white count of 10.6, hemoglobin 8.2, hematocrit 24.5, and a platelet count of 277,000. PT 12.9, INR 1.2. Sodium 136, potassium 3.7, chlorides 101, CO2 26, anion gap 9, BUN 33, and creatinine 0.88. Calcium is 8.5. Magnesium is 2. Albumin is 2.3. Blood cultures are positive for Staphylococcus epidermidis. Objective - Vital Signs Vital signs: Vital Signs Temp 98.3 F 03/28/25 12:00 Pulse 78 03/28/25 12:00 Resp 18 03/28/25 12:00 BP 149/79 03/28/25 12:00 Pulse Ox 97 03/28/25 12:00 FiO2 Intake & Output 03/27/25 03/28/25 03/28/25 18:59 06:59 18:59 Intake Total 290 0 Output Total 300 325 200 Balance -10 -325 -200 Weight 90 kg Intake: Oral 290 0 Output: Urine 300 325 200 Other: Voiding Method Urinal Urinal Urinal - Exam No acute distress, oriented 3. HEENT examination is grossly unremarkable. Mucous membranes are moist. No oral lesions. Neck supple. Full range of motion. No adenopathy thyromegaly or neck vein distention. Cardiovascular examination reveals regular rhythm rate. S1-S2 normal. No S3 or S4. No discernible murmur noted. Lungs reveal bibasilar crackles. No rhonchi. No wheezes. Breath sounds are equal bilaterally. Abdomen soft, but mildly tender. No masses. Extremities are intact. No cyanosis clubbing or edema. Skin is without rash or lesion. Neurologic examination is brief but nonfocal. - Labs CBC & Chem 7: 03/28/25 05:20 03/28/25 05:20 Labs: Abnormal Lab Results - Last 24 Hours (Table) 03/28/25 03/28/25 03/28/25 Range/Units 05:20 05:20 05:20 WBC 10.55 H (4.50-10.00) 10*3/uL RBC 2.74 L (4.40-5.60) 10*6/uL Hgb 8.2 L (13.0-17.0) g/dL Hct 24.5 L (39.6-50.0) % MPV 9.4 L (9.5-12.2) fL PT 12.9 H (10.0-12.5) sec INR 1.2 H (<1.2) Sodium 136 L (137-145) mmol/L BUN 33 H (9-20) mg/dL Glucose 121 H (74-99) mg/dL Total Bilirubin 1.4 H (0.2-1.3) mg/dL Alkaline Phosphatase 187 H (38-126) U/L Total Protein 4.8 L (6.3-8.2) g/dL Albumin 2.3 L (3.5-5.0) g/dL Microbiology - Last 24 Hours (Table) 03/25/25 13:06 Blood Culture Gram Stain - Preliminary Blood Blood Culture - Preliminary Staphylococcus epidermidis Molecular ID Assessment and Plan Assessment: Dyspnea secondary to bibasilar atelectasis from poor inspiratory effort due to recent abdominal surgery. Open cholecystectomy on 03/18/2025, possible biliary leak on HIDA scan and CAT scan March 26, 2025. Altered mental status secondary to dehydration and poor oral intake. Acute anemia with a hemoglobin of 6.1, status post 2 units of packed red blood cells this admission. Hyponatremia, improving. Acute kidney injury, improving. Hyperlipidemia. Hypertension. Coronary disease. Former smoker. Marijuana use. Plan: Plan dated March 28, 2025. The patient is seen today in room 383. The patient is currently on 2 L of oxygen. He is getting lactated Ringer's at 75 cc an hour. The patient is scheduled to have an ERCP today. We will continue to follow the patient, and make recommendations. We do recommend deep breathing, coughing, clearing his secretions, and hourly use of the incentive spirometer. We will continue to follow the patient. Prognosis is guarded. All labs, x-rays, and medications are reviewed. Dictation was produced using [employer] software. Please excuse any grammatical, word or spelling errors. Time with Patient: Less than 30
[2025-03-28] MEDS ORDERED: INDOMETHACIN 100 MG SUPPOSITORY RECTAL ONE (16:00)
--- NOTE | 2025-03-28 16:33 | P.PN ---
Subjective Progress Note Date: 03/28/25 Principal diagnosis: Reason for follow-up is possible biliary leak/cholangitis and a question of pneumonia Patient is a 79-year-old male with a past medical history significant for hypertension hyperlipidemia [place] coronary artery disease prostate disorder reflux in this patient who is status post laparoscopic cholecystectomy completed on 03/18/2025 now present to the hospital with increasing confusion abdominal pain and distention with evidence of fluid in the right upper quadrant on the CT and question of pneumonia HIDA scan biliary leak not excluded. On today's evaluation that is 03/28/2025,the patient denies any fever or any chills, patient is breathing comfortably on 2 L nasal oxygen, the patient denies chest pain shortness of breath and no worsening cough, patient complaining of some nausea and right upper quad abdominal pain no vomiting or diarrhea. Patient white count is 10.55 creatinine 0.8 blood culture with staph epi Objective - Vital Signs Vital signs: Vital Signs Temp 98.3 F 03/28/25 12:00 Pulse 80 03/28/25 15:27 Resp 18 03/28/25 14:00 BP 149/79 03/28/25 12:00 Pulse Ox 97 03/28/25 12:00 FiO2 Intake & Output 03/27/25 03/28/25 03/28/25 18:59 06:59 18:59 Intake Total 290 0 Output Total 300 325 200 Balance -10 -325 -200 Weight 90 kg Intake: Oral 290 0 Output: Urine 300 325 200 Other: Voiding Method Urinal Urinal Urinal - Exam GENERAL DESCRIPTION: An elderly male lying in bed in no distress RESPIRATORY SYSTEM: Unlabored breathing , decreased breath sounds at bases HEART: S1 S2 regular rate and rhythm , ABDOMEN: Soft , no tenderness EXTREMITIES: No edema feet - Labs CBC & Chem 7: 03/28/25 05:20 03/28/25 05:20 Labs: Abnormal Lab Results - Last 24 Hours (Table) 03/28/25 03/28/25 03/28/25 Range/Units 05:20 05:20 05:20 WBC 10.55 H (4.50-10.00) 10*3/uL RBC 2.74 L (4.40-5.60) 10*6/uL Hgb 8.2 L (13.0-17.0) g/dL Hct 24.5 L (39.6-50.0) % MPV 9.4 L (9.5-12.2) fL PT 12.9 H (10.0-12.5) sec INR 1.2 H (<1.2) Sodium 136 L (137-145) mmol/L BUN 33 H (9-20) mg/dL Glucose 121 H (74-99) mg/dL Total Bilirubin 1.4 H (0.2-1.3) mg/dL Alkaline Phosphatase 187 H (38-126) U/L Total Protein 4.8 L (6.3-8.2) g/dL Albumin 2.3 L (3.5-5.0) g/dL Microbiology - Last 24 Hours (Table) 03/25/25 13:06 Blood Culture Gram Stain - Preliminary Blood Blood Culture - Preliminary Staphylococcus epidermidis Molecular ID Assessment and Plan (1) Pneumonia Current Visit: Yes Status: Acute Code(s): J18.9 - PNEUMONIA, UNSPECIFIED ORGANISM SNOMED Code(s): 076836687 (2) Abdominal infection Current Visit: Yes Status: Acute Code(s): K65.9 - PERITONITIS, UNSPECIFIED SNOMED Code(s): 694730910 (3) Penicillin allergy Current Visit: Yes Status: Acute Code(s): Z88.0 - ALLERGY STATUS TO PENICILLIN SNOMED Code(s): 36784240 (4) Bacteremia Current Visit: Yes Status: Acute Code(s): R78.81 - BACTEREMIA SNOMED Code(s): 6999232 Plan: 1patient presented to hospital with abdominal pain confusion in this patient who is status post recent laparoscopic cholecystectomy now with a CT abdominal pelvis showing increased fluid in the right upper quadrant area with concern for possible biliary leak or developing infection also with evidence of right lower lobe airspace opacity concerning for possible pneumonia. 2HIDA scan biliary leak cannot be excluded GI has been consulted for possible ERCP and stent placement and scheduled for this afternoon 3-patient did have a positive blood culture with staph epi more likely skin contamination no need for vancomycin which has been discontinued 4patient currently being treated with cefepime and Flagyl while waiting for the to finalize Multiple family members at the bedside, question concern answered Dictation was produced using [employer] dictation software. please excuse any grammatical, word or spelling errors. Time with Patient: Less than 30
[2025-03-28] MEDS ORDERED: PROPOFOL 10 MG/ML 20 ML VIAL IV ONE (19:42)
[2025-03-28] MEDS ORDERED: LIDOCAINE 1% INJ 10MG/ML (20 ML MDV) ONE (19:42)
[2025-03-28] MEDS ORDERED: SUCCINYLCHOLINE CHLORIDE 200 MG/10 ML VIAL IV ONE (19:42)
[2025-03-28] MEDS ORDERED: MIDAZOLAM 2 MG/2 ML VIAL ONE (19:42)
[2025-03-28] MEDS: IV FLUID CONTINUATION 1,000 ML IV ONE ×2 (19:42→21:36)
[2025-03-28] MEDS ORDERED: fentaNYL (PF) 50 MCG/ML 2 ML AMP ONE (19:42)
[2025-03-28] MEDS: IOPAMIDOL-300 50ML BTL MISCELLANE ONE ×2 (19:59→20:08)
--- NOTE | 2025-03-28 20:20 | P.PCN ---
Date of Procedure: 03/28/25 Procedure(s) Performed: Brief history: Patient is a 79 year-old pleasant white male scheduled for an ERCP as part of evaluation of abdominal pain for the last 4 to 5 days duration. Patient underwent gallbladder surgery 10 days ago. He was discharged home medical with the patient he was having constant abdominal pain which progressively got worse in the last 3 to 4 days. He came to the ER 3 days ago and initial CAT scan showed fluid in the abdomen and subsequent HIDA scan could not rule out possibility of a bile leak. He is scheduled for an ERCP with possible CBD stent placement Procedure performed: ERCP with 7 Romanian, 5 cm CBD stent placement Preoperative diagnoses: Postcholecystectomy bile leak IV sedation per anesthesia: Procedure: After informed consent was obtained from the patient and after the risks benefits and complications including bleeding perforation and pancreatitis explained in detail the patient was brought into the endoscopy unit. The patient was placed in prone position and IV conscious sedation was administered by anesthesia under continuous monitoring. The Olympus side-viewing duodenoscope was then inserted into the mouth and esophagus intubated without any difficulty. The scope was gradually advanced into the stomach and duodenum. The major papilla was identified without any difficulty. Using a guidewire technique the common bile duct was cannulated without any difficulty and upon injection of the dye the common bile it measured 8 mm in diameter. No filling defects noted. There was some accumulation of dye by the gallbladder. But actual site of bile leak could not be visualized. Since there was evidence of bile leak I proceeded with CBD stent placement. A guidewire was passed and a 7 Romanian, 5 cm plastic stent was placed common bile duct without any difficulty and the patient tolerated the procedure well. Pancreatic duct was not cannulat ed during the entire procedure. Impression: Slightly dilated common bile duct measuring 8 mm in diameter with accumulation of some dye of the gallbladder. Suggestive of bile leak status post 7 Romanian 5 cm plastic CBD stent placement as described above Pancreatic duct not cannulated Recommendations: The findings of this examination were discussed with the patient as well as a family. He we will continue with broad-spectrum antibiotics. Start on clear liquid diet and advance as tolerated. Recommend an EGD with CBD stent removal in 6 weeks.
--- NOTE | 2025-03-28 20:34 | FL ---
EXAMINATION TYPE: FL ERCP Intraoperative/procedural fluoroscopic services were provided. CLINICAL INDICATION:Male, 79 years old with history of ABNORMAL FINDINGS; concern for biliary leak, P HH FINDINGS: Single fluoroscopic ERCP images provided. No radiographic evidence for complication. Total fluoroscopy time is 24.9 seconds. DAP: 2.8692 Gycm2 Please see the operative/procedural note for further details. [facility], , 03/28/2025 8:32 PM
[2025-03-28] MEDS: HYDROmorphone 0.5 MG/0.5 ML SYRINGE IVP STA (20:52)
[2025-03-29 07:17] LABS: HCT 28.2 % (39.6-50.0); MCHC 31.9 g/dL (32.0-37.0); Mean Platelet Volume 9.4 fL (9.5-12.2); Platelet Count 397 10*3/uL (140-440); WBC 17.89 10*3/uL (4.50-10.00)
[2025-03-29 07:35] LABS: ALT 29 U/L (4-49); AST 41 U/L (17-59); African American GFR (CKD) >90 (>60 ml/min/1.73 sqM); Albumin 2.5 g/dL (3.5-5.0); Alkaline Phosphatase 204 U/L (38-126); Anion Gap 6 mmol/L; Blood Urea Nitrogen 29 mg/dL (9-20); Calcium 8.4 mg/dL (8.4-10.2); Carbon Dioxide 29 mmol/L (22-30); Chloride 103 mmol/L (98-107); Glucose 133 mg/dL (74-99); Non-African American GFR(CKD) 83 (>60 ml/min/1.73 sqM); Potassium 3.8 mmol/L (3.5-5.1); Sodium 138 mmol/L (137-145); Total Bilirubin 1.4 mg/dL (0.2-1.3); Total Protein 5.3 g/dL (6.3-8.2)
[2025-03-29 08:44] LABS: Eosinophils # (M) 0.18 k/uL (0-0.7); Lymphocytes # (M) 1.61 k/uL (1.0-4.8); Metamyelocytes # (M) 0.36 k/uL (0); Metamyelocytes % 2 %; Monocytes # (M) 0.54 k/uL (0-1.0); Myelocytes # (M) 0.36 k/uL (0); Myelocytes % 2 %; Neutrophils # (M) 15.21 k/uL (1.3-7.7); Neutrophils % (M) 85 %; Nucleated Red Blood Cells 0 /100 WBC (0-0); Total Cells Counted 200
[2025-03-29 08:46] LABS: Anisocytosis (M) Present
--- NOTE | 2025-03-29 09:11 | P.PN ---
Subjective Progress Note Date: 03/29/25 The patient is resting in his chair. The patient states he had a large liquid bowel movement. He states his pain was improved last night however he still has some pain this morning. Patient had ERCP with stent placement yesterday. There was a questionable small bile leak seen. On exam vital signs appear stable. Abdomen is soft mildly distended. Status post open cholecystectomy and ERCP with stent placement. Patient continue receive supportive care. Patient will be observed closely. Objective - Vital Signs Vital signs: Vital Signs Temp 97.8 F 03/29/25 08:20 Pulse 80 03/29/25 09:06 Resp 19 03/29/25 08:20 BP 132/68 03/29/25 08:20 Pulse Ox 98 03/29/25 08:50 FiO2 Intake & Output 03/28/25 03/29/25 03/29/25 18:59 06:59 18:59 Intake Total 0 800 Output Total 200 100 425 Balance -200 700 -425 Weight 91.7 kg Intake: IV 800 Oral 0 Output: Urine 200 100 425 Other: Voiding Method Urinal Urinal Urinal # Voids 1 # Bowel Movements 1 - Labs CBC & Chem 7: 03/29/25 06:36 03/29/25 06:36 Labs: Abnormal Lab Results - Last 24 Hours (Table) 03/29/25 03/29/25 Range/Units 06:36 06:36 WBC 17.89 H (4.50-10.00) 10*3/uL RBC 3.10 L (4.40-5.60) 10*6/uL Hgb 9.0 L (13.0-17.0) g/dL Hct 28.2 L (39.6-50.0) % MCHC 31.9 L (32.0-37.0) g/dL MPV 9.4 L (9.5-12.2) fL Immature Gran # 1.20 H (0.00-0.04) 10*3/uL Neutrophils # (Manual) 15.21 H (1.3-7.7) k/uL Metamyelocytes # (Man) 0.36 H (0) k/uL Myelocytes # (Manual) 0.36 H (0) k/uL BUN 29 H (9-20) mg/dL Glucose 133 H (74-99) mg/dL Total Bilirubin 1.4 H (0.2-1.3) mg/dL Alkaline Phosphatase 204 H (38-126) U/L Total Protein 5.3 L (6.3-8.2) g/dL Albumin 2.5 L (3.5-5.0) g/dL Microbiology - Last 24 Hours (Table) 03/27/25 18:30 Gram Stain - Preliminary Sputum 03/25/25 13:06 Blood Culture Gram Stain - Preliminary Blood Blood Culture - Preliminary Staphylococcus epidermidis Molecular ID
[2025-03-29] MEDS: LEVOFLOXACIN 500MG-D5W PMX 500 MG in DEXTROSE/WATER 1 100ML.BAG IVPB SCH (09:49)
--- NOTE | 2025-03-29 11:16 | P.PN ---
Subjective Patient is seen in follow-up for acute kidney injury. Renal function improved. Underwent ERCP yesterday. Diet advanced by GI. Vital signs are stable. General: No acute distress. HEENT: Head exam is unremarkable. On nasal cannula. LUNGS: No audible rhonchi or wheezes. HEART: Rate and Rhythm are regular. ABDOMEN: Obese, generalized tenderness present. EXTREMITITES: 1+ edema. Objective - Vital Signs Vital signs: Vital Signs Temp 97.8 F 03/29/25 08:20 Pulse 75 03/29/25 11:00 Resp 21 03/29/25 11:00 BP 128/49 03/29/25 11:00 Pulse Ox 95 03/29/25 11:00 FiO2 Intake & Output 03/28/25 03/29/25 03/29/25 18:59 06:59 18:59 Intake Total 0 800 Output Total 200 100 425 Balance -200 700 -425 Weight 91.7 kg Intake: IV 800 Oral 0 Output: Urine 200 100 425 Other: Voiding Method Urinal Urinal Urinal # Voids 1 # Bowel Movements 1 - Labs CBC & Chem 7: 03/29/25 06:36 03/29/25 06:36 Labs: Abnormal Lab Results - Last 24 Hours (Table) 03/29/25 03/29/25 Range/Units 06:36 06:36 WBC 17.89 H (4.50-10.00) 10*3/uL RBC 3.10 L (4.40-5.60) 10*6/uL Hgb 9.0 L (13.0-17.0) g/dL Hct 28.2 L (39.6-50.0) % MCHC 31.9 L (32.0-37.0) g/dL MPV 9.4 L (9.5-12.2) fL Immature Gran # 1.20 H (0.00-0.04) 10*3/uL Neutrophils # (Manual) 15.21 H (1.3-7.7) k/uL Metamyelocytes # (Man) 0.36 H (0) k/uL Myelocytes # (Manual) 0.36 H (0) k/uL BUN 29 H (9-20) mg/dL Glucose 133 H (74-99) mg/dL Total Bilirubin 1.4 H (0.2-1.3) mg/dL Alkaline Phosphatase 204 H (38-126) U/L Total Protein 5.3 L (6.3-8.2) g/dL Albumin 2.5 L (3.5-5.0) g/dL Microbiology - Last 24 Hours (Table) 03/27/25 18:30 Gram Stain - Preliminary Sputum 03/25/25 13:06 Blood Culture Gram Stain - Preliminary Blood Blood Culture - Preliminary Staphylococcus epidermidis Molecular ID Assessment and Plan Plan: Assessment: 1. Acute kidney injury secondary to ATN secondary to hypovolemia. Creatinine 3.3 on admission and is 0.89 today. No hydronephrosis noted on CT. 2. Chronic kidney disease stage IIIa with baseline creatinine of 1.3-1.4 secondary to nephrosclerosis. 3. Recent cholecystectomy with concern for biliary leak on CT. Surgery following. Status post ERCP with CBD stent placement March 28, 2025. 4. Acute blood loss anemia status post blood transfusions this admission. Improved. 5. Hypovolemic hyponatremia improved with fluids. Improved. Now hypervolemic. Plan: Lasix 20 mg IV once today. Avoid nephrotoxins. Discontinued Motrin. Continue to monitor renal function and urine output.
[2025-03-29] MEDS: FUROSEMIDE 10 MG/ML 2 ML VIAL IV ONE (11:29)
--- NOTE | 2025-03-29 11:31 | P.PN ---
Subjective Progress Note Date: 03/29/25 Principal diagnosis: Bile leak, abdominal pain This a pleasant 79-year-old male who presented to the emergency department 2 days ago with complaints of altered mental status changes and abdominal pain. Past medical history includes coronary artery disease, GERD, hyperlipidemia, hypertension, IA, prostate disorder, sleep apnea, and obesity. Patient is status post open cholecystectomy and lysis of adhesions on 03/18/[address] Holland. He was discharged on 03/22/2025. He states he continued to have abdominal pain after his surgery although he states that he felt that it was good enough for him to go home. He states his abdominal pain never subsided. He is concerned with continuing of abdominal pain and abdominal distention. is at the bedside and states that his abdomen is larger than it normally is. On admission he was noted to be anemic with a hemoglobin of 6.1 and received 2 units of blood with a follow-up hemoglobin today of 8.5. During his last hospitalization he was noted to have a hemoglobin of 11.3 with a drop to 9.3 on date of discharge. He denies any fevers or chills. Mild leukocytosis today with a WBC of 11.9. Patient had a HIDA scan reporting possible bile leak. Gastroenterology was consulted from general surgery for evaluation for possible bile leak. Today's labs WBC 11.9 hemoglobin 8.5 platelet count 245,000 sodium 137 potassium 3.7 BUN 46 creatinine 1.1 total bilirubin 1.6 AST 65 ALT 41 alkaline phosphatase 212 03/29/2025 Patient seen and examined today as a follow-up. Yesterday he underwent ERCP with findings of slightly dilated common bile duct with accumulation of some dye in the gallbladder suggestive of bile leak status post CBD stent placement. Patient still complaining of generalized abdominal pain. No nausea or vomiting tolerated clear liquid diet. WBC 17.8 hemoglobin 9.0 platelet count 397,000 total bilirubin 1.4 AST 41 ALT 29 alkaline phosphatase 204 Objective - Vital Signs Vital signs: Vital Signs Temp 97.6 F 03/29/25 04:00 Pulse 71 03/29/25 04:00 Resp 22 03/29/25 04:00 BP 131/66 03/29/25 04:00 Pulse Ox 97 03/29/25 04:00 FiO2 Intake & Output 05/29/25 05/30/25 05/30/25 18:59 06:59 18:59 Intake Total 0 800 Output Total 200 100 Balance -200 700 Weight 91.7 kg Intake: IV 800 Oral 0 Output: Urine 200 100 Other: Voiding Method Urinal Urinal # Voids 1 - Exam General appearance: The patient is alert, oriented, appears in no acute distress. HET: Head is normocephalic and atraumatic. Conjunctiva pink. Sclera anicteric. Neck: Supple without lymphadenopathy. Abdomen: Soft, diffuse tenderness, nondistended. Obese. Extremities: Normal skin color and turgor. No pedal edema Skin: No rashes, no jaundice Neurological: No focal deficits. Alert and oriented. - Labs CBC & Chem 7: 03/29/25 06:36 03/29/25 06:36 Labs: Abnormal Lab Results - Last 24 Hours (Table) 03/29/25 Range/Units 06:36 BUN 29 H (9-20) mg/dL Glucose 133 H (74-99) mg/dL Total Bilirubin 1.4 H (0.2-1.3) mg/dL Alkaline Phosphatase 204 H (38-126) U/L Total Protein 5.3 L (6.3-8.2) g/dL Albumin 2.5 L (3.5-5.0) g/dL Microbiology - Last 24 Hours (Table) 03/27/25 18:30 Gram Stain - Preliminary Sputum 03/25/25 13:06 Blood Culture Gram Stain - Preliminary Blood Blood Culture - Preliminary Staphylococcus epidermidis Molecular ID Assessment and Plan (1) Abdominal pain Narrative/Plan: 79-year-old who underwent recent open cholecystectomy for chronic cholecystitis and lysis of adhesions about 10 days ago presents back with severe diffuse abdominal pain and altered mental status changes. He was noted to be anemic on admission with a hemoglobin of 6.1 possibly secondary to acute blood loss anemia secondary to recent surgery. Patient has diffuse tenderness in the abdomen with abdominal distention. He was noted to have mildly elevated bilirubin as well as alkaline phosphatase he had a CT of the abdomen pelvis as well as a HIDA scan. HIDA scan reports possible biliary leak. Case was discussed with surgeon, chantelle jowl trimmer other underlying etiology of abdominal pain in setting of acute anemia. Plan is to proceed with ERCP tomorrow possible stent placement. Current Visit: No Status: Acute Code(s): R10.9 - UNSPECIFIED ABDOMINAL PAIN SNOMED Code(s): 00696485 (2) Bile leak Narrative/Plan: Status post ERCP with CBD stent placement for bile leak. Recommend outpatient follow-up with repeat EGD and stent removal in 6 weeks. Current Visit: Yes Status: Acute Code(s): K83.9 - DISEASE OF BILIARY TRACT, UNSPECIFIED SNOMED Code(s): 291290952 (3) Hyperbilirubinemia Current Visit: Yes Status: Acute Code(s): E80.6 - OTHER DISORDERS OF BILIRUBIN METABOLISM SNOMED Code(s): 32491864 (4) Anemia Current Visit: Yes Status: Acute Code(s): D64.9 - ANEMIA, UNSPECIFIED SNOMED Code(s): 758292847 (5) S/P cholecystectomy Current Visit: Yes Status: Acute Code(s): Z90.49 - ACQUIRED ABSENCE OF OTHER SPECIFIED PARTS OF DIGESTIVE TRACT SNOMED Code(s): 994886826 Plan: 1. Continue symptomatic and supportive care 2. May advance to low-fat diet 3. Continue with recommendations from general surgery 4. Continue with recommendations from general surgery Thank you for this consultation, recommend outpatient follow-up with gastroenterology for repeat EGD and stent removal in 6 weeks. We will sign off at this time. Dr. Omar Cornelius I agree with the dictator's note, documented as a scribe by Mavis Ray.
[2025-03-29] MEDS: IOPAMIDOL-370 100ML BTL INJ ONE (12:02)
--- NOTE | 2025-03-29 12:10 | P.PN ---
Subjective Progress Note Date: 03/29/25 Jose Saleem is a 79-year-old male patient who presented to the ER with concerns of weakness, abdominal pain and distention. Patient recently underwent an open cholecystectomy [address] Escobar he was discharged home. Patient reports he has had decreased appetite and increased pain over the past few days denies fevers. Denies bowel movements denies any nausea or vomiting. Testing in the emergency room performed showing EKG sinus rhythm. Chest x-ray showing mild right subsegmental atelectasis at the diaphragm CT of abdomen and pelvis showing increasing free fluid throughout the abdomen particularly around the liver given recent history of cholecystectomy correlate for biliary leak. Airspace opacities in the lung bases correlate for pneumonia. Lab work completed showing hemoglobin 6.1. Sodium 129, creatinine 3.83 bun 87 troponin negative. Lactic acid 1.1. BNP 955 amylase and lipase within normal limits. Vital signs temp 98.1, heart rate 90, respiratory rate 22, blood pressure 146/79 with pulse ox of 98% on 2 L. Patient has a past medical history of CAD, GERD, hyperlipidemia, hypertension, osteoarthritis, prostate disorder and ex-smoker. At this time patient will be admitted surgical services consulted due to abnormal CT scan and recent cholecystectomy. Infectious disease also consulted due to concerns of infection and elevated white blood cell count. Nephrology services consulted for acute on chronic kidney disease. Patient was started on IV Rocephin in ER. Patient was given 2 units of PRBCs repeat hemoglobin 8.1. Blood culture ordered. On 03/27/2025 patient was seen and examined on the telemetry floor he is alert and oriented x 3 in no apparent distress, he is complaining of abdominal pain, during last night he had episodes of shortness of breath, chest x-ray was done and revealed bibasilar subsegmental atelectasis right more than left and el evated right hemidiaphragm, EKG was done and revealed normal sinus rhythm no acute changes. Patient was given 1 dose of IV Lasix 20 mg albuterol updraft was added to his medication regimen, today white blood count is up to 11.96 hemoglobin 8.5 platelet count 245 BUN 46 creatinine 1.1 ABG revealed pH 7.44 [id number] PO2 123, critical care consultation was added, results of biliary scan and chest x-ray reviewed, awaiting further recommendation from surgery. On 03/28/2025 patient is alert and oriented x 3. Plans for ERCP today per GI services per infectious disease but positive blood culture likely skin contamination no need for vancomycin continue cefepime and Flagyl. Multiple consults following including surgery, GI, pulmonary, infectious disease and nephrology services. Current vital signs temp 98.3, heart rate 78, respiratory rate 18, blood pressure 149/79 with pulse ox 97% on 2 L patient denies chest pain. Patient does report some shortness of breath. Patient denies any nausea or vomiting. Patient denies any urinary burning or frequency On 03/29/2025 patient is alert and oriented x 3. Patient underwent ERCP and underwent stent placement yesterday. Patient still having increased pain today. Patient remains on IV antibiotics. White blood cell increasing to 17.89 current vitals temp 98.2, heart rate 75 respiratory rate 21, blood pressure 128/49 with pulse ox of 95% on 2 L Objective - Vital Signs Vital signs: Vital Signs Temp 97.8 F 03/29/25 08:20 Pulse 75 03/29/25 11:00 Resp 21 03/29/25 11:00 BP 128/49 03/29/25 11:00 Pulse Ox 95 03/29/25 11:00 FiO2 Intake & Output 03/28/25 03/29/25 03/29/25 18:59 06:59 18:59 Intake Total 0 800 Output Total 200 100 425 Balance -200 700 -425 Weight 91.7 kg Intake: IV 800 Oral 0 Output: Urine 200 100 425 Other: Voiding Method Urinal Urinal Urinal # Voids 1 # Bowel Movements 1 - Exam Head normocephalic Neck supple Lungs clear to auscultation bilaterally no wheezing or crackles Heart regular rate and rhythm S1-S2, no rub or gallop Abdomen is soft distended. Hypoactive bowel sounds Extremities no edema Neuro alert and orientated to 3 - Labs CBC & Chem 7: 03/29/25 06:36 03/29/25 06:36 Labs: Abnormal Lab Results - Last 24 Hours (Table) 03/29/25 03/29/25 Range/Units 06:36 06:36 WBC 17.89 H (4.50-10.00) 10*3/uL RBC 3.10 L (4.40-5.60) 10*6/uL Hgb 9.0 L (13.0-17.0) g/dL Hct 28.2 L (39.6-50.0) % MCHC 31.9 L (32.0-37.0) g/dL MPV 9.4 L (9.5-12.2) fL Immature Gran # 1.20 H (0.00-0.04) 10*3/uL Neutrophils # (Manual) 15.21 H (1.3-7.7) k/uL Metamyelocytes # (Man) 0.36 H (0) k/uL Myelocytes # (Manual) 0.36 H (0) k/uL BUN 29 H (9-20) mg/dL Glucose 133 H (74-99) mg/dL Total Bilirubin 1.4 H (0.2-1.3) mg/dL Alkaline Phosphatase 204 H (38-126) U/L Total Protein 5.3 L (6.3-8.2) g/dL Albumin 2.5 L (3.5-5.0) g/dL Microbiology - Last 24 Hours (Table) 03/27/25 18:30 Gram Stain - Preliminary Sputum 03/25/25 13:06 Blood Culture Gram Stain - Preliminary Blood Blood Culture - Preliminary Staphylococcus epidermidis Molecular ID Assessment and Plan Assessment: 1. Anemia secondary to postop cholecystectomy 03/18/2025 2. Acute on chronic kidney disease 3. Abnormal CT postcholecystectomy 4. Concerns of possible pneumonia 5. History of coronary artery disease 6. History of GERD 7. History of hyperlipidemia 8. History of prostate disorder 9. History of essential hypertension 10. History of hyperlipidemia 11. Bacteremia likely a skin contamination per ID DVT prophylaxis SCDs due to anemia. GI prophylax Protonix Surgical services consulted Nephrology services consulted Infectious disease services consulted Blood culture ordered Patient started on IV antibiotics Plans for ERCP on 03/28/2025 Repeat labs ordered
--- NOTE | 2025-03-29 13:35 | P.PN ---
Subjective Progress Note Date: 03/29/25 Principal diagnosis: Shortness of breath. This is a 79-year-old male patient with known history of recent open cholecystectomy approximately 1 week ago. He was discharged 3 days prior to returning to the emergency department on 03/25/2025 with altered mental status. CT scan of the abdomen and pelvis revealed increasing free fluid throughout the abdomen particularly around the liver. Possible biliary leak. HIDA scan revealed biliary leak not excluded. We were consulted today for some complaints of shortness of breath. He is seen in consultation on the selective care unit. He is currently awake and alert in no acute distress. Maintaining O2 saturations in the upper 90s on 2 L/min per nasal cannula. He is afebrile. Hemodynamically stable. Chest x-ray reveals basilar subsegmental atelectatic changes right greater than left. Elevated right hemidiaphragm. White count 11.9. Hemoglobin 8.5. Platelets 245. Sodium 137. Potassium 3.7. Bicarb 27. BUN 46. Creatinine 1.10. Glucose 141. Blood culture showing gram-positive cocci in clusters. He is currently on cefepime. Albuterol inhaler as needed. Progress note dated March 28, 2025. 79-year-old male seen yesterday in consultation for shortness of breath. We believe the patient's shortness of breath, relates to his intra-abdominal process. The patient is postoperative open cholecystectomy, about 1 week ago. The patient came into the hospital complaining of abdominal discomfort. He may have a biliary leak. He apparently is going for ERCP today. He is currently on LR at 75 cc an hour, and nasal O2 at 2 L. When he takes a deep breath, and causes some difficulty, because of the intra-abdominal issues. I told him to continue to work on the incentive spirometer, deep breathing, cough, clear secretions. Current laboratory data includes a white count of 10.6, hemoglobin 8.2, hematocrit 24.5, and a platelet count of 277,000. PT 12.9, INR 1.2. Sodium 136, potassium 3.7, chlorides 101, CO2 26, anion gap 9, BUN 33, and creatinine 0.88. Calcium is 8.5. Magnesium is 2. Albumin is 2.3. Blood cultures are positive for Staphylococcus epidermidis. Progress note dated March 29, 2025. 79-year-old male seen today in room 383. We are initially consulted because of shortness of breath. Clinically, the patient is doing about the same. He continues on 2 L of oxygen, and, his saturations are 98%. Antibiotic smis, he continues on cefepime and Flagyl. He did have an ERCP yesterday. Current labs include a white count of 17.9, hemoglobin 9, hematocrit 28.2, and a platelet count is normal. Sodium 138, potassium 3.8, chlorides 103, CO2 29, anion gap 6, BUN 29, creatinine 0.89. Glucose is 133. Blood cultures were positive for Staphylococcus epidermidis. ERCP, reveals a slightly dilated common bile duct, measuring 8 mm in diameter with accumulation of some dye of the gallbladder. This was suggestive of a bile leak, and a stent was placed. The pancreatic duct was not cannulated. Objective - Vital Signs Vital signs: Vital Signs Temp 97.8 F 03/29/25 08:20 Pulse 80 03/29/25 12:16 Resp 21 03/29/25 11:00 BP 128/49 03/29/25 11:00 Pulse Ox 95 03/29/25 11:00 FiO2 Intake & Output 03/28/25 03/29/25 03/29/25 18:59 06:59 18:59 Intake Total 0 800 Output Total 200 100 425 Balance -200 700 -425 Weight 91.7 kg Intake: IV 800 Oral 0 Output: Urine 200 100 425 Other: Voiding Method Urinal Urinal Urinal # Voids 1 # Bowel Movements 1 - Exam No acute distress, oriented 3. HEENT examination is grossly unremarkable. Mucous membranes are moist. No oral lesions. Neck supple. Full range of motion. No adenopathy thyromegaly or neck vein distention. Cardiovascular examination reveals regular rhythm rate. S1-S2 normal. No S3 or S4. No discernible murmur noted. Lungs reveal bibasilar crackles. No rhonchi. No wheezes. Breath sounds are equal bilaterally. Abdomen soft, but mildly tender. No masses. Extremities are intact. No cyanosis clubbing or edema. Skin is without rash or lesion. Neurologic examination is brief but nonfocal. - Labs CBC & Chem 7: 03/29/25 06:36 03/29/25 06:36 Labs: Abnormal Lab Results - Last 24 Hours (Table) 03/29/25 03/29/25 Range/Units 06:36 06:36 WBC 17.89 H (4.50-10.00) 10*3/uL RBC 3.10 L (4.40-5.60) 10*6/uL Hgb 9.0 L (13.0-17.0) g/dL Hct 28.2 L (39.6-50.0) % MCHC 31.9 L (32.0-37.0) g/dL MPV 9.4 L (9.5-12.2) fL Immature Gran # 1.20 H (0.00-0.04) 10*3/uL Neutrophils # (Manual) 15.21 H (1.3-7.7) k/uL Metamyelocytes # (Man) 0.36 H (0) k/uL Myelocytes # (Manual) 0.36 H (0) k/uL BUN 29 H (9-20) mg/dL Glucose 133 H (74-99) mg/dL Total Bilirubin 1.4 H (0.2-1.3) mg/dL Alkaline Phosphatase 204 H (38-126) U/L Total Protein 5.3 L (6.3-8.2) g/dL Albumin 2.5 L (3.5-5.0) g/dL Microbiology - Last 24 Hours (Table) 03/27/25 18:30 Gram Stain - Preliminary Sputum 03/25/25 13:06 Blood Culture Gram Stain - Preliminary Blood Blood Culture - Preliminary Staphylococcus epidermidis Molecular ID Assessment and Plan Assessment: Dyspnea secondary to bibasilar atelectasis from poor inspiratory effort due to recent abdominal surgery. S/P ERCP, March 28, 2025, with evidence of bile leak, S/P stent placement. Open cholecystectomy on 03/18/2025, possible biliary leak on HIDA scan and CAT scan March 26, 2025. Altered mental status secondary to dehydration and poor oral intake. Acute anemia with a hemoglobin of 6.1, status post 2 units of packed red blood cells this admission. Hyponatremia, improving. Acute kidney injury, improving. Hyperlipidemia. Hypertension. Coronary disease. Former smoker. Marijuana use. Plan: Plan dated March 28, 2025. The patient is seen today in room 383. The patient is currently on 2 L of oxygen. He is getting lactated Ringer's at 75 cc an hour. The patient is bhavani eduled to have an ERCP today. We will continue to follow the patient, and make recommendations. We do recommend deep breathing, coughing, clearing his secretions, and hourly use of the incentive spirometer. We will continue to follow the patient. Prognosis is guarded. All labs, x-rays, and medications are reviewed. Dictation was produced using [employer] software. Please excuse any grammatical, word or spelling errors. Plan dated March 29, 2025. The patient is seen today in room 383. The patient continues on 2 L of oxygen. Saturations are 98%. The patient is currently on cefepime and Flagyl. He had an ERCP yesterday, which revealed a bile leak. A stent was placed. Labs, x- rays, and medications are reviewed. We will continue to follow make recommendations along the way. Prognosis is certainly guarded. Dictation was produced using [employer] software. Please excuse any grammatical, word or spelling errors. Time with Patient: Less than 30
--- NOTE | 2025-03-29 15:47 | P.PN ---
Subjective Progress Note Date: 03/29/25 Principal diagnosis: Reason for follow-up is possible biliary leak/cholangitis and a question of pneumonia Patient is a 79-year-old male with a past medical history significant for hypertension hyperlipidemia MO coronary artery disease prostate disorder reflux in this patient who is status post laparoscopic cholecystectomy completed on 03/18/2025 now present to the hospital with increasing confusion abdominal pain and distention with evidence of fluid in the right upper quadrant on the CT and question of pneumonia HIDA scan biliary leak not excluded. Patient is s tatus post ERCP and biliary stent placement on 03/28/2025 On today's evaluation that is 03/29/2025,the patient remains to be afebrile, patient is on r 2 L nasal cannula supplemental oxygen and complaining of shortness of breath no chest pain or worsening cough.Patient denies having any nausea or vomiting, some abdominal discomfort no diarrhea. Patient white count 17.89, creatinine 0.89 sputum cultures pending Objective - Vital Signs Vital signs: Vital Signs Temp 97.8 F 03/29/25 08:20 Pulse 75 03/29/25 11:00 Resp 21 03/29/25 11:00 BP 128/49 03/29/25 11:00 Pulse Ox 95 03/29/25 11:00 FiO2 Intake & Output 03/28/25 03/29/25 03/29/25 18:59 06:59 18:59 Intake Total 0 800 Output Total 200 100 425 Balance -200 700 -425 Weight 91.7 kg Intake: IV 800 Oral 0 Output: Urine 200 100 425 Other: Voiding Method Urinal Urinal Urinal # Voids 1 # Bowel Movements 1 - Exam GENERAL DESCRIPTION: An elderly male lying in bed in no distress RESPIRATORY SYSTEM: Unlabored breathing , decreased breath sounds at bases HEART: S1 S2 regular rate and rhythm , ABDOMEN: Soft , no tenderness EXTREMITIES: No edema feet - Labs CBC & Chem 7: 03/29/25 06:36 03/29/25 06:36 Labs: Abnormal Lab Results - Last 24 Hours (Table) 03/29/25 03/29/25 Range/Units 06:36 06:36 WBC 17.89 H (4.50-10.00) 10*3/uL RBC 3.10 L (4.40-5.60) 10*6/uL Hgb 9.0 L (13.0-17.0) g/dL Hct 28.2 L (39.6-50.0) % MCHC 31.9 L (32.0-37.0) g/dL MPV 9.4 L (9.5-12.2) fL Immature Gran # 1.20 H (0.00-0.04) 10*3/uL Neutrophils # (Manual) 15.21 H (1.3-7.7) k/uL Metamyelocytes # (Man) 0.36 H (0) k/uL Myelocytes # (Manual) 0.36 H (0) k/uL BUN 29 H (9-20) mg/dL Glucose 133 H (74-99) mg/dL Total Bilirubin 1.4 H (0.2-1.3) mg/dL Alkaline Phosphatase 204 H (38-126) U/L Total Protein 5.3 L (6.3-8.2) g/dL Albumin 2.5 L (3.5-5.0) g/dL Microbiology - Last 24 Hours (Table) 03/27/25 18:30 Gram Stain - Preliminary Sputum 03/25/25 13:06 Blood Culture Gram Stain - Preliminary Blood Blood Culture - Preliminary Staphylococcus epidermidis Molecular ID Assessment and Plan (1) Pneumonia Current Visit: Yes Status: Acute Code(s): J18.9 - PNEUMONIA, UNSPECIFIED ORGANISM SNOMED Code(s): 643260210 (2) Abdominal infection Current Visit: Yes Status: Acute Code(s): K65.9 - PERITONITIS, UNSPECIFIED SNOMED Code(s): 851194542 (3) Penicillin allergy Current Visit: Yes Status: Acute Code(s): Z88.0 - ALLERGY STATUS TO PENICILLIN SNOMED Code(s): 26057637 (4) Bacteremia Current Visit: Yes Status: Acute Code(s): R78.81 - BACTEREMIA SNOMED Code(s): 4908137 Plan: 1patient presented to hospital with abdominal pain confusion in this patient who is status post recent laparoscopic cholecystectomy now with a CT abdominal pelvis showing increased fluid in the right upper quadrant area with concern for possible biliary leak or developing infection also with evidence of right lower lobe airspace opacity concerning for possible pneumonia. 2HIDA scan biliary leak cannot be excluded GI has been consulted for possible ERCP and stent placement and scheduled for this afternoon 3-patient did have a positive blood culture with staph epi more likely skin contamination no need for vancomycin which has been discontinued 4patient is afebrile slight worsening of the white count possibly reactive post procedure, we will monitor closely continue with cefepime and Flagyl. Multiple family members at the bedside, question concern answered Dictation was produced using [employer] dictation software. please excuse any gram matical, word or spelling errors.
[2025-03-30 07:58] LABS: HCT 27.9 % (39.6-50.0); HGB 9.1 g/dL (13.0-17.0); MCH 29.4 pg (27.0-32.0); MCHC 32.6 g/dL (32.0-37.0); MCV 90.3 fL (80.0-97.0); Mean Platelet Volume 9.4 fL (9.5-12.2); Platelet Count 434 10*3/uL (140-440); RBC 3.09 10*6/uL (4.40-5.60); RDW 14.9 % (11.5-14.5); WBC 20.52 10*3/uL (4.50-10.00)
[2025-03-30 08:17] LABS: ALT 25 U/L (4-49); AST 35 U/L (17-59); African American GFR (CKD) 82 (>60 ml/min/1.73 sqM); Albumin 2.5 g/dL (3.5-5.0); Alkaline Phosphatase 189 U/L (38-126); Anion Gap 7 mmol/L; Blood Urea Nitrogen 28 mg/dL (9-20); Calcium 8.2 mg/dL (8.4-10.2); Carbon Dioxide 27 mmol/L (22-30); Chloride 101 mmol/L (98-107); Glucose 118 mg/dL (74-99); Non-African American GFR(CKD) 71 (>60 ml/min/1.73 sqM); Potassium 4.1 mmol/L (3.5-5.1); Sodium 135 mmol/L (137-145); Total Bilirubin 1.2 mg/dL (0.2-1.3); Total Protein 5.2 g/dL (6.3-8.2)
[2025-03-30 09:08] LABS: Lymphocytes # (M) 1.44 k/uL (1.0-4.8); Metamyelocytes # (M) 0.21 k/uL (0); Metamyelocytes % 1 %; Monocytes # (M) 0.41 k/uL (0-1.0); Myelocytes # (M) 0.41 k/uL (0); Myelocytes % 2 %; Neutrophils # (M) 18.26 k/uL (1.3-7.7); Neutrophils % (M) 89 %; Nucleated Red Blood Cells 0 /100 WBC (0-0); Total Cells Counted 200
[2025-03-30 09:10] LABS: RBC Morphology Normal
--- NOTE | 2025-03-30 10:55 | P.PN ---
Subjective Patient is seen in follow-up for acute kidney injury. Renal function fairly stable. Tolerating oral intake. Nonoliguric. Vital signs are stable. General: No acute distress. HEENT: Head exam is unremarkable. On nasal cannula. LUNGS: No audible rhonchi or wheezes. HEART: Rate and Rhythm are regular. ABDOMEN: Obese, nontender. EXTREMITITES: 1+ edema. Objective - Vital Signs Vital signs: Vital Signs Temp 98.4 F 03/30/25 08:00 Pulse 80 03/30/25 09:43 Resp 20 03/30/25 08:00 BP 141/73 03/30/25 08:00 Pulse Ox 96 03/30/25 08:00 FiO2 Intake & Output 03/29/25 03/30/25 03/30/25 18:59 06:59 18:59 Intake Total 358 240 Output Total 725 400 125 Balance -367 -400 115 Weight 93.2 kg Intake: Oral 358 240 Output: Urine 725 400 125 Other: Voiding Method Urinal Toilet Toilet Urinal Urinal # Voids 1 # Bowel Movements 1 0 - Labs CBC & Chem 7: 03/30/25 07:12 03/30/25 07:12 Labs: Abnormal Lab Results - Last 24 Hours (Table) 03/30/25 03/30/25 Range/Units 07:12 07:12 WBC 20.52 H (4.50-10.00) 10*3/uL RBC 3.09 L (4.40-5.60) 10*6/uL Hgb 9.1 L (13.0-17.0) g/dL Hct 27.9 L (39.6-50.0) % MPV 9.4 L (9.5-12.2) fL Immature Gran # 1.31 H (0.00-0.04) 10*3/uL Neutrophils # (Manual) 18.26 H (1.3-7.7) k/uL Metamyelocytes # (Man) 0.21 H (0) k/uL Myelocytes # (Manual) 0.41 H (0) k/uL Sodium 135 L (137-145) mmol/L BUN 28 H (9-20) mg/dL Glucose 118 H (74-99) mg/dL Calcium 8.2 L (8.4-10.2) mg/dL Alkaline Phosphatase 189 H (38-126) U/L Total Protein 5.2 L (6.3-8.2) g/dL Albumin 2.5 L (3.5-5.0) g/dL Microbiology - Last 24 Hours (Table) 03/27/25 18:30 Gram Stain - Final Sputum Sputum Culture - Final 03/25/25 13:06 Blood Culture Gram Stain - Final Blood Blood Culture - Final Staphylococcus epidermidis Molecular ID Assessment and Plan Plan: Assessment: 1. Acute kidney injury secondary to ATN secondary to hypovolemia. Creatinine 3.3 on admission and is 1.02 today. No hydronephrosis noted on CT. 2. Chronic kidney disease stage IIIa with baseline creatinine of 1.3-1.4 secondary to nephrosclerosis. 3. Recent cholecystectomy with concern for biliary leak on CT. Surgery following. Status post ERCP with CBD stent placement March 28, 2025. 4. Acute blood loss anemia status post blood transfusions this admission. Improved. 5. Hypovolemic hyponatremia improved with fluids. Improved. Now hypervolemic. Plan: Add IV Lasix 20 mg once daily. Encouraged oral intake. Avoid nephrotoxins. Discontinued Motrin. Continue to monitor renal function and urine output. Check bladder scan to rule out urinary retention.
--- NOTE | 2025-03-30 11:08 | P.PN ---
Subjective Progress Note Date: 03/30/25 The patient is sitting up in his chair. He states he feels more comfortable. He denies any increase in abdominal pain. He still requiring IV pain medication. On exam vital signs appear stable. Abdomen is soft mildly distended there is no rebound or guarding. There is some mild tenderness throughout. Status post ERCP with common bile duct stent placement. Patient will be observed. His leukocytosis has increased slightly from 17-20,000. Infectious disease aware of this. I discussed with the patient and his family that I think he can be observed. If there were any changes in his condition he may require exploration and washout. Patient currently remained stable. He will be observed. Objective - Vital Signs Vital signs: Vital Signs Temp 98.4 F 03/30/25 08:00 Pulse 80 03/30/25 09:43 Resp 20 03/30/25 08:00 BP 141/73 03/30/25 08:00 Pulse Ox 96 03/30/25 08:00 FiO2 Intake & Output 03/29/25 03/30/25 03/30/25 18:59 06:59 18:59 Intake Total 358 240 Output Total 725 400 125 Balance -367 -400 115 Weight 93.2 kg Intake: Oral 358 240 Output: Urine 725 400 125 Other: Voiding Method Urinal Toilet Toilet Urinal Urinal # Voids 1 # Bowel Movements 1 0 - Labs CBC & Chem 7: 03/30/25 07:12 03/30/25 07:12 Labs: Abnormal Lab Results - Last 24 Hours (Table) 03/30/25 03/30/25 Range/Units 07:12 07:12 WBC 20.52 H (4.50-10.00) 10*3/uL RBC 3.09 L (4.40-5.60) 10*6/uL Hgb 9.1 L (13.0-17.0) g/dL Hct 27.9 L (39.6-50.0) % MPV 9.4 L (9.5-12.2) fL Immature Gran # 1.31 H (0.00-0.04) 10*3/uL Neutrophils # (Manual) 18.26 H (1.3-7.7) k/uL Metamyelocytes # (Man) 0.21 H (0) k/uL Myelocytes # (Manual) 0.41 H (0) k/uL Sodium 135 L (137-145) mmol/L BUN 28 H (9-20) mg/dL Glucose 118 H (74-99) mg/dL Calcium 8.2 L (8.4-10.2) mg/dL Alkaline Phosphatase 189 H (38-126) U/L Total Protein 5.2 L (6.3-8.2) g/dL Albumin 2.5 L (3.5-5.0) g/dL Microbiology - Last 24 Hours (Table) 03/27/25 18:30 Gram Stain - Final Sputum Sputum Culture - Final 03/25/25 13:06 Blood Culture Gram Stain - Final Blood Blood Culture - Final Staphylococcus epidermidis Molecular ID
[2025-03-30] MEDS: FUROSEMIDE 10 MG/ML 2 ML VIAL IV SCH (11:30)
--- NOTE | 2025-03-30 13:31 | P.PN ---
Subjective Progress Note Date: 03/30/25 Jose Saleem is a 79-year-old male patient who presented to the ER with concerns of weakness, abdominal pain and distention. Patient recently underwent an open cholecystectomy [address] Holland he was discharged home. Patient reports he has had decreased appetite and increased pain over the past few days denies fevers. Denies bowel movements denies any nausea or vomiting. Testing in the emergency room performed showing EKG sinus rhythm. Chest x-ray showing mild right subsegmental atelectasis at the diaphragm CT of abdomen and pelvis showing increasing free fluid throughout the abdomen particularly around the liver given recent history of cholecystectomy correlate for biliary leak. Airspace opacities in the lung bases correlate for pneumonia. Lab work completed showing hemoglobin 6.1. Sodium 129, creatinine 3.83 bun 87 troponin negative. Lactic acid 1.1. BNP 955 amylase and lipase within normal limits. Vital signs temp 98.1, heart rate 90, respiratory rate 22, blood pressure 146/79 with pulse ox of 98% on 2 L. Patient has a past medical history of CAD, GERD, hyperlipidemia, hypertension, osteoarthritis, prostate disorder and ex-smoker. At this time patient will be admitted surgical services consulted due to abnormal CT scan and recent cholecystectomy. Infectious disease also consulted due to concerns of infection and elevated white blood cell count. Nephrology services consulted for acute on chronic kidney disease. Patient was started on IV Rocephin in ER. Patient was given 2 units of PRBCs repeat hemoglobin 8.1. Blood culture ordered. On 03/27/2025 patient was seen and examined on the telemetry floor he is alert and oriented x 3 in no apparent distress, he is complaining of abdominal pain, during last night he had episodes of shortness of breath, chest x-ray was done and revealed bibasilar subsegmental atelectasis right more than left and el evated right hemidiaphragm, EKG was done and revealed normal sinus rhythm no acute changes. Patient was given 1 dose of IV Lasix 20 mg albuterol updraft was added to his medication regimen, today white blood count is up to 11.96 hemoglobin 8.5 platelet count 245 BUN 46 creatinine 1.1 ABG revealed pH 7.44 [id number] PO2 123, critical care consultation was added, results of biliary scan and chest x-ray reviewed, awaiting further recommendation from surgery. On 03/28/2025 patient is alert and oriented x 3. Plans for ERCP today per GI services per infectious disease but positive blood culture likely skin contamination no need for vancomycin continue cefepime and Flagyl. Multiple consults following including surgery, GI, pulmonary, infectious disease and nephrology services. Current vital signs temp 98.3, heart rate 78, respiratory rate 18, blood pressure 149/79 with pulse ox 97% on 2 L patient denies chest pain. Patient does report some shortness of breath. Patient denies any nausea or vomiting. Patient denies any urinary burning or frequency On 03/29/2025 patient is alert and oriented x 3. Patient underwent ERCP and underwent stent placement yesterday. Patient still having increased pain today. Patient remains on IV antibiotics. White blood cell increasing to 17.89 current vitals temp 98.2, heart rate 75 respiratory rate 21, blood pressure 128/49 with pulse ox of 95% on 2 L On 03/30/2025 patient was seen and examined on the medical floor he is alert and oriented x 3 in no apparent distress he is still complaining of abdominal discomfort he has mild shortness of breath with activity, otherwise he denies any complaints there is no fever or chills no headache or dizziness no chest pain no cough no nausea or vomiting no diarrhea and no urinary symptoms. White blood count today is up to 20,000, infectious disease following, surgery are following, we will continue with current medication regimen at this time Objective - Vital Signs Vital signs: Vital Signs Temp 98.5 F 03/30/25 11:45 Pulse 80 03/30/25 11:45 Resp 20 03/30/25 11:45 BP 146/81 03/30/25 11:45 Pulse Ox 98 03/30/25 11:45 FiO2 Intake & Output 03/29/25 03/30/25 03/30/25 18:59 06:59 18:59 Intake Total 358 240 Output Total 725 400 125 Balance -367 -400 115 Weight 93.2 kg Intake: Oral 358 240 Output: Urine 725 400 125 Other: Voiding Method Urinal Toilet Toilet Urinal Urinal # Voids 1 # Bowel Movements 1 0 - Exam Head normocephalic Neck supple Lungs clear to auscultation bilaterally no wheezing or crackles Heart regular rate and rhythm S1-S2, no rub or gallop Abdomen is soft distended. Hypoactive bowel sounds Extremities no edema Neuro alert and orientated to 3 - Labs CBC & Chem 7: 03/30/25 07:12 03/30/25 07:12 Labs: Abnormal Lab Results - Last 24 Hours (Table) 03/30/25 03/30/25 Range/Units 07:12 07:12 WBC 20.52 H (4.50-10.00) 10*3/uL RBC 3.09 L (4.40-5.60) 10*6/uL Hgb 9.1 L (13.0-17.0) g/dL Hct 27.9 L (39.6-50.0) % MPV 9.4 L (9.5-12.2) fL Immature Gran # 1.31 H (0.00-0.04) 10*3/uL Neutrophils # (Manual) 18.26 H (1.3-7.7) k/uL Metamyelocytes # (Man) 0.21 H (0) k/uL Myelocytes # (Manual) 0.41 H (0) k/uL Sodium 135 L (137-145) mmol/L BUN 28 H (9-20) mg/dL Glucose 118 H (74-99) mg/dL Calcium 8.2 L (8.4-10.2) mg/dL Alkaline Phosphatase 189 H (38-126) U/L Total Protein 5.2 L (6.3-8.2) g/dL Albumin 2.5 L (3.5-5.0) g/dL Microbiology - Last 24 Hours (Table) 03/27/25 18:30 Gram Stain - Final Sputum Sputum Culture - Final 03/25/25 13:06 Blood Culture Gram Stain - Final Blood Blood Culture - Final Staphylococcus epidermidis Molecular ID Assessment and Plan Assessment: 1. Anemia secondary to postop cholecystectomy 03/18/2025 2. Acute on chronic kidney disease 3. Abnormal CT postcholecystectomy 4. Concerns of possible pneumonia 5. History of coronary artery disease 6. History of GERD 7. History of hyperlipidemia 8. History of prostate disorder 9. History of essential hypertension 10. History of hyperlipidemia 11. Bacteremia likely a skin contamination per ID DVT prophylaxis SCDs due to anemia. GI prophylax Protonix Surgical services consulted Nephrology services consulted Infectious disease services consulted Blood culture ordered Patient started on IV antibiotics Plans for ERCP on 03/28/2025 Repeat labs ordered
--- NOTE | 2025-03-30 13:58 | P.PN ---
Subjective Progress Note Date: 03/30/25 Principal diagnosis: Shortness of breath. This is a 79-year-old male patient with known history of recent open cholecystectomy approximately 1 week ago. He was discharged 3 days prior to returning to the emergency department on 03/25/2025 with altered mental status. CT scan of the abdomen and pelvis revealed increasing free fluid throughout the abdomen particularly around the liver. Possible biliary leak. HIDA scan revealed biliary leak not excluded. We were consulted today for some complaints of shortness of breath. He is seen in consultation on the selective care unit. He is currently awake and alert in no acute distress. Maintaining O2 saturations in the upper 90s on 2 L/min per nasal cannula. He is afebrile. Hemodynamically stable. Chest x-ray reveals basilar subsegmental atelectatic changes right greater than left. Elevated right hemidiaphragm. White count 11.9. Hemoglobin 8.5. Platelets 245. Sodium 137. Potassium 3.7. Bicarb 27. BUN 46. Creatinine 1.10. Glucose 141. Blood culture showing gram-positive cocci in clusters. He is currently on cefepime. Albuterol inhaler as needed. Progress note dated March 28, 2025. 79-year-old male seen yesterday in consultation for shortness of breath. We believe the patient's shortness of breath, relates to his intra-abdominal process. The patient is postoperative open cholecystectomy, about 1 week ago. The patient came into the hospital complaining of abdominal discomfort. He may have a biliary leak. He apparently is going for ERCP today. He is currently on LR at 75 cc an hour, and nasal O2 at 2 L. When he takes a deep breath, and causes some difficulty, because of the intra-abdominal issues. I told him to continue to work on the incentive spirometer, deep breathing, cough, clear secretions. Current laboratory data includes a white count of 10.6, hemoglobin 8.2, hematocrit 24.5, and a platelet count of 277,000. PT 12.9, INR 1.2. Sodium 136, potassium 3.7, chlorides 101, CO2 26, anion gap 9, BUN 33, and creatinine 0.88. Calcium is 8.5. Magnesium is 2. Albumin is 2.3. Blood cultures are positive for Staphylococcus epidermidis. Progress note dated March 29, 2025. 79-year-old male seen today in room 383. We are initially consulted because of shortness of breath. Clinically, the patient is doing about the same. He continues on 2 L of oxygen, and, his saturations are 98%. Antibiotic sims, he continues on cefepime and Flagyl. He did have an ERCP yesterday. Current labs include a white count of 17.9, hemoglobin 9, hematocrit 28.2, and a platelet count is normal. Sodium 138, potassium 3.8, chlorides 103, CO2 29, anion gap 6, BUN 29, creatinine 0.89. Glucose is 133. Blood cultures were positive for Staphylococcus epidermidis. ERCP, reveals a slightly dilated common bile duct, measuring 8 mm in diameter with accumulation of some dye of the gallbladder. This was suggestive of a bile leak, and a stent was placed. The pancreatic duct was not cannulated. Progress note dated March 30, 2025. 79-year-old male seen today in room 383. He continues on oxygen, by nasal cannula 2 L. He is getting saline at 20 cc an hour. He continues on cefepime, Levaquin, and Flagyl. The patient did have an ERCP done 2 days ago, March 28. The patient states that his breathing is stable. He feels fine. Current laboratory data includes a white count of 20.5, hemoglobin 9.1, hematocrit 27.9, and a platelet count of 434,000. Sodium 135, potassium 4.1, chlorides 101, CO2 27, BUN 28, creatinine 1.02. Glucose is 118. Calcium is 8.2. Albumin is 2.5. Blood cultures are only positive for Staphylococcus epidermidis. Objective - Vital Signs Vital signs: Vital Signs Temp 98.5 F 03/30/25 11:45 Pulse 80 03/30/25 11:45 Resp 20 03/30/25 11:45 BP 146/81 03/30/25 11:45 Pulse Ox 98 03/30/25 11:45 FiO2 Intake & Output 03/29/25 03/30/25 03/30/25 18:59 06:59 18:59 Intake Total 358 240 Output Total 725 400 325 Balance -367 -400 -85 Weight 93.2 kg Intake: Oral 358 240 Output: Urine 725 400 325 Other: Voiding Method Urinal Toilet Toilet Urinal Urinal # Voids 1 # Bowel Movements 1 0 - Exam No acute distress, oriented 3. Currently on 2 L. HEENT examination is grossly unremarkable. Mucous membranes are moist. No oral lesions. Neck supple. Full range of motion. No adenopathy thyromegaly or neck vein distention. Cardiovascular examination reveals regular rhythm rate. S1-S2 normal. No S3 or S4. No discernible murmur noted. Lungs reveal bibasilar crackles. No rhonchi. No wheezes. Breath sounds are equal bilaterally. Abdomen soft, but mildly tender. No masses. Extremities are intact. No cyanosis clubbing or edema. Skin is without rash or lesion. Neurologic examination is brief but nonfocal. - Labs CBC & Chem 7: 03/30/25 07:12 03/30/25 07:12 Labs: Abnormal Lab Results - Last 24 Hours (Table) 03/30/25 03/30/25 Range/Units 07:12 07:12 WBC 20.52 H (4.50-10.00) 10*3/uL RBC 3.09 L (4.40-5.60) 10*6/uL Hgb 9.1 L (13.0-17.0) g/dL Hct 27.9 L (39.6-50.0) % MPV 9.4 L (9.5-12.2) fL Immature Gran # 1.31 H (0.00-0.04) 10*3/uL Neutrophils # (Manual) 18.26 H (1.3-7.7) k/uL Metamyelocytes # (Man) 0.21 H (0) k/uL Myelocytes # (Manual) 0.41 H (0) k/uL Sodium 135 L (137-145) mmol/L BUN 28 H (9-20) mg/dL Glucose 118 H (74-99) mg/dL Calcium 8.2 L (8.4-10.2) mg/dL Alkaline Phosphatase 189 H (38-126) U/L Total Protein 5.2 L (6.3-8.2) g/dL Albumin 2.5 L (3.5-5.0) g/dL Microbiology - Last 24 Hours (Table) 03/27/25 18:30 Gram Stain - Final Sputum Sputum Culture - Final 03/25/25 13:06 Blood Culture Gram Stain - Final Blood Blood Culture - Final Staphylococcus epidermidis Molecular ID Assessment and Plan Assessment: Dyspnea secondary to bibasilar atelectasis from poor inspiratory effort due to recent abdominal surgery. S/P ERCP, March 28, 2025, with evidence of bile leak, S/P stent placement. Open cholecystectomy on 03/18/2025, possible biliary leak on HIDA scan and CAT scan March 26, 2025. Altered mental status secondary to dehydration and poor oral intake. Acute anemia with a hemoglobin of 6.1, status post 2 units of packed red blood cells this admission. Hyponatremia, improving. Acute kidney injury, improving. Hyperlipidemia. Hypertension. Coronary disease. Former smoker. Marijuana use. Plan: Plan dated March 28, 2025. The patient is seen today in room 383. The patient is currently on 2 L of oxygen. He is getting lactated Ringer's at 75 cc an hour. The patient is scheduled to have an ERCP today. We will continue to follow the patient, and make recommendations. We do recommend deep breathing, coughing, clearing his secretions, and hourly use of the incentive spirometer. We will continue to follow the patient. Prognosis is guarded. All labs, x-rays, and medications are reviewed. Dictation was produced using [employer] software. Please excuse any grammatical, word or spelling errors. Plan dated March 29, 2025. The patient is seen today in room 383. The patient continues on 2 L of oxygen. Saturations are 98%. The patient is currently on cefepime and Flagyl. He had an ERCP yesterday, which revealed a bile leak. A stent was placed. Labs, x- rays, and medications are reviewed. We will continue to follow make recommendations along the way. Prognosis is certainly guarded. Dictation was produced using [employer] software. Please excuse any grammatical, word or spelling errors. Plan dated March 30, 2025. The patient is seen today in room 383. He is resting comfortably in bed. His is at the bedside. He continues on nasal cannula, 2 L. He is getting saline at 20 cc an hour. He continues on cefepime, Levaquin, and Flagyl. Labs, x-rays, and all medications are reviewed. We will continue to follow the patient, make recommendations were appropriate. Overall prognosis remains guarded. Dictation was produced using [employer] software. Please excuse any grammatical, word or spelling errors. Time with Patient: Less than 30
[2025-03-30] MEDS ORDERED: VANCOMYCIN IV PER PHARMACY 1 EACH MISC MISCELLANE PRN (14:47)
--- NOTE | 2025-03-30 15:38 | P.PN ---
Subjective Progress Note Date: 03/30/25 Principal diagnosis: Reason for follow-up is possible biliary leak/cholangitis and a question of pneumonia Patient is a 79-year-old male with a past medical history significant for hypertension hyperlipidemia HI coronary artery disease prostate disorder reflux in this patient who is status post laparoscopic cholecystectomy completed on 03/18/2025 now present to the hospital with increasing confusion abdominal pain and distention with evidence of fluid in the right upper quadrant on the CT and question of pneumonia HIDA scan biliary leak not excluded. Patient is s tatus post ERCP and biliary stent placement on 03/28/2025 On today's evaluation that is 03/30/2025, the patient continues to be afebrile, the patient is on 2 L nasal oxygen and complaining of some shortness of breath on exertion, the patient denies having any chest pain or any worsening cough, the patient denies having any abdominal pain no vomiting or any diarrhea has been reported by the nursing staff. Patient white count is up to 20.52, creatinine 1.02 blood culture with Streptococcus intermediate sputum culture has been negative Objective - Vital Signs Vital signs: Vital Signs Temp 98.5 F 03/30/25 11:45 Pulse 80 03/30/25 11:45 Resp 20 03/30/25 11:45 BP 146/81 03/30/25 11:45 Pulse Ox 98 03/30/25 11:45 FiO2 Intake & Output 03/29/25 03/30/25 03/30/25 18:59 06:59 18:59 Intake Total 358 600 Output Total 725 400 325 Balance -367 -400 275 Weight 93.2 kg Intake: Oral 358 600 Output: Urine 725 400 325 Other: Voiding Method Urinal Toilet Toilet Urinal Urinal # Voids 1 # Bowel Movements 1 0 - Exam GENERAL DESCRIPTION: An elderly male lying in bed in no distress RESPIRATORY SYSTEM: Unlabored breathing , decreased breath sounds at bases HEART: S1 S2 regular rate and rhythm , ABDOMEN: Soft , no tenderness EXTREMITIES: No edema feet - Labs CBC & Chem 7: 03/30/25 07:12 03/30/25 07:12 Labs: Abnormal Lab Results - Last 24 Hours (Table) 03/30/25 03/30/25 Range/Units 07:12 07:12 WBC 20.52 H (4.50-10.00) 10*3/uL RBC 3.09 L (4.40-5.60) 10*6/uL Hgb 9.1 L (13.0-17.0) g/dL Hct 27.9 L (39.6-50.0) % MPV 9.4 L (9.5-12.2) fL Immature Gran # 1.31 H (0.00-0.04) 10*3/uL Neutrophils # (Manual) 18.26 H (1.3-7.7) k/uL Metamyelocytes # (Man) 0.21 H (0) k/uL Myelocytes # (Manual) 0.41 H (0) k/uL Sodium 135 L (137-145) mmol/L BUN 28 H (9-20) mg/dL Glucose 118 H (74-99) mg/dL Calcium 8.2 L (8.4-10.2) mg/dL Alkaline Phosphatase 189 H (38-126) U/L Total Protein 5.2 L (6.3-8.2) g/dL Albumin 2.5 L (3.5-5.0) g/dL Microbiology - Last 24 Hours (Table) 03/27/25 18:30 Gram Stain - Final Sputum Sputum Culture - Final 03/25/25 13:06 Blood Culture Gram Stain - Final Blood Blood Culture - Final Staphylococcus epidermidis Molecular ID Assessment and Plan (1) Pneumonia Current Visit: Yes Status: Acute Code(s): J18.9 - PNEUMONIA, UNSPECIFIED ORGANISM SNOMED Code(s): 649096632 (2) Abdominal infection Current Visit: Yes Status: Acute Code(s): K65.9 - PERITONITIS, UNSPECIFIED SNOMED Code(s): 631407131 (3) Penicillin allergy Current Visit: Yes Status: Acute Code(s): Z88.0 - ALLERGY STATUS TO PENICILLIN SNOMED Code(s): 17839911 (4) Bacteremia Current Visit: Yes Status: Acute Code(s): R78.81 - BACTEREMIA SNOMED Code(s): 7338475 Plan: 1patient presented to hospital with abdominal pain confusion in this patient who is status post recent laparoscopic cholecystectomy now with a CT abdominal pelvis showing increased fluid in the right upper quadrant area with concern for possible biliary leak or developing infection also with evidence of right lower lobe airspace opacity concerning for possible pneumonia. 2HIDA scan biliary leak cannot be excluded GI has been consulted for possible ERCP and stent placement and scheduled for this afternoon 3-patient did have a positive blood culture with staph epi more likely skin contamination no need for vancomycin which has been discontinued 4patient is afebrile, patient noted to have further worsening of his white count up to 20,000 we will repeat a blood culture check a CRP, will add vancomycin continue with cefepime and Flagyl Of care discussed with the surgeon on the phone Dictation was produced using [employer] dictation software. please excuse any grammatical, word or spelling errors. Time with Patient: Less than 30
[2025-03-30] MEDS: VANCOMYCIN 1,500 MG in SODIUM CHLORIDE 0.9% 500 ML 500 ML IVPB SCH (16:40)
[2025-03-31 06:15] LABS: HCT 25.3 % (39.6-50.0); HGB 8.1 g/dL (13.0-17.0); MCH 28.8 pg (27.0-32.0); Mean Platelet Volume 9.5 fL (9.5-12.2); RBC 2.81 10*6/uL (4.40-5.60); RDW 14.7 % (11.5-14.5)
[2025-03-31 06:28] LABS: ALT 32 U/L (4-49); AST 76 U/L (17-59); African American GFR (CKD) 78 (>60 ml/min/1.73 sqM); Albumin 2.3 g/dL (3.5-5.0); Alkaline Phosphatase 756 U/L (38-126); Anion Gap 8 mmol/L; Blood Urea Nitrogen 32 mg/dL (9-20); Calcium 7.9 mg/dL (8.4-10.2); Carbon Dioxide 27 mmol/L (22-30); Chloride 97 mmol/L (98-107); Glucose 103 mg/dL (74-99); Non-African American GFR(CKD) 67 (>60 ml/min/1.73 sqM); Potassium 3.5 mmol/L (3.5-5.1); Sodium 132 mmol/L (137-145); Total Bilirubin 2.8 mg/dL (0.2-1.3); Total Protein 5.1 g/dL (6.3-8.2)
[2025-03-31 08:18] LABS: Lymphocytes # (M) 0.96 k/uL (1.0-4.8); Metamyelocytes # (M) 0.16 k/uL (0); Metamyelocytes % 1 %; Monocytes # (M) 0.48 k/uL (0-1.0); Myelocytes # (M) 0.32 k/uL (0); Myelocytes % 2 %; Neutrophils % (M) 90 %; Nucleated Red Blood Cells 0 /100 WBC (0-0); Total Cells Counted 200
[2025-03-31 08:20] LABS: RBC Morphology Normal
--- NOTE | 2025-03-31 09:39 | P.PN ---
Subjective Progress Note Date: 03/31/25 Patient states he feels better. He wants to go home. On exam vital signs appear stable. Abdomen is soft. Incision is clean dry intact. Status post open cholecystectomy with common bile duct stent placed for small biliary leak. Patient's leukocytosis improving. Patient will remain in the hospital for another 24 to 48 hours. He is improving. Objective - Vital Signs Vital signs: Vital Signs Temp 98.1 F 03/31/25 08:30 Pulse 83 03/31/25 09:28 Resp 20 03/31/25 08:30 BP 129/62 03/31/25 08:30 Pulse Ox 96 03/31/25 09:14 FiO2 Intake & Output 03/30/25 03/31/25 03/31/25 18:59 06:59 18:59 Intake Total 1700 Output Total 675 950 Balance 1025 -950 Weight 94.6 kg Intake: Intake, IV Titration 860 Amount Cefepime 2 gm In Sodium 100 Chloride 0.9% 100 ml @ 25 mls/hr IVPB Q12H [facility] Rx# :[id number] IV Fluid Continuation 1, 160 000 ml @ 0 mls/hr IV .STK -[facility] ONE Rx#:[id number] Levofloxacin 500Mg-D5w 100 Pmx 500 mg In Dextrose/ Water 1 100ml.bag @ 100 mls/hr IVPB Q24HR [facility] Rx# :[id number] Vancomycin 1,500 mg In 500 Sodium Chloride 0.9% 500 ml 500 ml @ 167 mls/hr IVPB Q24H [facility] Rx#: [id number] Oral 840 Output: Urine 675 950 Other: Voiding Method Toilet Toilet Toilet Urinal Urinal Urinal # Voids 1 2 - Labs CBC & Chem 7: 03/31/25 05:27 03/31/25 05:27 Labs: Abnormal Lab Results - Last 24 Hours (Table) 03/30/25 03/31/25 03/31/25 Range/Units 15:43 05:27 05:27 WBC 16.00 H (4.50-10.00) 10*3/uL RBC 2.81 L (4.40-5.60) 10*6/uL Hgb 8.1 L (13.0-17.0) g/dL Hct 25.3 L (39.6-50.0) % Immature Gran # 1.07 H (0.00-0.04) 10*3/uL Neutrophils # (Manual) 14.40 H (1.3-7.7) k/uL Lymphocytes # (Manual) 0.96 L (1.0-4.8) k/uL Metamyelocytes # (Man) 0.16 H (0) k/uL Myelocytes # (Manual) 0.32 H (0) k/uL Sodium 132 L (137-145) mmol/L Chloride 97 L (98-107) mmol/L BUN 32 H (9-20) mg/dL Glucose 103 H (74-99) mg/dL Calcium 7.9 L (8.4-10.2) mg/dL Total Bilirubin 2.8 H (0.2-1.3) mg/dL AST 76 H (17-59) U/L Alkaline Phosphatase 756 H (38-126) U/L C-Reactive Protein 16.2 H (<1.0) mg/dL Total Protein 5.1 L (6.3-8.2) g/dL Albumin 2.3 L (3.5-5.0) g/dL Microbiology - Last 24 Hours (Table) 03/27/25 18:30 Gram Stain - Final Sputum Sputum Culture - Final
--- NOTE | 2025-03-31 10:16 | P.PN ---
Subjective Progress Note Date: 03/31/25 Jose Saleem is a 79-year-old male patient who presented to the ER with concerns of weakness, abdominal pain and distention. Patient recently underwent an open cholecystectomy [address] Holland he was discharged home. Patient reports he has had decreased appetite and increased pain over the past few days denies fevers. Denies bowel movements denies any nausea or vomiting. Testing in the emergency room performed showing EKG sinus rhythm. Chest x-ray showing mild right subsegmental atelectasis at the diaphragm CT of abdomen and pelvis showing increasing free fluid throughout the abdomen particularly around the liver given recent history of cholecystectomy correlate for biliary leak. Airspace opacities in the lung bases correlate for pneumonia. Lab work completed showing hemoglobin 6.1. Sodium 129, creatinine 3.83 bun 87 troponin negative. Lactic acid 1.1. BNP 955 amylase and lipase within normal limits. Vital signs temp 98.1, heart rate 90, respiratory rate 22, blood pressure 146/79 with pulse ox of 98% on 2 L. Patient has a past medical history of CAD, GERD, hyperlipidemia, hypertension, osteoarthritis, prostate disorder and ex-smoker. At this time patient will be admitted surgical services consulted due to abnormal CT scan and recent cholecystectomy. Infectious disease also consulted due to concerns of infection and elevated white blood cell count. Nephrology services consulted for acute on chronic kidney disease. Patient was started on IV Rocephin in ER. Patient was given 2 units of PRBCs repeat hemoglobin 8.1. Blood culture ordered. On 03/27/2025 patient was seen and examined on the telemetry floor he is alert and oriented x 3 in no apparent distress, he is complaining of abdominal pain, during last night he had episodes of shortness of breath, chest x-ray was done and revealed bibasilar subsegmental atelectasis right more than left and el evated right hemidiaphragm, EKG was done and revealed normal sinus rhythm no acute changes. Patient was given 1 dose of IV Lasix 20 mg albuterol updraft was added to his medication regimen, today white blood count is up to 11.96 hemoglobin 8.5 platelet count 245 BUN 46 creatinine 1.1 ABG revealed pH 7.44 [id number] PO2 123, critical care consultation was added, results of biliary scan and chest x-ray reviewed, awaiting further recommendation from surgery. On 03/28/2025 patient is alert and oriented x 3. Plans for ERCP today per GI services per infectious disease but positive blood culture likely skin contamination no need for vancomycin continue cefepime and Flagyl. Multiple consults following including surgery, GI, pulmonary, infectious disease and nephrology services. Current vital signs temp 98.3, heart rate 78, respiratory rate 18, blood pressure 149/79 with pulse ox 97% on 2 L patient denies chest pain. Patient does report some shortness of breath. Patient denies any nausea or vomiting. Patient denies any urinary burning or frequency On 03/29/2025 patient is alert and oriented x 3. Patient underwent ERCP and underwent stent placement yesterday. Patient still having increased pain today. Patient remains on IV antibiotics. White blood cell increasing to 17.89 current vitals temp 98.2, heart rate 75 respiratory rate 21, blood pressure 128/49 with pulse ox of 95% on 2 L On 03/30/2025 patient was seen and examined on the medical floor he is alert and oriented x 3 in no apparent distress he is still complaining of abdominal discomfort he has mild shortness of breath with activity, otherwise he denies any complaints there is no fever or chills no headache or dizziness no chest pain no cough no nausea or vomiting no diarrhea and no urinary symptoms. White blood count today is up to 20,000, infectious disease following, surgery are following, we will continue with current medication regimen at this time On 03/31/2025 patient is alert and oriented x 3. Patient still complaining of abdominal pain and mild shortness of breath. Current vital signs temp 98.1, rate 82, respiratory rate 20, blood pressure 129/62 with pulse ox of 96% on room air. Patient remains on Maxipime and Levaquin. Patient denies chest pain. Patient denies nausea vomiting or diarrhea. Patient denies any urinary burning or frequency. White blood cells slightly improving to 16.0 alkaline phosphatase increasing to 756, ALT 32 AST 76 and total bili 2.8 Objective - Vital Signs Vital signs: Vital Signs Temp 98.1 F 03/31/25 08:30 Pulse 83 03/31/25 09:28 Resp 20 03/31/25 08:30 BP 129/62 03/31/25 08:30 Pulse Ox 96 03/31/25 09:14 FiO2 Intake & Output 03/30/25 03/31/25 03/31/25 18:59 06:59 18:59 Intake Total 1700 Output Total 675 950 Balance 1025 -950 Weight 94.6 kg Intake: Intake, IV Titration 860 Amount Cefepime 2 gm In Sodium 100 Chloride 0.9% 100 ml @ 25 mls/hr IVPB Q12H [facility] Rx# :[id number] IV Fluid Continuation 1, 160 000 ml @ 0 mls/hr IV .STK -[facility] Rx#:[id number] Levofloxacin 500Mg-D5w 100 Pmx 500 mg In Dextrose/ Water 1 100ml.bag @ 100 mls/hr IVPB Q24HR [facility] Rx# :[id number] Vancomycin 1,500 mg In 500 Sodium Chloride 0.9% 500 ml 500 ml @ 167 mls/hr IVPB Q24H [facility] Rx#: [id number] Oral 840 Output: Urine 675 950 Other: Voiding Method Toilet Toilet Toilet Urinal Urinal Urinal # Voids 1 2 - Exam Head normocephalic Neck supple Lungs clear to auscultation bilaterally no wheezing or crackles Heart regular rate and rhythm S1-S2, no rub or gallop Abdomen is soft distended. Hypoactive bowel sounds Extremities no edema Neuro alert and orientated to 3 - Labs CBC & Chem 7: 03/31/25 05:27 03/31/25 05:27 Labs: Abnormal Lab Results - Last 24 Hours (Table) 03/30/25 03/31/25 03/31/25 Range/Units 15:43 05:27 05:27 WBC 16.00 H (4.50-10.00) 10*3/uL RBC 2.81 L (4.40-5.60) 10*6/uL Hgb 8.1 L (13.0-17.0) g/dL Hct 25.3 L (39.6-50.0) % Immature Gran # 1.07 H (0.00-0.04) 10*3/uL Neutrophils # (Manual) 14.40 H (1.3-7.7) k/uL Lymphocytes # (Manual) 0.96 L (1.0-4.8) k/uL Metamyelocytes # (Man) 0.16 H (0) k/uL Myelocytes # (Manual) 0.32 H (0) k/uL Sodium 132 L (137-145) mmol/L Chloride 97 L (98-107) mmol/L BUN 32 H (9-20) mg/dL Glucose 103 H (74-99) mg/dL Calcium 7.9 L (8.4-10.2) mg/dL Total Bilirubin 2.8 H (0.2-1.3) mg/dL AST 76 H (17-59) U/L Alkaline Phosphatase 756 H (38-126) U/L C-Reactive Protein 16.2 H (<1.0) mg/dL Total Protein 5.1 L (6.3-8.2) g/dL Albumin 2.3 L (3.5-5.0) g/dL Microbiology - Last 24 Hours (Table) 03/27/25 18:30 Gram Stain - Final Sputum Sputum Culture - Final Assessment and Plan Assessment: 1. Anemia secondary to postop cholecystectomy 03/18/2025 2. Acute on chronic kidney disease 3. Abnormal CT postcholecystectomy 4. Concerns of possible pneumonia 5. History of coronary artery disease 6. History of GERD 7. History of hyperlipidemia 8. History of prostate disorder 9. History of essential hypertension 10. History of hyperlipidemia 11. Bacteremia likely a skin contamination per ID DVT prophylaxis SCDs due to anemia. GI prophylax Protonix Surgical services consulted Nephrology services consulted Infectious disease services consulted Blood culture ordered Patient started on IV antibiotics Plans for ERCP on 03/28/2025 Repeat labs ordered
--- NOTE | 2025-03-31 10:51 | P.PN ---
Subjective Patient is seen in follow-up for acute kidney injury. Renal function fairly stable. Tolerating oral intake. Nonoliguric. Vital signs are stable. General: No acute distress. HEENT: Head exam is unremarkable. On nasal cannula. LUNGS: No audible rhonchi or wheezes. HEART: Rate and Rhythm are regular. ABDOMEN: Obese, nontender. EXTREMITITES: 1+ edema. Objective - Vital Signs Vital signs: Vital Signs Temp 98.1 F 03/31/25 08:30 Pulse 83 03/31/25 09:28 Resp 20 03/31/25 08:30 BP 129/62 03/31/25 08:30 Pulse Ox 96 03/31/25 09:14 FiO2 Intake & Output 03/30/25 03/31/25 03/31/25 18:59 06:59 18:59 Intake Total 1700 Output Total 675 950 Balance 1025 -950 Weight 94.6 kg Intake: Intake, IV Titration 860 Amount Cefepime 2 gm In Sodium 100 Chloride 0.9% 100 ml @ 25 mls/hr IVPB Q12H [facility] Rx# :[id number] IV Fluid Continuation 1, 160 000 ml @ 0 mls/hr IV .STK -[facility] Rx#:[id number] Levofloxacin 500Mg-D5w 100 Pmx 500 mg In Dextrose/ Water 1 100ml.bag @ 100 mls/hr IVPB Q24HR [facility] Rx# :[id number] Vancomycin 1,500 mg In 500 Sodium Chloride 0.9% 500 ml 500 ml @ 167 mls/hr IVPB Q24H [facility] Rx#: [id number] Oral 840 Output: Urine 675 950 Other: Voiding Method Toilet Toilet Toilet Urinal Urinal Urinal # Voids 1 2 - Labs CBC & Chem 7: 03/31/25 05:27 03/31/25 05:27 Labs: Abnormal Lab Results - Last 24 Hours (Table) 03/30/25 03/31/25 03/31/25 Range/Units 15:43 05:27 05:27 WBC 16.00 H (4.50-10.00) 10*3/uL RBC 2.81 L (4.40-5.60) 10*6/uL Hgb 8.1 L (13.0-17.0) g/dL Hct 25.3 L (39.6-50.0) % Immature Gran # 1.07 H (0.00-0.04) 10*3/uL Neutrophils # (Manual) 14.40 H (1.3-7.7) k/uL Lymphocytes # (Manual) 0.96 L (1.0-4.8) k/uL Metamyelocytes # (Man) 0.16 H (0) k/uL Myelocytes # (Manual) 0.32 H (0) k/uL Sodium 132 L (137-145) mmol/L Chloride 97 L (98-107) mmol/L BUN 32 H (9-20) mg/dL Glucose 103 H (74-99) mg/dL Calcium 7.9 L (8.4-10.2) mg/dL Total Bilirubin 2.8 H (0.2-1.3) mg/dL AST 76 H (17-59) U/L Alkaline Phosphatase 756 H (38-126) U/L C-Reactive Protein 16.2 H (<1.0) mg/dL Total Protein 5.1 L (6.3-8.2) g/dL Albumin 2.3 L (3.5-5.0) g/dL Microbiology - Last 24 Hours (Table) 03/27/25 18:30 Gram Stain - Final Sputum Sputum Culture - Final Assessment and Plan Plan: Assessment: 1. Acute kidney injury secondary to ATN secondary to hypovolemia. Creatinine 3.3 on admission and is stable at 1.07 today. No hydronephrosis noted on CT. 2. Chronic kidney disease stage IIIa with baseline creatinine of 1.3-1.4 secondary to nephrosclerosis. 3. Recent cholecystectomy with concern for biliary leak on CT. Surgery following. Status post ERCP with CBD stent placement March 28, 2025. 4. Acute blood loss anemia status post blood transfusions this admission. Improved. 5. Hypovolemic hyponatremia improved with fluids. Improved. Now hypervolemic. Plan: Maintain IV Lasix. Encouraged oral intake. Avoid nephrotoxins. Discontinued Motrin. Continue to monitor renal function and urine output.
--- NOTE | 2025-03-31 13:14 | P.PN ---
Subjective Progress Note Date: 03/31/25 This is a 79-year-old male patient with known history of recent open cholecystectomy approximately 1 week ago. He was discharged 3 days prior to returning to the emergency department on 03/25/2025 with altered mental status. CT scan of the abdomen and pelvis revealed increasing free fluid throughout the abdomen particularly around the liver. Possible biliary leak. HIDA scan revealed biliary leak not excluded. We were consulted today for some complaints of shortness of breath. He is seen in consultation on the selective care unit. He is currently awake and alert in no acute distress. Maintaining O2 saturations in the upper 90s on 2 L/min per nasal cannula. He is afebrile. Hemodynamically stable. Chest x-ray reveals basilar subsegmental atelectatic changes right greater than left. Elevated right hemidiaphragm. White count 11.9. Hemoglobin 8.5. Platelets 245. Sodium 137. Potassium 3.7. Bicarb 27. BUN 46. Creatinine 1.10. Glucose 141. Blood culture showing gram-positive cocci in clusters. He is currently on cefepime. Albuterol inhaler as needed. Progress note dated March 28, 2025. 79-year-old male seen yesterday in consultation for shortness of breath. We believe the patient's shortness of breath, relates to his intra-abdominal process. The patient is postoperative open cholecystectomy, about 1 week ago. The patient came into the hospital complaining of abdominal discomfort. He may have a biliary leak. He apparently is going for ERCP today. He is currently on LR at 75 cc an hour, and nasal O2 at 2 L. When he takes a deep breath, and causes some difficulty, because of the intra-abdominal issues. I told him to continue to work on the incentive spirometer, deep breathing, cough, clear secretions. Current laboratory data includes a white count of 10.6, hemoglobin 8.2, hematocrit 24.5, and a platelet count of 277,000. PT 12.9, INR 1.2. Sodium 136, potassium 3.7, chlorides 101, CO2 26, anion gap 9, BUN 33, and creatinine 0.88. Calcium is 8.5. Magnesium is 2. Albumin is 2.3. Blood cultures are positive for Staphylococcus epidermidis. Progress note dated March 29, 2025. 79-year-old male seen today in room 383. We are initially consulted because of shortness of breath. Clinically, the patient is doing about the same. He continues on 2 L of oxygen, and, his saturations are 98%. Antibiotic sims, he continues on cefepime and Flagyl. He did have an ERCP yesterday. Current labs include a white count of 17.9, hemoglobin 9, hematocrit 28.2, and a platelet count is normal. Sodium 138, potassium 3.8, chlorides 103, CO2 29, anion gap 6, BUN 29, creatinine 0.89. Glucose is 133. Blood cultures were positive for Staphylococcus epidermidis. ERCP, reveals a slightly dilated common bile duct, measuring 8 mm in diameter with accumulation of some dye of the gallbladder. This was suggestive of a bile leak, and a stent was placed. The pancreatic duct was not cannulated. Progress note dated March 30, 2025. 79-year-old male seen today in room 383. He continues on oxygen, by nasal cannula 2 L. He is getting saline at 20 cc an hour. He continues on cefepime, Levaquin, and Flagyl. The patient did have an ERCP done 2 days ago, March 28. The patient states that his breathing is stable. He feels fine. Current laboratory data includes a white count of 20.5, hemoglobin 9.1, hematocrit 27.9, and a platelet count of 434,000. Sodium 135, potassium 4.1, chlorides 101, CO2 27, BUN 28, creatinine 1.02. Glucose is 118. Calcium is 8.2. Albumin is 2.5. Blood cultures are only positive for Staphylococcus epidermidis. The patient is seen today March 31, 2025 in follow-up on the selective care unit. He is awake and alert in no acute distress. Sitting up in a chair at the bedside. Maintaining good O2 saturations in the 90s on room air oxygen. He has normal saline at 20 mL/h. He is status post 2 units of packed red blood cells this admission. Current hemoglobin 8.1. White count 16.0. Sodium 132. Potassium 3.5. Bicarb 27. BUN 32. Creatinine 1.07. Glucose 67. AST 76. ALT 32. He remains on DuoNeb inhalations. Antibiotics in the form of vancomycin and cefepime. Blood cultures were positive for Staphylococcus epidermidis. Sputum culture revealed no growth. Remains on IV diuretics. Currently on a positive balance. Objective - Vital Signs Vital signs: Vital Signs Temp 98.4 F 03/31/25 11:49 Pulse 79 03/31/25 11:49 Resp 18 03/31/25 11:49 BP 117/66 03/31/25 11:49 Pulse Ox 97 03/31/25 11:49 FiO2 Intake & Output 03/30/25 03/31/25 03/31/25 18:59 06:59 18:59 Intake Total 1700 Output Total 675 950 475 Balance 1025 950 -729 Weight 94.6 kg Intake: Intake, IV Titration 860 Amount Cefepime 2 gm In Sodium 100 Chloride 0.9% 100 ml @ 25 mls/hr IVPB Q12H [facility] Rx# :[id number] IV Fluid Continuation 1, 160 000 ml @ 0 mls/hr IV .STK -[facility] ONE Rx#:[id number] Levofloxacin 500Mg-D5w 100 Pmx 500 mg In Dextrose/ Water 1 100ml.bag @ 100 mls/hr IVPB Q24HR [facility] Rx# :[id number] Vancomycin 1,500 mg In 500 Sodium Chloride 0.9% 500 ml 500 ml @ 167 mls/hr IVPB Q24H [facility] Rx#: [id number] Oral 840 Output: Urine 675 950 475 Other: Voiding Method Toilet Toilet Toilet Urinal Urinal Urinal # Voids 1 2 - Exam GENERAL EXAM: Alert, pleasant 79-year-old male, up in a chair, on room air oxygen, comfortable in no apparent distress. HEAD: Normocephalic. EYES: Normal reaction of pupils, equal size. NOSE: Clear with pink turbinates. THROAT: No erythema or exudates. NECK: No masses, no JVD. CHEST: No chest wall deformity. LUNGS: Equal air entry with no crackles, wheeze, rhonchi or dullness. CVS: S1 and S2 normal with no audible murmur, regular rhythm. ABDOMEN: Incision clean dry and well-approximated. No hepatosplenomegaly, normal bowel sounds, no guarding or rigidity. SPINE: No scoliosis or deformity SKIN: No rashes CENTRAL NERVOUS SYSTEM: No focal deficits, tone is normal in all 4 extremities. EXTREMITIES: There is no peripheral edema. No clubbing, no cyanosis. Peripheral pulses are intact. - Labs CBC & Chem 7: 03/31/25 05:27 03/31/25 05:27 Labs: Abnormal Lab Results - Last 24 Hours (Table) 03/30/25 03/31/25 03/31/25 Range/Units 15:43 05:27 05:27 WBC 16.00 H (4.50-10.00) 10*3/uL RBC 2.81 L (4.40-5.60) 10*6/uL Hgb 8.1 L (13.0-17.0) g/dL Hct 25.3 L (39.6-50.0) % Immature Gran # 1.07 H (0.00-0.04) 10*3/uL Neutrophils # (Manual) 14.40 H (1.3-7.7) k/uL Lymphocytes # (Manual) 0.96 L (1.0-4.8) k/uL Metamyelocytes # (Man) 0.16 H (0) k/uL Myelocytes # (Manual) 0.32 H (0) k/uL Sodium 132 L (137-145) mmol/L Chloride 97 L (98-107) mmol/L BUN 32 H (9-20) mg/dL Glucose 103 H (74-99) mg/dL Calcium 7.9 L (8.4-10.2) mg/dL Total Bilirubin 2.8 H (0.2-1.3) mg/dL AST 76 H (17-59) U/L Alkaline Phosphatase 756 H (38-126) U/L C-Reactive Protein 16.2 H (<1.0) mg/dL Total Protein 5.1 L (6.3-8.2) g/dL Albumin 2.3 L (3.5-5.0) g/dL Assessment and Plan Assessment: Dyspnea secondary to bibasilar atelectasis from poor inspiratory effort due to recent abdominal surgery Open cholecystectomy on 03/18/2025 with subsequent biliary leak on HIDA scan and CAT scan March 26, 2025. Status post ERCP/stent 03/28/2025 Altered mental status secondary to dehydration and poor oral intake, recovered and improved Acute anemia with a hemoglobin of 6.1, status post 2 units of packed red blood cells this admission. Current hemoglobin 8.1 Hyponatremia, improving Acute kidney injury, recovered Hyperlipidemia Hypertension Coronary disease Former smoker Marijuana use Plan: The patient was seen and evaluated Labs and medications reviewed Currently stable on room air oxygen Continue incentive spirometer Encourage cough and deep breathing exercises Continue bronchodilators Plan is for home at discharge We will see the patient as needed I have personally seen and examined the patient, performed the documentation and the assessment and plan as written. Number of minutes spent on the visit: 10 Dictation was produced using [employer] dictation software. Please excuse any grammatical, word or spelling errors.
--- NOTE | 2025-03-31 14:41 | P.PN ---
Subjective Progress Note Date: 03/31/25 Principal diagnosis: Reason for follow-up is possible biliary leak/cholangitis and a question of pneumonia Patient is a 79-year-old male with a past medical history significant for hypertension hyperlipidemia MT coronary artery disease prostate disorder reflux in this patient who is status post laparoscopic cholecystectomy completed on 03/18/2025 now present to the hospital with increasing confusion abdominal pain and distention with evidence of fluid in the right upper quadrant on the CT and question of pneumonia HIDA scan biliary leak not excluded. Patient is s tatus post ERCP and biliary stent placement on 03/28/2025 On today's evaluation that is 03/31/2025, Patient is afebrile patient is currently on room air and denies having any shortness of breath, the patient denies any chest pain and cough has decreased in intensity, the patient denies any nausea vomiting still having some abdominal discomfort and distention and did not have any bowel movement. Patient white count is down to 16,000, creatinine 1.07 Objective - Vital Signs Vital signs: Vital Signs Temp 98.4 F 03/31/25 11:49 Pulse 79 03/31/25 11:49 Resp 18 03/31/25 11:49 BP 117/66 03/31/25 11:49 Pulse Ox 97 03/31/25 11:49 FiO2 Intake & Output 03/30/25 03/31/25 03/31/25 18:59 06:59 18:59 Intake Total 1700 Output Total 675 950 600 Balance 1025 -950 -600 Weight 94.6 kg Intake: Intake, IV Titration 860 Amount Cefepime 2 gm In Sodium 100 Chloride 0.9% 100 ml @ 25 mls/hr IVPB Q12H [facility] Rx# :[id number] IV Fluid Continuation 1, 160 000 ml @ 0 mls/hr IV .STK -[facility] Rx#:[id number] Levofloxacin 500Mg-D5w 100 Pmx 500 mg In Dextrose/ Water 1 100ml.bag @ 100 mls/hr IVPB Q24HR [facility] Rx# :[id number] Vancomycin 1,500 mg In 500 Sodium Chloride 0.9% 500 ml 500 ml @ 167 mls/hr IVPB Q24H [facility] Rx#: [id number] Oral 840 Output: Urine 675 950 600 Other: Voiding Method Toilet Toilet Toilet Urinal Urinal Urinal # Voids 1 2 - Exam GENERAL DESCRIPTION: An elderly male lying in bed in no distress RESPIRATORY SYSTEM: Unlabored breathing , decreased breath sounds at bases HEART: S1 S2 regular rate and rhythm , ABDOMEN: Soft , no tenderness EXTREMITIES: No edema feet - Labs CBC & Chem 7: 03/31/25 05:27 03/31/25 05:27 Labs: Abnormal Lab Results - Last 24 Hours (Table) 03/30/25 03/31/25 03/31/25 Range/Units 15:43 05:27 05:27 WBC 16.00 H (4.50-10.00) 10*3/uL RBC 2.81 L (4.40-5.60) 10*6/uL Hgb 8.1 L (13.0-17.0) g/dL Hct 25.3 L (39.6-50.0) % Immature Gran # 1.07 H (0.00-0.04) 10*3/uL Neutrophils # (Manual) 14.40 H (1.3-7.7) k/uL Lymphocytes # (Manual) 0.96 L (1.0-4.8) k/uL Metamyelocytes # (Man) 0.16 H (0) k/uL Myelocytes # (Manual) 0.32 H (0) k/uL Sodium 132 L (137-145) mmol/L Chloride 97 L (98-107) mmol/L BUN 32 H (9-20) mg/dL Glucose 103 H (74-99) mg/dL Calcium 7.9 L (8.4-10.2) mg/dL Total Bilirubin 2.8 H (0.2-1.3) mg/dL AST 76 H (17-59) U/L Alkaline Phosphatase 756 H (38-126) U/L C-Reactive Protein 16.2 H (<1.0) mg/dL Total Protein 5.1 L (6.3-8.2) g/dL Albumin 2.3 L (3.5-5.0) g/dL Assessment and Plan (1) Pneumonia Current Visit: Yes Status: Acute Code(s): J18.9 - PNEUMONIA, UNSPECIFIED ORGANISM SNOMED Code(s): 233658298 (2) Abdominal infection Current Visit: Yes Status: Acute Code(s): K65.9 - PERITONITIS, UNSPECIFIED SNOMED Code(s): 299200533 (3) Penicillin allergy Current Visit: Yes Status: Acute Code(s): Z88.0 - ALLERGY STATUS TO PENICILLIN SNOMED Code(s): 88135145 (4) Bacteremia Current Visit: Yes Status: Acute Code(s): R78.81 - BACTEREMIA SNOMED Code(s): 5922791 Plan: 1patient presented to hospital with abdominal pain confusion in this patient who is status post recent laparoscopic cholecystectomy now with a CT abdominal pelvis showing increased fluid in the right upper quadrant area with concern for possible biliary leak or developing infection also with evidence of right lower lobe airspace opacity concerning for possible pneumonia. 2HIDA scan biliary leak cannot be excluded GI has been consulted for possible ERCP and stent placement and scheduled for this afternoon 3-patient did have a positive blood culture with staph epi more likely skin contamination no need for vancomycin which has been discontinued 4patient is afebrile, the patient white count is trending down today with addition of vancomycin continue along with cefepime and Flagyl, monitor clinical course closely Dictation was produced using [employer] dictation software. please excuse any grammatical, word or spelling errors. Time with Patient: Less than 30
[2025-04-01 07:10] LABS: HCT 23.3 % (39.6-50.0); HGB 7.8 g/dL (13.0-17.0); MCH 29.5 pg (27.0-32.0); MCHC 33.5 g/dL (32.0-37.0); MCV 88.3 fL (80.0-97.0); Mean Platelet Volume 9.3 fL (9.5-12.2); Platelet Count 387 10*3/uL (140-440); RBC 2.64 10*6/uL (4.40-5.60); RDW 14.7 % (11.5-14.5); WBC 14.01 10*3/uL (4.50-10.00)
[2025-04-01 07:15] LABS: ALT 54 U/L (4-49); AST 96 U/L (17-59); African American GFR (CKD) 73 (>60 ml/min/1.73 sqM); Albumin 2.3 g/dL (3.5-5.0); Alkaline Phosphatase 900 U/L (38-126); Anion Gap 7 mmol/L; Blood Urea Nitrogen 34 mg/dL (9-20); Calcium 7.9 mg/dL (8.4-10.2); Carbon Dioxide 22 mmol/L (22-30); Chloride 102 mmol/L (98-107); Glucose 111 mg/dL (74-99); Non-African American GFR(CKD) 63 (>60 ml/min/1.73 sqM); Potassium 3.7 mmol/L (3.5-5.1); Sodium 131 mmol/L (137-145); Total Bilirubin 1.8 mg/dL (0.2-1.3)
[2025-04-01] MEDS: LEVOFLOXACIN 500 MG TAB PO SCH (08:27)
[2025-04-01 09:05] LABS: Eosinophils # (M) 2.66 k/uL (0-0.7); Metamyelocytes # (M) 0.14 k/uL (0); Metamyelocytes % 1 %; Monocytes # (M) 0.56 k/uL (0-1.0); Myelocytes # (M) 0.14 k/uL (0); Myelocytes % 1 %; Neutrophils # (M) 10.09 k/uL (1.3-7.7); Neutrophils % (M) 72 %; Nucleated Red Blood Cells 0 /100 WBC (0-0); Total Cells Counted 200
[2025-04-01 09:09] LABS: RBC Morphology Normal
--- NOTE | 2025-04-01 12:36 | P.PN ---
Subjective Patient is seen for follow-up for acute kidney injury. Renal function has improved and is fairly stable with serum creatinine staying at about 1.1 mg/dL. Maintained on IV Lasix for volume overload No significant complaints today. Objective - Vital Signs Vital signs: Vital Signs Temp 97.9 F 04/01/25 08:00 Pulse 78 04/01/25 11:43 Resp 16 04/01/25 11:43 BP 124/74 04/01/25 11:43 Pulse Ox 95 04/01/25 11:43 FiO2 Intake & Output 03/31/25 04/01/25 04/01/25 18:59 06:59 18:59 Intake Total 358 20 Output Total 850 600 Balance -492 -580 Weight 97.9 kg Intake: Oral 358 20 Output: Urine 850 600 Other: Voiding Method Toilet Toilet Toilet Urinal Urinal Urinal # Voids 1 # Bowel Movements 1 - Exam Patient is awake, comfortable, no acute distress Examination heart S1 and S2 Examination of the lungs decreased breath sounds at the bases Abdomen is soft nontender Examination lower extremity shows edema 1+ bilaterally - Labs CBC & Chem 7: 04/01/25 06:38 04/01/25 06:38 Labs: Abnormal Lab Results - Last 24 Hours (Table) 04/01/25 04/01/25 Range/Units 06:38 06:38 WBC 14.01 H (4.50-10.00) 10*3/uL RBC 2.64 L (4.40-5.60) 10*6/uL Hgb 7.8 L (13.0-17.0) g/dL Hct 23.3 L (39.6-50.0) % MPV 9.3 L (9.5-12.2) fL Immature Gran # 0.88 H (0.00-0.04) 10*3/uL Neutrophils # (Manual) 10.09 H (1.3-7.7) k/uL Lymphocytes # (Manual) 0.70 L (1.0-4.8) k/uL Eosinophils # (Manual) 2.66 H (0-0.7) k/uL Metamyelocytes # (Man) 0.14 H (0) k/uL Myelocytes # (Manual) 0.14 H (0) k/uL Sodium 131 L (137-145) mmol/L BUN 34 H (9-20) mg/dL Glucose 111 H (74-99) mg/dL Calcium 7.9 L (8.4-10.2) mg/dL Total Bilirubin 1.8 H (0.2-1.3) mg/dL AST 96 H (17-59) U/L ALT 54 H (4-49) U/L Alkaline Phosphatase 900 H (38-126) U/L Total Protein 5.0 L (6.3-8.2) g/dL Albumin 2.3 L (3.5-5.0) g/dL Microbiology - Last 24 Hours (Table) 03/30/25 15:43 Blood Culture - Preliminary Blood Assessment and Plan Assessment: 1. Acute kidney injury secondary to ATN secondary to hypovolemia. Creatinine 3.3 on admission and is stable at 1.1 today. No hydronephrosis noted on CT. 2. Chronic kidney disease stage IIIa with baseline creatinine of 1.3-1.4 secondary to nephrosclerosis. 3. Recent cholecystectomy with concern for biliary leak on CT. Surgery following. Status post ERCP with CBD stent placement March 28, 2025. 4. Acute blood loss anemia status post blood transfusions this admission. Improved. 5. Hypovolemic hyponatremia improved with fluids. Improved. Now hypervolemic. Plan: Continue with IV Lasix, increased dose to twice a day.
--- NOTE | 2025-04-01 13:33 | P.PN ---
Subjective Progress Note Date: 04/01/25 SURGICAL PROGRESS NOTE CHIEF COMPLAINT: Abdominal pain HISTORY OF PRESENT ILLNESS: Patient complaining of testicular swelling. He is tolerating low-fat diet. Afebrile. WBC is down from 16-14 Hgb from 8.1 to 7.8 PHYSICAL EXAM: VITAL SIGNS: Reviewed. GENERAL: Well-developed in no acute distress. ABDOMEN: Soft. Nondistended. Incision clean dry and intact NEUROLOGIC: Alert and oriented. Cranial nerves II through XII grossly intact. ASSESSMENT: 1. Status post open cholecystectomy with common bile duct stent for small biliary leak 2. Possible postoperative bleeding after cholecystectomy contributing to anemia. Patient requiring blood transfusion PLAN: - Continue antibiotics - Continue low-fat diet - Encourage patient to increase activity level - Anticipate discharge tomorrow Physician Photocom[employer] Keyboard Operator note has been reviewed by physician. Signing provider agrees with the documented findings, assessment, and plan of care. Objective - Vital Signs Vital signs: Vital Signs Temp 97.9 F 04/01/25 08:00 Pulse 78 04/01/25 11:43 Resp 16 04/01/25 11:43 BP 124/74 04/01/25 11:43 Pulse Ox 95 04/01/25 11:43 FiO2 Intake & Output 03/31/25 04/01/25 04/01/25 18:59 06:59 18:59 Intake Total 358 20 Output Total 850 600 Balance -492 -580 Weight 97.9 kg Intake: Oral 358 20 Output: Urine 850 600 Other: Voiding Method Toilet Toilet Toilet Urinal Urinal Urinal # Voids 1 # Bowel Movements 1 - Labs CBC & Chem 7: 04/01/25 06:38 04/01/25 06:38 Labs: Abnormal Lab Results - Last 24 Hours (Table) 04/01/25 04/01/25 Range/Units 06:38 06:38 WBC 14.01 H (4.50-10.00) 10*3/uL RBC 2.64 L (4.40-5.60) 10*6/uL Hgb 7.8 L (13.0-17.0) g/dL Hct 23.3 L (39.6-50.0) % MPV 9.3 L (9.5-12.2) fL Immature Gran # 0.88 H (0.00-0.04) 10*3/uL Neutrophils # (Manual) 10.09 H (1.3-7.7) k/uL Lymphocytes # (Manual) 0.70 L (1.0-4.8) k/uL Eosinophils # (Manual) 2.66 H (0-0.7) k/uL Metamyelocytes # (Man) 0.14 H (0) k/uL Myelocytes # (Manual) 0.14 H (0) k/uL Sodium 131 L (137-145) mmol/L BUN 34 H (9-20) mg/dL Glucose 111 H (74-99) mg/dL Calcium 7.9 L (8.4-10.2) mg/dL Total Bilirubin 1.8 H (0.2-1.3) mg/dL AST 96 H (17-59) U/L ALT 54 H (4-49) U/L Alkaline Phosphatase 900 H (38-126) U/L Total Protein 5.0 L (6.3-8.2) g/dL Albumin 2.3 L (3.5-5.0) g/dL Microbiology - Last 24 Hours (Table) 03/30/25 15:43 Blood Culture - Preliminary Blood
[2025-04-01 14:04] VITALS: BMI 39.4
[2025-04-01] MEDS: FUROSEMIDE 10 MG/ML 2 ML VIAL IV SCH (16:32)
[2025-04-02 07:40] LABS: HCT 24.6 % (39.6-50.0); MCH 28.7 pg (27.0-32.0); MCHC 32.5 g/dL (32.0-37.0); MCV 88.2 fL (80.0-97.0); Mean Platelet Volume 9.6 fL (9.5-12.2); Platelet Count 430 10*3/uL (140-440); RBC 2.79 10*6/uL (4.40-5.60); RDW 14.6 % (11.5-14.5); WBC 11.68 10*3/uL (4.50-10.00)
[2025-04-02 07:56] LABS: ALT 42 U/L (4-49); AST 49 U/L (17-59); African American GFR (CKD) 80 (>60 ml/min/1.73 sqM); Albumin 2.3 g/dL (3.5-5.0); Alkaline Phosphatase 692 U/L (38-126); Anion Gap 8 mmol/L; Blood Urea Nitrogen 26 mg/dL (9-20); Calcium 7.7 mg/dL (8.4-10.2); Carbon Dioxide 24 mmol/L (22-30); Chloride 103 mmol/L (98-107); Glucose 100 mg/dL (74-99); Non-African American GFR(CKD) 69 (>60 ml/min/1.73 sqM); Potassium 3.8 mmol/L (3.5-5.1); Sodium 135 mmol/L (137-145); Total Bilirubin 1.3 mg/dL (0.2-1.3)
[2025-04-02 08:36] LABS: Anisocytosis (M) Present; Eosinophils # (M) 0.12 k/uL (0-0.7); Metamyelocytes # (M) 0.23 k/uL (0); Metamyelocytes % 2 %; Monocytes # (M) 0.82 k/uL (0-1.0); Myelocytes # (M) 0.23 k/uL (0); Myelocytes % 2 %; Neutrophils # (M) 9.69 k/uL (1.3-7.7); Neutrophils % (M) 83 %; Nucleated Red Blood Cells 0 /100 WBC (0-0); Poikilocytosis (M) Present; Total Cells Counted 200
[2025-04-02] MEDS: MAG HYDROX/AL HYDROX/SIMETH 30 ML CUP PO PRN (09:29)
--- NOTE | 2025-04-02 10:17 | P.PN ---
Subjective Progress Note Date: 04/01/25 Jose Saleem is a 79-year-old male patient who presented to the ER with concerns of weakness, abdominal pain and distention. Patient recently underwent an open cholecystectomy [address] Holland he was discharged home. Patient reports he has had decreased appetite and increased pain over the past few days denies fevers. Denies bowel movements denies any nausea or vomiting. Testing in the emergency room performed showing EKG sinus rhythm. Chest x-ray showing mild right subsegmental atelectasis at the diaphragm CT of abdomen and pelvis showing increasing free fluid throughout the abdomen particularly around the liver given recent history of cholecystectomy correlate for biliary leak. Airspace opacities in the lung bases correlate for pneumonia. Lab work completed showing hemoglobin 6.1. Sodium 129, creatinine 3.83 bun 87 troponin negative. Lactic acid 1.1. BNP 955 amylase and lipase within normal limits. Vital signs temp 98.1, heart rate 90, respiratory rate 22, blood pressure 146/79 with pulse ox of 98% on 2 L. Patient has a past medical history of CAD, GERD, hyperlipidemia, hypertension, osteoarthritis, prostate disorder and ex-smoker. At this time patient will be admitted surgical services consulted due to abnormal CT scan and recent cholecystectomy. Infectious disease also consulted due to concerns of infection and elevated white blood cell count. Nephrology services consulted for acute on chronic kidney disease. Patient was started on IV Rocephin in ER. Patient was given 2 units of PRBCs repeat hemoglobin 8.1. Blood culture ordered. On 03/27/2025 patient was seen and examined on the telemetry floor he is alert and oriented x 3 in no apparent distress, he is complaining of abdominal pain, during last night he had episodes of shortness of breath, chest x-ray was done and revealed bibasilar subsegmental atelectasis right more than left and el evated right hemidiaphragm, EKG was done and revealed normal sinus rhythm no acute changes. Patient was given 1 dose of IV Lasix 20 mg albuterol updraft was added to his medication regimen, today white blood count is up to 11.96 hemoglobin 8.5 platelet count 245 BUN 46 creatinine 1.1 ABG revealed pH 7.44 [id number] PO2 123, critical care consultation was added, results of biliary scan and chest x-ray reviewed, awaiting further recommendation from surgery. On 03/28/2025 patient is alert and oriented x 3. Plans for ERCP today per GI services per infectious disease but positive blood culture likely skin contamination no need for vancomycin continue cefepime and Flagyl. Multiple consults following including surgery, GI, pulmonary, infectious disease and nephrology services. Current vital signs temp 98.3, heart rate 78, respiratory rate 18, blood pressure 149/79 with pulse ox 97% on 2 L patient denies chest pain. Patient does report some shortness of breath. Patient denies any nausea or vomiting. Patient denies any urinary burning or frequency On 03/29/2025 patient is alert and oriented x 3. Patient underwent ERCP and underwent stent placement yesterday. Patient still having increased pain today. Patient remains on IV antibiotics. White blood cell increasing to 17.89 current vitals temp 98.2, heart rate 75 respiratory rate 21, blood pressure 128/49 with pulse ox of 95% on 2 L On 03/30/2025 patient was seen and examined on the medical floor he is alert and oriented x 3 in no apparent distress he is still complaining of abdominal discomfort he has mild shortness of breath with activity, otherwise he denies any complaints there is no fever or chills no headache or dizziness no chest pain no cough no nausea or vomiting no diarrhea and no urinary symptoms. White blood count today is up to 20,000, infectious disease following, surgery are following, we will continue with current medication regimen at this time On 03/31/2025 patient is alert and oriented x 3. Patient still complaining of abdominal pain and mild shortness of breath. Current vital signs temp 98.1, rate 82, respiratory rate 20, blood pressure 129/62 with pulse ox of 96% on room air. Patient remains on Maxipime and Levaquin. Patient denies chest pain. Patient denies nausea vomiting or diarrhea. Patient denies any urinary burning or frequency. White blood cells slightly improving to 16.0 alkaline phosphatase increasing to 756, ALT 32 AST 76 and total bili 2.8 On 04/01/2025 patient's alert and oriented x 3. Patient still reporting some abdominal discomfort. Patient remains on IV antibiotics multiple consults following patient denies chest pain. Patient denies nausea vomiting or diarrhea. Patient denies any urinary burning or frequency Objective - Vital Signs Vital signs: Vital Signs Temp 97.9 F 04/01/25 08:00 Pulse 75 04/01/25 16:52 Resp 16 04/01/25 16:52 BP 139/75 04/01/25 16:52 Pulse Ox 96 04/01/25 16:52 FiO2 Intake & Output 03/31/25 04/01/25 04/01/25 18:59 06:59 18:59 Intake Total 358 20 Output Total 850 600 Balance -492 -580 Weight 97.9 kg 97.9 kg Intake: Oral 358 20 Output: Urine 850 600 Other: Voiding Method Toilet Toilet Toilet Urinal Urinal Urinal # Voids 1 # Bowel Movements 1 - Exam Head normocephalic Neck supple Lungs clear to auscultation bilaterally no wheezing or crackles Heart regular rate and rhythm S1-S2, no rub or gallop Abdomen is soft distended. Hypoactive bowel sounds Extremities no edema Neuro alert and orientated to 3 - Labs CBC & Chem 7: 04/02/25 05:53 04/02/25 05:53 Labs: Abnormal Lab Results - Last 24 Hours (Table) 04/01/25 04/01/25 Range/Units 06:38 06:38 WBC 14.01 H (4.50-10.00) 10*3/uL RBC 2.64 L (4.40-5.60) 10*6/uL Hgb 7.8 L (13.0-17.0) g/dL Hct 23.3 L (39.6-50.0) % MPV 9.3 L (9.5-12.2) fL Immature Gran # 0.88 H (0.00-0.04) 10*3/uL Neutrophils # (Manual) 10.09 H (1.3-7.7) k/uL Lymphocytes # (Manual) 0.70 L (1.0-4.8) k/uL Eosinophils # (Manual) 2.66 H (0-0.7) k/uL Metamyelocytes # (Man) 0.14 H (0) k/uL Myelocytes # (Manual) 0.14 H (0) k/uL Sodium 131 L (137-145) mmol/L BUN 34 H (9-20) mg/dL Glucose 111 H (74-99) mg/dL Calcium 7.9 L (8.4-10.2) mg/dL Total Bilirubin 1.8 H (0.2-1.3) mg/dL AST 96 H (17-59) U/L ALT 54 H (4-49) U/L Alkaline Phosphatase 900 H (38-126) U/L Total Protein 5.0 L (6.3-8.2) g/dL Albumin 2.3 L (3.5-5.0) g/dL Microbiology - Last 24 Hours (Table) 03/30/25 15:43 Blood Culture - Preliminary Blood Assessment and Plan Assessment: 1. Anemia secondary to postop cholecystectomy 03/18/2025 2. Acute on chronic kidney disease 3. Abnormal CT postcholecystectomy 4. Concerns of possible pneumonia 5. History of coronary artery disease 6. History of GERD 7. History of hyperlipidemia 8. History of prostate disorder 9. History of essential hypertension 10. History of hyperlipidemia 11. Bacteremia likely a skin contamination per ID DVT prophylaxis SCDs due to anemia. GI prophylax Protonix Surgical services consulted Nephrology services consulted Infectious disease services consulted Blood culture ordered Patient started on IV antibiotics Plans for ERCP on 03/28/2025 Repeat labs ordered
--- NOTE | 2025-04-02 10:19 | P.PN ---
Subjective Progress Note Date: 04/02/25 Jose Saleem is a 79-year-old male patient who presented to the ER with concerns of weakness, abdominal pain and distention. Patient recently underwent an open cholecystectomy [address] Holland he was discharged home. Patient reports he has had decreased appetite and increased pain over the past few days denies fevers. Denies bowel movements denies any nausea or vomiting. Testing in the emergency room performed showing EKG sinus rhythm. Chest x-ray showing mild right subsegmental atelectasis at the diaphragm CT of abdomen and pelvis showing increasing free fluid throughout the abdomen particularly around the liver given recent history of cholecystectomy correlate for biliary leak. Airspace opacities in the lung bases correlate for pneumonia. Lab work completed showing hemoglobin 6.1. Sodium 129, creatinine 3.83 bun 87 troponin negative. Lactic acid 1.1. BNP 955 amylase and lipase within normal limits. Vital signs temp 98.1, heart rate 90, respiratory rate 22, blood pressure 146/79 with pulse ox of 98% on 2 L. Patient has a past medical history of CAD, GERD, hyperlipidemia, hypertension, osteoarthritis, prostate disorder and ex-smoker. At this time patient will be admitted surgical services consulted due to abnormal CT scan and recent cholecystectomy. Infectious disease also consulted due to concerns of infection and elevated white blood cell count. Nephrology services consulted for acute on chronic kidney disease. Patient was started on IV Rocephin in ER. Patient was given 2 units of PRBCs repeat hemoglobin 8.1. Blood culture ordered. On 03/27/2025 patient was seen and examined on the telemetry floor he is alert and oriented x 3 in no apparent distress, he is complaining of abdominal pain, during last night he had episodes of shortness of breath, chest x-ray was done and revealed bibasilar subsegmental atelectasis right more than left and el evated right hemidiaphragm, EKG was done and revealed normal sinus rhythm no acute changes. Patient was given 1 dose of IV Lasix 20 mg albuterol updraft was added to his medication regimen, today white blood count is up to 11.96 hemoglobin 8.5 platelet count 245 BUN 46 creatinine 1.1 ABG revealed pH 7.44 [id number] PO2 123, critical care consultation was added, results of biliary scan and chest x-ray reviewed, awaiting further recommendation from surgery. On 03/28/2025 patient is alert and oriented x 3. Plans for ERCP today per GI services per infectious disease but positive blood culture likely skin contamination no need for vancomycin continue cefepime and Flagyl. Multiple consults following including surgery, GI, pulmonary, infectious disease and nephrology services. Current vital signs temp 98.3, heart rate 78, respiratory rate 18, blood pressure 149/79 with pulse ox 97% on 2 L patient denies chest pain. Patient does report some shortness of breath. Patient denies any nausea or vomiting. Patient denies any urinary burning or frequency On 03/29/2025 patient is alert and oriented x 3. Patient underwent ERCP and underwent stent placement yesterday. Patient still having increased pain today. Patient remains on IV antibiotics. White blood cell increasing to 17.89 current vitals temp 98.2, heart rate 75 respiratory rate 21, blood pressure 128/49 with pulse ox of 95% on 2 L On 03/30/2025 patient was seen and examined on the medical floor he is alert and oriented x 3 in no apparent distress he is still complaining of abdominal discomfort he has mild shortness of breath with activity, otherwise he denies any complaints there is no fever or chills no headache or dizziness no chest pain no cough no nausea or vomiting no diarrhea and no urinary symptoms. White blood count today is up to 20,000, infectious disease following, surgery are following, we will continue with current medication regimen at this time On 03/31/2025 patient is alert and oriented x 3. Patient still complaining of abdominal pain and mild shortness of breath. Current vital signs temp 98.1, rate 82, respiratory rate 20, blood pressure 129/62 with pulse ox of 96% on room air. Patient remains on Maxipime and Levaquin. Patient denies chest pain. Patient denies nausea vomiting or diarrhea. Patient denies any urinary burning or frequency. White blood cells slightly improving to 16.0 alkaline phosphatase increasing to 756, ALT 32 AST 76 and total bili 2.8 On 04/01/2025 patient's alert and oriented x 3. Patient still reporting some abdominal discomfort. Patient remains on IV antibiotics multiple consults following patient denies chest pain. Patient denies nausea vomiting or diarrhea. Patient denies any urinary burning or frequency On 04/02/2025 patient is alert and oriented x 3. Patient reports improvement with abdominal discomfort. Complains of generalized weakness patient remains on IV Vanco cefepime and Levaquin. White blood cells trending down 11.6 today. Current vital signs temp 98.3, heart rate 79, respiratory rate 18, blood pressure 169/72 with a pulse ox of 96% on room air Objective - Vital Signs Vital signs: Vital Signs Temp 98.3 F 04/02/25 08:00 Pulse 88 04/02/25 08:57 Resp 18 04/02/25 08:00 BP 169/72 04/02/25 08:00 Pulse Ox 95 04/02/25 08:43 FiO2 Intake & Output 04/01/25 04/02/25 04/02/25 18:59 06:59 18:59 Intake Total 240 Output Total 100 Balance -100 240 Weight 97.9 kg 97.5 kg Intake: Oral 240 Output: Urine 100 Other: Voiding Method Toilet Toilet Urinal Urinal # Voids 2 - Exam Head normocephalic Neck supple Lungs clear to auscultation bilaterally no wheezing or crackles Heart regular rate and rhythm S1-S2, no rub or gallop Abdomen is soft distended. Hypoactive bowel sounds Extremities no edema Neuro alert and orientated to 3 - Labs CBC & Chem 7: 04/02/25 05:53 04/02/25 05:53 Labs: Abnormal Lab Results - Last 24 Hours (Table) 04/02/25 04/02/25 Range/Units 05:53 05:53 WBC 11.68 H (4.50-10.00) 10*3/uL RBC 2.79 L (4.40-5.60) 10*6/uL Hgb 8.0 L (13.0-17.0) g/dL Hct 24.6 L (39.6-50.0) % Immature Gran # 0.85 H (0.00-0.04) 10*3/uL Neutrophils # (Manual) 9.69 H (1.3-7.7) k/uL Lymphocytes # (Manual) 0.70 L (1.0-4.8) k/uL Metamyelocytes # (Man) 0.23 H (0) k/uL Myelocytes # (Manual) 0.23 H (0) k/uL Sodium 135 L (137-145) mmol/L BUN 26 H (9-20) mg/dL Glucose 100 H (74-99) mg/dL Calcium 7.7 L (8.4-10.2) mg/dL Alkaline Phosphatase 692 H (38-126) U/L Total Protein 5.0 L (6.3-8.2) g/dL Albumin 2.3 L (3.5-5.0) g/dL Microbiology - Last 24 Hours (Table) 03/30/25 15:43 Blood Culture - Preliminary Blood Assessment and Plan Assessment: 1. Anemia secondary to postop cholecystectomy 03/18/2025 2. Acute on chronic kidney disease 3. Abnormal CT postcholecystectomy 4. Concerns of possible pneumonia 5. History of coronary artery disease 6. History of GERD 7. History of hyperlipidemia 8. History of prostate disorder 9. History of essential hypertension 10. History of hyperlipidemia 11. Bacteremia likely a skin contamination per ID DVT prophylaxis SCDs due to anemia. GI prophylax Protonix Surgical services consulted Nephrology services consulted Infectious disease services consulted Blood culture ordered Patient started on IV antibiotics s/p ERCP on 03/28/2025 Repeat labs ordered
--- NOTE | 2025-04-02 13:09 | P.PN ---
Subjective Progress Note Date: 04/02/25 SURGICAL PROGRESS NOTE CHIEF COMPLAINT: Abdominal pain HISTORY OF PRESENT ILLNESS: Patient sitting up at bedside chair. He reports that his abdominal pain is getting better. He is able to tolerate diet. Appetite is still decreased. Denies any vomiting. Does report nausea. He does complain of his testicular swelling. He is currently on IV Lasix. Afebrile. WBC is down from 14-11 Hgb 8.0 total bilirubin is down to 1.3 LFTs are normal alk phos trending down from 900-692 PHYSICAL EXAM: VITAL SIGNS: Reviewed. GENERAL: Well-developed in no acute distress. ABDOMEN: Soft. Nondistended. Incision clean dry and intact NEUROLOGIC: Alert and oriented. Cranial nerves II through XII grossly intact. ASSESSMENT: 1. Status post open cholecystectomy with common bile duct stent for small biliary leak 2. Possible postoperative bleeding after cholecystectomy contributing to anemia. Patient requiring blood transfusion PLAN: - Continue antibiotics - Continue low-fat diet - Encourage patient to increase activity level - Patient can be discharged from surgical standpoint when medically cleared Physician Litigation Coordinator note has been reviewed by physician. Signing provider agrees with the documented findings, assessment, and plan of care. Objective - Vital Signs Vital signs: Vital Signs Temp 98 F 04/02/25 12:00 Pulse 77 04/02/25 12:00 Resp 20 04/02/25 12:00 BP 121/66 04/02/25 12:00 Pulse Ox 97 04/02/25 12:00 FiO2 Intake & Output 04/01/25 04/02/25 04/02/25 18:59 06:59 18:59 Intake Total 240 Output Total 100 Balance -100 240 Weight 97.9 kg 97.5 kg Intake: Oral 240 Output: Urine 100 Other: Voiding Method Toilet Toilet Urinal Urinal # Voids 2 - Labs CBC & Chem 7: 04/02/25 05:53 04/02/25 05:53 Labs: Abnormal Lab Results - Last 24 Hours (Table) 04/02/25 04/02/25 Range/Units 05:53 05:53 WBC 11.68 H (4.50-10.00) 10*3/uL RBC 2.79 L (4.40-5.60) 10*6/uL Hgb 8.0 L (13.0-17.0) g/dL Hct 24.6 L (39.6-50.0) % Immature Gran # 0.85 H (0.00-0.04) 10*3/uL Neutrophils # (Manual) 9.69 H (1.3-7.7) k/uL Lymphocytes # (Manual) 0.70 L (1.0-4.8) k/uL Metamyelocytes # (Man) 0.23 H (0) k/uL Myelocytes # (Manual) 0.23 H (0) k/uL Sodium 135 L (137-145) mmol/L BUN 26 H (9-20) mg/dL Glucose 100 H (74-99) mg/dL Calcium 7.7 L (8.4-10.2) mg/dL Alkaline Phosphatase 692 H (38-126) U/L Total Protein 5.0 L (6.3-8.2) g/dL Albumin 2.3 L (3.5-5.0) g/dL Microbiology - Last 24 Hours (Table) 03/30/25 15:43 Blood Culture - Preliminary Blood
[2025-04-02 15:38] LABS: African American GFR (CKD) 89 (>60 ml/min/1.73 sqM); Non-African American GFR(CKD) 77 (>60 ml/min/1.73 sqM)
--- NOTE | 2025-04-02 16:13 | P.PN ---
Subjective Progress Note Date: 04/01/25 Principal diagnosis: Reason for follow-up is possible biliary leak/cholangitis and a question of pneumonia Patient is a 79-year-old male with a past medical history significant for hypertension hyperlipidemia [place] coronary artery disease prostate disorder reflux in this patient who is status post laparoscopic cholecystectomy completed on 03/18/2025 now present to the hospital with increasing confusion abdominal pain and distention with evidence of fluid in the right upper quadrant on the CT and question of pneumonia HIDA scan biliary leak not excluded. Patient is s tatus post ERCP and biliary stent placement on 03/28/2025 On today's evaluation that is 04/01/2025, patient has been afebrile, patient is breathing comfortably and is currently on room air, patient denies having any chest pain and cough has decreased in intensity, patient denies nausea vomiting or diarrhea and no abdominal pain. Patient white count is down to 14.01 creatinine is 1.12 Objective - Vital Signs Vital signs: Vital Signs Temp 97.9 F 04/01/25 08:00 Pulse 78 04/01/25 11:43 Resp 16 04/01/25 11:43 BP 124/74 04/01/25 11:43 Pulse Ox 95 04/01/25 11:43 FiO2 Intake & Output 03/31/25 04/01/25 04/01/25 18:59 06:59 18:59 Intake Total 358 20 Output Total 850 600 Balance -492 -580 Weight 97.9 kg 97.9 kg Intake: Oral 358 20 Output: Urine 850 600 Other: Voiding Method Toilet Toilet Toilet Urinal Urinal Urinal # Voids 1 # Bowel Movements 1 - Exam GENERAL DESCRIPTION: An elderly male lying in bed in no distress RESPIRATORY SYSTEM: Unlabored breathing , decreased breath sounds at bases HEART: S1 S2 regular rate and rhythm , ABDOMEN: Soft , no tenderness EXTREMITIES: No edema feet - Labs CBC & Chem 7: 04/02/25 05:53 04/02/25 14:48 Labs: Abnormal Lab Results - Last 24 Hours (Table) 04/01/25 04/01/25 Range/Units 06:38 06:38 WBC 14.01 H (4.50-10.00) 10*3/uL RBC 2.64 L (4.40-5.60) 10*6/uL Hgb 7.8 L (13.0-17.0) g/dL Hct 23.3 L (39.6-50.0) % MPV 9.3 L (9.5-12.2) fL Immature Gran # 0.88 H (0.00-0.04) 10*3/uL Neutrophils # (Manual) 10.09 H (1.3-7.7) k/uL Lymphocytes # (Manual) 0.70 L (1.0-4.8) k/uL Eosinophils # (Manual) 2.66 H (0-0.7) k/uL Metamyelocytes # (Man) 0.14 H (0) k/uL Myelocytes # (Manual) 0.14 H (0) k/uL Sodium 131 L (137-145) mmol/L BUN 34 H (9-20) mg/dL Glucose 111 H (74-99) mg/dL Calcium 7.9 L (8.4-10.2) mg/dL Total Bilirubin 1.8 H (0.2-1.3) mg/dL AST 96 H (17-59) U/L ALT 54 H (4-49) U/L Alkaline Phosphatase 900 H (38-126) U/L Total Protein 5.0 L (6.3-8.2) g/dL Albumin 2.3 L (3.5-5.0) g/dL Microbiology - Last 24 Hours (Table) 03/30/25 15:43 Blood Culture - Preliminary Blood Assessment and Plan (1) Pneumonia Current Visit: Yes Status: Acute Code(s): J18.9 - PNEUMONIA, UNSPECIFIED ORGANISM SNOMED Code(s): 654655991 (2) Abdominal infection Current Visit: Yes Status: Acute Code(s): K65.9 - PERITONITIS, UNSPECIFIED SNOMED Code(s): 084451025 (3) Penicillin allergy Current Visit: Yes Status: Acute Code(s): Z88.0 - ALLERGY STATUS TO PENICILLIN SNOMED Code(s): 06406653 (4) Bacteremia Current Visit: Yes Status: Acute Code(s): R78.81 - BACTEREMIA SNOMED Code(s): 5066402 Plan: 1patient presented to hospital with abdominal pain confusion in this patient who is status post recent laparoscopic cholecystectomy now with a CT abdominal pelvis showing increased fluid in the right upper quadrant area with concern for possible biliary leak or developing infection also with evidence of right lower lobe airspace opacity concerning for possible pneumonia. 2HIDA scan biliary leak cannot be excluded GI has been consulted for possible ERCP and stent placement and scheduled for this afternoon 3-patient did have a positive blood culture with staph epi more likely skin contamination, repeat blood culture have been negative so far 4patient is afebrile, the patient white count is trending down today 5patient to continue vancomycin pharmacy to dose along with cefepime and Flagyl, monitor clinical course closely Dictation was produced using [employer] dictation software. please excuse any grammatical, word or spelling errors. Time with Patient: Less than 30
--- NOTE | 2025-04-02 16:14 | P.PN ---
Subjective Progress Note Date: 04/02/25 Principal diagnosis: Reason for follow-up is possible biliary leak/cholangitis and a question of pneumonia Patient is a 79-year-old male with a past medical history significant for hypertension hyperlipidemia OR coronary artery disease prostate disorder reflux in this patient who is status post laparoscopic cholecystectomy completed on 03/18/2025 now present to the hospital with increasing confusion abdominal pain and distention with evidence of fluid in the right upper quadrant on the CT and question of pneumonia HIDA scan biliary leak not excluded. Patient is s tatus post ERCP and biliary stent placement on 03/28/2025 On today's evaluation that is 04/02/2025, Patient is afebrile this morning patient denies having any chest pain shortness of breath and cough is decreased in intensity, the patient is currently on room air, patient denies any abdominal pain no diarrhea no nausea no vomiting, mention feeling better. Patient white count is down to 11.68 creatinine 1.04 Vanco trough is low at 8.2 blood culture repeat has been negative Objective - Vital Signs Vital signs: Vital Signs Temp 99.2 F 04/02/25 15:53 Pulse 85 04/02/25 16:05 Resp 22 04/02/25 15:53 BP 127/67 04/02/25 15:53 Pulse Ox 97 04/02/25 15:53 FiO2 Intake & Output 04/01/25 04/02/25 04/02/25 18:59 06:59 18:59 Intake Total 480 Output Total 100 Balance -100 480 Weight 97.9 kg 97.5 kg Intake: Oral 480 Output: Urine 100 Other: Voiding Method Toilet Toilet Urinal Urinal # Voids 2 - Exam GENERAL DESCRIPTION: An elderly male lying in bed in no distress RESPIRATORY SYSTEM: Unlabored breathing , decreased breath sounds at bases HEART: S1 S2 regular rate and rhythm , ABDOMEN: Soft , no tenderness EXTREMITIES: No edema feet - Labs CBC & Chem 7: 04/02/25 05:53 04/02/25 14:48 Labs: Abnormal Lab Results - Last 24 Hours (Table) 04/02/25 04/02/25 Range/Units 05:53 05:53 WBC 11.68 H (4.50-10.00) 10*3/uL RBC 2.79 L (4.40-5.60) 10*6/uL Hgb 8.0 L (13.0-17.0) g/dL Hct 24.6 L (39.6-50.0) % Immature Gran # 0.85 H (0.00-0.04) 10*3/uL Neutrophils # (Manual) 9.69 H (1.3-7.7) k/uL Lymphocytes # (Manual) 0.70 L (1.0-4.8) k/uL Metamyelocytes # (Man) 0.23 H (0) k/uL Myelocytes # (Manual) 0.23 H (0) k/uL Sodium 135 L (137-145) mmol/L BUN 26 H (9-20) mg/dL Glucose 100 H (74-99) mg/dL Calcium 7.7 L (8.4-10.2) mg/dL Alkaline Phosphatase 692 H (38-126) U/L Total Protein 5.0 L (6.3-8.2) g/dL Albumin 2.3 L (3.5-5.0) g/dL Microbiology - Last 24 Hours (Table) 03/30/25 15:43 Blood Culture - Preliminary Blood Assessment and Plan (1) Pneumonia Current Visit: Yes Status: Acute Code(s): J18.9 - PNEUMONIA, UNSPECIFIED ORGANISM SNOMED Code(s): 876465558 (2) Abdominal infection Current Visit: Yes Status: Acute Code(s): K65.9 - PERITONITIS, UNSPECIFIED SNOMED Code(s): 758336232 (3) Penicillin allergy Current Visit: Yes Status: Acute Code(s): Z88.0 - ALLERGY STATUS TO PENICILLIN SNOMED Code(s): 46822240 (4) Bacteremia Current Visit: Yes Status: Acute Code(s): R78.81 - BACTEREMIA SNOMED Code(s): 2844114 Plan: 1patient presented to hospital with abdominal pain confusion in this patient who is status post recent laparoscopic cholecystectomy now with a CT abdominal pelvis showing increased fluid in the right upper quadrant area with concern for possible biliary leak or developing infection also with evidence of right lower lobe airspace opacity concerning for possible pneumonia. 2HIDA scan biliary leak cannot be excluded GI has been consulted for possible ERCP and stent placement and scheduled for this afternoon 3-patient did have a positive blood culture with staph epi more likely skin contamination, repeat blood culture have been negative so far 4patient is afebrile, the patient white count is trending down to 11,000 5patient to continue vancomycin pharmacy to dose along with cefepime and Flagyl, hopefully will transition to oral antibiotics on discharge Dictation was produced using [employer] dictation software. please excuse any gramma tical, word or spelling errors. Time with Patient: Less than 30
--- NOTE | 2025-04-02 16:30 | P.PN ---
Subjective Patient is seen for follow-up for acute kidney injury. Renal function has improved and is fairly stable with serum creatinine decreased to 0.9 mg/dL Maintained on IV Lasix for volume overload No significant complaints today. Objective - Vital Signs Vital signs: Vital Signs Temp 99.2 F 04/02/25 15:53 Pulse 85 04/02/25 16:05 Resp 22 04/02/25 15:53 BP 127/67 04/02/25 15:53 Pulse Ox 97 04/02/25 15:53 FiO2 Intake & Output 04/01/25 04/02/25 04/02/25 18:59 06:59 18:59 Intake Total 480 Output Total 100 Balance -100 480 Weight 97.9 kg 97.5 kg Intake: Oral 480 Output: Urine 100 Other: Voiding Method Toilet Toilet Urinal Urinal # Voids 2 - Exam Patient is awake, comfortable, no acute distress Examination heart S1 and S2 Examination of the lungs decreased breath sounds at the bases Abdomen is soft nontender Examination lower extremity shows edema 1+ bilaterally - Labs CBC & Chem 7: 04/02/25 05:53 04/02/25 14:48 Labs: Abnormal Lab Results - Last 24 Hours (Table) 04/02/25 04/02/25 Range/Units 05:53 05:53 WBC 11.68 H (4.50-10.00) 10*3/uL RBC 2.79 L (4.40-5.60) 10*6/uL Hgb 8.0 L (13.0-17.0) g/dL Hct 24.6 L (39.6-50.0) % Immature Gran # 0.85 H (0.00-0.04) 10*3/uL Neutrophils # (Manual) 9.69 H (1.3-7.7) k/uL Lymphocytes # (Manual) 0.70 L (1.0-4.8) k/uL Metamyelocytes # (Man) 0.23 H (0) k/uL Myelocytes # (Manual) 0.23 H (0) k/uL Sodium 135 L (137-145) mmol/L BUN 26 H (9-20) mg/dL Glucose 100 H (74-99) mg/dL Calcium 7.7 L (8.4-10.2) mg/dL Alkaline Phosphatase 692 H (38-126) U/L Total Protein 5.0 L (6.3-8.2) g/dL Albumin 2.3 L (3.5-5.0) g/dL Microbiology - Last 24 Hours (Table) 03/30/25 15:43 Blood Culture - Preliminary Blood Assessment and Plan Assessment: 1. Acute kidney injury secondary to ATN secondary to hypovolemia. Creatinine 3.3 on admission and is improved to 0.9 today. No hydronephrosis noted on CT. 2. Chronic kidney disease stage IIIa with baseline creatinine of 1.3-1.4 secondary to nephrosclerosis. 3. Recent cholecystectomy with concern for biliary leak on CT. Surgery following. Status post ERCP with CBD stent placement March 28, 2025. 4. Acute blood loss anemia status post blood transfusions this admission. Improved. 5. Hypovolemic hyponatremia improved with fluids. Improved. Now hypervolemic. Plan: Increase Lasix Repeat labs in a.m.
[2025-04-02] MEDS: VANCOMYCIN TROUGH DUE 1 EACH MISC MISCELLANE ONE (17:59)
[2025-04-02] MEDS: FUROSEMIDE 10 MG/ML 2 ML VIAL IV SCH (17:59)
[2025-04-03 08:32] LABS: ALT 34 U/L (4-49); AST 37 U/L (17-59); African American GFR (CKD) 83 (>60 ml/min/1.73 sqM); Albumin 2.5 g/dL (3.5-5.0); Alkaline Phosphatase 569 U/L (38-126); Anion Gap 9 mmol/L; Blood Urea Nitrogen 20 mg/dL (9-20); Carbon Dioxide 26 mmol/L (22-30); Chloride 100 mmol/L (98-107); Glucose 123 mg/dL (74-99); Non-African American GFR(CKD) 72 (>60 ml/min/1.73 sqM); Potassium 3.8 mmol/L (3.5-5.1); Sodium 135 mmol/L (137-145); Total Bilirubin 1.3 mg/dL (0.2-1.3); Total Protein 5.4 g/dL (6.3-8.2)
[2025-04-03 08:38] LABS: Basophils # (A) 0.05 10*3/uL (0.00-0.10); Basophils % (A) 0.4 %; Eosinophils # (A) 0.14 10*3/uL (0.04-0.35); Eosinophils % (A) 1.1 %; HCT 26.2 % (39.6-50.0); HGB 8.7 g/dL (13.0-17.0); Lymphocytes # (A) 1.09 10*3/uL (0.90-5.00); Lymphocytes % (A) 8.2 %; MCH 29.2 pg (27.0-32.0); MCHC 33.2 g/dL (32.0-37.0); MCV 87.9 fL (80.0-97.0); Mean Platelet Volume 9.4 fL (9.5-12.2); Monocytes # (A) 1.13 10*3/uL (0.20-1.00); Monocytes % (A) 8.5 %; Neutrophils # (A) 10.02 10*3/uL (1.80-7.70); Neutrophils % (A) 75.8 %; Platelet Count 506 10*3/uL (140-440); RBC 2.98 10*6/uL (4.40-5.60); RDW 14.6 % (11.5-14.5); WBC 13.23 10*3/uL (4.50-10.00)
[2025-04-03] MEDS: SERTRALINE 25 MG TAB PO SCH (08:56)
[2025-04-03] MEDS: VANCOMYCIN 1,500 MG in SODIUM CHLORIDE 0.9% 500 ML 500 ML IVPB SCH (08:56)
[2025-04-03] MEDS: ONDANSETRON 4 MG/2 ML VIAL IVP PRN (11:09)
--- NOTE | 2025-04-03 12:56 | P.PN ---
Subjective Progress Note Date: 04/03/25 SURGICAL PROGRESS NOTE CHIEF COMPLAINT: Abdominal pain HISTORY OF PRESENT ILLNESS: Patient sitting up at bedside chair. Patient does report abdominal pain. But he does report the pain is improving each day. Denies any nausea or vomiting. He continues to have testicular swelling and on IV Lasix. Afebrile. WBC 11.6 up to 13.2 Hgb 8.7 total bilirubin 1.3 AST 37 ALT 34 alk phos trending down to 569 PHYSICAL EXAM: VITAL SIGNS: Reviewed. GENERAL: Well-developed in no acute distress. ABDOMEN: Soft. Nondistended. Incision clean dry and intact NEUROLOGIC: Alert and oriented. Cranial nerves II through XII grossly intact. Extremities lower extremity edema bilaterally ASSESSMENT: 1. Status post open cholecystectomy with common bile duct stent for small biliary leak 2. Possible postoperative bleeding after cholecystectomy contributing to anemia. Patient requiring blood transfusion 3. Elevated alk phos secondary to stent placement PLAN: - Continue antibiotics - Continue low-fat diet - Encourage patient to increase activity level -Continue to monitor Physician Managing Principal note has been reviewed by physician. Signing provider agrees with the documented findings, assessment, and plan of care. Objective - Vital Signs Vital signs: Vital Signs Temp 98.6 F 04/03/25 08:00 Pulse 96 04/03/25 12:26 Resp 18 04/03/25 08:00 BP 134/71 04/03/25 08:00 Pulse Ox 95 04/03/25 08:28 FiO2 Intake & Output 04/02/25 04/03/25 04/03/25 18:59 06:59 18:59 Intake Total 480 240 Output Total 450 600 Balance 30 -360 Weight 94.9 kg Intake: Oral 480 240 Output: Urine 450 600 Other: Voiding Method Toilet Toilet Urinal Urinal - Labs CBC & Chem 7: 04/03/25 07:23 04/03/25 07:23 Labs: Abnormal Lab Results - Last 24 Hours (Table) 04/03/25 04/03/25 Range/Units 07:23 07:23 WBC 13.23 H (4.50-10.00) 10*3/uL RBC 2.98 L (4.40-5.60) 10*6/uL Hgb 8.7 L (13.0-17.0) g/dL Hct 26.2 L (39.6-50.0) % Plt Count 506 H (140-440) 10*3/uL MPV 9.4 L (9.5-12.2) fL Immature Gran # 0.80 H (0.00-0.04) 10*3/uL Neutrophils # 10.02 H (1.80-7.70) 10*3/uL Monocytes # 1.13 H (0.20-1.00) 10*3/uL Sodium 135 L (137-145) mmol/L Glucose 123 H (74-99) mg/dL Calcium 8.0 L (8.4-10.2) mg/dL Alkaline Phosphatase 569 H (38-126) U/L Total Protein 5.4 L (6.3-8.2) g/dL Albumin 2.5 L (3.5-5.0) g/dL Microbiology - Last 24 Hours (Table) 03/30/25 15:43 Blood Culture - Preliminary Blood
--- NOTE | 2025-04-03 17:00 | P.PN ---
Subjective Progress Note Date: 04/03/25 Jose Saleem is a 79-year-old male patient who presented to the ER with concerns of weakness, abdominal pain and distention. Patient recently underwent an open cholecystectomy [address] Holland he was discharged home. Patient reports he has had decreased appetite and increased pain over the past few days denies fevers. Denies bowel movements denies any nausea or vomiting. Testing in the emergency room performed showing EKG sinus rhythm. Chest x-ray showing mild right subsegmental atelectasis at the diaphragm CT of abdomen and pelvis showing increasing free fluid throughout the abdomen particularly around the liver given recent history of cholecystectomy correlate for biliary leak. Airspace opacities in the lung bases correlate for pneumonia. Lab work completed showing hemoglobin 6.1. Sodium 129, creatinine 3.83 bun 87 troponin negative. Lactic acid 1.1. BNP 955 amylase and lipase within normal limits. Vital signs temp 98.1, heart rate 90, respiratory rate 22, blood pressure 146/79 with pulse ox of 98% on 2 L. Patient has a past medical history of CAD, GERD, hyperlipidemia, hypertension, osteoarthritis, prostate disorder and ex-smoker. At this time patient will be admitted surgical services consulted due to abnormal CT scan and recent cholecystectomy. Infectious disease also consulted due to concerns of infection and elevated white blood cell count. Nephrology services consulted for acute on chronic kidney disease. Patient was started on IV Rocephin in ER. Patient was given 2 units of PRBCs repeat hemoglobin 8.1. Blood culture ordered. On 03/27/2025 patient was seen and examined on the telemetry floor he is alert and oriented x 3 in no apparent distress, he is complaining of abdominal pain, during last night he had episodes of shortness of breath, chest x-ray was done and revealed bibasilar subsegmental atelectasis right more than left and el evated right hemidiaphragm, EKG was done and revealed normal sinus rhythm no acute changes. Patient was given 1 dose of IV Lasix 20 mg albuterol updraft was added to his medication regimen, today white blood count is up to 11.96 hemoglobin 8.5 platelet count 245 BUN 46 creatinine 1.1 ABG revealed pH 7.44 [id number] PO2 123, critical care consultation was added, results of biliary scan and chest x-ray reviewed, awaiting further recommendation from surgery. On 03/28/2025 patient is alert and oriented x 3. Plans for ERCP today per GI services per infectious disease but positive blood culture likely skin contamination no need for vancomycin continue cefepime and Flagyl. Multiple consults following including surgery, GI, pulmonary, infectious disease and nephrology services. Current vital signs temp 98.3, heart rate 78, respiratory rate 18, blood pressure 149/79 with pulse ox 97% on 2 L patient denies chest pain. Patient does report some shortness of breath. Patient denies any nausea or vomiting. Patient denies any urinary burning or frequency On 03/29/2025 patient is alert and oriented x 3. Patient underwent ERCP and underwent stent placement yesterday. Patient still having increased pain today. Patient remains on IV antibiotics. White blood cell increasing to 17.89 current vitals temp 98.2, heart rate 75 respiratory rate 21, blood pressure 128/49 with pulse ox of 95% on 2 L On 03/30/2025 patient was seen and examined on the medical floor he is alert and oriented x 3 in no apparent distress he is still complaining of abdominal discomfort he has mild shortness of breath with activity, otherwise he denies any complaints there is no fever or chills no headache or dizziness no chest pain no cough no nausea or vomiting no diarrhea and no urinary symptoms. White blood count today is up to 20,000, infectious disease following, surgery are following, we will continue with current medication regimen at this time On 03/31/2025 patient is alert and oriented x 3. Patient still complaining of abdominal pain and mild shortness of breath. Current vital signs temp 98.1, rate 82, respiratory rate 20, blood pressure 129/62 with pulse ox of 96% on room air. Patient remains on Maxipime and Levaquin. Patient denies chest pain. Patient denies nausea vomiting or diarrhea. Patient denies any urinary burning or frequency. White blood cells slightly improving to 16.0 alkaline phosphatase increasing to 756, ALT 32 AST 76 and total bili 2.8 On 04/01/2025 patient's alert and oriented x 3. Patient still reporting some abdominal discomfort. Patient remains on IV antibiotics multiple consults following patient denies chest pain. Patient denies nausea vomiting or diarrhea. Patient denies any urinary burning or frequency On 04/02/2025 patient is alert and oriented x 3. Patient reports improvement with abdominal discomfort. Complains of generalized weakness patient remains on IV Vanco cefepime and Levaquin. White blood cells trending down 11.6 today. Current vital signs temp 98.3, heart rate 79, respiratory rate 18, blood pressure 169/72 with a pulse ox of 96% on room air On 04/03/2025 patient was seen and examined on the medical floor he is alert and oriented x 3 in no apparent distress, he is still complaining of mild abdominal pain otherwise he denies any complaints there is no fever or chills no headache or dizziness no chest pain no shortness of breath no cough no nausea or vomiting no diarrhea and no urinary symptoms. White blood count is slightly up today to 13.23 hemoglobin 8.7 platelet count 506 patient remains on IV antibiotic infectious disease following will continue to follow closely Objective - Vital Signs Vital signs: Vital Signs Temp 97.9 F 04/02/25 20:57 Pulse 78 04/03/25 08:38 Resp 18 04/03/25 04:29 BP 124/69 04/03/25 04:29 Pulse Ox 95 04/03/25 08:28 FiO2 Intake & Output 04/02/25 04/03/25 04/03/25 18:59 06:59 18:59 Intake Total 480 240 Output Total 450 600 Balance 30 -360 Weight 94.9 kg Intake: Oral 480 240 Output: Urine 450 600 Other: Voiding Method Toilet Urinal - Exam Head normocephalic Neck supple Lungs clear to auscultation bilaterally no wheezing or crackles Heart regular rate and rhythm S1-S2, no rub or gallop Abdomen is soft distended. Hypoactive bowel sounds Extremities no edema Neuro alert and orientated to 3 - Labs CBC & Chem 7: 04/03/25 07:23 04/03/25 07:23 Labs: Abnormal Lab Results - Last 24 Hours (Table) 04/03/25 04/03/25 Range/Units 07:23 07:23 WBC 13.23 H (4.50-10.00) 10*3/uL RBC 2.98 L (4.40-5.60) 10*6/uL Hgb 8.7 L (13.0-17.0) g/dL Hct 26.2 L (39.6-50.0) % Plt Count 506 H (140-440) 10*3/uL MPV 9.4 L (9.5-12.2) fL Immature Gran # 0.80 H (0.00-0.04) 10*3/uL Neutrophils # 10.02 H (1.80-7.70) 10*3/uL Monocytes # 1.13 H (0.20-1.00) 10*3/uL Sodium 135 L (137-145) mmol/L Glucose 123 H (74-99) mg/dL Calcium 8.0 L (8.4-10.2) mg/dL Alkaline Phosphatase 569 H (38-126) U/L Total Protein 5.4 L (6.3-8.2) g/dL Albumin 2.5 L (3.5-5.0) g/dL Microbiology - Last 24 Hours (Table) 03/30/25 15:43 Blood Culture - Preliminary Blood Assessment and Plan Assessment: 1. Anemia secondary to postop cholecystectomy 03/18/2025 2. Acute on chronic kidney disease 3. Abnormal CT postcholecystectomy 4. Concerns of possible pneumonia 5. History of coronary artery disease 6. History of GERD 7. History of hyperlipidemia 8. History of prostate disorder 9. History of essential hypertension 10. History of hyperlipidemia 11. Bacteremia likely a skin contamination per ID DVT prophylaxis SCDs due to anemia. GI prophylax Protonix Surgical services consulted Nephrology services consulted Infectious disease services consulted Blood culture ordered Patient started on IV antibiotics s/p ERCP on 03/28/2025 Repeat labs ordered
[2025-04-03] MEDS: LACTULOSE 20 GM/30 ML CUP PO SCH (20:25)
[2025-04-03] MEDS: LORazepam 0.5 MG TAB PO PRN (20:25)
[2025-04-04 06:55] LABS: Basophils # (A) 0.03 10*3/uL (0.00-0.10); Basophils % (A) 0.3 %; Eosinophils % (A) 0.9 %; HCT 25.1 % (39.6-50.0); Lymphocytes # (A) 1.14 10*3/uL (0.90-5.00); Lymphocytes % (A) 10.2 %; MCHC 31.9 g/dL (32.0-37.0); MCV 87.8 fL (80.0-97.0); Mean Platelet Volume 9.3 fL (9.5-12.2); Monocytes # (A) 1.08 10*3/uL (0.20-1.00); Monocytes % (A) 9.6 %; Neutrophils % (A) 74.9 %; Platelet Count 421 10*3/uL (140-440); RBC 2.86 10*6/uL (4.40-5.60); RDW 14.7 % (11.5-14.5); WBC 11.21 10*3/uL (4.50-10.00)
[2025-04-04 07:09] LABS: ALT 29 U/L (4-49); AST 31 U/L (17-59); African American GFR (CKD) >90 (>60 ml/min/1.73 sqM); Albumin 2.5 g/dL (3.5-5.0); Alkaline Phosphatase 457 U/L (38-126); Anion Gap 8 mmol/L; Blood Urea Nitrogen 17 mg/dL (9-20); Carbon Dioxide 27 mmol/L (22-30); Chloride 97 mmol/L (98-107); Glucose 109 mg/dL (74-99); Non-African American GFR(CKD) 81 (>60 ml/min/1.73 sqM); Potassium 3.7 mmol/L (3.5-5.1); Sodium 132 mmol/L (137-145); Total Bilirubin 1.1 mg/dL (0.2-1.3); Total Protein 5.3 g/dL (6.3-8.2)
[2025-04-04 08:23] VITALS: RESP 14
--- NOTE | 2025-04-04 10:58 | P.PN ---
Subjective Progress Note Date: 04/04/25 Jose Saleem is a 79-year-old male patient who presented to the ER with concerns of weakness, abdominal pain and distention. Patient recently underwent an open cholecystectomy [address] Holland he was discharged home. Patient reports he has had decreased appetite and increased pain over the past few days denies fevers. Denies bowel movements denies any nausea or vomiting. Testing in the emergency room performed showing EKG sinus rhythm. Chest x-ray showing mild right subsegmental atelectasis at the diaphragm CT of abdomen and pelvis showing increasing free fluid throughout the abdomen particularly around the liver given recent history of cholecystectomy correlate for biliary leak. Airspace opacities in the lung bases correlate for pneumonia. Lab work completed showing hemoglobin 6.1. Sodium 129, creatinine 3.83 bun 87 troponin negative. Lactic acid 1.1. BNP 955 amylase and lipase within normal limits. Vital signs temp 98.1, heart rate 90, respiratory rate 22, blood pressure 146/79 with pulse ox of 98% on 2 L. Patient has a past medical history of CAD, GERD, hyperlipidemia, hypertension, osteoarthritis, prostate disorder and ex-smoker. At this time patient will be admitted surgical services consulted due to abnormal CT scan and recent cholecystectomy. Infectious disease also consulted due to concerns of infection and elevated white blood cell count. Nephrology services consulted for acute on chronic kidney disease. Patient was started on IV Rocephin in ER. Patient was given 2 units of PRBCs repeat hemoglobin 8.1. Blood culture ordered. On 03/27/2025 patient was seen and examined on the telemetry floor he is alert and oriented x 3 in no apparent distress, he is complaining of abdominal pain, during last night he had episodes of shortness of breath, chest x-ray was done and revealed bibasilar subsegmental atelectasis right more than left and el evated right hemidiaphragm, EKG was done and revealed normal sinus rhythm no acute changes. Patient was given 1 dose of IV Lasix 20 mg albuterol updraft was added to his medication regimen, today white blood count is up to 11.96 hemoglobin 8.5 platelet count 245 BUN 46 creatinine 1.1 ABG revealed pH 7.44 [id number] PO2 123, critical care consultation was added, results of biliary scan and chest x-ray reviewed, awaiting further recommendation from surgery. On 03/28/2025 patient is alert and oriented x 3. Plans for ERCP today per GI services per infectious disease but positive blood culture likely skin contamination no need for vancomycin continue cefepime and Flagyl. Multiple consults following including surgery, GI, pulmonary, infectious disease and nephrology services. Current vital signs temp 98.3, heart rate 78, respiratory rate 18, blood pressure 149/79 with pulse ox 97% on 2 L patient denies chest pain. Patient does report some shortness of breath. Patient denies any nausea or vomiting. Patient denies any urinary burning or frequency On 03/29/2025 patient is alert and oriented x 3. Patient underwent ERCP and underwent stent placement yesterday. Patient still having increased pain today. Patient remains on IV antibiotics. White blood cell increasing to 17.89 current vitals temp 98.2, heart rate 75 respiratory rate 21, blood pressure 128/49 with pulse ox of 95% on 2 L On 03/30/2025 patient was seen and examined on the medical floor he is alert and oriented x 3 in no apparent distress he is still complaining of abdominal discomfort he has mild shortness of breath with activity, otherwise he denies any complaints there is no fever or chills no headache or dizziness no chest pain no cough no nausea or vomiting no diarrhea and no urinary symptoms. White blood count today is up to 20,000, infectious disease following, surgery are following, we will continue with current medication regimen at this time On 03/31/2025 patient is alert and oriented x 3. Patient still complaining of abdominal pain and mild shortness of breath. Current vital signs temp 98.1, rate 82, respiratory rate 20, blood pressure 129/62 with pulse ox of 96% on room air. Patient remains on Maxipime and Levaquin. Patient denies chest pain. Patient denies nausea vomiting or diarrhea. Patient denies any urinary burning or frequency. White blood cells slightly improving to 16.0 alkaline phosphatase increasing to 756, ALT 32 AST 76 and total bili 2.8 On 04/01/2025 patient's alert and oriented x 3. Patient still reporting some abdominal discomfort. Patient remains on IV antibiotics multiple consults following patient denies chest pain. Patient denies nausea vomiting or diarrhea. Patient denies any urinary burning or frequency On 04/02/2025 patient is alert and oriented x 3. Patient reports improvement with abdominal discomfort. Complains of generalized weakness patient remains on IV Vanco cefepime and Levaquin. White blood cells trending down 11.6 today. Current vital signs temp 98.3, heart rate 79, respiratory rate 18, blood pressure 169/72 with a pulse ox of 96% on room air On 04/03/2025 patient was seen and examined on the medical floor he is alert and oriented x 3 in no apparent distress, he is still complaining of mild abdominal pain otherwise he denies any complaints there is no fever or chills no headache or dizziness no chest pain no shortness of breath no cough no nausea or vomiting no diarrhea and no urinary symptoms. White blood count is slightly up today to 13.23 hemoglobin 8.7 platelet count 506 patient remains on IV antibiotic infectious disease following will continue to follow closely On 04/04/2025 patient is alert and oriented x 3. Patient still eager to be DC'd home. Patient is having increased swelling to abdomen and testicles. Patient remains on IV Lasix per nephrology services awaiting final recommendations per nephrology and infectious disease services. Patient remains on IV Vanco Levaquin and Maxipime. Patient denies chest pain or shortness of breath. Patient denies nausea vomiting or diarrhea. Patient denies any urinary burning or frequency Objective - Vital Signs Vital signs: Vital Signs Temp 99 F 04/04/25 08:21 Pulse 84 04/04/25 08:21 Resp 14 04/04/25 08:21 BP 156/82 04/04/25 08:21 Pulse Ox 95 04/04/25 08:21 FiO2 Intake & Output 04/03/25 04/04/25 04/04/25 18:59 06:59 18:59 Intake Total 480 840 120 Balance 480 840 120 Weight 94.7 kg Intake: Intake, IV Titration 600 Amount Cefepime 2 gm In Sodium 100 Chloride 0.9% 100 ml @ 25 mls/hr IVPB Q12H [facility] Rx# :[id number] Vancomycin 1,500 mg In 500 Sodium Chloride 0.9% 500 ml 500 ml @ 167 mls/hr IVPB Q16H [facility] Rx#: [id number] Oral 480 240 120 Other: Voiding Method Toilet Toilet Urinal Urinal # Voids 2 1 # Bowel Movements 1 1 - Exam Head normocephalic Neck supple Lungs clear to auscultation bilaterally no wheezing or crackles Heart regular rate and rhythm S1-S2, no rub or gallop Abdomen is soft distended. Hypoactive bowel sounds Extremities no edema Neuro alert and orientated to 3 - Labs CBC & Chem 7: 04/04/25 05:47 04/04/25 05:47 Labs: Abnormal Lab Results - Last 24 Hours (Table) 04/04/25 04/04/25 Range/Units 05:47 05:47 WBC 11.21 H (4.50-10.00) 10*3/uL RBC 2.86 L (4.40-5.60) 10*6/uL Hgb 8.0 L (13.0-17.0) g/dL Hct 25.1 L (39.6-50.0) % MCHC 31.9 L (32.0-37.0) g/dL MPV 9.3 L (9.5-12.2) fL Immature Gran # 0.46 H (0.00-0.04) 10*3/uL Neutrophils # 8.40 H (1.80-7.70) 10*3/uL Monocytes # 1.08 H (0.20-1.00) 10*3/uL Sodium 132 L (137-145) mmol/L Chloride 97 L (98-107) mmol/L Glucose 109 H (74-99) mg/dL Calcium 8.0 L (8.4-10.2) mg/dL Alkaline Phosphatase 457 H (38-126) U/L Total Protein 5.3 L (6.3-8.2) g/dL Albumin 2.5 L (3.5-5.0) g/dL Assessment and Plan Assessment: 1. Anemia secondary to postop cholecystectomy 03/18/2025 2. Acute on chronic kidney disease 3. Abnormal CT postcholecystectomy 4. Concerns of possible pneumonia 5. History of coronary artery disease 6. History of GERD 7. History of hyperlipidemia 8. History of prostate disorder 9. History of essential hypertension 10. History of hyperlipidemia 11. Bacteremia likely a skin contamination per ID DVT prophylaxis SCDs due to anemia. GI prophylax Protonix Surgical services consulted Nephrology services consulted Infectious disease services consulted Blood culture ordered Patient started on IV antibiotics s/p ERCP on 03/28/2025 Repeat labs ordered
--- NOTE | 2025-04-04 12:48 | P.PN ---
Subjective Progress Note Date: 04/04/25 SURGICAL PROGRESS NOTE CHIEF COMPLAINT: Abdominal pain HISTORY OF PRESENT ILLNESS: Patient sitting up at bedside chair. Patient reports he wants to be discharged. He reports his pain is controlled. He is tolerating diet. He has been ambulating. Afebrile. WBC is down from 13-11 Hgb 8.0 total bilirubin 1.1 AST 31 ALT 29 alk phos 487 PHYSICAL EXAM: VITAL SIGNS: Reviewed. GENERAL: Well-developed in no acute distress. ABDOMEN: Soft. Nondistended. Incision clean dry and intact NEUROLOGIC: Alert and oriented. Cranial nerves II through XII grossly intact. Extremities lower extremity edema bilaterally ASSESSMENT: 1. Status post open cholecystectomy with common bile duct stent for small philomena iary leak 2. Possible postoperative bleeding after cholecystectomy contributing to anemia. Patient requiring blood transfusion 3. Elevated alk phos secondary to stent placement PLAN: -Patient can be discharged from surgical standpoint -Will have nursing staff remove every other staple from right upper quadrant surgical incision. Also remove constantino from trocar sites -Antibiotics per ID service - Continue low-fat diet - Encourage patient to increase activity level Physician Property Damage Claims Adjustor note has been reviewed by physician. Signing provider agrees with the documented findings, assessment, and plan of care. Objective - Vital Signs Vital signs: Vital Signs Temp 98.1 F 04/04/25 12:36 Pulse 79 04/04/25 12:36 Resp 14 04/04/25 12:36 BP 164/76 04/04/25 12:36 Pulse Ox 96 04/04/25 12:36 FiO2 Intake & Output 04/03/25 04/04/25 04/04/25 18:59 06:59 18:59 Intake Total 480 840 120 Balance 480 840 120 Weight 94.7 kg Intake: Intake, IV Titration 600 Amount Cefepime 2 gm In Sodium 100 Chloride 0.9% 100 ml @ 25 mls/hr IVPB Q12H [facility] Rx# :[id number] Vancomycin 1,500 mg In 500 Sodium Chloride 0.9% 500 ml 500 ml @ 167 mls/hr IVPB Q16H [facility] Rx#: [id number] Oral 480 240 120 Other: Voiding Method Toilet Toilet Urinal Urinal # Voids 2 1 # Bowel Movements 1 1 - Labs CBC & Chem 7: 04/04/25 05:47 04/04/25 05:47 Labs: Abnormal Lab Results - Last 24 Hours (Table) 04/04/25 04/04/25 Range/Units 05:47 05:47 WBC 11.21 H (4.50-10.00) 10*3/uL RBC 2.86 L (4.40-5.60) 10*6/uL Hgb 8.0 L (13.0-17.0) g/dL Hct 25.1 L (39.6-50.0) % MCHC 31.9 L (32.0-37.0) g/dL MPV 9.3 L (9.5-12.2) fL Immature Gran # 0.46 H (0.00-0.04) 10*3/uL Neutrophils # 8.40 H (1.80-7.70) 10*3/uL Monocytes # 1.08 H (0.20-1.00) 10*3/uL Sodium 132 L (137-145) mmol/L Chloride 97 L (98-107) mmol/L Glucose 109 H (74-99) mg/dL Calcium 8.0 L (8.4-10.2) mg/dL Alkaline Phosphatase 457 H (38-126) U/L Total Protein 5.3 L (6.3-8.2) g/dL Albumin 2.5 L (3.5-5.0) g/dL
--- NOTE | 2025-04-04 14:31 | P.PN ---
Subjective Patient is seen for follow-up for acute kidney injury. Renal function has improved and is fairly stable with serum creatinine decreased to 0.9 mg/dL Maintained on IV Lasix for volume overload No significant complaints today. Objective - Vital Signs Vital signs: Vital Signs Temp 98.1 F 04/04/25 12:36 Pulse 79 04/04/25 12:36 Resp 14 04/04/25 12:36 BP 164/76 04/04/25 12:36 Pulse Ox 96 04/04/25 12:36 FiO2 Intake & Output 04/03/25 04/04/25 04/04/25 18:59 06:59 18:59 Intake Total 480 840 120 Balance 480 840 120 Weight 94.7 kg Intake: Intake, IV Titration 600 Amount Cefepime 2 gm In Sodium 100 Chloride 0.9% 100 ml @ 25 mls/hr IVPB Q12H [facility] Rx# :[id number] Vancomycin 1,500 mg In 500 Sodium Chloride 0.9% 500 ml 500 ml @ 167 mls/hr IVPB Q16H [facility] Rx#: [id number] Oral 480 240 120 Other: Voiding Method Toilet Toilet Toilet Urinal Urinal Urinal # Voids 2 1 # Bowel Movements 1 1 - Exam Patient is awake, comfortable, no acute distress Examination heart S1 and S2 Examination of the lungs decreased breath sounds at the bases Abdomen is soft nontender Examination lower extremity shows edema 1+ bilaterally - Labs CBC & Chem 7: 04/04/25 05:47 04/04/25 05:47 Labs: Abnormal Lab Results - Last 24 Hours (Table) 04/04/25 04/04/25 Range/Units 05:47 05:47 WBC 11.21 H (4.50-10.00) 10*3/uL RBC 2.86 L (4.40-5.60) 10*6/uL Hgb 8.0 L (13.0-17.0) g/dL Hct 25.1 L (39.6-50.0) % MCHC 31.9 L (32.0-37.0) g/dL MPV 9.3 L (9.5-12.2) fL Immature Gran # 0.46 H (0.00-0.04) 10*3/uL Neutrophils # 8.40 H (1.80-7.70) 10*3/uL Monocytes # 1.08 H (0.20-1.00) 10*3/uL Sodium 132 L (137-145) mmol/L Chloride 97 L (98-107) mmol/L Glucose 109 H (74-99) mg/dL Calcium 8.0 L (8.4-10.2) mg/dL Alkaline Phosphatase 457 H (38-126) U/L Total Protein 5.3 L (6.3-8.2) g/dL Albumin 2.5 L (3.5-5.0) g/dL Assessment and Plan Assessment: 1. Acute kidney injury secondary to ATN secondary to hypovolemia. Creatinine 3.3 on admission and is improved to 0.9. No hydronephrosis noted on CT. 2. Chronic kidney disease stage IIIa with baseline creatinine of 1.3-1.4 secondary to nephrosclerosis. 3. Recent cholecystectomy with concern for biliary leak on CT. Surgery following. Status post ERCP with CBD stent placement March 28, 2025. 4. Acute blood loss anemia status post blood transfusions this admission. Improved. 5. Hypovolemic hyponatremia on initial admission improved with fluids. Now hypervolemic. 6. Volume overload maintained on IV diuretics Plan: Continue with current dose of IV Lasix. If patient is being discharged we can switch to oral Lasix 60 mg twice a day at time of discharge Repeat labs in a.m.
[2025-04-04] MEDS ORDERED: VANCOMYCIN TROUGH DUE 1 EACH MISC MISCELLANE ONE (15:00)
--- NOTE | 2025-04-04 15:34 | P.PN ---
Subjective Progress Note Date: 04/03/25 Principal diagnosis: Reason for follow-up is possible biliary leak/cholangitis and a question of pneumonia Patient is a 79-year-old male with a past medical history significant for hypertension hyperlipidemia NM coronary artery disease prostate disorder reflux in this patient who is status post laparoscopic cholecystectomy completed on 03/18/2025 now present to the hospital with increasing confusion abdominal pain and distention with evidence of fluid in the right upper quadrant on the CT and question of pneumonia HIDA scan biliary leak not excluded. Patient is s tatus post ERCP and biliary stent placement on 03/28/2025 On today's evaluation that is 04/03/2025,the patient denies any fever or any chills, patient is breathing comfortably on room air, the patient denies chest pain shortness of breath and no significant cough, patient denies abdominal pain, no nausea vomiting or diarrhea. Patient white count slightly up to 13.23 creatinine 1.01 Objective - Vital Signs Vital signs: Vital Signs Temp 98.6 F 04/03/25 08:00 Pulse 96 04/03/25 12:26 Resp 18 04/03/25 08:00 BP 134/71 04/03/25 08:00 Pulse Ox 95 04/03/25 08:28 FiO2 Intake & Output 04/02/25 04/03/25 04/03/25 18:59 06:59 18:59 Intake Total 480 240 240 Output Total 450 600 Balance 30 -360 240 Weight 94.9 kg Intake: Oral 480 240 240 Output: Urine 450 600 Other: Voiding Method Toilet Toilet Urinal Urinal - Exam GENERAL DESCRIPTION: An elderly male lying in bed in no distress RESPIRATORY SYSTEM: Unlabored breathing , decreased breath sounds at bases HEART: S1 S2 regular rate and rhythm , ABDOMEN: Soft , no tenderness EXTREMITIES: No edema feet - Labs CBC & Chem 7: 04/04/25 05:47 04/04/25 05:47 Labs: Abnormal Lab Results - Last 24 Hours (Table) 04/03/25 04/03/25 Range/Units 07:23 07:23 WBC 13.23 H (4.50-10.00) 10*3/uL RBC 2.98 L (4.40-5.60) 10*6/uL Hgb 8.7 L (13.0-17.0) g/dL Hct 26.2 L (39.6-50.0) % Plt Count 506 H (140-440) 10*3/uL MPV 9.4 L (9.5-12.2) fL Immature Gran # 0.80 H (0.00-0.04) 10*3/uL Neutrophils # 10.02 H (1.80-7.70) 10*3/uL Monocytes # 1.13 H (0.20-1.00) 10*3/uL Sodium 135 L (137-145) mmol/L Glucose 123 H (74-99) mg/dL Calcium 8.0 L (8.4-10.2) mg/dL Alkaline Phosphatase 569 H (38-126) U/L Total Protein 5.4 L (6.3-8.2) g/dL Albumin 2.5 L (3.5-5.0) g/dL Microbiology - Last 24 Hours (Table) 03/30/25 15:43 Blood Culture - Preliminary Blood Assessment and Plan (1) Pneumonia Current Visit: Yes Status: Acute Code(s): J18.9 - PNEUMONIA, UNSPECIFIED ORGANISM SNOMED Code(s): 303075149 (2) Abdominal infection Current Visit: Yes Status: Acute Code(s): K65.9 - PERITONITIS, UNSPECIFIED SNOMED Code(s): 578268727 (3) Penicillin allergy Current Visit: Yes Status: Acute Code(s): Z88.0 - ALLERGY STATUS TO PENICILLIN SNOMED Code(s): 08164509 (4) Bacteremia Current Visit: Yes Status: Acute Code(s): R78.81 - BACTEREMIA SNOMED Code(s): 9920940 Plan: 1patient presented to hospital with abdominal pain confusion in this patient who is status post recent laparoscopic cholecystectomy now with a CT abdominal pelvis showing increased fluid in the right upper quadrant area with concern for possible biliary leak or developing infection also with evidence of right lower lobe airspace opacity concerning for possible pneumonia. 2HIDA scan biliary leak cannot be excluded GI has been consulted for possible ERCP and stent placement and scheduled for this afternoon 3-patient did have a positive blood culture with staph epi more likely skin contamination, repeat blood culture have been negative so far 4patient is afebrile, the patient white count is slightly up today at 13,000 we will need to closely 5patient to continue vancomycin pharmacy to dose along with cefepime and Flagyl, Dictation was produced using [employer] dictation software. please excuse any grammatical, word or spelling errors. Time with Patient: Less than 30
--- NOTE | 2025-04-04 15:35 | P.PN ---
Subjective Progress Note Date: 04/04/25 Principal diagnosis: Reason for follow-up is possible biliary leak/cholangitis and a question of pneumonia Patient is a 79-year-old male with a past medical history significant for hypertension hyperlipidemia [place] coronary artery disease prostate disorder reflux in this patient who is status post laparoscopic cholecystectomy completed on 03/18/2025 now present to the hospital with increasing confusion abdominal pain and distention with evidence of fluid in the right upper quadrant on the CT and question of pneumonia HIDA scan biliary leak not excluded. Patient is s tatus post ERCP and biliary stent placement on 03/28/2025 On today's evaluation that is 04/04/2025,the patient remains to be afebrile, patient is on room air not requiring supplemental oxygen and denies any shortness of breath no chest pain or cough.Patient denies having any nausea or vomiting, no abdominal pain and no diarrhea has been reported Patient white count is down to 11.21 creatinine 0.91 Objective - Vital Signs Vital signs: Vital Signs Temp 99 F 04/04/25 08:21 Pulse 84 04/04/25 08:21 Resp 14 04/04/25 08:21 BP 156/82 04/04/25 08:21 Pulse Ox 95 04/04/25 08:21 FiO2 Intake & Output 04/03/25 04/04/25 04/04/25 18:59 06:59 18:59 Intake Total 480 840 120 Balance 480 840 120 Weight 94.7 kg Intake: Intake, IV Titration 600 Amount Cefepime 2 gm In Sodium 100 Chloride 0.9% 100 ml @ 25 mls/hr IVPB Q12H [facility] Rx# :[id number] Vancomycin 1,500 mg In 500 Sodium Chloride 0.9% 500 ml 500 ml @ 167 mls/hr IVPB Q16H [facility] Rx#: [id number] Oral 480 240 120 Other: Voiding Method Toilet Toilet Urinal Urinal # Voids 2 1 # Bowel Movements 1 1 - Exam GENERAL DESCRIPTION: An elderly male lying in bed in no distress RESPIRATORY SYSTEM: Unlabored breathing , decreased breath sounds at bases HEART: S1 S2 regular rate and rhythm , ABDOMEN: Soft , no tenderness EXTREMITIES: No edema feet - Labs CBC & Chem 7: 04/04/25 05:47 04/04/25 05:47 Labs: Abnormal Lab Results - Last 24 Hours (Table) 04/04/25 04/04/25 Range/Units 05:47 05:47 WBC 11.21 H (4.50-10.00) 10*3/uL RBC 2.86 L (4.40-5.60) 10*6/uL Hgb 8.0 L (13.0-17.0) g/dL Hct 25.1 L (39.6-50.0) % MCHC 31.9 L (32.0-37.0) g/dL MPV 9.3 L (9.5-12.2) fL Immature Gran # 0.46 H (0.00-0.04) 10*3/uL Neutrophils # 8.40 H (1.80-7.70) 10*3/uL Monocytes # 1.08 H (0.20-1.00) 10*3/uL Sodium 132 L (137-145) mmol/L Chloride 97 L (98-107) mmol/L Glucose 109 H (74-99) mg/dL Calcium 8.0 L (8.4-10.2) mg/dL Alkaline Phosphatase 457 H (38-126) U/L Total Protein 5.3 L (6.3-8.2) g/dL Albumin 2.5 L (3.5-5.0) g/dL Assessment and Plan (1) Pneumonia Current Visit: Yes Status: Acute Code(s): J18.9 - PNEUMONIA, UNSPECIFIED ORG ANISM SNOMED Code(s): 158603514 (2) Abdominal infection Current Visit: Yes Status: Acute Code(s): K65.9 - PERITONITIS, UNSPECIFIED SNOMED Code(s): 203523281 (3) Penicillin allergy Current Visit: Yes Status: Acute Code(s): Z88.0 - ALLERGY STATUS TO PENI CILLIN SNOMED Code(s): 68176299 (4) Bacteremia Current Visit: Yes Status: Acute Code(s): R78.81 - BACTEREMIA SNOMED Code(s): 1105577 Plan: 1patient presented to hospital with abdominal pain confusion in this patient w ho is status post recent laparoscopic cholecystectomy now with a CT abdominal pelvis showing increased fluid in the right upper quadrant area with concern for possible biliary leak or developing infection also with evidence of right lower lobe airspace opacity concerning for possible pneumonia. 2HIDA scan biliary leak cannot be excluded GI has been consulted for possible ERCP and stent placement and scheduled for this afternoon 3-patient did have a positive blood culture with staph epi more likely skin contamination, repeat blood culture have been negative so far 4patient is afebrile, the patient white count is Down to 11,000 today, will continue the patient on cefepime Flagyl and vancomycin hopefully transition to oral Ceftin and Flagyl on discharge Dictation was produced using [employer] dictation software. please excuse any grammatical, word or spelling errors.
[2025-04-04 15:50] VITALS: BP 160/89; PULSE 83; TEMP 98.4
--- NOTE | 2025-04-04 16:35 | P.DS ---
Providers Date of admission: 03/25/25 15:43 Expected date of discharge: 04/04/25 Attending physician: Lance Chang Consults: 03/25/25 15:42 Consult Physician Routine Consulting Provider: Emil Holland Consult Reason/Comments: Postop open cholecystectomy, anemia, CYNTHIA Do you want consulting provider notified?: Already Contacted Consult Physician Routine Consulting Provider: Carri Joel Consult Reason/Comments: CYNTHIA Do you want consulting provider notified?: Yes 03/26/25 08:52 Consult Physician Routine Consulting Provider: Neisha Hall Consult Reason/Comments: infection Do you want consulting provider notified?: Yes 03/27/25 00:44 Consult Physician Stat Consulting Provider: Robbie Mendenhall Consult Reason/Comments: Shortness of breath Do you want consulting provider notified?: Yes 03/27/25 12:55 Consult Physician Routine Consulting Provider: Neeta Cornelius Consult Reason/Comments: possible bile leak Do you want consulting provider notified?: Yes Primary care physician: Lance Chang [facility] Course: Diagnosis on discharge: 1. Anemia secondary to postop cholecystectomy 03/18/2025 2. Acute on chronic kidney disease 3. Abnormal CT postcholecystectomy 4. Concerns of possible pneumonia 5. History of coronary artery disease 6. History of GERD 7. History of hyperlipidemia 8. History of prostate disorder 9. History of essential hypertension 10. History of hyperlipidemia 11. Bacteremia likely a skin contamination per ID Hospital course: Jose Saleem is a 79-year-old male patient who presented to the ER with concerns of weakness, abdominal pain and distention. Patient recently underwent an open cholecystectomy [address] Holland he was discharged home. Patient reports he has had decreased appetite and increased pain over the past few days denies fevers. Denies bowel movements denies any nausea or vomiting. Testing in the emergency room performed showing EKG sinus rhythm. Chest x-ray showing mild right subsegmental atelectasis at the diaphragm CT of abdomen and pelvis showing increasing free fluid throughout the abdomen particularly around the liver given recent history of cholecystectomy correlate for biliary leak. Airspace opacities in the lung bases correlate for pneumonia. Lab work completed showing hemoglobin 6.1. Sodium 129, creatinine 3.83 bun 87 troponin negative. Lactic acid 1.1. BNP 955 amylase and lipase within normal limits. Vital signs temp 98.1, heart rate 90, respiratory rate 22, blood pressure 146/79 with pulse ox of 98% on 2 L. Patient has a past medical history of CAD, GERD, hyperlipidemia, hypertension, osteoarthritis, prostate disorder and ex-smoker. At this time patient will be admitted surgical services consulted due to abnormal CT scan and recent cholecystectomy. Infectious disease also consulted due to concerns of infection and elevated white blood cell count. Nephrology services consulted for acute on chronic kidney disease. Patient was started on IV Rocephin in ER. Patient was given 2 units of PRBCs repeat hemoglobin 8.1. Blood culture ordered. On 03/27/2025 patient was seen and examined on the telemetry floor he is alert and oriented x 3 in no apparent distress, he is complaining of abdominal pain, during last night he had episodes of shortness of breath, chest x-ray was done and revealed bibasilar subsegmental atelectasis right more than left and elevated right hemidiaphragm, EKG was done and revealed normal sinus rhythm no acute changes. Patient was given 1 dose of IV Lasix 20 mg albuterol updraft was added to his medication regimen, today white blood count is up to 11.96 hemoglobin 8.5 platelet count 245 BUN 46 creatinine 1.1 ABG revealed pH 7.44 [id number] PO2 123, critical care consultation was added, results of biliary scan and chest x-ray reviewed, awaiting further recommendation from surgery. On 03/28/2025 patient is alert and oriented x 3. Plans for ERCP today per GI services per infectious disease but positive blood culture likely skin contamination no need for vancomycin continue cefepime and Flagyl. Multiple consults following including surgery, GI, pulmonary, infectious disease and nephrology services. Current vital signs temp 98.3, heart rate 78, respiratory rate 18, blood pressure 149/79 with pulse ox 97% on 2 L patient denies chest pain. Patient does report some shortness of breath. Patient denies any nausea or vomiting. Patient denies any urinary burning or frequency On 03/29/2025 patient is alert and oriented x 3. Patient underwent ERCP and underwent stent placement yesterday. Patient still having increased pain today. Patient remains on IV antibiotics. White blood cell increasing to 17.89 current vitals temp 98.2, heart rate 75 respiratory rate 21, blood pressure 128/49 with pulse ox of 95% on 2 L On 03/30/2025 patient was seen and examined on the medical floor he is alert and oriented x 3 in no apparent distress he is still complaining of abdominal discomfort he has mild shortness of breath with activity, otherwise he denies any complaints there is no fever or chills no headache or dizziness no chest pain no cough no nausea or vomiting no diarrhea and no urinary symptoms. White blood count today is up to 20,000, infectious disease following, surgery are following, we will continue with current medication regimen at this time On 03/31/2025 patient is alert and oriented x 3. Patient still complaining of abdominal pain and mild shortness of breath. Current vital signs temp 98.1, rate 82, respiratory rate 20, blood pressure 129/62 with pulse ox of 96% on room air. Patient remains on Maxipime and Levaquin. Patient denies chest pain. Patient denies nausea vomiting or diarrhea. Patient denies any urinary burning or frequency. White blood cells slightly improving to 16.0 alkaline phosphatase increasing to 756, ALT 32 AST 76 and total bili 2.8 On 04/01/2025 patient's alert and oriented x 3. Patient still reporting some abdominal discomfort. Patient remains on IV antibiotics multiple consults following patient denies chest pain. Patient denies nausea vomiting or diarrhea. Patient denies any urinary burning or frequency On 04/02/2025 patient is alert and oriented x 3. Patient reports improvement with abdominal discomfort. Complains of generalized weakness patient remains on IV Vanco cefepime and Levaquin. White blood cells trending down 11.6 today. Current vital signs temp 98.3, heart rate 79, respiratory rate 18, blood pressure 169/72 with a pulse ox of 96% on room air On 04/03/2025 patient was seen and examined on the medical floor he is alert and oriented x 3 in no apparent distress, he is still complaining of mild abdominal pain otherwise he denies any complaints there is no fever or chills no headache or dizziness no chest pain no shortness of breath no cough no nausea or vomiting no diarrhea and no urinary symptoms. White blood count is slightly up today to 13.23 hemoglobin 8.7 platelet count 506 patient remains on IV antibiotic infectious disease following will continue to follow closely On 04/04/2025 patient is alert and oriented x 3. Patient still eager to be DC'd home. Patient is having increased swelling to abdomen and testicles. Patient remains on IV Lasix per nephrology services awaiting final recommendations per nephrology and infectious disease services. Patient remains on IV Vanco Levaquin and Maxipime. Patient denies chest pain or shortness of breath. Patient denies nausea vomiting or diarrhea. Patient denies any urinary burning or frequency Patient was evaluated by Dr. Hall infectious disease, he was cleared for discharge home on a course of Ceftin and Flagyl, he will be followed in our office in 2 to 3 days Patient Condition at Discharge: Serious Plan - Discharge Summary Discharge Rx Participant: No New Discharge Prescriptions: New cefuroxime axetiL [Ceftin] 500 mg PO BID #20 tab metroNIDAZOLE [Flagyl] 500 mg PO TID #30 tab Melatonin 10 mg PO HS 30 Days #30 tab Sertraline [Zoloft] 25 mg PO DAILY 30 Days #30 tab Continue amLODIPine [Norvasc] 2.5 mg PO DAILY 30 Days #30 tablet Aspirin EC [Ecotrin Low Dose] 81 mg PO DAILY 30 Days #30 tab Lactulose [Cephulac] 30 gm PO DAILY PRN 5 Days #150 ml PRN Reason: Constipation lisinopriL 40 mg PO DAILY Tamsulosin [Flomax] 0.4 mg PO DAILY Atorvastatin [Lipitor] 20 mg PO DAILY Pantoprazole [Protonix] 40 mg PO DAILY #30 tab Ondansetron [Zofran] 4 mg PO Q8HR PRN PRN Reason: Nausea And Vomiting carvediloL [Coreg] 3.125 mg PO DIRECTED HYDROcodone/APAP 7.5-325MG [[place] 7.5-325] 1 tab PO Q6HR PRN PRN Reason: Pain Docusate [Colace] 100 mg PO BID PRN PRN Reason: Constipation Discontinued Ibuprofen [Motrin] 600 mg PO Q8HR PRN #30 tab PRN Reason: Pain LORazepam [Ativan] 0.5 mg PO BID PRN 3 Days #6 tab PRN Reason: Anxiety Levofloxacin [Levaquin] 250 mg PO DIRECTED Discharge Medication List Atorvastatin [Lipitor] 20 mg PO DAILY 01/13/25 [History] Tamsulosin [Flomax] 0.4 mg PO DAILY 01/13/25 [History] lisinopriL 40 mg PO DAILY 01/13/25 [History] Aspirin EC [Ecotrin Low Dose] 81 mg PO DAILY 30 Days #30 tab 01/15/25 [Rx] amLODIPine [Norvasc] 2.5 mg PO DAILY 30 Days #30 tablet 01/15/25 [Rx] Pantoprazole [Protonix] 40 mg PO DAILY #30 tab 01/22/25 [Rx] Lactulose [Cephulac] 30 gm PO DAILY PRN 5 Days #150 ml 03/22/25 [Rx] Docusate [Colace] 100 mg PO BID PRN 03/25/25 [History] HYDROcodone/APAP 7.5-325MG [[place] 7.5-325] 1 tab PO Q6HR PRN 03/25/25 [History] Ondansetron [Zofran] 4 mg PO Q8HR PRN 03/25/25 [History] carvediloL [Coreg] 3.125 mg PO DIRECTED 03/25/25 [History] Melatonin 10 mg PO HS 30 Days #30 tab 04/04/25 [Rx] Sertraline [Zoloft] 25 mg PO DAILY 30 Days #30 tab 04/04/25 [Rx] cefuroxime axetiL [Ceftin] 500 mg PO BID #20 tab 04/04/25 [Rx] metroNIDAZOLE [Flagyl] 500 mg PO TID #30 tab 04/04/25 [Rx] Follow up Appointment(s)/Referral(s): Lance Chang MD [Primary Care Provider] - 1-2 days Emil Holland MD [STAFF PHYSICIAN] - 1 Week Discharge/Stand Alone Forms: Who Do I Call?
== END 2025-04-04 17:06 | disposition home or self-care (01) | DRG 393 ==
LOC: EC 12:40 → 3SCARD 15:43
PROVIDERS: ADMIT Internal Medicine; ATTEND Internal Medicine
PROC: 30233N1 Transfusion of Nonautologous Red Blood Cells into Peripheral Vein, Percutaneous Approach (ICD-10-PCS; 2025-03-25)
PROC: 0F798DZ Dilation of Common Bile Duct with Intraluminal Device, Via Natural or Artificial Opening Endoscopic (ICD-10-PCS; principal; 2025-03-28 08:55)
DX: K91.89 Other postprocedural complications and disorders of digestive system (principal); J18.9 Pneumonia, unspecified organism; N17.0 Acute kidney failure with tubular necrosis; K65.9 Peritonitis, unspecified; F05 Delirium due to known physiological condition; E87.1 Hypo-osmolality and hyponatremia; D62 Acute posthemorrhagic anemia; E86.0 Dehydration; N18.31 Chronic kidney disease, stage 3a; I12.9 Hypertensive chronic kidney disease with stage 1 through stage 4 chronic kidney disease, or unspecified chronic kidney disease; E66.9 Obesity, unspecified; K83.09 Other cholangitis; J98.11 Atelectasis; T81.40XA Infection following a procedure, unspecified, initial encounter; K91.840 Postprocedural hemorrhage of a digestive system organ or structure following a digestive system procedure; Z68.38 Body mass index [BMI] 38.0-38.9, adult; E87.70 Fluid overload, unspecified; E86.1 Hypovolemia; E78.5 Hyperlipidemia, unspecified; I25.10 Atherosclerotic heart disease of native coronary artery without angina pectoris; K44.9 Diaphragmatic hernia without obstruction or gangrene; K21.9 Gastro-esophageal reflux disease without esophagitis; N40.0 Benign prostatic hyperplasia without lower urinary tract symptoms; G47.30 Sleep apnea, unspecified; N50.89 Other specified disorders of the male genital organs; R74.8 Abnormal levels of other serum enzymes; I95.9 Hypotension, unspecified; K59.00 Constipation, unspecified; I25.2 Old myocardial infarction; Z79.82 Long term (current) use of aspirin; Z79.899 Other long term (current) drug therapy; Z87.891 Personal history of nicotine dependence; Z85.820 Personal history of malignant melanoma of skin; Z87.11 Personal history of peptic ulcer disease; Z88.0 Allergy status to penicillin
CPT/HCPCS: 36415; 36430; 36600; 43260; 43274; 71045; 74176; 74330; 78226; 80053; 80143; 80202; 82150; 82565; 82805; 83605; 83690; 83735; 83880; 84484; 85025; 85027; 85610; 85730; 86140; 86850; 86900; 86901; 86920; 87040; 87070; 87077; 87186; 87205; 93005; 94640; 94760; 96361; 96365; 99291